=== PATIENT | male | born 1940 | race Caucasian/White ===

== ENCOUNTER 2022-08-08 22:09 | Inpatient (IN) | payer MEDICARE, BC, SELFPAY ==
[2022-08-08 22:28] VITALS: O2SAT 90
[2022-08-08 22:29] VITALS: BP 133/75; PULSE 105; RESP 32; TEMP 36.4; O2SAT 78; BMI 25.8
--- NOTE | 2022-08-08 22:49 | CRLHL7_ITS ---
For Patients: As a result of the Century Cures Act, medical imaging exams and procedure reports are released immediately into your electronic medical record. You may view this report before your referring provider. If you have questions, please contact your health care provider. INDICATION: Shortness of breath TECHNIQUE: Chest radiograph 1 view COMPARISON: 03/29/2022, 03/27/2022 FINDINGS: Mediastinum: The mediastinum is normal in appearance. The heart silhouette is normal in size and morphology. Lung: Diffuse subpleural reticular interstitial opacities are present bilaterally and likely due to pulmonary fibrosis. New confluent ground-glass opacities are noted in the right lung base. Masslike consolidation is present in the right hilar and infrahilar region. No sign of pleural effusion seen. No pneumothorax is identified. Bone and Soft tissue: Unremarkable for age. IMPRESSIONS: 1. New confluent ground-glass opacities are noted in the right lung base. This may be due to pneumonia or aspiration. 2. Masslike consolidation is present in the right hilar and infrahilar region. Assessment with chest CT is recommended. Dictated by Jam Galvez MD @ 08/08/2022 11:21:33 PM Dictated by: Jam Galvez MD @ 08/08/2022 23:21:35 (Electronically Signed)
--- NOTE | 2022-08-08 22:53 | ED_ITS ---
HPI - SOB/Dyspnea General Chief Complaint: Shortness of Breath/Dyspnea Stated Complaint: Short of breath, back pain Time Seen by Provider: 08/08/22 22:49 History of Present Illness HPI Narrative: 82-year-old man presenting to the emergency department with his son Micah with complaint of increasing shortness of breath. Actually with further questioning reveals that probably would not have come in for the dyspnea that he is experiencing was it not for the degree of back pain he is having. Has a history of chronic back pain with apparently repeat ablations last done a few weeks ago; apparently this did not work. Has much worse pain today in similar distribution as prior radiating from his back down his right buttock along the right side of his right thigh to his knee. He began feeling more short of breath around mid afternoon (it is now almost 11:00 p.m.) and this also coincided with the radicular back pain worsening as well. Has not had any fevers. There has been mild cough. His does have COPD and is maintained on 2 L of oxygen. He would figure would be about 90% typically on oxygen and off oxygen with exertion desats into the 70s son says; again this is more of a baseline. He is not having any chest pain. Is not having abdominal pain. Is not having lighthead edness. Former smoker having quit 5-7 years ago. Does not apparently get pain medication beyond [id number] medications like ibuprofen or acetaminophen for pain. I do discuss his history of hypoxia and COPD perhaps this is somewhat related to not receiving opiates. Has been doing albuterol and DuoNebs; the latter sounds to be scheduled. History also of peripheral vascular disease his son makes sure to mention Related Data Home Medications Medication Instructions Recorded Confirmed albuterol sulfate 90 mcg/actuation 1 inh inhalation Q6H PRN 05/09/22 08/09/22 breath activated powder inhaler amlodipine 2.5 mg tablet 2.5 mg PO DAILY 05/09/22 08/09/22 aspirin 81 mg tablet,delayed 81 mg PO DAILY 05/09/22 08/09/22 release cholecalciferol (vitamin D3) 25 100 mcg PO DAILY 05/09/22 08/09/22 mcg (1,000 unit) tablet cilostazol 50 mg tablet 50 mg PO BID 05/09/22 08/09/22 disulfiram 250 mg tablet 250 mg PO BID 05/09/22 05/09/22 fluticasone fur. 100 mcg-umeclid 1 inh inhalation DAILY 05/09/22 08/09/22 62.5 mcg-vilant 25 mcg inhalat.powder hydrochlorothiazide 25 mg tablet 25 mg PO DAILY 05/09/22 08/09/22 ipratropium 0.5 mg-albuterol 3 mg 1 ml inhalation Q6H PRN 05/09/22 08/09/22 (2.5 mg base)/3 mL nebulization soln magnesium oxide 400 mg (241.3 mg 400 mg PO DAILY 05/09/22 08/09/22 magnesium) tablet multivitamin 1 tab PO QAM 05/09/22 08/09/22 omega-3 fatty acids 1,250 mg 1,250 mg PO QDAY 05/09/22 08/09/22 capsule omeprazole 40 mg capsule,delayed 40 mg PO BID 05/09/22 08/09/22 release sildenafil (pulm.hypertension) 20 20 mg PO TID 05/09/22 08/09/22 mg tablet spironolactone 25 mg tablet 25 mg PO DAILY 05/09/22 08/09/22 Previous Rx's Medication Instructions Recorded lorazepam 1 mg tablet 1 mg PO TID PRN agitation #90 tabs 06/13/22 sertraline 100 mg tablet 100 mg PO QDAY Anxiety #90 tabs 07/09/22 losartan 100 mg tablet 100 mg PO DAILY #90 tabs 07/18/22 metformin 500 mg tablet 500 mg PO DAILY #30 tabs 08/08/22 Allergies Allergy/AdvReac Type Severity Reaction Status Date / Time Sulfa Antibiotics Allergy Unknown Uncoded 05/18/22 11:18 Review of Systems Status of ROS: Reports: 10 or more systems reviewed and unremarkable except as noted in History and below [facility] Medical History Anxiety History of adenomatous polyp of colon Surgical History History of decompression of both ulnar nerves History of lumbar discectomy History of phacoemulsification of cataract of both eyes with intraocular lens implantation History of thumb surgery Social History Narrative: , lives with his in [place]. is healthcare power of regulatory attorney. Code status is DNR. 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 Long-standing history of cigarette smoking. Longstanding history of alcohol abuse Retired Highest level of school completed/degree received: Bachelor's degree Smoking Status: Former smoker What tobacco products do you use: cigarettes Smoking quit date/years: <= 15 years ago Do you use any of these nicotine containing products: None Second hand tobacco smoke exposure: No How often do you have a drink containing alcohol: 2-3 times a week Alcohol type: hard liquor Alcohol type details: whiskey How many standard drinks containing alcohol do you have on a typical day: 1 or 2 How often do you have six or more drinks on one occasion: Never AUDIT-C Alcohol total score: 3 Non-prescribed substance use: denies use Caffeine: Yes service: Yes Exam Narrative: Exam Narrative: Clearly dyspneic. Quite labored and tachypneic in breathing. Speaks a few words at a time. Cranial nerves 2-12 look to be intact Head is atraumatic. Thinning of hair. Neck is supple. I do not appreciate JVD. Lungs with diminished breath sounds and diffuse mild crepitus. No wheeze or stridor. Oropharynx is dry, a little hyperemic. Upper denture plate. Cardiovascular is tachycardic. Appears to be in a regular rhythm. Abdomen is protuberant soft and nontender Lower extremities with chronic discoloration consistent with for vascular disease. Moves all extremities well. Const: Vital Signs, click to edit/add: Vital Signs - 24 hr 08/08/22 22:29 08/08/22 22:28 08/09/22 00:00 Temperature 97.6 F 97.6 F Pulse Rate [Right Pulse Oximeter] 105 H Respiratory Rate 32 H Blood Pressure [Ri ght Upper Arm] 133/75 Pulse Oximetry 78 L 90 Oxygen Delivery Me thod Room Air Oxygen Flow Rate 08/09/22 02:15 08/09/22 01:00 08/08/22 23:00 Temperature Pulse Rate [Right Pulse Oximeter] 97 90 Respiratory Rate 26 H 28 H 30 H Blood Pressure [Ri ght Upper Arm] 122/70 125/70 Pulse Oximetry 90 89 90 Oxygen Delivery Me thod Nasal Cannula Nasal Cannula Nasal Cannula Oxygen Flow Rate 3 3 4 Documenting provider has reviewed patient's vital signs: yes Course Reevaluation(s) Reevaluation #1: Placed on phototypesetting equipment monitor and oximetry. Given DuoNeb and Solu-Medrol. Reevaluation #2: On re-evaluation I am surprised to see him rather relaxed. We have managed to turn down oxygen to 0. At rest he is satting about 90. He is relatively comfortable with regard to pain. I think bringing this down must have helped underlying anxiety and respiratory distress. [place] 2 tabs was not helpful. Was finally given 4 mg of morphine this seems to have been effective. Consultations Consultation #1: I have already contacted hospitalist anticipating admission. Ultimately admitted to overnight hospitalist Vital Signs Vital signs: Initial Vital Signs Pulse Oximetry 90 08/08/22 22:28 Vital Signs Pulse Oximetry 90 08/08/22 22:28 Temperature 98.8 F 08/09/22 11:23 Pulse Rate 78 08/09/22 11:23 Respiratory Rate 22 08/09/22 11:23 Blood Pressure 113/75 08/09/22 11:23 Pulse Oximetry 91 08/09/22 11:23 Oxygen Delivery Method 08/09/22 11:23 Oxygen Flow Rate 3.5 08/09/22 11:23 MDM - SOB/Dyspnea MDM Narrative Medical decision making narrative: Presumed COPD exacerbation. However white count elevated over 16,000. Chest x-ray by my read suggests infiltrative process in the right lower lung and prominence in the right perihilar area question of mass on radiology over-read. Returned for chest CT. Given degree of pain with radiation to the right leg I did request extending imaging to the lumbar spine. This does show some degenerative changes and broad-based disc protrusions at a number of levels and central canal stenosis. I do review images. Chest CT confirms suspected pneumonia no apparent mass. Emphysematous changes. There is a pulmonary nodule which apparently has been noted prior looks to be unchanged. Initiated on Rocephin and azithromycin. Medical Records Attestation: I reviewed the patient's medical records. Lab Data Attestation: I reviewed the patient's lab results. Labs: Lab Results 08/08/22 08/08/22 08/08/22 Range/Units 22:15 22:20 22:20 WBC (4.50-11.00) K/uL RBC (4.30-5.90) m/uL Hgb (13.5-17.5) gm/dL Hct (37.0-53.0) % MCV (80-100) fL MCH (26-34) pg MCHC (32-36) gm/dL RDW Coeff of [place] (11.5-15.5) % Plt Count (140-440) K/uL Neut % (Auto) (42.0-72.0) % Lymph % (Auto) (20-44) % [place] % (Auto) (0.0-11.0) % Eos % (Auto) (0.0-7.0) % Baso % (Auto) (0.0-3.0) % Neut # (Auto) (1.7-7.0) K/uL Lymph # (Auto) (0.90-2.90) K/uL [place] # (Auto) (0.00-0.90) K/UL Eos # (Auto) (0.00-0.50) K/uL Baso # (Auto) (0.00-0.30) K/uL Abs Immat Gran (auto) (0.00-0.30) K/uL VBG pH 7.398 (7.32-7.43) VBG pCO2 47 (40-50) mmHG VBG pO2 28.3 (25-47) mmHG VBG HCO3 29 H (21-28) mmol/L Sodium (135-149) mmol/L Potassium (3.6-5.1) mmol/L Chloride (96-114) mmol/L Carbon Dioxide (20-32) mmol/L BUN (7-30) mg/dL Creatinine (0.5-1.5) mg/dL Estimated Creat Clear Estimated GFR ml/min Glucose (60-115) mg/dL Calcium (8.4-10.6) mg/dL Magnesium (1.5-2.6) mg/dL Troponin I < 0.01 L (0.01-0.04) ng/mL C-Reactive Protein (0.5-1.0) mg/dL NT-Pro-B Natriuret Pep 67 (0-450) PG/mL SARS-CoV-2 (PCR) Negative SARS-CoV-2 (Negative) Influenza Type A (PCR) Negative PCR FLU A (Negative) Influenza Type B (PCR) Negative PCR FLU B (Negative) POC Troponin I (0.01-0.04) ng/ml 08/08/22 08/08/22 08/09/22 Range/Units 22:20 22:20 01:10 WBC 16.49 H (4.50-11.00) K/uL RBC 4.69 (4.30-5.90) m/uL Hgb 13.7 (13.5-17.5) gm/dL Hct 42.1 (37.0-53.0) % MCV 90 (80-100) fL MCH 29 (26-34) pg MCHC 33 (32-36) gm/dL RDW Coeff of [place] 14.4 (11.5-15.5) % Plt Count 213 (140-440) K/uL Neut % (Auto) 93.8 H (42.0-72.0) % Lymph % (Auto) 2.1 L (20-44) % [place] % (Auto) 3.3 (0.0-11.0) % Eos % (Auto) 0.0 (0.0-7.0) % Baso % (Auto) 0.1 (0.0-3.0) % Neut # (Auto) 15.50 H (1.7-7.0) K/uL Lymph # (Auto) 0.30 L (0.90-2.90) K/uL [place] # (Auto) 0.50 (0.00-0.90) K/UL Eos # (Auto) 0.00 (0.00-0.50) K/uL Baso # (Auto) 0.00 (0.00-0.30) K/uL Abs Immat Gran (auto) 0.12 (0.00-0.30) K/uL VBG pH (7.32-7.43) VBG pCO2 (40-50) mmHG VBG pO2 (25-47) mmHG VBG HCO3 (21-28) mmol/L Sodium 137 (135-149) mmol/L Potassium 4.1 (3.6-5.1) mmol/L Chloride 101 (96-114) mmol/L Carbon Dioxide 28 (20-32) mmol/L BUN 22 (7-30) mg/dL Creatinine 1.0 (0.5-1.5) mg/dL Estimated Creat Clear 60.83 Estimated GFR 76 ml/min Glucose 151 H (60-115) mg/dL Calcium 9.5 (8.4-10.6) mg/dL Magnesium 1.7 (1.5-2.6) mg/dL Troponin I (0.01-0.04) ng/mL C-Reactive Protein < 0.5 L (0.5-1.0) mg/dL NT-Pro-B Natriuret Pep (0-450) PG/mL SARS-CoV-2 (PCR) (Negative) Influenza Type A (PCR) (Negative) Influenza Type B (PCR) (Negative) POC Troponin I 0.01 (0.01-0.04) ng/ml 08/09/22 Range/Units 01:10 WBC (4.50-11.00) K/uL RBC (4.30-5.90) m/uL Hgb (13.5-17.5) gm/dL Hct (37.0-53.0) % MCV (80-100) fL MCH (26-34) pg MCHC (32-36) gm/dL RDW Coeff of [place] (11.5-15.5) % Plt Count (140-440) K/uL Neut % (Auto) (42.0-72.0) % Lymph % (Auto) (20-44) % [place] % (Auto) (0.0-11.0) % Eos % (Auto) (0.0-7.0) % Baso % (Auto) (0.0-3.0) % Neut # (Auto) (1.7-7.0) K/uL Lymph # (Auto) (0.90-2.90) K/uL [place] # (Auto) (0.00-0.90) K/UL Eos # (Auto) (0.00-0.50) K/uL Baso # (Auto) (0.00-0.30) K/uL Abs Immat Gran (auto) (0.00-0.30) K/uL VBG pH (7.32-7.43) VBG pCO2 (40-50) mmHG VBG pO2 (25-47) mmHG VBG HCO3 (21-28) mmol/L Sodium (135-149) mmol/L Potassium (3.6-5.1) mmol/L Chloride (96-114) mmol/L Carbon Dioxide (20-32) mmol/L BUN (7-30) mg/dL Creatinine (0.5-1.5) mg/dL Estimated Creat Clear Estimated GFR ml/min Glucose (60-115) mg/dL Calcium (8.4-10.6) mg/dL Magnesium (1.5-2.6) mg/dL Troponin I 0.02 (0.01-0.04) ng/mL C-Reactive Protein (0.5-1.0) mg/dL NT-Pro-B Natriuret Pep (0-450) PG/mL SARS-CoV-2 (PCR) (Negative) Influenza Type A (PCR) (Negative) Influenza Type B (PCR) (Negative) POC Troponin I (0.01-0.04) ng/ml ECG Data Attestation: I personally reviewed and interpreted this ECG as follows: (sinus t achycardia 105) Discharge Plan Discharge Clinical Impression: Chronic radicular low back pain, Chronic obstructive pulmonary disease with acute exacerbation, Pneumonia Patient Disposition: Admitted As Inpatient Condition: Improved
[2022-08-08 23:00] VITALS: RESP 30; O2SAT 90
[2022-08-08 23:12] LABS: PCR FLU A Negative PCR FLU A (Negative); PCR FLU B Negative PCR FLU B (Negative)
[2022-08-08] MEDS: METHYLPREDNISOLONE SOD SUCC 62.5 MG/ML (125) 93.75 MG IVP (23:16)
[2022-08-08] MEDS: IPRAT-ALBUT 0.5-2.5 MG/3 ML NEB 1 NEB IH (23:16)
[2022-08-08 23:22] LABS: Basophils Percent Auto 0.1 % (0.0-3.0); HCO3 VBG 29 mmol/L (21-28); Hematocrit 42.1 % (37.0-53.0); Hemoglobin* 13.7 gm/dL (13.5-17.5); Immature Granulocytes Abs Auto 0.12 K/uL (0.00-0.30); Lymphocytes Percent Auto 2.1 % (20-44); Mean Corpuscular HGB Conc 33 gm/dL (32-36); Mean Corpuscular Hemoglobin 29 pg (26-34); Mean Corpuscular Volume 90 fL (80-100); Monocytes Percent Auto 3.3 % (0.0-11.0); Neutrophils Percent Auto 93.8 % (42.0-72.0); PCO2 VBG 47 mmHG (40-50); PO2 VBG 28.3 mmHG (25-47); Platelet Count* 213 K/uL (140-440); RDW Coefficient of Variation % 14.4 % (11.5-15.5); Red Blood Count 4.69 m/uL (4.30-5.90); White Blood Count* 16.49 K/uL (4.50-11.00); pH VBG 7.398 (7.32-7.43)
[2022-08-08 23:24] LABS: Slide Review Reflex No
[2022-08-08] MEDS: HYDROCODONE-ACETAMIN 5-325 MG 1 TAB 2 TAB PO (23:25)
[2022-08-08 23:26] LABS: Chloride* 101 mmol/L (96-114); Potassium* 4.1 mmol/L (3.6-5.1); Sodium* 137 mmol/L (135-149)
[2022-08-08 23:28] LABS: Est. Creatinine Clearance* 60.83; Estimated Glomerular Filt Rate 76 ml/min
[2022-08-08 23:29] LABS: Blood Urea Nitrogen* 22 mg/dL (7-30); Carbon Dioxide* 28 mmol/L (20-32); Glucose* 151 mg/dL (60-115)
[2022-08-08 23:30] LABS: Calcium* 9.5 mg/dL (8.4-10.6); Magnesium* 1.7 mg/dL (1.5-2.6)
[2022-08-08 23:32] LABS: SARS PCR* Negative SARS-CoV-2 (Negative)
[2022-08-08 23:32] LABS: C Reactive Protein* < 0.5 mg/dL (0.5-1.0)
[2022-08-08 23:38] LABS: NT Pro B Type NatriureticPept* 67 PG/mL (0-450)
[2022-08-08 23:42] LABS: Troponin I* < 0.01 ng/mL (0.01-0.04)
[2022-08-09] VITALS (13 sets, daily range): BP systolic 113–171; BP diastolic 51–75; PULSE 74–97; RESP 18–28; TEMP 36.3–37.1; O2SAT 89–96; BMI 24.4
--- NOTE | 2022-08-09 00:07 | CRLHL7_ITS ---
For Patients: As a result of the Century Cures Act, medical imaging exams and procedure reports are released immediately into your electronic medical record. You may view this report before your referring provider. If you have questions, please contact your health care provider. INDICATION: Chest pain TECHNIQUE: CT chest with and without i.v. contrast during the venous phase. Coronal and sagittal reformats were obtained. CONTRAST: 95 mL Isovue 370 COMPARISON: 03/24/2022 FINDINGS: Cardiovascular: The heart has an unremarkable appearance and size. The pulmonary arteries are unremarkable in appearance. No sign of aneurysm or dissection in the thoracic aorta. Moderate atherosclerotic calcifications are noted in the coronary arteries. Mediastinum: No mass or adenopathy seen. Lung: Airspace infiltrates and ground-glass opacities are present within the right middle lobe and small amount of peribronchial infiltrates present in the right upper lobe. Focal subpleural consolidation is present in the posterior right lower lobe with marginal architectural distortions. Severe centrilobular emphysema is noted bilaterally. There is an 8 mm nodule in the medial right middle lobe on image 64, series 4 that is unchanged from prior exam. Pleura and pericardium: No sign of pleural effusion seen. No significant pericardial effusion is present. Chest wall and axilla: No mass or adenopathy seen. Bone: Unremarkable for age. Upper abdomen: Unremarkable. IMPRESSIONS: 1. Airspace infiltrates and ground-glass opacities are present within the right middle lobe and small amount of peribronchial infiltrates present in the right upper lobe. Findings are likely due to pneumonia. 2. Focal subpleural consolidation is present in the posterior right lower lobe with marginal architectural distortions. The overall appearance is similar to prior exam and may be due to rounded atelectasis. 3. Moderate atherosclerotic calcifications are noted in the coronary arteries. 4. There is an 8 mm nodule in the medial right middle lobe on image 64, series 4 that is unchanged from prior exam. Continued imaging surveillance is recommended. Dictated by Jam Galvez MD @ 08/09/2022 1:03:13 AM Please note that all CT scans at this facility use dose modulation, iterative reconstruction, and/or weight-based dosing when appropriate to reduce radiation dose to as low as reasonably achievable. Dictated by: Jam Galvez MD @ 08/09/2022 01:03:24 (Electronically Signed)
--- NOTE | 2022-08-09 00:33 | CRLHL7_ITS ---
For Patients: As a result of the Century Cures Act, medical imaging exams and procedure reports are released immediately into your electronic medical record. You may view this report before your referring provider. If you have questions, please contact your health care provider. INDICATION: Low back lumbar spine pain TECHNIQUE: CT lumbar spine without i.v. contrast. Coronal and sagittal reformats were obtained. COMPARISON: None FINDINGS: Alignment: Unremarkable. Bone: No acute fractures or aggressive bone lesions are identified. Disc: Moderate degenerative disc narrowing is seen at L2-3 and L4-5. Vacuum phenomena seen at L4-5. There are broad-based disc protrusions present from L2-3 through L5-S1 with central canal stenosis noted at L3-4 and L4-5. Moderate bilateral facet osteoarthritis is present at L3-4. Severe bilateral facet osteoarthritis is present at L4-5 and L5-S1. Soft tissue: The perivertebral soft tissues and visualized retroperitoneum are unremarkable in appearance. IMPRESSION: 1. There are broad-based disc protrusions present from L2-3 through L5-S1 with central canal stenosis noted at L3-4 and L4-5. These findings can be better assessed by MRI if needed. Dictated by Jam Galvez MD @ 08/09/2022 1:05:18 AM Please note that all CT scans at this facility use dose modulation, iterative reconstruction, and/or weight-based dosing when appropriate to reduce radiation dose to as low as reasonably achievable. Dictated by: Jam Galvez MD @ 08/09/2022 01:05:24 (Electronically Signed)
[2022-08-09 01:47] LABS: Troponin I* 0.02 ng/mL (0.01-0.04)
[2022-08-09 02:20] LABS: Troponin, Point-of-Care* 0.01 ng/ml (0.01-0.04)
[2022-08-09] MEDS: MORPHINE 4 MG/ML INJ IVP (02:33)
[2022-08-09] MEDS: AZITHROMYCIN 250 MG TABLET 500 MG PO (03:50)
[2022-08-09] MEDS: cefTRIAXone 1 GM in 0.9 % SODIUM CHLORIDE Mini-bag 100 ML IVPB (03:50)
[2022-08-09] MEDS: ACETAMINOPHEN 500 MG TABLET 1000 MG PO ×3 (04:00→15:52)
[2022-08-09] MEDS: IPRAT-ALBUT 0.5-2.5 MG/3 ML NEB 1 NEB IH ×4 (04:00→21:04)
--- NOTE | 2022-08-09 04:03 | W.PM.CROSSCO ---
Assessment and Plan Assessment and plan (1) Respiratory failure: Status: Acute [facility] was contacted with request of consultation on Luis Antonio Amber Chief complaint: Shortness of breath, worsening HPI: Patient is confused and is not able to give history. History is taken from EMR and ER physician. Is an 82-year-old male with history of baseline dementia, type 2 diabetes mellitus. Is brought in by his son for increasing shortness of breath. There are no reported fevers with increasing cough and phlegm production. He also has a history of chronic lower back pain that apparently has been worsening with radiation down the right leg. The details of this pain I could not gather because patient is not able to give any history. At baseline he uses 2 L of oxygen and has pulmonary hypertension and is on medications for that. No reports of chest pain or abdominal pain. No nausea vomiting lightheadedness. He is a former smoker. Has not had any pain medications other than agii-sdh-[id number] meds. In the emergency room he was found to be hypoxic with room air. Started on oxygen support, given Solu-Medrol, albuterol and duo nebs. Chest x-ray with multifocal infiltrates. Also concern for mediastinal mass. CT chest showed rounded atelectasis, peribronchial infiltrates in the right upper and lower lobes. 8 mm nodule in the right midlung zone. CT lumbar spine showed multilevel disc protrusions with spinal canal stenosis that was unchanged from previous imaging. Home Medications: see EMR Pertinent Medical History: See EMR Pertinent Social History: See EMR Exam (performed via interactive video with assistance of bedside nurse; ): General: alert, oriented x2, cooperative, no acute distress HEENT: oral mucosa pink and moist without erythema Lungs: Wheezes in bilateral upper lung zones, coarse breath sounds most of the right lung schwarz CV: regular rate and rhythm without loud murmur rub or gallop Abd: denies tenderness and does not exhibit signs of pain with palpation done by bedside nurse Ext: no pitting edema noted Skin: no rashes, bruises or lesions. Neuro:[alert, oriented x 2. facial muscles grossly intact, moves all extremities without any significant focal deficit appreciated by nurse. Pupils round reactive to light. Labs and imaging were reviewed Assessment and Plan: Acute multifocal community-acquired pneumonia COPD exacerbation secondary to pneumonia Acute on chronic hypoxic respiratory failure secondary to above (2 L at baseline) Severe pulmonary hypertension on sildenafil COVID-negative. CT chest and chest x-ray reviewed with ER physician. Not able to review images myself. Oxygen support. As needed Xopenex, scheduled DuoNebs, budesonide, Scheduled prednisone. Omeprazole in the settings of hypoxia and prednisone use. Blood cultures and sputum cultures ordered. Continue with ceftriaxone and Zithromax. Incentive spirometry. Continue Aldactone, sildenafil Acute on chronic low back pain with lumbar radiculopathy CT lumbar spine reviewed, unchanged. Multimodal pain regimen. PT OT. Lidoderm patch. Scheduled Tylenol. As needed oxycodone. Altered mentation likely toxic metabolic encephalopathy related to multiple factors (baseline dementia, lack of sleep, use of morphine, pneumonia) Treat the cause: We will try to avoid benzodiazepines and opioids as much as possible Patient is not aggressive at this time Minimal interventions at night time Type 2 diabetes mellitus Continue to hold oral hypoglycemics. Also sliding scale Hypertension Hyperlipidemia Anxiety Continue losartan, rosuvastatin and sertraline once medications reconciled IV fluids: None Diet:Regular DVT prophylaxis: Lovenox CODE STATUS: Full code (will need to be addressed with family in the morning) Thank you for including [facility] in the patients care. This service is available for further assistance as requested by your care team by calling [phone].
[2022-08-09] MEDS: LIDOCAINE 5% PATCH 1 PATCH TRANSDERMA (04:15)
[2022-08-09] MEDS: GABAPENTIN 100 MG CAPSULE PO ×3 (08:45→20:38)
[2022-08-09] MEDS: OMEPRAZOLE 20 MG CAPSULE DR PO (08:45)
[2022-08-09] MEDS: predniSONE 20 MG TABLET 40 MG PO (08:45)
--- NOTE | 2022-08-09 10:41 | REH.PT ---
PT orders received, chart reviewed. Pt up amb ind in room without AD, AMb, Ind with transfers sit<>stand and supine<>sit. No apparent balance abnormalities. Skilled PT not indicated at this time. D/C PT.
[2022-08-09] MEDS: levoFLOXacin 500 MG TABLET PO (14:28)
--- NOTE | 2022-08-09 15:05 | P.IMHP_ITS ---
Hospitalist- H&P: HPI History of Present Illness Date Seen: 08/09/22 Chief complaint: Short of breath, back pain Narrative: Carlos Hernández is a 82 year old male admitted through the emergency department this morning with back pain and shortness of breath. Patient has known chronic back pain and known COPD which is oxygen dependent on 2 L per nasal cannula at home. Both these problems have recently gotten worse. No apparent new injury. No fever. Patient has dementia and is unable to give much history. History is obtained from the son in the emergency department and from the medical record. Patient was hospitalized here in March with COVID, pneumothorax, subcutaneous emphysema and fairly difficult time with delirium. Review of Systems Narrative: Unable to to obtain due to altered mental status [facility] Medical History (Updated 08/09/22 @ 15:17 by Noe Brasher MD) Anxiety History of adenomatous polyp of colon Surgical History History of decompression of both ulnar nerves History of lumbar discectomy History of phacoemulsification of cataract of both eyes with intraocular lens implantation History of thumb surgery Social History (Updated 08/09/22 @ 15:12 by Noe Brasher MD) Narrative: , lives with his in [place]. is healthcare power of assistant county attorney. Code status is DNR. 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 Long-standing history of cigarette smoking. Longstanding history of alcohol abuse Retired Highest level of school completed/degree received: Bachelor's degree Smoking Status: Former smoker What tobacco products do you use: cigarettes Smoking quit date/years: <= 15 years ago Do you use any of these nicotine containing products: None Second hand tobacco smoke exposure: No How often do you have a drink containing alcohol: 2-3 times a week Alcohol type: hard liquor Alcohol type details: misty How many standard drinks containing alcohol do you have on a typical day: 1 or 2 How often do you have six or more drinks on one occasion: Never AUDIT-C Alcohol total score: 3 Non-prescribed substance use: denies use Caffeine: Yes service: Yes Meds Home Medications and Allergies Home Medications Medication Instructions Recorded Confirmed Type albuterol sulfate 90 mcg/actuation 1 inh inhalation Q6H PRN 05/09/22 08/09/22 History breath activated powder inhaler amlodipine 2.5 mg tablet 2.5 mg PO DAILY 05/09/22 08/09/22 History aspirin 81 mg tablet,delayed 81 mg PO DAILY 05/09/22 08/09/22 History release cholecalciferol (vitamin D3) 25 100 mcg PO DAILY 05/09/22 08/09/22 History mcg (1,000 unit) tablet cilostazol 50 mg tablet 50 mg PO BID 05/09/22 08/09/22 History disulfiram 250 mg tablet 250 mg PO BID 05/09/22 05/09/22 History fluticasone fur. 100 mcg-umeclid 1 inh inhalation DAILY 05/09/22 08/09/22 History 62.5 mcg-vilant 25 mcg inhalat.powder hydrochlorothiazide 25 mg tablet 25 mg PO DAILY 05/09/22 08/09/22 History ipratropium 0.5 mg-albuterol 3 mg 1 ml inhalation Q6H PRN 05/09/22 08/09/22 History (2.5 mg base)/3 mL nebulization soln magnesium oxide 400 mg (241.3 mg 400 mg PO DAILY 05/09/22 08/09/22 History magnesium) tablet multivitamin 1 tab PO QAM 05/09/22 08/09/22 History omega-3 fatty acids 1,250 mg 1,250 mg PO QDAY 05/09/22 08/09/22 History capsule omeprazole 40 mg capsule,delayed 40 mg PO BID 05/09/22 08/09/22 History release sildenafil (pulm.hypertension) 20 20 mg PO TID 05/09/22 08/09/22 History mg tablet spironolactone 25 mg tablet 25 mg PO DAILY 05/09/22 08/09/22 History Allergies Allergy/AdvReac Type Severity Reaction Status Date / Time Sulfa Antibiotics Allergy Unknown Uncoded 05/18/22 11:18 Exam Narrative: Exam Narrative: He is restless and attempting to get out of his chair. He is not oriented to his circumstances, place day or date. He is unable to report any symptoms at this time. Head is without trauma. Speech is normal. No dysarthria. Oropharynx is normal. There is no facial asymmetry. Pupils are equal round reactive to light. Extraocular movements are full. Neck is supple out mass or adenopathy. Respirations with diminished breath sounds throughout all lung schwarz. Few basilar crackles more on the right than the left. Cardiovascular: S1, S2, regular rate and rhythm. Abdomen: Bowel sounds active. Abdomen is soft without tenderness or mass. Extremities with diminished pedal pulses. No significant edema. Const: Vital Signs, click to edit/add: Vital Signs - 24 hr 08/08/22 22:29 08/08/22 22:28 08/09/22 00:00 Temperature 97.6 F 97.6 F Pulse Rate Pulse Rate [Pulse Oximeter] Pulse Rate [Right Pulse Oximeter] 105 H Respiratory Rate 32 H Blood Pressure [Le ft Arm] Blood Pressure [Ri ght Arm] Blood Pressure [Ri ght Upper Arm] 133/75 Pulse Oximetry 78 L 90 Oxygen Delivery Me thod Room Air Oxygen Flow Rate 08/09/22 03:12 08/09/22 02:15 08/09/22 01:00 Temperature 98.1 F Pulse Rate Pulse Rate [Pulse Oximeter] Pulse Rate [Right Pulse Oximeter] 89 97 90 Respiratory Rate 28 H 26 H 28 H Blood Pressure [Le ft Arm] Blood Pressure [Ri ght Arm] Blood Pressure [Ri ght Upper Arm] 125/70 122/70 125/70 Pulse Oximetry 89 90 89 Oxygen Delivery Me thod Nasal Cannula Nasal Cannula Nasal Cannula Oxygen Flow Rate 3 3 3 08/08/22 23:00 08/09/22 03:30 08/09/22 03:43 Temperature 98.3 F Pulse Rate Pulse Rate [Pulse Oximeter] 85 Pulse Rate [Right Pulse Oximeter] Respiratory Rate 30 H 26 H Blood Pressure [Le ft Arm] 117/67 Blood Pressure [Ri ght Arm] Blood Pressure [Ri ght Upper Arm] Pulse Oximetry 90 92 92 Oxygen Delivery Me thod Nasal Cannula Nasal Cannula Nasal Cannula Oxygen Flow Rate 4 3 3 08/09/22 03:43 08/09/22 04:12 08/09/22 04:12 Temperature 98.3 F Pulse Rate Pulse Rate [Pulse Oximeter] 85 Pulse Rate [Right Pulse Oximeter] Respiratory Rate 26 H 26 H Blood Pressure [Le ft Arm] 117/67 Blood Pressure [Ri ght Arm] Blood Pressure [Ri ght Upper Arm] Pulse Oximetry 92 92 92 Oxygen Delivery Me thod Nasal Cannula Nasal Cannula Oxygen Flow Rate 3 3 08/09/22 08:06 08/09/22 08:02 08/09/22 08:06 Temperature 97.3 F L Pulse Rate 88 Pulse Rate [Pulse Oximeter] 90 Pulse Rate [Right Pulse Oximeter] Respiratory Rate 24 Blood Pressure [Le ft Arm] Blood Pressure [Ri ght Arm] 121/65 Blood Pressure [Ri ght Upper Arm] Pulse Oximetry 92 92 Oxygen Delivery Me thod Nasal Cannula Oxygen Flow Rate 3 08/09/22 08:06 08/09/22 11:23 Temperature 98.8 F Pulse Rate Pulse Rate [Pulse Oximeter] 78 Pulse Rate [Right Pulse Oximeter] Respiratory Rate 22 Blood Pressure [Le ft Arm] Blood Pressure [Ri ght Arm] 113/75 Blood Pressure [Ri ght Upper Arm] Pulse Oximetry 92 91 Oxygen Delivery Me thod Nasal Cannula Nasal Cannula Oxygen Flow Rate 3.5 3.5 Documenting provider has reviewed patient's vital signs: yes Hospitalist - H&P: Result Labs Labs: Short CBC 08/08/22 Range/Units 22:20 WBC 16.49 H (4.50-11.00) K/uL Hgb 13.7 (13.5-17.5) gm/dL Hct 42.1 (37.0-53.0) % Plt Count 213 (140-440) K/uL BMP 08/08/22 22:20 Sodium 137 Potassium 4.1 Chloride 101 Carbon Dioxide 28 BUN 22 Creatinine 1.0 Glucose 151 H Calcium 9.5 Cardiac Enzymes 08/08/22 08/09/22 Range/Units 22:20 01:10 Troponin I < 0.01 L 0.02 (0.01-0.04) ng/mL Assessment and Plan Assessment and plan (1) Pneumonia: Problem comment: Apparent new infiltrate overriding chronic pulmonary infiltrates on imaging. Clinically consistent with pneumonia diagnosis. Initial treatment with ceftriaxone and azithromycin but switched to Levaquin orally because patient keeps pulling IV out. Status: Acute (2) Chronic obstructive pulmonary disease with acute exacerbation: Problem comment: Chronically hypoxic with increased oxygen need. Status: Acute (3) Low back pain: Problem comment: Imaging of the back show significant lumbar disc disease and lumbar spinal stenosis. Status: Acute (4) Delirium: Problem comment: Patient needs increased supervision as his restlessness and behaviors continue to put him at risk. Status: Acute (5) Generalized anxiety disorder: Status: Acute (6) Dementia: Status: Acute (7) Coronary artery disease: Status: Acute (8) Hypertension: Status: Acute (9) Hyperlipidemia: Status: Acute (10) Gout: Status: Acute (11) Peripheral arterial disease: Status: Acute (12) Pulmonary hypertension: Status: Acute (13) Pneumothorax: Status: Acute (14) Type 2 diabetes mellitus: Status: Acute Plan Admit for treatment of pneumonia, management of hypoxia and delirium. Total time spent today is 75 minutes, 65 minutes in coordination of care, reviewing records and discussing with other providers management of delirium
[2022-08-09] MEDS: OXYCODONE 5 MG TABLET PO (16:54)
--- NOTE | 2022-08-09 18:41 | PC.NURSE ---
Patient was extremely confused and pulling on everything he comes across in his room. One-on-one nursing care instituted and moved to room closer to nursing station for easy monitoring. Patient disconnected the oxygen tubings and said he want to meet his . Requested for pain medication for back pain of 07/21. Tab Oxycodone 5mg given. Re-oriented several times due to his confused status. patient is current on 3.5L oxygen and the O2 is around 93%.V/S were WNL except Bp which recorded as 160/51.
[2022-08-09] MEDS: ENOXAPARIN 40 MG/0.4 ML INJ SUBCUT (20:38)
[2022-08-09] MEDS: BUDESONIDE 0.5 MG/2ML NEB NEB (20:38)
[2022-08-10] MEDS: ACETAMINOPHEN 500 MG TABLET 1000 MG PO ×2 (00:34→08:56)
[2022-08-10] MEDS: OLANZapine 5 MG/ML inj IM (00:34)
[2022-08-10] MEDS: OXYCODONE 5 MG TABLET PO (00:35)
[2022-08-10 03:00] VITALS: RESP 20
[2022-08-10 05:56] VITALS: PULSE 71; RESP 20; O2SAT 92
[2022-08-10] MEDS: OMEPRAZOLE 20 MG CAPSULE DR PO (06:41)
--- NOTE | 2022-08-10 06:50 | PC.NURSE ---
: Pt pleasant. Not compliant with lidocaine patch. LSCTA, dim in bases. Pt on 5L O2 via NC, maintaining sats >88%, spot checks throughout night = low 90s. At one point pt turned O2 up to 10L, I believe only for a short period of time. No insulin needed per sliding scale. ? Pt pushed code blue button in room and became restless, IM olanzapine given, pt able to rest throughout the night. ?
[2022-08-10 07:00] VITALS: PULSE 71; RESP 18
[2022-08-10 08:39] LABS: Basophils Percent Auto 0.1 % (0.0-3.0); Eosinophils Percent Auto 0.1 % (0.0-7.0); Hematocrit 38.7 % (37.0-53.0); Hemoglobin* 12.6 gm/dL (13.5-17.5); Immature Granulocytes Abs Auto 0.04 K/uL (0.00-0.30); Lymphocytes Percent Auto 6.6 % (20-44); Mean Corpuscular HGB Conc 33 gm/dL (32-36); Mean Corpuscular Hemoglobin 29 pg (26-34); Mean Corpuscular Volume 90 fL (80-100); Monocytes Percent Auto 6.4 % (0.0-11.0); Neutrophils Percent Auto 86.5 % (42.0-72.0); Platelet Count* 194 K/uL (140-440); RDW Coefficient of Variation % 14.8 % (11.5-15.5); Red Blood Count 4.32 m/uL (4.30-5.90); White Blood Count* 12.82 K/uL (4.50-11.00)
[2022-08-10 08:44] LABS: Slide Review Reflex No
[2022-08-10 08:50] VITALS: BP 144/71; PULSE 71; RESP 18; TEMP 36.9; O2SAT 90
[2022-08-10 08:53] LABS: Chloride* 101 mmol/L (96-114)
[2022-08-10 08:54] LABS: Potassium* 3.8 mmol/L (3.6-5.1); Sodium* 140 mmol/L (135-149)
[2022-08-10] MEDS: predniSONE 20 MG TABLET 40 MG PO (08:56)
[2022-08-10 08:57] LABS: Blood Urea Nitrogen* 23 mg/dL (7-30); Calcium* 9.5 mg/dL (8.4-10.6); Carbon Dioxide* 32 mmol/L (20-32); Est. Creatinine Clearance* 60.83; Estimated Glomerular Filt Rate 76 ml/min; Glucose* 162 mg/dL (60-115)
[2022-08-10] MEDS: IPRAT-ALBUT 0.5-2.5 MG/3 ML NEB 1 NEB IH (08:57)
[2022-08-10] MEDS: BUDESONIDE 0.5 MG/2ML NEB NEB (08:57)
[2022-08-10] MEDS: GABAPENTIN 100 MG CAPSULE PO ×2 (08:57→14:11)
[2022-08-10 09:37] LABS: HCO3 VBG 33 mmol/L (21-28); PCO2 VBG 58 mmHG (40-50); pH VBG 7.369 (7.32-7.43)
[2022-08-10 12:13] VITALS: BP 160/71; PULSE 74; RESP 18; O2SAT 91
--- NOTE | 2022-08-10 12:29 | P.DS_ITS ---
DS: Providers Provider Date Seen: 08/10/22 Date of admission: 08/09/22 15:50 Primary care physician: Andrew Pan MD Admitting Clinician: Mateo Norris MD Attending Physician on discharge: Mateo Norris MD Date of Discharge: 08/10/22 DS: Diagnosis Discharge Diagnosis (1) Respiratory failure: Status: Acute Problem details: Acute on chronic hypoxic respiratory failure due to combination of COPD exacerbation and pneumonia. Clinically improved during hospital stay. Today patient is ambulating without oxygen. Nurses have been unable to keep oxygen on him. He ripped reports no shortness of breath and appears only mildly dyspneic with activity (2) Pneumonia: Status: Acute Problem details: Apparent new infiltrate overriding chronic pulmonary infiltrates on imaging. Clinically consistent with pneumonia diagnosis. Initial treatment with ceftr iaxone and azithromycin but switched to Levaquin orally because patient keeps pulling IV out. Will finish out 3 more days of Levaquin at home (3) Type 2 diabetes mellitus: Status: Acute (4) Pulmonary hypertension: Status: Acute (5) Dementia: Status: Acute (6) Delirium: Status: Acute Problem details: Patient was episodically agitated and generally restless while he was awake. This improved through his hospital stay (7) Chronic obstructive pulmonary disease with acute exacerbation: Status: Acute Problem details: Chronically hypoxic with increased oxygen need. Back to baseline today (8) Low back pain: Status: Acute Problem details: Imaging of the back show significant lumbar disc disease and lumbar spinal stenosis. Patient is moving around quite comfortably today. He does not appear to be having significant pain today DS: Summary Hospital Course Hospital Course: 82-year-old male admitted to the hospital with worsening dyspnea and back pain. Time of admission evaluation showed that he had bilateral pneumonia. He is also clinically suspected to have a COPD exacerbation. He had acute on chronic hyp oxia with increased oxygen need. At home he uses 2 L per nasal cannula intermittently. Here he was needing 4 L per nasal cannula. He was treated initially with a Zithromax and ceftriaxone but because we could not keep an IV in him he was switched to Levaquin orally. His breathing got better. His oxygen need decreased. Today he is ambulating around in his room and quite restless but denies any dyspnea. He is anxious to go home. Status at Discharge Functional status at discharge: independent ambulation Overall status at discharge: patient is back to baseline Time Spent with Patient Time attestation: Total time spent providing and/or coordinating discharge services: 35 minutes Time spent: Greater than 30 minutes Exam Narrative: Exam Narrative: He is alert and appears in no distress. He is wandering around his room and into the hallway. He does not appear to have significant discomfort with moving including moving from sitting to standing. With ambulation he is refusing oxygen and reports no dyspnea. He is observed to be only mildly dyspneic with activity. Respirations with diminished breath sounds but no marked wheezing. No rales rhonchi or consolidation. Cardiovascular: S1, S2, regular rate and rhythm. Abdomen is soft without tenderness. Extremities without edema. Const: Vital Signs, click to edit/add: Vital Signs - 24 hr 08/09/22 15:00 08/09/22 15:00 08/09/22 19:00 Temperature 98.3 F 98 F Pulse Rate [Pulse Oximeter] 78 76 74 Respiratory Rate 22 22 18 Blood Pressure [Le ft Arm] Blood Pressure [Ri ght Arm] 160/51 H 171/71 H Pulse Oximetry 93 92 Oxygen Delivery Me thod Nasal Cannula Nasal Cannula Oxygen Flow Rate 3.5 5 08/09/22 22:20 08/09/22 22:20 08/10/22 03:00 Temperature 98.3 F Pulse Rate [Pulse Oximeter] 96 75 Respiratory Rate 18 18 20 Blood Pressure [Le ft Arm] Blood Pressure [Ri ght Arm] 153/72 H Pulse Oximetry 96 Oxygen Delivery Me thod Nasal Cannula Oxygen Flow Rate 5 08/10/22 05:56 08/10/22 08:50 08/10/22 07:00 Temperature 98.5 F Pulse Rate [Pulse Oximeter] 71 71 71 Respiratory Rate 20 18 18 Blood Pressure [Le ft Arm] 144/71 H Blood Pressure [Ri ght Arm] Pulse Oximetry 92 90 Oxygen Delivery Me thod Nasal Cannula Nasal Cannula Oxygen Flow Rate 5 2 08/10/22 12:13 Temperature Pulse Rate [Pulse Oximeter] 74 Respiratory Rate 18 Blood Pressure [Le ft Arm] 160/71 H Blood Pressure [Ri ght Arm] Pulse Oximetry 91 Oxygen Delivery Me thod Nasal Cannula Oxygen Flow Rate 1 Documenting provider has reviewed patient's vital signs: yes DS: Data Data Completed and Pending Labs on day of discharge: Labs from last 24 hours 08/10/22 08/10/22 08/10/22 09:35 08:04 08:04 WBC 12.82 H RBC 4.32 Hgb 12.6 L Hct 38.7 MCV 90 MCH 29 MCHC 33 RDW Coeff of [place] 14.8 Plt Count 194 Neut % (Auto) 86.5 H Lymph % (Auto) 6.6 L [place] % (Auto) 6.4 Eos % (Auto) 0.1 Baso % (Auto) 0.1 Neut # (Auto) 11.10 H Lymph # (Auto) 0.80 L [place] # (Auto) 0.80 Eos # (Auto) 0.00 Baso # (Auto) 0.00 Abs Immat Gran (auto) 0.04 VBG pH 7.369 VBG pCO2 58 H VBG pO2 VBG HCO3 33 H Sodium 140 Potassium 3.8 Chloride 101 Carbon Dioxide 32 BUN 23 Creatinine 1.0 Estimated Creat Clear 60.83 Estimated GFR 76 Glucose 162 H Calcium 9.5 Preliminary micro results at discharge 08/09/22 04:00 Blood Culture - Preliminary Blood NO GROWTH AFTER 24 HOURS 08/09/22 04:00 Blood Culture - Preliminary Blood NO GROWTH AFTER 24 HOURS Discharge Plan Discharge Disposition: Home, Self-Care Date of Admission: 08/09/22 15:50 Attending Provider on Discharge: Noe Brasher Primary Care Provider: Andrew Pan Condition: Improved Anticipated Discharge Date/Time: 08/10/22 14:30 Discharge Medications: New prednisone 20 mg Tablet 20 mg PO DAILYWM Qty: 3 0RF levofloxacin 500 mg Tablet 500 mg PO Q24H Qty: 3 0RF Continued yeliioayseb-cpqthiwdc-uxlxglmx 100-62.5-25 mcg blister with device 1 inh inhalation DAILY albuterol sulfate 90 mcg/actuation aerosol powdr breath activated 1 inh inhalation Q6H PRN cholecalciferol (vitamin D3) 25 mcg (1,000 unit) tablet 100 mcg PO DAILY sildenafil (pulm.hypertension) 20 mg tablet 20 mg PO TID magnesium oxide 400 mg (241.3 mg magnesium) tablet 400 mg PO DAILY aspirin 81 mg tablet,delayed release (DR/EC) 81 mg PO DAILY cilostazol 50 mg tablet 50 mg PO BID omega-3 fatty acids 1,250 mg capsule 1,250 mg PO QDAY multivitamin Tablet 1 tab PO QAM disulfiram 250 mg tablet 250 mg PO BID amlodipine 2.5 mg tablet 2.5 mg PO DAILY spironolactone 25 mg tablet 25 mg PO DAILY hydrochlorothiazide 25 mg tablet 25 mg PO DAILY ipratropium-albuterol 0.5 mg-3 mg(2.5 mg base)/3 mL solution for nebulization 1 ml inhalation Q6H PRN omeprazole 40 mg capsule,delayed release(DR/EC) 40 mg PO BID lorazepam 1 mg tablet 1 mg PO TID PRN (Reason: agitation) Qty: 90 0RF sertraline 100 mg tablet 100 mg PO QDAY Qty: 90 3RF losartan 100 mg tablet 100 mg PO DAILY Qty: 90 2RF metformin 500 mg tablet 500 mg PO DAILY Qty: 30 2RF Discharge Orders: Discharge Order (Routine); Ordered 08/10/22 Ordered By: Noe Brasher Patient Education: Prednisone (By mouth), Azithromycin (By mouth), COPD (Chronic Obstructive Pulmonary Disease) (DC) Activity Restrictions/Additional Instructions: continue oxygen at 2 L per nasal cannula. Follow-up with your regular doctor in 1-2 weeks Activity Level: Activity as Tolerated Discharge Diet: Regular Follow Up Appointments: Malathi Ann MD [Staff Physician] - 08/16/22 9:45 am Andrew Pan MD [Primary Care Provider] - (PCP unavailable) Forms: [employer] Info Instructions
[2022-08-10] MEDS: levoFLOXacin 500 MG TABLET PO (14:11)
--- NOTE | 2022-08-10 14:37 | PC.NURSE ---
Discharge-- Pleasant and cooperative, though forgetful as per baseline dementia pt discharged to home via wheelchair with at approximately 1400. VSS, though mildly hypertensive, and pt is afebrile. SPO2 89-90% on RA while at rest. Pt is chronically dependent on 2L per n.c. with exertion. He denied pain. LS coarse and diminished and occasional cough noted. He denied nausea and tolerated a regular diet without difficulty. BS 124 and 160 today and pt was given no additional insulin. He was up independently in room and tolerated it well. Discharge education was provided including diagnosis info, symptoms to report, medications and follow up plan. No further questions asked.
== END 2022-08-10 14:10 | disposition home or self-care (01) | DRG 190 ==
LOC: ED 22:57 → MEDSURG 08-09 02:57
PROVIDERS: Family Medicine; Admitting Provider Family Medicine; Emergency Provider Family Medicine; PCP Internal Medicine; Visit Provider Family Medicine
DX: J44.0 Chronic obstructive pulmonary disease with (acute) lower respiratory infection (principal); J18.9 Pneumonia, unspecified organism; J44.1 Chronic obstructive pulmonary disease with (acute) exacerbation; J96.21 Acute and chronic respiratory failure with hypoxia; G92.8 Other toxic encephalopathy; J93.83 Other pneumothorax; M54.50 Low back pain, unspecified; G89.29 Other chronic pain; J44.9 Chronic obstructive pulmonary disease, unspecified; Z87.891 Personal history of nicotine dependence; F03.90 Unspecified dementia, unspecified severity, without behavioral disturbance, psychotic disturbance, mood disturbance, and anxiety; E11.9 Type 2 diabetes mellitus without complications; M48.061 Spinal stenosis, lumbar region without neurogenic claudication; M51.16 Intervertebral disc disorders with radiculopathy, lumbar region; N31.9 Neuromuscular dysfunction of bladder, unspecified; I10 Essential (primary) hypertension; F41.1 Generalized anxiety disorder; I73.9 Peripheral vascular disease, unspecified; I27.20 Pulmonary hypertension, unspecified; R41.0 Disorientation, unspecified; E78.5 Hyperlipidemia, unspecified; M10.9 Gout, unspecified
CPT/HCPCS: 36415; 71045; 71260; 72131; 80048; 82803; 82947; 82962; 83735; 83880; 84484; 85025; 86140; 87040; 87070; 87631; 93005; 94640; 94761; 97165; 99284; 99285; G0378; A9270; J0696; J1650; J2270; J2930; J7512; J7626; Q9967; S0166

== ENCOUNTER 2022-09-05 09:45 | Outpatient (CLI) | payer MEDICARE, BC, SELFPAY ==
--- NOTE | 2022-09-05 10:15 | CRLHL7_ITS ---
For Patients: As a result of the Century Cures Act, medical imaging exams and procedure reports are released immediately into your electronic medical record. You may view this report before your referring provider. If you have questions, please contact your health care provider. INDICATION: Chronic low back pain. COMPARISON: 12/15/2021 and 08/09/2022. Technique Sagittal T1, T2, and STIR sequences. Axial T1 and T2 weighted sequences. FINDINGS: Stable degenerative grade 1 anterolisthesis of L4 on L5 measures approximate 5 mm. Otherwise, normal alignment. No fractures. No vertebral body loss of height. No ligamentous injury. No suspicious osseous lesions. Normal conus terminates at T12-L1. T12-L1: No spinal canal neural foraminal narrowing. L1-2: Disc degeneration. Shallow right paracentral to foraminal disc herniation measures approximately 3 mm in short axis. No narrowing of spinal canal. Mild narrowing of the right neural foramen. No narrowing of the left neural foramen. L2-3: Disc degeneration and loss disc height. Diffuse disc bulge. Left paracentral through foraminal disc herniation measures approximately 4 mm in short axis. Mild narrowing of spinal canal. Left subarticular recess narrowing with potential impingement of the traversing left L3 nerve root. Mild narrowing of the left neural foramen. No narrowing of the right neural foramen. Mild facet arthropathy. L3-4: Disc degeneration and posterior disc bulge. Mild narrowing of spinal canal. No neural foraminal narrowing. Mild facet arthropathy. L4-5: Grade 1 anterolisthesis. Disc degeneration and unroofed posterior disc bulge. Mrrt-ai-jrbkuzxu narrowing of spinal canal. Bilateral subarticular recess narrowing with potential impingement of the traversing L5 nerve roots. Oblique orientation of the bilateral foramina with moderate right and moderate severe left neural foraminal narrowing. Potential impingement of the exiting left L4 nerve root. Severe facet arthropathy. L5-S1: Disc degeneration posted disc bulge. No narrowing of spinal canal. No edmond impingement of the traversing S1 nerve roots. Moderate right and mild left neural foraminal narrowing. Mild facet arthropathy. Normal visualized SI joints. IMPRESSION: 1. Stable degenerative grade 1 anterolisthesis of L4 on L5. Otherwise normal alignment. No fractures 2. Lumbar spondylosis. 3. At L1-2, disc degeneration. Right paracentral to foraminal disc herniation. No narrowing of the spinal canal. Mild narrowing of the right neuroforamen. 4. At L2-3, a left paracentral to foraminal disc herniation. Mild narrowing of spinal canal. Potential impingement of the traversing left L3 nerve root. Mild narrowing of the left neuroforamen 5. At L4-5, disc degeneration and unroofed posterior disc bulge. Mild to moderate narrowing of spinal canal. Bilateral subarticular recess narrowing with potential impingement of the traversing L5 nerve roots. Moderate right and moderate to severe left neural foraminal narrowing. Potential impingement of the exiting left L4 nerve root 6. At L5-S1, moderate right and mild left neural foraminal narrowing. Dictated by Win Monge MD @ 09/05/2022 11:47:44 AM (Electronically Signed)
--- NOTE | 2022-09-05 11:00 | CRLHL7_ITS ---
For Patients: As a result of the Cures Act, medical imaging exams and procedure reports are released immediately into your electronic medical record. You may view this report before your referring provider. If you have questions, please contact your health care provider. INDICATION: Basilar INFILTRATES AFTER ANTIBIOTICS TECHNIQUE: Chest 2 views COMPARISON: CT chest 08/09/2022 FINDINGS: Interval resolution of right-sided infiltrates compared to the prior exam. Chronic COPD, emphysema and mild fibrotic change again noted bilaterally. Chronic density posterior right lung likely representing round atelectasis, as before. No fracture. No effusion. No pneumothorax. Mediastinum similar. IMPRESSION: Resolution of previously noted infiltrates. Dictated by Mateo Wallace MD @ 09/05/2022 11:05:20 AM (Electronically Signed)
== END 2022-09-05 09:46 | disposition home or self-care (01) ==
LOC: MRI 09:46
PROVIDERS: PCP Internal Medicine; Visit Provider Internal Medicine Pulmonary Disease
DX: M54.50 Low back pain, unspecified (principal); M51.36 Other intervertebral disc degeneration, lumbar region; M51.27 Other intervertebral disc displacement, lumbosacral region
CPT/HCPCS: 71046; 72148

== ENCOUNTER 2022-11-09 08:15 | Outpatient (RCR) | payer MEDICARE, BC, SELFPAY ==
--- NOTE | 2022-09-21 07:09 | PT.OPEX ---
PT [place] Outpatient Eval PT [facility] Outpatient Eval Start: 09/20/22 11:08 Freq: Status: Active Protocol: Document 09/20/22 11:08 ARR (Rec: 09/20/22 11:43 ARR [id number]) E-signed By Roberta Kaur DPT Physical Therapy Outpatient Evaluation Insurance Information Recert Due Date 12/19/22 Insurance Name Medicare B Medical Diagnosis M54.50 low back pain Treating Diagnosis M48.06 lumbar spinal stenosis M79.604 pain in right leg M79.605 pain in left leg Subjective Subjective Comes to PT with , Taylor. - Subjective: Has low back pain and bilateral knees as well behind the knees. Does have PAD. Back pain on/off for years but worsening over the last few years. Did have a nerve ablation that didn't help. Increases in pain: walking or standing. Can't walk very far before pain onsets, can't walk more than 5 minutes. Sits most of the time due to the PAD. Feels pain back of knees back of knees sitting or when standing . Doesn't use any device for ambulation. Has dementia and poor memory per spouse report. 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 Loss of LS lordosis Palpation: no TTP Gait: shuffling pattern, reduced foot clearance bilat, reduced heel-toe pattern RANGE OF MOTION: Lumbar ROM: -Flx: fingertips to ankles, pain posterior knees -Ext: 50% limitation pain posterior knees and low back -R Rot: 50 limited -L Rot:50 limited LE ROM (R/L): -Hip ER90: 50 bilat -Hip IR90: 10 L / 30 R -Hip flex: >120 bilat -Knee Flx: >120 bilat -Knee Ext: lacking 15-20 bilat STRENGTH: LE Strength (R/L) -Glut medius: 2+ bilat -Knee flexion and extension 4- bilat SPECIAL TESTS: LE Flexibility (R/L) -Hamstring: + bilat -Piriformis: + bilat -Prone knee bend: - bilat -Hip abd: + bilat -Noe Test:- bilat - Gastroc: +bilat Assessment Assessment/Impression Pt is a 82 y/o male who presents with complaints of low back pain with significant CT imaging for broad-based disc protrusions L2 through S1 there was central stenosis noted at L3-4 and L4-5 and 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 Signs and symptoms likely indicating / consistent with lumbar spinal stenosis with loss of AROM following capsular pattern. Pt also has loss of knee extension AROM bilat lacking 10-15* bilat which may be contributing to posterior knee pain at rest and with ambulation; however, pt does also have history of PAD. Patient also has notable objective findings including glut and core inhibition, hip flexor tightness, and loss of LS lordosis also likely contributing to the problem. Patient is a good candidate for skilled therapy to target deficits described above. Skilled PT intervention is necessary for use of therapeutic exercise manual therapy, neuromuscular re- education, gait training, and therapeutic activity. Functional impairments include difficulty with: sitting, standing, walking. See appropriate sections of PT eval for complete list of goals and POC. D/C plan and criteria is for pt to achieve the goals as listed below or until max rehab potential is met. Pt was agreeable with plan of care and goals established. Plan of Care Physical Therapy Goals STG (within 8 visits) 1) Pt will initiate HEP without increased pain/ symptoms 2) Pt will demonstrate ability to isometrically activate TA and gluts with minimal compensations in order to improve lumbopelvic stability 3) Pt will demonstrate ability to complete 6 MWT with no more than 4 seated rests for improved community mobility LTG (within 16 visits) 1) Pt will be indep with HEP for retirement management of pain/symptoms 2) Pt will report at least 50% improvement in bilateral leg pain/symptoms since start of PT for improved walking tolerance 3) Pt will demonstrate ability to maintain activation of TA and gluts with minimal compensations during dynamic lower/upper body mvmts in order to improve lumbopelvic stability 4) Pt will demonstrate ability to complete 6 MWT with no more than 2 seated rests for improved community mobility 5) Pt will report at least 50% improvement in low back pain leg pain/symptoms since start of PT for return to PLOF Treatment Plan/Direct Interventions Electrical Stimulation,Gait Training,Joint Mobilization, Manual Therapy,Neuromuscular Re-ed,Self-Care/Home Management,Therapeutic Activities,Therapeutic Exercises,Traction (Mechanical ),Ultrasound Frequency/Duration 2x/wk x 8 visits in 90 days Patient Will Be Discharged From Therapy Skills Plateau,Independent w/ HEP Evaluation Billing Untimed Code Treatment Minutes 15 Complexity Moderate Certification Information Initial Certification Date 09/20/22 Ending Certification Date 12/19/22 Provider Signature Shows Agreement With POC & Medical Necessity Physician Signature & Date Requested Please Sign/Date Here Physician Comment/Change : Physician NPI Number #
== END 2023-01-04 08:48 | disposition home or self-care (01) ==
PROVIDERS: PCP Internal Medicine; Visit Provider Family Medicine
DX: M54.50 Low back pain, unspecified (principal); Z51.89 Encounter for other specified aftercare
CPT/HCPCS: 97110; 97162

== ENCOUNTER 2022-11-14 13:58 | Outpatient (CLI) | payer MEDICARE, BC, SELFPAY ==
[2022-11-14 16:26] LABS: Chloride* 105 mmol/L (96-114); Potassium* 4.1 mmol/L (3.6-5.1); Sodium* 140 mmol/L (135-149)
[2022-11-14 16:28] LABS: Aspartate Amino Transferase* 20 U/L (12-35); Bilirubin Total* 0.7 mg/dL (0.1-1.5); Carbon Dioxide* 30 mmol/L (20-32); Estimated Glomerular Filt Rate 76 ml/min
[2022-11-14 16:29] LABS: Alanine Aminotransferase* 12 U/L (4-50); Alkaline Phosphatase* 63 U/L (40-150); Blood Urea Nitrogen* 20 mg/dL (7-30); Calcium* 9.1 mg/dL (8.4-10.6); Glucose* 107 mg/dL (60-115); Total Protein* 6.2 g/dL (6.0-8.3)
== END 2022-11-14 13:59 | disposition home or self-care (01) ==
PROVIDERS: PCP Internal Medicine; Visit Provider Internal Medicine
DX: J44.1 Chronic obstructive pulmonary disease with (acute) exacerbation (principal); I10 Essential (primary) hypertension; E78.5 Hyperlipidemia, unspecified
CPT/HCPCS: 80053

== ENCOUNTER 2022-11-27 09:53 | Outpatient (CLI) | payer MEDICARE, BC, SELFPAY | END 2022-11-27 09:54 | disposition home or self-care (01) | LOC: INJ CL 09:54 | PROVIDERS: PCP Internal Medicine; Visit Provider Family Medicine | DX: M54.16 Radiculopathy, lumbar region (principal); M51.36 Other intervertebral disc degeneration, lumbar region | CPT/HCPCS: 62323; J0702; Q9966 ==

== ENCOUNTER 2022-12-13 09:52 | Outpatient (CLI) | payer MEDICARE, BC, SELFPAY ==
--- NOTE | 2022-12-13 10:15 | CRLHL7_ITS ---
For Patients: As a result of the Century Cures Act, medical imaging exams and procedure reports are released immediately into your electronic medical record. You may view this report before your referring provider. If you have questions, please contact your health care provider. Technique: Double-contrast esophagram performed after the uneventful administration of effervescent crystals and thick barium followed by thin barium. Fluoroscopy time 1 minute 20 seconds. Indication: Abdominal pain, epigastric, bloating Comparison: None. Findings: Esophagus: Small sliding hiatal hernia is present with spontaneous reflux. No esophageal spasm or mucosal irregularity. No stricture. No achalasia. Gastroesophageal reflux: Spontaneous reflux noted. No significant delayed clearance. Impression: Small sliding hiatal hernia with spontaneous reflux. Dictated by Mateo Wallace MD @ 12/13/2022 2:30:55 PM (Electronically Signed)
== END 2022-12-13 09:53 | disposition home or self-care (01) ==
LOC: RAD 09:53
PROVIDERS: PCP Internal Medicine; Visit Provider Internal Medicine Gastroenterology
DX: R10.13 Epigastric pain (principal); K44.9 Diaphragmatic hernia without obstruction or gangrene; R14.0 Abdominal distension (gaseous)
CPT/HCPCS: 74246

== ENCOUNTER 2022-12-24 14:08 | Outpatient (CLI) | payer MEDICARE, BC, SELFPAY ==
[2022-12-24 16:30] LABS: Albumin* 3.8 g/dL (3.3-5.0)
[2022-12-24 16:31] LABS: Chloride* 103 mmol/L (96-114); Potassium* 3.6 mmol/L (3.6-5.1); Sodium* 137 mmol/L (135-149)
[2022-12-24 16:33] LABS: Bilirubin Total* 0.6 mg/dL (0.1-1.5); Estimated Glomerular Filt Rate 76 ml/min
[2022-12-24 16:34] LABS: Alanine Aminotransferase* 15 U/L (4-50); Alkaline Phosphatase* 59 U/L (40-150); Aspartate Amino Transferase* 21 U/L (12-35); Blood Urea Nitrogen* 17 mg/dL (7-30); Calcium* 8.9 mg/dL (8.4-10.6); Carbon Dioxide* 29 mmol/L (20-32); Glucose* 134 mg/dL (60-115); Total Protein* 6.1 g/dL (6.0-8.3)
[2022-12-24 17:05] LABS: TSH With Reflex to FT4* 0.024 uIU/mL (0.270-4.200)
[2022-12-24 18:49] LABS: Free T4 Free Thyroxine* 1.36 ng/dL (0.70-1.85)
== END 2022-12-24 14:09 | disposition home or self-care (01) ==
PROVIDERS: PCP Internal Medicine; Visit Provider Internal Medicine
DX: F03.90 Unspecified dementia, unspecified severity, without behavioral disturbance, psychotic disturbance, mood disturbance, and anxiety (principal); R41.3 Other amnesia; E87.6 Hypokalemia; F41.9 Anxiety disorder, unspecified; E11.9 Type 2 diabetes mellitus without complications
CPT/HCPCS: 80053; 84439; 84443; 87086

== ENCOUNTER 2023-01-29 10:14 | Outpatient (CLI) | payer MEDICARE, BC, SELFPAY ==
--- OUTSIDE RECORDS SUMMARY | 2023-01-29 10:17 | XMS_ITS | Continuity of Care Document ---
:1940 Author Organization [facility] Address [address] [place] [id number] Phone Care Team Providers Name Role Phone Shiloh Lopez Unavailable Unavailable Medications Medication Instructions Dosage Effective Dates Status Comment s (start - stop) Advair Diskus 100 - Active mcg-50 mcg/dose for Inhalation Lipitor 40 mg Tab - Active Diovan HCT 80 mg-12.5 - Active mg Tab Plavix 75 mg Tab - Active multivitamin Cap - Active Pletal 100 mg Tab - No Longer Active Procedures Procedure Date OV - Established Patient Urinalysis - Automated PSA Venipuncture Offic/outpt E&m Estab Low-mod Cystourethroscopy (separt Proc Urinalysis, Auto W/Scope Offic Cons New/estab Mod 40 Mi Urinalysis, Auto W/Scope Routine Venipuncture PSA = Prostate Spec Antig; Tot Results Test Name Date and Time Measure Units Reference Range Abnormal Flag St atus Comments Panel Description: Urinalysis Final U COLOR 10:16:25 YELLOW Straw or Yellow Fin al U CLARITY 10:16:25 CLEAR Clear Final U GLUC 10:16:25 NEGATIVE NEGATIVE Final U BILI 10:16:25 NEGATIVE NEGATIVE Final U KETONE 10:16:25 NEGATIVE NEGATIVE Final U SP GRAV 10:16:25 <=1.005 1.005-1.030 A Final U PH 10:16:25 5.5 4.5-8.5 Final U PROT 10:16:25 NEGATIVE NEGATIVE Final U UROBIL 10:16:25 0.2 0.2-1.0 Final U NITRITE 10:16:25 NEGATIVE NEGATIVE Final U BLOOD 10:16:25 TRACE NEGATIVE A Final U LEUK 10:16:25 NEGATIVE NEGATIVE Final U WBC 10:16:25 None Seen 0 - 3/hpf Final U RBC 10:16:25 None Seen 0 - 3/hpf Final U EPI 10:16:25 None Seen 0 - 3/hpf Final U BACT 10:16:25 None Seen None Seen - Rare Final U CASTS 10:16:25 None Seen None Seen Final U CRYSTALS 10:16:25 None Seen Negative Final U YEAST 10:16:25 None Seen None Seen Final Advance Directives Directive Yes / No Effective Date File Name Resuscitation Not Answered N/A N/A Life Support Not Answered N/A N/A Intubation Not Answered N/A N/A Antibiotics Not Answered N/A N/A IV Fluid Support Not Answered N/A N/A Tube Feed Not Answered N/A N/A Other Directive N/A N/A WARNING:The information contained in this section is historical and is provided for information onlyand does not constitute a legal document or any assurance that the information is still accurate. Please verify the information with the wayne of the legal document before using it for clinical purposes. Encounters Encounter Practice Location Reason(s) Diagnoses Date Provider Provide rs Description For Visit Copied on Encounter OV - [facility] No Aug- [facility] Information [address]. Pro vider: Patient PC, [address] [facility], [place], [address], [place], [address], [place], [place], [id number] [id number], [place]. [place], [place] tel:+ [place], tel:[phone] [place], [address]. [address] tel:[phone] Urological Urological No Oct-0 [facility] Information [address]. Provider : PC, [address] [facility], [address], [address], [address] [place], [address], [place] [address] [id number], [place], [place], [place] [id number], [place], tel:[phone] [place], [address]. [address] tel:+ tel:[phone] Offic/outpt Urological Urological No Dec-3 [facility] Ref[facility] Information [address] Provid er: Low-mod PC, [address] [facility], [address], [address], [address], [address], [place] [address] [id number], [place], [place], [place] [id number], [place], tel:[phone] [place], [address]. [address] tel:+ tel:[phone] Offic Cons Urological Urological No Nov-1 [facility] Referri ng New/estab Mod [facility] Information [address] Pr ovider: [address] PC, [address] [facility], [address], [address], [address], [place] [address] [id number], [place], [place], [place] [id number], [place], tel:+[phone] [place], [address]. [address] tel:+ tel:[phone] Urological Urological No Nov- [facility] Information [address]. PC, [address], [place], [place], [place], [place], [id number], [id number], [place]. tel:[phone] tel:[phone] Family History Family Member Type Diagnosis Age At Onset No Information Payers Payer name Insurance type Covered republican ID Authorization(s ) Medicare MB [id number] [facility] CI [id number] Social History Type Description Quantity Date Captured Comments Alcohol Use Details Caffeine Use Details Unknown Tobacco Use Status Smoking Status No Information Sex Male Chief Complaint And Reason For Visit No Information Reason For Referral Reason For Referral No Information Plan Of Treatment Date Type Action Status No Information History Of Present Illness Encounter Date Complaint History Of Present I llness No Information Functional Status Date Functional Assessment No Information Instructions Date Instruction Additional Informati on No Information Assessments Type Assessment Date No Information Patient Care Teams Name Effective Dates (start - stop) Status Sarah Beth marsh No Information
--- OUTSIDE RECORDS SUMMARY | 2023-01-29 10:17 | XMS_ITS | Continuity of Care Document ---
:1940 Author Organization [facility] Address [address] [place] [address] [place] [address] Phone Care Team Providers Name Role Phone Dennis Gayle MD Unavailable Unavailable Advance Directives Directive Yes / No Effective Date File Name No Information Encounters Encounter Practice Location Reason(s) Diagnoses Date Provider Provide rs Description For Visit Copied on Encounter [facility] No Jan- [place] Referring [facility]ly [facility] [address]. Provider: [place], [facility] [address] [facility] Shivam Garcia, [address] , [place], [place], [facility], [id number], [facility] [id number], [facility]. [address], [address] tel:[phone] tel:[phone] [place], [address]. tel:[phone] Family History Family Member Type Diagnosis Age At Onset No Information Payers Payer name Insurance type Covered green party ID Authorization(s ) No Information Social History Type Description Quantity Date Captured Comments Sex Male Smoking Status No Information Chief Complaint And Reason For Visit No [...] Name Effective Dates (start - stop) Status M embers No Information
== END 2023-01-29 10:15 | disposition home or self-care (01) ==
LOC: INJ CL 10:15
PROVIDERS: PCP Internal Medicine; Visit Provider Family Medicine
DX: M54.16 Radiculopathy, lumbar region (principal); M51.36 Other intervertebral disc degeneration, lumbar region
CPT/HCPCS: 62323; J0702; Q9966

== ENCOUNTER 2023-06-03 13:12 | Outpatient (CLI) | payer MEDICARE, BC, SELFPAY | END 2023-06-03 13:13 | disposition home or self-care (01) | PROVIDERS: PCP Internal Medicine; Visit Provider Internal Medicine | DX: I10 Essential (primary) hypertension (principal); R06.02 Shortness of breath; E11.9 Type 2 diabetes mellitus without complications | CPT/HCPCS: 80053 ==

== ENCOUNTER 2023-10-07 10:15 | Inpatient (IN) | payer MEDICARE, BC, SELFPAY ==
[2023-10-07] VITALS (16 sets, daily range): BP systolic 104–153; BP diastolic 62–89; PULSE 75–85; RESP 18–22; TEMP 36.9–37.2; O2SAT 78–99; BMI 25.1; BMI 25.6
--- NOTE | 2023-10-07 10:45 | ED.NURSE ---
is wanting to talk about placing the patient on hospice. started #20 jelco as a saline lock in the LAC and drawn labs.
--- NOTE | 2023-10-07 10:57 | CRLHL7_ITS ---
For Patients: As a result of the Century Cures Act, medical imaging exams and procedure reports are released immediately into your electronic medical record. You may view this report before your referring provider. If you have questions, please contact your health care provider. INDICATION: Dyspnea and cough COMPARISON: September 05, 2022 TECHNIQUE: Portable single view study FINDINGS: TUBES AND LINES: None. HEART AND MEDIASTINUM: The heart size is normal. The mediastinal contour appears normal for patient age. LUNGS AND PLEURAL SPACES: Diffuse interstitial abnormality. Some alveolar opacities noted as well. This probably represents pulmonary edema though an inflammatory process is possible.The pleural spaces are unremarkable. OSSEOUS STRUCTURES: Age-appropriate appearance. No acute focal finding. IMPRESSION: Moderate diffuse interstitial abnormality with some alveolar opacities noted. This likely represents pulmonary edema though an inflammatory process is possible. Dictated by Erick Koehler MD @ 10/07/2023 11:21:57 AM (Electronically Signed)
--- NOTE | 2023-10-07 10:59 | ED_ITS ---
HPI - General Adult General Chief complaint: Shortness of Breath/Dyspnea Stated complaint: Short of breath, cough Time Seen by Provider: 10/07/23 10:50 History of Present Illness HPI narrative: This 83-year-old male comes in with this on because of shortness of breath and productive cough. The patient has COPD and is typically on home oxygen. His son states that with exertion he can desaturate into the 70s or 80s% but he noted today while at rest that his oximetry was in the 80s% despite being on 3 L nasal cannula oxygen. The son also reports a productive cough recently. There is no report of fever. The patient has dementia and lives at home with his . Related Data Home Medications Medication Instructions Recorded Confirmed albuterol sulfate 90 mcg/actuation 1 inh inhalation Q6H PRN 05/09/22 10/07/23 breath activated powder inhaler amlodipine 2.5 mg tablet 2.5 mg PO DAILY 05/09/22 10/07/23 aspirin 81 mg tablet,delayed 81 mg PO DAILY 05/09/22 10/07/23 release hydrochlorothiazide 25 mg tablet 25 mg PO DAILY 05/09/22 10/07/23 ipratropium 0.5 mg-albuterol 3 mg 1 ml inhalation Q6H PRN 05/09/22 10/07/23 (2.5 mg base)/3 mL nebulization soln multivitamin 1 tab PO QAM 05/09/22 10/07/23 sildenafil (pulm.hypertension) 20 20 mg PO TID 05/09/22 10/07/23 mg tablet spironolactone 25 mg tablet 25 mg PO DAILY 05/09/22 10/07/23 cilostazol 50 mg tablet 100 mg PO BID 08/16/22 10/07/23 donepezil 5 mg tablet 5 mg PO QHS 02/13/23 10/07/23 Previous Rx's Medication Instructions Recorded famotidine 40 mg tablet (Pepcid) 40 mg PO QDAY GERD #90 tabs 08/16/22 metformin 500 mg tablet 500 mg PO DAILY Diabetes #90 tabs 02/14/23 azelastine 137 mcg (0.1 %) nasal 1 spray intranasal Q12H Allergic 03/11/23 spray aerosol Rhinitis #90 mL sucralfate 1 gram tablet 1 g PO BID PRN for indigestion 03/11/23 #180 tabs lorazepam 1 mg tablet 1 mg PO TID PRN agitation #90 tabs 09/06/23 sertraline 100 mg tablet 100 mg PO QDAY Anxiety #90 tabs 09/10/23 losartan 100 mg tablet 100 mg PO DAILY #90 tabs 09/24/23 Allergies Allergy/AdvReac Type Severity Reaction Status Date / Time atorvastatin Allergy Verified 10/07/23 10:26 simvastatin Allergy Verified 10/07/23 10:26 Sulfa (Sulfonamide Allergy Verified 10/07/23 10:26 Antibiotics) Review of Systems Status of ROS: Reports: unobtainable due to mental status Narrative: Patient has significant dementia so review of systems is not obtained. [facility] Medical History (Updated 10/07/23 @ 14:12 by Jay Malik MD) Peripheral vascular disease ?I73.9 - Peripheral vascular disease, unspecified (ICD-10) Mesenteric artery stenosis ?K55.1 - Chronic vascular disorders of intestine (ICD-10) Renal artery stenosis ?I70.1 - Atherosclerosis of renal artery (ICD-10) Health care directive on file ?Z78.9 - Other specified health status (ICD-10) Constipation ?K59.00 - Constipation, unspecified (ICD-10) COPD (chronic obstructive pulmonary disease) ?J44.9 - Chronic obstructive pulmonary disease, unspecified (ICD-10) Type 2 diabetes mellitus ?E11.9 - Type 2 diabetes mellitus without complications (ICD-10) Allergies ?T78.40XA - Allergy, unspecified, initial encounter (ICD-10) GERD (gastroesophageal reflux disease) ?K21.9 - Gastro-esophageal reflux disease without esophagitis (ICD-10) Chronic radicular low back pain ?M54.16 - Radiculopathy, lumbar region (ICD-10) ?G89.29 - Other chronic pain (ICD-10) Anxiety ?F41.9 - Anxiety disorder, unspecified (ICD-10) Type 2 diabetes mellitus ?E11.9 - Type 2 diabetes mellitus without complications (ICD-10) Pneumothorax ?J93.9 - Pneumothorax, unspecified (ICD-10) Peripheral arterial disease ?I73.9 - Peripheral vascular disease, unspecified (ICD-10) Hypertension ?I10 - Essential (primary) hypertension (ICD-10) Hyperlipidemia ?E78.5 - Hyperlipidemia, unspecified (ICD-10) History of adenomatous polyp of colon ?Z86.010 - Personal history of colonic polyps (ICD-10) Gout ?M10.9 - Gout, unspecified (ICD-10) Generalized anxiety disorder ?F41.1 - Generalized anxiety disorder (ICD-10) Coronary artery disease ?I25.10 - Atherosclerotic heart disease of [place] coronary artery without angina pectoris (ICD-10) Surgical History History of thumb surgery ?Z98.890 - Other specified postprocedural states (ICD-10) History of phacoemulsification of cataract of both eyes with intraocular lens implantation ?Z98.41 - Cataract extraction status, right eye (ICD-10) ?Z98.42 - Cataract extraction status, left eye (ICD-10) ?Z96.1 - Presence of intraocular lens (ICD-10) History of lumbar discectomy ?Z98.890 - Other specified postprocedural states (ICD-10) History of decompression of both ulnar nerves ?Z98.890 - Other specified postprocedural states (ICD-10) Social History Narrative: , lives with his in [place]. 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 Code status is DNR. 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 Long-standing history of cigarette smoking. Longstanding history of alcohol abuse Retired Highest level of school completed/degree received: Bachelor's degree Smoking Status: Never smoker Do you use any of these nicotine containing products: None Second hand tobacco smoke exposure: No How often do you have a drink containing alcohol: 2-3 times a week Alcohol type: hard liquor Alcohol type details: misty How many standard drinks containing alcohol do you have on a typical day: 1 or 2 How often do you have six or more drinks on one occasion: Never AUDIT-C Alcohol total score: 3 Non-prescribed substance use: denies use Caffeine: Yes Little interest or pleasure in doing things: more than half the days Feeling down, depressed, or hopeless: not at all service: Yes Exam Narrative: Exam Narrative: Constitutional: Well-developed, well-nourished, no acute distress. HEENT: Normocephalic, atraumatic. Neck: Normal range of motion. Nontender. Supple. Heart: Regular. No murmurs. Normal rate. Intact distal pulses. Lungs: Clear to auscultation. No chest discomfort. No wheezes, rhonchi, or rales. Abdomen: Normal bowel sounds. Nontender. No rebound tenderness. Genitalia: Deferred. Back: Normal range of motion. Extremities: Normal range of motion. No injury. No pedal edema. Skin: Intact. No rash. Warm. No erythema or pallor. Neurologic: No altered sensation. No weakness. Alert. Nursing notes and vitals signs are reviewed. Const: Vital Signs, click to edit/add: Vital Signs - 24 hr 10/07/23 10:21 10/07/23 10:30 10/07/23 10:42 Temperature 98.4 F Pulse Rate [Right Pulse Oximeter] 85 85 Respiratory Rate 20 18 Blood Pressure [Ri ght Upper Arm] 153/62 H 140/87 H Pulse Oximetry 78 L 90 78 L Oxygen Delivery Me thod Room Air Nasal Cannula Room Air Oxygen Flow Rate 3 3 10/07/23 10:58 10/07/23 11:00 10/07/23 11:30 Temperature Pulse Rate [Right Pulse Oximeter] 81 77 Respiratory Rate 22 20 Blood Pressure [Ri ght Upper Arm] 115/73 117/67 Pulse Oximetry 96 96 97 Oxygen Delivery Me thod Nasal Cannula Nasal Cannula Nasal Cannula Oxygen Flow Rate 3 3 3 10/07/23 12:00 10/07/23 12:30 10/07/23 13:00 Temperature Pulse Rate [Right Pulse Oximeter] 79 78 75 Respiratory Rate 20 20 20 Blood Pressure [Ri ght Upper Arm] 122/68 122/73 119/74 Pulse Oximetry 97 99 96 Oxygen Delivery Me thod Nasal Cannula Nasal Cannula Nasal Cannula Oxygen Flow Rate 3 3 3 10/07/23 13:30 Temperature Pulse Rate [Right Pulse Oximeter] 83 Respiratory Rate 18 Blood Pressure [Ri ght Upper Arm] 108/73 Pulse Oximetry 92 Oxygen Delivery Me thod Nasal Cannula Oxygen Flow Rate 3 Course Vital Signs Vital signs: Initial Vital Signs Temperature 98.4 F 10/07/23 10:21 Temperature Source Temporal Artery Scan 10/07/23 10:21 Pulse Rate 85 10/07/23 10:21 Respiratory Rate 20 10/07/23 10:21 Blood Pressure 153/62 H 10/07/23 10:21 Blood Pressure Mean 92 10/07/23 10:21 Blood Pressure Position Sitting 10/07/23 10:21 Pulse Oximetry 78 L 10/07/23 10:21 Oxygen Delivery Method Room Air 10/07/23 10:21 Vital Signs Temperature 98.4 F 10/07/23 10:21 Pulse Rate 85 10/07/23 10:21 Respiratory Rate 20 10/07/23 10:21 Blood Pressure 153/62 H 10/07/23 10:21 Pulse Oximetry 78 L 10/07/23 10:21 Oxygen Delivery Method Room Air 10/07/23 10:21 Temperature 98.4 F 10/07/23 10:21 Pulse Rate 83 10/07/23 13:30 Respiratory Rate 18 10/07/23 13:30 Blood Pressure 108/73 10/07/23 13:30 Pulse Oximetry 92 10/07/23 13:30 Oxygen Delivery Method Nasal Cannula 10/07/23 13:30 Oxygen Flow Rate 3 10/07/23 13:30 Medications Administered Medications: Discontinued Medications Generic Name Dose Route Start Last Admin Trade Name Freq PRN Reason Stop Dose Admin Lorazepam 1 mg 10/07/23 13:20 10/07/23 13:25 Lorazepam 2 Mg/Ml Inj IV 10/07/23 13:21 1 mg ONCE ONE Administration Medical Decision Making MDM Narrative Medical decision making narrative: This patient comes in with his son because of shortness of breath and a productive cough. He arrives with oximetry at 78% on room air. With nasal cannula oxygen he improves but while yet being on 5 L his oximetry is around 86%. He is not showing any signs of tachycardia or respiratory distress. He does have history of COPD. Nasal pharyngeal swab returns negative for viral infections. Chest x-ray returns with some possibility of pneumonia. His lab results are showing a normal white count. Given the patient's persistent hypoxia despite oxygen therapy he did receive treatment for pneumonia including Rocephin and azithromycin. I did speak with Dr. Brasher who agrees to his admission into the hospital. The patient's son states that he would like to have discussion with his primary physician or the hospitalist about moving into hospice care. Lab Data Labs: Lab Results 10/07/23 10/07/23 Range/Units 10:35 11:25 WBC 7.58 (4.50-11.00) K/uL RBC 5.54 (4.30-5.90) m/uL Hgb 12.0 L (13.5-17.5) gm/dL Hct 40.2 (37.0-53.0) % MCV 73 L (80-100) fL MCH 22 L (26-34) pg MCHC 30 L (32-36) gm/dL RDW Coeff of [place] 18.7 H (11.5-15.5) % Plt Count 307 (140-440) K/uL Neut % (Auto) 80.0 H (42.0-72.0) % Lymph % (Auto) 10.3 L (20-44) % [place] % (Auto) 8.4 (0.0-11.0) % Eos % (Auto) 0.8 (0.0-7.0) % Baso % (Auto) 0.1 (0.0-3.0) % Neut # (Auto) 6.10 (1.7-7.0) K/uL Lymph # (Auto) 0.80 L (0.90-2.90) K/uL [place] # (Auto) 0.60 (0.00-0.90) K/UL Eos # (Auto) 0.06 (0.00-0.50) K/uL Baso # (Auto) 0.01 (0.00-0.30) K/uL Abs Immat Gran (auto) 0.03 (0.00-0.30) K/uL Imm/Tot Granulo (auto) 0.4 % Sodium 138 (135-149) mmol/L Potassium 3.6 (3.6-5.1) mmol/L Chloride 98 (96-114) mmol/L Carbon Dioxide 29 (20-32) mmol/L Anion Gap 11 (7-15) mEq/L BUN 13 (7-30) mg/dL Creatinine 1.1 (0.5-1.5) mg/dL Estimated Creat Clear 49.24 Estimated GFR 67 ml/min Glucose 148 H (60-115) mg/dL Lactate 1.7 (0.5-1.9) mmol/L Calcium 9.3 (8.4-10.6) mg/dL Troponin I 0.03 (0.01-0.04) ng/mL SARS-CoV-2 (PCR) Negative SARS-CoV-2 (Negative) Influenza Type A (PCR) Negative PCR FLU A (Negative) Influenza Type B (PCR) Negative PCR FLU B (Negative) RSV (PCR) Negative PCR RSV (Negative) ECG Data Attestation: I personally reviewed and interpreted this ECG as follows: Interpretation: Normal sinus rhythm. Rate is 76 beats per minute. There are no ST or T-wave abnormalities. Discharge Plan Discharge Clinical Impression: Dementia, Memory impairment, Pneumonia Patient Disposition: Admitted As Inpatient Condition: Unchanged Prescriptions: No Action albuterol sulfate 90 mcg/actuation aerosol powdr breath activated 1 inh inhalation Q6H PRN sildenafil (pulm.hypertension) 20 mg tablet 20 mg PO TID aspirin 81 mg tablet,delayed release (DR/EC) 81 mg PO DAILY multivitamin Tablet 1 tab PO QAM amlodipine 2.5 mg tablet 2.5 mg PO DAILY spironolactone 25 mg tablet 25 mg PO DAILY hydrochlorothiazide 25 mg tablet 25 mg PO DAILY ipratropium-albuterol 0.5 mg-3 mg(2.5 mg base)/3 mL solution for nebulization 1 ml inhalation Q6H PRN cilostazol 50 mg tablet 100 mg PO BID famotidine [Pepcid] 40 mg tablet 40 mg PO QDAY Qty: 90 3RF donepezil 5 mg tablet 5 mg PO QHS metformin 500 mg tablet 500 mg PO DAILY Qty: 90 3RF sucralfate 1 gram tablet 1 g PO BID PRN (Reason: for indigestion) Qty: 180 2RF azelastine 137 mcg (0.1 %) aerosol,spray 1 spray intranasal Q12H Qty: 90 1RF lorazepam 1 mg tablet 1 mg PO TID PRN (Reason: agitation) Qty: 90 0RF sertraline 100 mg tablet 100 mg PO QDAY Qty: 90 3RF losartan 100 mg tablet 100 mg PO DAILY Qty: 90 0RF Follow Up/Referrals: Andrew Pan MD [Primary Care Provider] -
--- OUTSIDE RECORDS SUMMARY | 2023-10-07 11:03 | XMS_ITS | Continuity of Care Document ---
Author Name Unknown Organization [facility] Address [address] [place] [id number] Phone Care Team Providers Care Basketballs And Footballs Reverser Name Role Phone Pilo Minnie BARNARDeen Unavailable Unavail able Medications Medication Instructions Dosage Effective Dates (start - stop) Status Comments Advair Diskus 100 mcg-50 mcg/dose for Inhalation - Active Lipitor 40 mg Tab - Active Diovan HCT 80 mg-12.5 mg Tab - Active Plavix 75 mg Tab - Active multivitamin Cap - Active Pletal 100 mg Tab 7 - No Longer Active Procedures Procedure Date OV - Established Patient Urinalysis - Automated PSA Venipuncture Offic/outpt E&m Estab Low-mod 7 Cystourethroscopy (separt Proc 07 Urinalysis, Auto W/Scope Offic Cons New/estab Mod 40 Mi 07 Urinalysis, Auto W/Scope Routine Venipuncture PSA = Prostate Spec Antig; Tot 07 Results Test Name Date and Time Measure Units Reference Range Abnormal Flag Status Comments Panel Description: Urinalysis Final U COLOR 8 10:16:25 YELLOW Straw or Yellow Final U CLARITY Oct-13-200 8 10:16:25 CLEAR Clear Final U GLUC Oct-13-200 8 10:16:25 NEGATIVE NEGATIVE Final U BILI Oct-13-200 8 10:16:25 NEGATIVE NEGATIVE Final U KETONE Oct-13-200 8 10:16:25 NEGATIVE NEGATIVE Final U SP GRAV Oct-13-200 8 10:16:25 <=1.005 1.005-1.030 A Final U PH Oct-13-200 8 10:16:25 5.5 4.5-8.5 Final U PROT Oct-13-200 8 10:16:25 NEGATIVE NEGATIVE Final U UROBIL Oct-13-200 8 10:16:25 0.2 0.2-1.0 Final U NITRITE Oct-13-200 8 10:16:25 NEGATIVE NEGATIVE Final U BLOOD Oct-13-200 8 10:16:25 TRACE NEGATIVE A Final U LEUK Oct-13-200 8 10:16:25 NEGATIVE NEGATIVE Final U WBC Oct-13-200 8 10:16:25 None Seen 0 - 3/hpf Final U RBC Oct-13-200 8 10:16:25 None Seen 0 - 3/hpf Final U EPI Oct-13-200 8 10:16:25 None Seen 0 - 3/hpf Final U BACT Oct-13-200 8 10:16:25 None Seen None Seen - Rare Final U CASTS Oct-13-200 8 10:16:25 None Seen None Seen Final U CRYSTALS Oct-13-200 8 10:16:25 None Seen Negative Final U YEAST Oct-13-200 8 10:16:25 None Seen None Seen Final Advance [...] is historical and is provided for information only and does not constitute a legal document or any assurance that the information is still accurate. Please verify the information with the wayne of the legal document before using it for clinical purposes. Encounters Encounter Description Practice Location Reason(s) For Visit Diagnoses Date Provider Providers Copied on Encounter OV - Established Patient [facility], [address], [id number], [place] tel:[phone] [facility] No Information 3200 [address] Pilo [place]. [address] [place] [address], [id number], [place]. tel:[phone] Referring Provider: [address], [place], [address]. tel:[phone] [facility] , [address] [place] [address], [id number], [place] tel:[phone] [facility] [place] No Information 6200 8 Taiwo Ghasoub. [address] [place] [address], [id number], [place]. tel:[phone] Referring Provider: Zuly [address], [place], [address]. tel:[phone] Offic/outpt E&m Estab Low-mod [facility] , [address] [place] [address], [id number], [place] tel:[phone] [facility] No Information 7 Taiwo Ghasoub. [address] [place] [address], [id number], [place]. tel:[phone] Referring Provider: Zuly [address], [place], [address]. tel:[phone] Offic Cons New/estab Mod 40 Id [facility] , [address] [place] [address], [id number], [place] tel:[phone] [facility] No Information 7 Taiwo Ghasoub. [address] [place] [address], [id number], [place]. tel:[phone] Referring Provider: Zuly [address], [place], [address]. tel:[phone] [facility], [address] [place] [address], [id number], [place] tel:[phone] [facility] No Information 7 Carlos Galindo. [address] [place] [address], [id number], . tel:[phone] Family History Family Member Type Diagnosis Age At Onset No Information Payers Payer name Insurance type Covered democrat ID Authorelizabeth samayoa(s) Medicare MB [id number] Social History Type Description Quantity Date Captured Comments Alcohol Use Details Caffeine Use Details Unknown Tobacco Use Status Smoking Status No Information Sex Male Chief Complaint And Reason For Visit No Information Reason For Referral Reason For Referral No Information History Of Present Illness Encounter Date Complaint History Of Prese nt Illness No Information Functional Status Date Functional Assessmen t No Information Instructions Date Instruction Additional Infor mation No Information Assessments Type Assessment Date No Information Patient Care Teams Name Effective Dates (start - stop) Status Members No Information
--- OUTSIDE RECORDS SUMMARY | 2023-10-07 11:03 | XMS_ITS | Continuity of Care Document ---
Author Name Unknown Organization [facility] Address [address] [facility] [facility] [address] [place] [address] Phone Care Team Providers Care Vamp Wetter Name Role Phone Dennis Gayle MD Unavailable Unavailabl e Advance Directives Directive Yes / No Effective Date File Name No Information Encounters Encounter Description Practice Location Reason(s) For Visit Diagnoses Date Provider Providers Copied on Encounter [facility], [address] [place], [place], [id number], [place] tel:[phone] [facility] Hid 03/09/21 No Information Mar-2 2-200 5 Irwin Collins. [address] [facility] [place], [id number], [place]. tel:[phone] Referring Provider: Douglas Gonzalez[address] [facility] [address], [place], [address]. tel:[phone] Family History Family Member Type Diagnosis Age At Onset No Information Payers Payer name Insurance type Covered green party ID Authoriza tion(s) No Information Social History Type Description Quantity [...]
[2023-10-07 11:06] LABS: Lactate* 1.7 mmol/L (0.5-1.9)
[2023-10-07 11:20] LABS: Basophils Absolute Auto 0.01 K/uL (0.00-0.30); Basophils Percent Auto 0.1 % (0.0-3.0); Eosinophils Absolute Auto 0.06 K/uL (0.00-0.50); Eosinophils Percent Auto 0.8 % (0.0-7.0); Hematocrit 40.2 % (37.0-53.0); Immature Granulocytes Abs Auto 0.03 K/uL (0.00-0.30); Immature Granulocytes Pct Auto 0.4 %; Lymphocytes Percent Auto 10.3 % (20-44); Mean Corpuscular HGB Conc 30 gm/dL (32-36); Mean Corpuscular Hemoglobin 22 pg (26-34); Mean Corpuscular Volume 73 fL (80-100); Monocytes Percent Auto 8.4 % (0.0-11.0); Platelet Count* 307 K/uL (140-440); RDW Coefficient of Variation % 18.7 % (11.5-15.5); Red Blood Count 5.54 m/uL (4.30-5.90); White Blood Count* 7.58 K/uL (4.50-11.00)
[2023-10-07 11:21] LABS: Slide Review Reflex No
[2023-10-07 11:24] LABS: Chloride* 98 mmol/L (96-114); Potassium* 3.6 mmol/L (3.6-5.1); Sodium* 138 mmol/L (135-149)
[2023-10-07 11:27] LABS: Anion Gap 11 mEq/L (7-15); Blood Urea Nitrogen* 13 mg/dL (7-30); Carbon Dioxide* 29 mmol/L (20-32); Creatinine* 1.1 mg/dL (0.5-1.5); Est. Creatinine Clearance* 49.24; Estimated Glomerular Filt Rate 67 ml/min
[2023-10-07 11:28] LABS: Calcium* 9.3 mg/dL (8.4-10.6); Glucose* 148 mg/dL (60-115)
[2023-10-07 11:40] LABS: Troponin I* 0.03 ng/mL (0.01-0.04)
[2023-10-07 12:17] LABS: PCR FLU A Negative PCR FLU A (Negative); PCR FLU B Negative PCR FLU B (Negative); PCR RSV Negative PCR RSV (Negative)
[2023-10-07 12:29] LABS: SARS PCR* Negative SARS-CoV-2 (Negative)
[2023-10-07] MEDS: LORazepam 2 MG/ML inj 1 MG IV (13:25)
--- NOTE | 2023-10-07 13:31 | ED.NURSE ---
patient is getting aggitated and wants to go home. needs to have the O2 on all the time but forgets to place back on. pulse ox reads 78%on room air.
--- NOTE | 2023-10-07 13:50 | ED.NURSE ---
patient is eager to leave removed the gown, O2 off, and getting dressed in own clothes. gently reminded the patient to change back into gown and place the O2 on. Dr. Malik in talking with patient and son.
--- NOTE | 2023-10-07 14:06 | ED.NURSE ---
patient is up moving around removes the O2 tubing and changed out of gown redressed in own clothes. Dr. Malik is in talking with son and patient of plan.
[2023-10-07] MEDS: cefTRIAXone 1 GM in 0.9 % SODIUM CHLORIDE Mini-bag 100 ML IVPB (14:16)
[2023-10-07 14:42] LABS: D Dimer Quantitative* 3.86 ug/ml (0.00-0.50)
[2023-10-07] MEDS: AZITHROMYCIN 100 MG/ML inj 500 MG IVPB (14:42)
--- NOTE | 2023-10-07 16:10 | CRLHL7_ITS ---
For Patients: As a result of the Century Cures Act, medical imaging exams and procedure reports are released immediately into your electronic medical record. You may view this report before your referring provider. If you have questions, please contact your health care provider. INDICATION: Hypoxia TECHNIQUE: CT chest with i.v. contrast using pulmonary angiographic technique. Coronal and sagittal reformats were obtained. CONTRAST: 95 mL Isovue 370 COMPARISON: 08/09/2022 FINDINGS: Cardiovascular: The pulmonary arteries are unremarkable in enhancement with no evidence of acute pulmonary embolism. The heart has an unremarkable appearance and size. No sign of aneurysm in the thoracic aorta. Severe atherosclerotic calcifications are noted in the coronary arteries. Mediastinum: No mass or adenopathy seen. Lung: Interlobular septal thickening is noted bilaterally with centrilobular emphysema. Findings are likely due to mild interstitial fibrosis. Parenchymal consolidation is seen in the posterior right lower lobe with peripheral architecture distortion, unchanged from prior exam. This may be due to round atelectasis. Pleura and pericardium: No sign of pleural effusion seen. No significant pericardial effusion is present. Chest wall and axilla: No mass or adenopathy seen. Bone: Unremarkable for age. Upper abdomen: Unremarkable. IMPRESSIONS: 1. No CT evidence of acute pulmonary emboli seen. 2. Severe atherosclerotic calcifications are noted in the coronary arteries. Dictated by Jam Galvez MD @ 10/07/2023 6:24:50 PM Please note that all CT scans at this facility use dose modulation, iterative reconstruction, and/or weight-based dosing when appropriate to reduce radiation dose to as low as reasonably achievable. Dictated by: Jam Galvez MD @ 10/07/2023 18:24:53 (Electronically Signed)
--- NOTE | 2023-10-07 16:21 | PM.IMHP1 ---
Hospitalist- H&P: HPI History of Present Illness Time Seen by Provider: 15:00 Date Seen: 10/07/23 Chief complaint: Short of breath, cough Narrative: Carlos Clark is a 83 year old male with O2 dependent COPD and advanced dementia who came in through the ER for cough and hypoxia. He lives with his , and his son, Rusty, has been staying with them temporarily because Alonzo's dementia has been getting worse. He sundowns and has recently started urinating in the kitchen. He is having difficulty swallowing. He is chronically on 3LPM continuous oxygen for COPD and possibly pulmonary fibrosis, according to the son. In the last few days, Alonzo has been coughing and his oxygen saturations are getting lower. At home today he was satting in the mid 80s at rest on 3LPM [place] Oxygen. Alonzo says he is fine and keeps asking what we are talking about. He has no idea why he is here. Rusty says that Alonzo's , Taylor, and Rusty have been wondering about getting Alonzo into hospice. It is getting more difficult to care for him. He is resisting bathing. Goals of care discussion with son indicate that he and his mom would like jose david to be treated in the hospital with IV antibiotics for pneumonia and speech therapy consult for possible aspiration. Review of Systems Status of ROS: Reports: unobtainable due to medical condition (advanced dementia) [facility] Medical History (Updated 10/07/23 @ 17:15 by Imani Liang MD) Infection due to severe acute respiratory syndrome coronavirus 2 (SARS-CoV-2) (~06/07/22) ?U07.1 - COVID-19 (ICD-10) Pulmonary hypertension ?I27.20 - Pulmonary hypertension, unspecified (ICD-10) Dementia ?F03.90 - Unspecified dementia without behavioral disturbance (ICD-10) Peripheral vascular disease ?I73.9 - Peripheral vascular disease, unspecified (ICD-10) Mesenteric artery stenosis ?K55.1 - Chronic vascular disorders of intestine (ICD-10) Renal artery stenosis ?I70.1 - Atherosclerosis of renal artery (ICD-10) Health care directive on file ?Z78.9 - Other specified health status (ICD-10) Constipation ?K59.00 - Constipation, unspecified (ICD-10) COPD (chronic obstructive pulmonary disease) ?J44.9 - Chronic obstructive pulmonary disease, unspecified (ICD-10) Type 2 diabetes mellitus ?E11.9 - Type 2 diabetes mellitus without complications (ICD-10) Allergies ?T78.40XA - Allergy, unspecified, initial encounter (ICD-10) GERD (gastroesophageal reflux disease) ?K21.9 - Gastro-esophageal reflux disease without esophagitis (ICD-10) Chronic radicular low back pain ?M54.16 - Radiculopathy, lumbar region (ICD-10) ?G89.29 - Other chronic pain (ICD-10) Anxiety ?F41.9 - Anxiety disorder, unspecified (ICD-10) Type 2 diabetes mellitus ?E11.9 - Type 2 diabetes mellitus without complications (ICD-10) Pneumothorax ?J93.9 - Pneumothorax, unspecified (ICD-10) Peripheral arterial disease ?I73.9 - Peripheral vascular disease, unspecified (ICD-10) Hypertension ?I10 - Essential (primary) hypertension (ICD-10) Hyperlipidemia ?E78.5 - Hyperlipidemia, unspecified (ICD-10) History of adenomatous polyp of colon ?Z86.010 - Personal history of colonic polyps (ICD-10) Gout ?M10.9 - Gout, unspecified (ICD-10) Generalized anxiety disorder ?F41.1 - Generalized anxiety disorder (ICD-10) Coronary artery disease ?I25.10 - Atherosclerotic heart disease of [place] coronary artery without angina pectoris (ICD-10) Surgical History History of thumb surgery ?Z98.890 - Other specified postprocedural states (ICD-10) History of phacoemulsification of cataract of both eyes with intraocular lens implantation ?Z98.41 - Cataract extraction status, right eye (ICD-10) ?Z98.42 - Cataract extraction status, left eye (ICD-10) ?Z96.1 - Presence of intraocular lens (ICD-10) History of lumbar discectomy ?Z98.890 - Other specified postprocedural states (ICD-10) History of decompression of both ulnar nerves ?Z98.890 - Other specified postprocedural states (ICD-10) Social History (Updated 10/07/23 @ 16:47 by Imani Liang MD) Narrative: , lives with his in [place]. 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 Son, Rusty, living with them temporarily due to patient's worsening dementia. Code status is DNR. 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 Quit smoking 2009. Long-standing history of cigarette smoking. Longstanding history of alcohol abuse. Son reports that patient drinks one alcoholic drink per day and will go over to the neighbors house to ask them to get him alcohol. What is your current living situation?: I presently have a place to live Problems where you live: unable to answer Problems where you live details: needs family In the past 12 months, utilities in danger of being shut off: unable to answer In past 12 months, lack of transportation kept you from medical appts, meetings, work, or getting things needed for daily living: unable to answer In the past 12 mos, have been you worried that your food would run out before you had money to buy more?: unable to answer In the past 12 mos, the food you bought just didn't last and you didn't have money to buy more?: unable to answer Highest level of school completed/degree received: Bachelor's degree Smoking Status: Never smoker Do you use any of these nicotine containing products: None Second hand tobacco smoke exposure: No How often do you have a drink containing alcohol: 2-3 times a week Alcohol type: hard liquor Alcohol type details: misty How many standard drinks containing alcohol do you have on a typical day: 1 or 2 How often do you have six or more drinks on one occasion: Never AUDIT-C Alcohol total score: 3 Non-prescribed substance use: denies use Caffeine: Yes How often does anyone, including family, friends and others, physically hurt you: unable to answer How often does anyone, including family, friends and others, insult or talk down to you: unable to answer How often does anyone, including family, friends and others, threaten you with harm: unable to answer How often does anyone, including family, friends and others, scream or curse at you: unable to answer Little interest or pleasure in doing things: more than half the days Feeling down, depressed, or hopeless: not at all service: Yes Meds Home Medications and Allergies Home Medications Medication Instructions Recorded Confirmed Type albuterol sulfate 90 mcg/actuation 1 inh inhalation Q6H PRN 05/09/22 10/07/23 History breath activated powder inhaler amlodipine 2.5 mg tablet 2.5 mg PO DAILY 05/09/22 10/07/23 History aspirin 81 mg tablet,delayed 81 mg PO HS 05/09/22 10/07/23 History release hydrochlorothiazide 25 mg tablet 25 mg PO DAILY 05/09/22 10/07/23 History ipratropium 0.5 mg-albuterol 3 mg 1 ml inhalation Q6H PRN 05/09/22 10/07/23 History (2.5 mg base)/3 mL nebulization soln multivitamin 1 tab PO DAILY 05/09/22 10/07/23 History sildenafil (pulm.hypertension) 20 20 mg PO TID 05/09/22 10/07/23 History mg tablet spironolactone 25 mg tablet 25 mg PO DAILY 05/09/22 10/07/23 History cilostazol 100 mg tablet 100 mg PO BID 10/07/23 10/07/23 History donepezil 10 mg tablet 10 mg PO HS 10/07/23 10/07/23 History famotidine 40 mg tablet (Pepcid) 40 mg PO BID GERD 10/07/23 10/07/23 History fluticasone fur. 100 mcg-umeclid 1 inh inhalation DAILY 10/07/23 10/07/23 History 62.5 mcg-vilant 25 mcg inhalat.powder (Trelegy Ellipta) rosuvastatin 20 mg tablet 20 mg PO HS 10/07/23 10/07/23 History sertraline 100 mg tablet 100 mg PO DAILY Anxiety 10/07/23 10/07/23 History Allergies Allergy/AdvReac Type Severity Reaction Status Date / Time atorvastatin Allergy Verified 10/07/23 10:26 simvastatin Allergy Verified 10/07/23 10:26 Sulfa (Sulfonamide Allergy Verified 10/07/23 10:26 Antibiotics) Exam Narrative: Exam Narrative: General: No acute distress. Awake, alert, oriented to self. HEENT: Normocephalic atraumatic, pupils equally round and reactive to light and accommodation. Oropharynx clear. Mucous membranes are moist. No cervical lymphadenopathy, thyromegaly or carotid bruits. No JVD. Cardiovascular: Regular rate and rhythm. No murmurs, gallops, or rubs. Chest: No increased work of breathing. Clear to auscultation bilaterally. No crackles or wheezes. Abdomen: Bowel sounds present. Soft, nondistended, nontender. No hepatosplenomegaly or masses. Extremities: Trace pretibial edema, no cyanosis or clubbing. Skin: No jaundice, no pallor, no rashes. Const: Vital Signs, click to edit/add: Vital Signs - 24 hr 10/07/23 10:21 10/07/23 10:30 10/07/23 10:42 Temperature 98.4 F Pulse Rate [Right Pulse Oximeter] 85 85 Respiratory Rate 20 18 Blood Pressure [Ri ght Arm] Blood Pressure [Ri ght Upper Arm] 153/62 H 140/87 H Pulse Oximetry 78 L 90 78 L Oxygen Delivery Me thod Room Air Nasal Cannula Room Air Oxygen Flow Rate 3 3 10/07/23 10:58 10/07/23 11:00 10/07/23 11:30 Temperature Pulse Rate [Right Pulse Oximeter] 81 77 Respiratory Rate 22 20 Blood Pressure [Ri ght Arm] Blood Pressure [Ri ght Upper Arm] 115/73 117/67 Pulse Oximetry 96 96 97 Oxygen Delivery Me thod Nasal Cannula Nasal Cannula Nasal Cannula Oxygen Flow Rate 3 3 3 10/07/23 12:00 10/07/23 12:30 10/07/23 13:00 Temperature Pulse Rate [Right Pulse Oximeter] 79 78 75 Respiratory Rate 20 20 20 Blood Pressure [Ri ght Arm] Blood Pressure [Ri ght Upper Arm] 122/68 122/73 119/74 Pulse Oximetry 97 99 96 Oxygen Delivery Me thod Nasal Cannula Nasal Cannula Nasal Cannula Oxygen Flow Rate 3 3 3 10/07/23 13:30 10/07/23 15:46 10/07/23 15:55 Temperature 98.9 F Pulse Rate [Right Pulse Oximeter] 83 Respiratory Rate 18 18 18 Blood Pressure [Ri ght Arm] 144/89 H Blood Pressure [Ri ght Upper Arm] 108/73 Pulse Oximetry 92 94 94 Oxygen Delivery Me thod Nasal Cannula Nasal Cannula Nasal Cannula Oxygen Flow Rate 3 3 3 Hospitalist - H&P: Result Labs Labs: Short CBC 10/07/23 Range/Units 10:35 WBC 7.58 (4.50-11.00) K/uL Hgb 12.0 L (13.5-17.5) gm/dL Hct 40.2 (37.0-53.0) % Plt Count 307 (140-440) K/uL BMP 10/07/23 10:35 Sodium 138 Potassium 3.6 Chloride 98 Carbon Dioxide 29 BUN 13 Creatinine 1.1 Glucose 148 H Calcium 9.3 Cardiac Enzymes 10/07/23 Range/Units 10:35 Troponin I 0.03 (0.01-0.04) ng/mL 10/07/2023 EKG: Sinus rhythm with sinus arrhythmia, 76 beats per minute, prolonged QT, QTCB 465 milliseconds. Ordering Physician: Jay Malik M.D. Date of Service: 10/07/23 Procedure(s): XR chest 1V portable Accession Number(s): [id number] cc: Jay Malik M.D.; Andrew Pan M.D.~ For Patients: As a result of the Cures Act, medical imaging exams and procedure reports are released immediately into your electronic medical record. You may view this report before your referring provider. If you have questions, please contact your health care provider. INDICATION: Dyspnea and cough COMPARISON: September 05, 2022 TECHNIQUE: Portable single view study FINDINGS: TUBES AND LINES: None. HEART AND MEDIASTINUM: The heart size is normal. The mediastinal contour appears normal for patient age. LUNGS AND PLEURAL SPACES: Diffuse interstitial abnormality. Some alveolar opacities noted as well. This probably represents pulmonary edema though an inflammatory process is possible.The pleural spaces are unremarkable. OSSEOUS STRUCTURES: Age-appropriate appearance. No acute focal finding. IMPRESSION: Moderate diffuse interstitial abnormality with some alveolar opacities noted. This likely represents pulmonary edema though an inflammatory process is possible. Dictated by Erick Koehler MD @ 10/07/2023 11:21:57 AM (Electronically Signed) Assessment and Plan Assessment and plan (1) Acute on chronic respiratory failure with hypoxemia: Problem comment: - Unclear if patient has pneumonia vs. PE vs. aspiration pneumonitis. Multiple chronic pulmonary diseases. CXR equivocal. WBC wnl, afeb. +productive cough and hypoxia. Ddimer is elevated. Trop wnl. Check CT for PE. Continue antibiotics started in ER. Admit for this and oxygen supplementation above what his baseline needs are. Status: Acute (2) Pneumonia: Problem comment: - Possible aspiration - patient's son describes patient having difficulty swallowing - Treat with ceftriaxone and azithromycin. If not improving, consider expanding coverage to Unasyn. - Obtain speech consult for swallow evaluation Status: Acute (3) COPD (chronic obstructive pulmonary disease): Problem comment: Does not appear to currently in exacerbation Status: Chronic (4) Pulmonary hypertension: Problem comment: Continue sildenifil Status: Chronic (5) Dementia: Problem comment: Advanced. Sundowns at home. Monitor for delirium. Reorient frequently. Status: Chronic (6) Type 2 diabetes mellitus: Problem comment: Continue metformin, start ISS ACHS Status: Chronic (7) Hyperlipidemia: Problem comment: continue rosuvastatin Status: Chronic (8) Hypertension: Problem comment: Continue home antihypertensives. Status: Chronic Plan Will also start CIWA protocol since patient drinks unknown amounts of alcohol. VTE prophylaxis: Low-dose nightly enoxaparin. Avoid SCDs and Ankush's due to dementia.
--- NOTE | 2023-10-07 17:25 | RESP.RT ---
Pt. seen. On chronic oxygen at 3L at home. BBS clear. Have pt cough on demand, he is able to do this. Strong dry SHUTTLE SPOTTER cough. SPO2 reading 94% on spot check. Continue with usual COPD medications
[2023-10-07 17:54] LABS: HCO3 VBG 30 mmol/L (21-28); PCO2 VBG 54 mmHG (40-50); PO2 VBG 24.9 mmHG (25-47); pH VBG 7.355 (7.32-7.43)
[2023-10-07] MEDS: THIAMINE 100 MG TABLET PO (18:10)
--- NOTE | 2023-10-07 18:32 | PC.NURSE ---
admission, he is very confused and needs a sitter. he wants to leave and go home. he does not understand that he is in the hospital and is staying over night. baseline dementia Pt is chronically dependent on 3L per n.c.. He denied pain. LS coarse and diminished and occasional cough noted. He denied nausea and tolerated a regular diet without difficulty. BS 91 today and pt was given no insulin. He is up with SBA. in room and tolerated it well. alarms are on IV antibiotics given with no problems
[2023-10-07] MEDS: ENOXAPARIN 40 MG/0.4 ML INJ SUBCUT (20:21)
[2023-10-07] MEDS: FAMOTIDINE 20 MG TABLET 40 MG PO (20:22)
[2023-10-07] MEDS: ASPIRIN 81 MG TABLET EC PO (20:22)
[2023-10-07] MEDS: ROSUVASTATIN CALCIUM 10 MG TABLET 20 MG PO (20:22)
[2023-10-07] MEDS: SILDENAFIL CITRATE 20 MG TABLET PO (20:24)
[2023-10-07] MEDS: SODIUM CHLORIDE 0.9 % (FLUSH) 10 ML SYRINGE 5 ML IVF (20:25)
[2023-10-07] MEDS: INSULIN ASPART 100 UNIT/ML SUBCUT (20:29)
[2023-10-08 00:30] VITALS: BP 149/80; PULSE 86; RESP 18; TEMP 37.1; O2SAT 93
--- NOTE | 2023-10-08 05:28 | PC.NURSE ---
Pt alert and oriented to self only. Pt reported stomach ache, managed with binu rolly, crackers, and warm blanket. Pt denies, chest pain, SOB, and N/V. Pt continues to be a 1:1. Pt woke up several times during night, attempting to get out of bed, asking where am I, what is going on here, and when are we gonna let him go home. Pt can mostly be redirected and reoriented. Pt fixated on calling his around 2229, attempts were made to redirect due to time of night but pt was adamant. Pt called around 2244. After pt called his , he appeared more relaxed and was willing to try to sleep. Pt is up A1 with walker and gait belt to bathroom.
[2023-10-08 06:32] LABS: HCO3 VBG 30 mmol/L (21-28); PCO2 VBG 47 mmHG (40-50); PO2 VBG 47.9 mmHG (25-47); pH VBG 7.414 (7.32-7.43)
[2023-10-08] MEDS: ACETAMINOPHEN 325 MG TABLET 650 MG PO (06:41)
[2023-10-08 06:43] LABS: Basophils Absolute Auto 0.01 K/uL (0.00-0.30); Basophils Percent Auto 0.1 % (0.0-3.0); Eosinophils Absolute Auto 0.08 K/uL (0.00-0.50); Hematocrit 36.1 % (37.0-53.0); Hemoglobin* 10.8 gm/dL (13.5-17.5); Immature Granulocytes Abs Auto 0.03 K/uL (0.00-0.30); Immature Granulocytes Pct Auto 0.4 %; Mean Corpuscular HGB Conc 30 gm/dL (32-36); Mean Corpuscular Hemoglobin 22 pg (26-34); Mean Corpuscular Volume 72 fL (80-100); Monocytes Percent Auto 11.3 % (0.0-11.0); Neutrophils Percent Auto 78.2 % (42.0-72.0); Platelet Count* 275 K/uL (140-440); RDW Coefficient of Variation % 18.2 % (11.5-15.5); White Blood Count* 7.67 K/uL (4.50-11.00)
[2023-10-08 06:47] LABS: Slide Review Reflex No
[2023-10-08 06:58] LABS: Chloride* 101 mmol/L (96-114); Potassium* 3.9 mmol/L (3.6-5.1); Sodium* 136 mmol/L (135-149)
[2023-10-08 07:00] LABS: Est. Creatinine Clearance* 54.17; Estimated Glomerular Filt Rate 76 ml/min
[2023-10-08 07:01] LABS: Anion Gap 6 mEq/L (7-15); Blood Urea Nitrogen* 13 mg/dL (7-30); Calcium* 8.4 mg/dL (8.4-10.6); Carbon Dioxide* 29 mmol/L (20-32); Glucose* 122 mg/dL (60-115)
[2023-10-08 07:15] VITALS: BP 155/93; PULSE 83; RESP 18; RESP 20; TEMP 37.2; O2SAT 94
[2023-10-08] MEDS: CALCIUM CARBONATE 500 MG CHEW PO (08:18)
[2023-10-08] MEDS: AZITHROMYCIN 250 MG TABLET PO (08:55)
[2023-10-08] MEDS: METFORMIN 500 MG TABLET PO (08:55)
[2023-10-08] MEDS: SPIRONOLACTONE 25 MG TABLET PO (08:55)
[2023-10-08] MEDS: AMLODIPINE 5 MG TABLET 2.5 MG PO (08:55)
[2023-10-08] MEDS: SERTRALINE 100 MG TABLET PO (08:55)
[2023-10-08] MEDS: MULTIVITAMIN/MINERALS 1 TABLET 1 TAB PO (08:55)
[2023-10-08] MEDS: FOLIC ACID 1 MG TABLET PO (08:55)
[2023-10-08] MEDS: FAMOTIDINE 20 MG TABLET 40 MG PO (08:55)
[2023-10-08] MEDS: LOSARTAN POTASSIUM 50 MG TABLET 100 MG PO (08:55)
[2023-10-08] MEDS: hydroCHLOROthiazide 25 MG TABLET PO (08:56)
[2023-10-08] MEDS: SILDENAFIL CITRATE 20 MG TABLET PO (08:58)
[2023-10-08] MEDS: Fluticasone-Umeclidin-Vilanter [Trelegy Ellipta] 100-62.5-25 mcg IH (08:59)
--- NOTE | 2023-10-08 09:08 | REH.OT ---
Per nursing, patient at baseline for PT/OT. Due to significant dementia, patient needs cueing for all ADLs, 24 hour supervision and mobility without an AD. He will discharge home with spouse today.
--- NOTE | 2023-10-08 10:23 | PM.DS1 ---
DS: Providers Provider Date Seen: 10/08/23 Date of admission: 10/07/23 16:00 Primary care physician: Andrew Pan MD Admitting Clinician: Noe Brasher MD Consults: 10/07/23 16:00 Consult to Respiratory Therapy [CONS] Routine Comment: Reason(s) for RT Consult:: Consult 10/07/23 16:05 Consult to Human Resources Analyst [CONS] Routine Comment: Reason for Consult:: Discharge Planning Needs Consult to Speech Therapy [CONS] Routine Comment: Reason(s) for Speech Consult:: Swallowing Difficulty Attending Physician on discharge: [facility]CO Zambrano[facility]N [facility] Date of Discharge: 10/08/23 DS: Diagnosis Discharge Diagnosis (1) Acute on chronic respiratory failure with hypoxemia: Status: Acute Problem details: -CTA chest negative for PE, showing interlobular septal thickening bilaterally with centrilobular emphysema 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 Round atelectasis. No consolidations/infiltrates noted. No leukocytosis, afebrile. Back to base line on morning of discharge, saturating >90% on usual 3L. Query aspiration pneumonitis. Recommend outpatient follow up with Speech Therapy for swallow evaluation. No further antibiotics on discharge. Recommend mucinex, continued home inhalers, supplemental oxygen. -close follow up with PCP for ongoing management chronic pulmonary disease (2) COPD (chronic obstructive pulmonary disease): Status: Chronic Problem details: -History of, chronically oxygen dependent. No evidence of exacerbation. Continue usual inhalers, supplemental oxygen. (3) Pulmonary hypertension: Status: Chronic Problem details: -Continue sildenifil (4) Dementia: Status: Chronic Problem details: -Advanced. Cared for by family in own home. (5) Type 2 diabetes mellitus: Status: Chronic Problem details: -Continue metformin, blood glucose acceptable (6) Hyperlipidemia: Status: Chronic Problem details: -continue rosuvastatin (7) Hypertension: Status: Chronic Problem details: -Continue home antihypertensives DS: Summary Hospital Course Hospital Course: [age] year old male past medical history significant for hypertension, hyperlipidemia, COPD, oxygen dependent, dementia, PVD, diabetes mellitus type 2, GERD, anxiety was admitted to the medical floor for further management acute on chronic hypoxia in setting of chronic pulmonary disease. Course of care and details as noted above. Remainder of chronic medical comorbidities were monitored and managed with home medications. Status at Discharge Functional status at discharge: independent ambulation Overall status at discharge: patient is back to baseline Time Spent with Patient Time attestation: Total time spent providing and/or coordinating discharge services: Time spent: Greater than 30 minutes Exam Narrative: Exam Narrative: PHYSICAL EXAM General: Pleasant, conversant, NAD HEENT: Normocephalic, atraumatic, sclera white, EOMI, oral mucosa moist Cardiovascular: RRR, S1S2. No pitting edema Pulmonary: Moving air bilaterally without rhonchi, rales, no expiratory wheezes. No dyspnea on 3 L per NC Neurological: Alert, answering questions appropriately, cranial nerves intact, no focal findings Extremities: No gross joint deformity or swelling. AROMI. Neurovascularly intact Skin: Warm, dry. Const: Vital Signs, click to edit/add: Vital Signs - 24 hr 10/07/23 10:30 10/07/23 10:42 10/07/23 10:58 Temperature Pulse Rate [Pulse Oximeter] Pulse Rate [Right Pulse Oximeter] 85 Respiratory Rate 18 Blood Pressure [Ri ght Arm] Blood Pressure [Ri ght Upper Arm] 140/87 H Pulse Oximetry 90 78 L 96 Oxygen Delivery Me thod Nasal Cannula Room Air Nasal Cannula Oxygen Flow Rate 3 3 3 10/07/23 11:00 10/07/23 11:30 10/07/23 12:00 Temperature Pulse Rate [Pulse Oximeter] Pulse Rate [Right Pulse Oximeter] 81 77 79 Respiratory Rate 22 20 20 Blood Pressure [Ri ght Arm] Blood Pressure [Ri ght Upper Arm] 115/73 117/67 122/68 Pulse Oximetry 96 97 97 Oxygen Delivery Me thod Nasal Cannula Nasal Cannula Nasal Cannula Oxygen Flow Rate 3 3 3 10/07/23 12:30 10/07/23 13:00 10/07/23 13:30 Temperature Pulse Rate [Pulse Oximeter] Pulse Rate [Right Pulse Oximeter] 78 75 83 Respiratory Rate 20 20 18 Blood Pressure [Ri ght Arm] Blood Pressure [Ri ght Upper Arm] 122/73 119/74 108/73 Pulse Oximetry 99 96 92 Oxygen Delivery Me thod Nasal Cannula Nasal Cannula Nasal Cannula Oxygen Flow Rate 3 3 3 10/07/23 15:46 10/07/23 15:55 10/07/23 17:13 Temperature 98.9 F 98.9 F Pulse Rate [Pulse Oximeter] Pulse Rate [Right Pulse Oximeter] Respiratory Rate 18 18 18 Blood Pressure [Ri ght Arm] 144/89 H 144/89 H Blood Pressure [Ri ght Upper Arm] Pulse Oximetry 94 94 94 Oxygen Delivery Me thod Nasal Cannula Nasal Cannula Nasal Cannula Oxygen Flow Rate 3 3 3 10/07/23 20:00 10/07/23 20:00 10/07/23 21:55 Temperature 98.8 F 98.8 F Pulse Rate [Pulse Oximeter] Pulse Rate [Right Pulse Oximeter] Respiratory Rate 18 18 18 Blood Pressure [Ri ght Arm] 135/72 135/72 Blood Pressure [Ri ght Upper Arm] Pulse Oximetry 92 92 Oxygen Delivery Me thod Nasal Cannula Nasal Cannula Oxygen Flow Rate 3 3 10/07/23 21:55 10/07/23 21:55 10/07/23 22:30 Temperature 98.4 F 98.4 F Pulse Rate [Pulse Oximeter] 76 76 Pulse Rate [Right Pulse Oximeter] Respiratory Rate 18 18 18 Blood Pressure [Ri ght Arm] 104/62 104/62 Blood Pressure [Ri ght Upper Arm] Pulse Oximetry 92 91 91 Oxygen Delivery Me thod Nasal Cannula Nasal Cannula Nasal Cannula Oxygen Flow Rate 3 3 3 10/08/23 00:30 10/08/23 07:15 10/08/23 07:15 Temperature 98.8 F 98.9 F Pulse Rate [Pulse Oximeter] 86 83 Pulse Rate [Right Pulse Oximeter] Respiratory Rate 18 18 20 Blood Pressure [Ri ght Arm] 149/80 H 155/93 H Blood Pressure [Ri ght Upper Arm] Pulse Oximetry 93 94 94 Oxygen Delivery Me thod Nasal Cannula Nasal Cannula Nasal Cannula Oxygen Flow Rate 3 3 3 10/08/23 07:15 Temperature Pulse Rate [Pulse Oximeter] 83 Pulse Rate [Right Pulse Oximeter] Respiratory Rate 20 Blood Pressure [Ri ght Arm] Blood Pressure [Ri ght Upper Arm] Pulse Oximetry Oxygen Delivery Me thod Oxygen Flow Rate DS: Data Data Completed and Pending Completed studies during hospitalization: Procedures Introduction of Other Gas into Respiratory Tract, Via Natural or Artificial Opening (08/09/22) Labs on day of discharge: Labs from last 24 hours 10/08/23 10/07/23 10/07/23 05:50 17:35 14:01 WBC 7.67 RBC 5.00 Hgb 10.8 L Hct 36.1 L MCV 72 L MCH 22 L MCHC 30 L RDW Coeff of [place] 18.2 H Plt Count 275 Neut % (Auto) 78.2 H Lymph % (Auto) 9.0 L [place] % (Auto) 11.3 H Eos % (Auto) 1.0 Baso % (Auto) 0.1 Neut # (Auto) 6.00 Lymph # (Auto) 0.70 L [place] # (Auto) 0.90 Eos # (Auto) 0.08 Baso # (Auto) 0.01 Abs Immat Gran (auto) 0.03 Imm/Tot Granulo (auto) 0.4 D-Dimer Quant (PE/DVT) VBG pH 7.414 7.355 VBG pCO2 47 54 H VBG pO2 47.9 H 24.9 L VBG HCO3 30 H 30 H Sodium 136 Potassium 3.9 Chloride 101 Carbon Dioxide 29 Anion Gap 6 L BUN 13 Creatinine 1.0 Estimated Creat Clear 54.17 Estimated GFR 76 Glucose 122 H Lactate Calcium 8.4 Troponin I SARS-CoV-2 (PCR) Influenza Type A (PCR) Influenza Type B (PCR) RSV (PCR) Lab Acknowledgement Test Added 10/07/23 10/07/23 11:25 10:35 WBC 7.58 RBC 5.54 Hgb 12.0 L Hct 40.2 MCV 73 L MCH 22 L MCHC 30 L RDW Coeff of [place] 18.7 H Plt Count 307 Neut % (Auto) 80.0 H Lymph % (Auto) 10.3 L [place] % (Auto) 8.4 Eos % (Auto) 0.8 Baso % (Auto) 0.1 Neut # (Auto) 6.10 Lymph # (Auto) 0.80 L [place] # (Auto) 0.60 Eos # (Auto) 0.06 Baso # (Auto) 0.01 Abs Immat Gran (auto) 0.03 Imm/Tot Granulo (auto) 0.4 D-Dimer Quant (PE/DVT) 3.86 H VBG pH VBG pCO2 VBG pO2 VBG HCO3 Sodium 138 Potassium 3.6 Chloride 98 Carbon Dioxide 29 Anion Gap 11 BUN 13 Creatinine 1.1 Estimated Creat Clear 49.24 Estimated GFR 67 Glucose 148 H Lactate 1.7 Calcium 9.3 Troponin I 0.03 SARS-CoV-2 (PCR) Negative SARS-CoV-2 Influenza Type A (PCR) Negative PCR FLU A Influenza Type B (PCR) Negative PCR FLU B RSV (PCR) Negative PCR RSV Lab Acknowledgement Imaging CT scan - chest: Attestation: I have reviewed the pertinent imaging results. Radiologist's impression: Cardiovascular: The pulmonary arteries are unremarkable in enhancement with no evidence of acute pulmonary embolism. The heart has an unremarkable appearance and size. No sign of aneurysm in the thoracic aorta. Severe atherosclerotic calcifications are noted in the coronary arteries. Mediastinum: No mass or adenopathy seen. Lung: Interlobular septal thickening is noted bilaterally with centrilobular emphysema. Findings are likely due to mild interstitial fibrosis. Parenchymal consolidation is seen in the posterior right lower lobe with peripheral architecture distortion, unchanged from prior exam. This may be due to round atelectasis. Pleura and pericardium: No sign of pleural effusion seen. No significant pericardial effusion is present. Chest wall and axilla: No mass or adenopathy seen. Bone: Unremarkable for age. Upper abdomen: Unremarkable. IMPRESSIONS: 1. No CT evidence of acute pulmonary emboli seen. 2. Severe atherosclerotic calcifications are noted in the coronary arteries. Chest x-ray: Attestation: I have reviewed the pertinent imaging results. Radiologist's impression: FINDINGS: TUBES AND LINES: None. HEART AND MEDIASTINUM: The heart size is normal. The mediastinal contour appears normal for patient age. LUNGS AND PLEURAL SPACES: Diffuse interstitial abnormality. Some alveolar opacities noted as well. This probably represents pulmonary edema though an inflammatory process is possible.The pleural spaces are unremarkable. OSSEOUS STRUCTURES: Age-appropriate appearance. No acute focal finding. IMPRESSION: Moderate diffuse interstitial abnormality with some alveolar opacities noted. This likely represents pulmonary edema though an inflammatory process is possible. Discharge Plan Discharge Disposition: Home, Self-Care Date of Admission: 10/07/23 16:00 Attending Provider on Discharge: Roslyn Baca Primary Care Provider: Andrew Pan Condition: Unchanged Anticipated Discharge Date/Time: 10/08/23 10:15 Discharge Medications: Continued albuterol sulfate 90 mcg/actuation aerosol powdr breath activated 1 inh inhalation Q6H PRN sildenafil (pulm.hypertension) 20 mg tablet 20 mg PO TID aspirin 81 mg tablet,delayed release (DR/EC) 81 mg PO HS multivitamin Tablet 1 tab PO DAILY amlodipine 2.5 mg tablet 2.5 mg PO DAILY spironolactone 25 mg tablet 25 mg PO DAILY hydrochlorothiazide 25 mg tablet 25 mg PO DAILY ipratropium-albuterol 0.5 mg-3 mg(2.5 mg base)/3 mL solution for nebulization 1 ml inhalation Q6H PRN cilostazol 100 mg tablet 100 mg PO BID donepezil 10 mg tablet 10 mg PO HS rosuvastatin 20 mg tablet 20 mg PO HS Trelegy Ellipta 100-62.5-25 mcg blister with device 1 inh inhalation DAILY famotidine [Pepcid] 40 mg tablet 40 mg PO BID sertraline 100 mg tablet 100 mg PO DAILY metformin 500 mg tablet 500 mg PO DAILY Qty: 90 3RF lorazepam 1 mg tablet 1 mg PO TID PRN (Reason: agitation) Qty: 90 0RF losartan 100 mg tablet 100 mg PO DAILY Qty: 90 0RF Discharge Orders: Discharge Order (Routine); Ordered 10/08/23 Ordered By: Roslyn Baca Patient Education: COPD (Chronic Obstructive Pulmonary Disease) (GEN), Chronic Lung Disease and Infection Prevention (GEN) Additional Instructions: You have had a brief episode of hypoxia. It may be that you aspirated and then cleared this. It is recommended you follow up outpaitent with Speech Therapy for a swallow evaluation. Close follow up with your PCP is recommended for your chronic lung disease. Activity Level: Activity as Tolerated Discharge Diet: Diabetic Follow Up Appointments: Andrew Pan MD [Primary Care Provider] - 10/14/23 10:15 am ([facility] for post hospital follow up, chronic lung disease, hypoxia. Recommended Speech Evaluation for aspiration risk, declined in hospital, consider outpatient.) Forms: [employer] Info Instructions
--- NOTE | 2023-10-08 11:20 | PC.NURSE ---
discharge. pt has been pleasant. Pt alert and oriented to self, and home phone. Pt reported stomach ache, tums given with relief. Pt denies, chest pain,he takes o2 off and get SOB with o2 off. . Pt continues to be a 1:1. Pt redirected and reoriented. he is eating, drinking and voiding. Pt is up A1 with walker and o2 and gait belt to bathroom. went over discharge packet with pt, and son. sl was d/c intact. pt left with home o2 and and son. all paperwork and belongings sent with . meds returned. he got a w/c ride to car.
--- NOTE | 2023-10-08 14:08 | PC.SOCIAL ---
Discharge planning: Met with pt. and son in room. is main caregiver, but son is staying with them until April to assist. is interested in hiring rn home health care. Answered 's questions regarding this and provided her with written information regarding agencies that serve this area. Also provided her with the contact information for the [facility] and home delivered meals. states she is able to meet pt's needs at home currently but was willing to accept information on memory care assisted living facilities in case this level of care is needed in the future. Family is aware of how to reach psychotherapist social worker if additional resoruces are needed.
== END 2023-10-08 11:20 | disposition home or self-care (01) | DRG 189 ==
LOC: ED 14:12 → MEDSURG 14:51
PROVIDERS: Admitting Provider Family Medicine; Emergency Provider Emergency Medicine Emergency Medical Services; PCP Internal Medicine; Visit Provider Family Medicine
DX: J96.21 Acute and chronic respiratory failure with hypoxia (principal); J44.9 Chronic obstructive pulmonary disease, unspecified; F03.90 Unspecified dementia, unspecified severity, without behavioral disturbance, psychotic disturbance, mood disturbance, and anxiety; Z79.84 Long term (current) use of oral hypoglycemic drugs; R13.10 Dysphagia, unspecified; J43.2 Centrilobular emphysema; J84.10 Pulmonary fibrosis, unspecified; I27.20 Pulmonary hypertension, unspecified; I10 Essential (primary) hypertension; Z99.81 Dependence on supplemental oxygen; K21.9 Gastro-esophageal reflux disease without esophagitis; E11.51 Type 2 diabetes mellitus with diabetic peripheral angiopathy without gangrene; F41.1 Generalized anxiety disorder; I25.10 Atherosclerotic heart disease of native coronary artery without angina pectoris; F10.10 Alcohol abuse, uncomplicated; E78.5 Hyperlipidemia, unspecified; Z87.891 Personal history of nicotine dependence
CPT/HCPCS: 36415; 71045; 71275; 80048; 82803; 82962; 83605; 84484; 85025; 85379; 87040; 87631; 93005; 99284; 99285; A9153; A9270; J0456; J0696; J1650; J2060; Q9967

== ENCOUNTER 2023-10-23 12:31 | Outpatient (RCR) | payer MEDICARE, BC, SELFPAY ==
--- NOTE | 2023-10-23 13:33 | SLP.EVAL ---
Nicola Pan Please review, sign and return. Thank you Nadiya Borges, METALLURGICAL TESTER METALLURGICAL TESTER Odilia Hartley Start: 10/23/23 13:15 Freq: Status: Active Protocol: Document 10/23/23 13:15 [facility] (Rec: 10/23/23 13:32 [facility] [id number]) E-signed By Nadiya Borges, DANE, METALLURGICAL TESTER METALLURGICAL TESTER System Review History & Reason For Referral Type of Speech Evaluation Dysphagia Evaluation Rehabilitation Order Evaluation Date of Order 10/14/23 Reason for Referral dysphagia Medical Diagnosis Dysphagia Treatment Diagnosis dysphagia Vision Information Vision Status Patient is wearing glasses Patient Orientation Orientation & Mental Status Patient has dementia and is not a good historian. His provides most of the information. METALLURGICAL TESTER Initial Assessment/POC Subjective Information Subjective/Pain Comment Patient independently ambulated to the therapy room. He is wearing oxygen. His is with him. Caregiver's Name Taylor - Assessment & Impression Assessment/Impression Patient is an 83 year old male referred for a swallow evaluation to assess whether he is aspirating. He was just recently in the hospital ( through 10-08) but this therapist was not able to see him before he was discharged. His states that he has difficulty (coughing) when he takes his pills. He has quite a few especially in the morning and she has started to give them to him in smaller quantities instead of all at once. Other than that she does not notice him coughing when he eats and drinks. He has a history of reflux and takes medication for this. She is not sure if he coughs at night in bed as they sleep in separate rooms. ORAL MOTOR FUNCTION AND DENTITION Patient able to adequately move tongue and lips. He wears full upper and lower dentures which seem a little loose. His reports that she gives him softer foods because of the dentures. THIN LIQUID Over the evaluation period, patient drank 3 cups of thin liquid (water), was able to initiate a swallow immediately and exhibited no signs of aspiration. PUREE Patient took a teaspoon of puree and swallowed without signs of aspiration. CRACKER Patient ate 1/2 of a sherry cracker without difficulty or signs of aspiration and then followed with a couple sips of water without difficulty or signs of aspiration. IMPRESSIONS AND RECOMMENDATIONS Patient did not exhibit signs of aspiration during this evaluation. He drank 3 cups of water without coughing. He did not exhibit signs of aspiration with food either. Recommended that he take his pills in pudding or applesauce (as few at a time as possible ), swallow the pills then follow with liquid. Continue with the softer foods. It is also possible that he could at times aspirate on reflux. At this time it does not seem necessary to complete a modified barium swallow study since there are no overt signs of aspiration with eating and drinking. Patient's reports that they have a follow-up appointment in November with physician. Therapist Signature & License # I Certify That Therapy Services Provided Therapist Signature & License Number Nadiya Borges [facility])-METALLURGICAL TESTER, # [id number] Physician Signature Signature of Physician Indicates Medically Needed Services Physician Signature & Date Required Please Sign/Date Here Speech/Language Pathology Billing Units Billing Units Eval Swallow Function 1
== END 2023-12-20 23:59 | disposition home or self-care (01) ==
PROVIDERS: PCP Internal Medicine; Visit Provider Internal Medicine
DX: R13.10 Dysphagia, unspecified (principal); Z51.89 Encounter for other specified aftercare
CPT/HCPCS: 92610

== ENCOUNTER 2023-11-02 19:38 | Emergency (ER) | payer MEDICARE, BC, SELFPAY ==
[2023-11-02 19:43] VITALS: BP 136/69; PULSE 98; RESP 18; TEMP 36.5; O2SAT 82
--- NOTE | 2023-11-02 21:54 | ED.UPPEXIN ---
HPI - Extremity Injury (Upper) General Time Seen by Provider: 21:54 Date Seen: 11/02/23 Chief Complaint: Extremity Pain/Injury, Upper Stated Complaint: Fall; hurt left arm Time Seen by Provider: 11/02/23 21:54 Source: patient, family and RN notes reviewed Mode of arrival: ambulatory Limitations: no limitations History of Present Illness HPI narrative: This 83-year-old male is brought in by his son for concern of left forearm injury. They were worried he has hematoma on 1 part of his arm and then a skin tear on the lower portion of that arm. He resides with his , she is his primary cement based materials pump tender but the son is bring him in. There is unwitnessed fall. His son notes that he has been complaining of shortness of breath, does have severe COPD and takes off his oxygen frequently. His son states that is what he does at home. His oxygen is off when I come in, is standing in the room, still able to converse with me. He does not want his oxygen on. Nursing staff noted that after walking in he was 77% and then 82% with sitting. Son also brings up that he complains of sharp pain frequently. Son feels it is mostly his upper abdomen, patient is pointing to his left chest wall. He does have documentation of pulmonary hypertension, mesenteric artery stenosis and renal artery stenosis in his chart. His son notes he has stomach issues, he states that this complaint has been more chronic, it is not just something recently that he has been complaining of. He also brings up that his dementia seems to be worse, he is only on 10 mg of his medicine for dementia, believes that it can go higher. I have advised him that he is going to need to talk to the primary provider about this, this is out of the realm or focus of treatment in the ED. we have discussed what he would like worked up. He would like to consider chest x-ray, having blood work done. We discussed doing an EKG and troponin. The son would like this. I reviewed with the son that this patient very likely is not a good surgical candidate or anesthesia candidate for much based on body briefly no of him. He does understand but would like to proceed. Recommended x-ray of the left arm (elbow) as well. As I was walking out of the room, patient's coat was on the counter and a bottle of whiskey was out of the pocket, he walked over to put this back in the pocket. Patient's son commented that that was his dad's whiskey. This fall was earlier in the day, unwitnessed. Patient cannot give me any details. Related Data Home Medications Medication Instructions Recorded Confirmed albuterol sulfate 90 mcg/actuation 1 inh inhalation Q6H PRN 05/09/22 10/14/23 breath activated powder inhaler amlodipine 2.5 mg tablet 2.5 mg PO DAILY 05/09/22 10/14/23 aspirin 81 mg tablet,delayed 81 mg PO HS 05/09/22 10/14/23 release hydrochlorothiazide 25 mg tablet 25 mg PO DAILY 05/09/22 10/14/23 ipratropium 0.5 mg-albuterol 3 mg 1 ml inhalation Q6H PRN 05/09/22 10/14/23 (2.5 mg base)/3 mL nebulization soln multivitamin 1 tab PO DAILY 05/09/22 10/14/23 sildenafil (pulm.hypertension) 20 20 mg PO TID 05/09/22 10/14/23 mg tablet spironolactone 25 mg tablet 25 mg PO DAILY 05/09/22 10/14/23 cilostazol 100 mg tablet 100 mg PO BID 10/07/23 10/14/23 donepezil 10 mg tablet 10 mg PO HS 10/07/23 10/14/23 famotidine 40 mg tablet (Pepcid) 40 mg PO BID GERD 10/07/23 10/14/23 fluticasone fur. 100 mcg-umeclid 1 inh inhalation DAILY 10/07/23 10/14/23 62.5 mcg-vilant 25 mcg inhalat.powder (Trelegy Ellipta) rosuvastatin 20 mg tablet 20 mg PO HS 10/07/23 10/14/23 sertraline 100 mg tablet 100 mg PO DAILY Anxiety 10/07/23 10/14/23 Previous Rx's Medication Instructions Recorded metformin 500 mg tablet 500 mg PO DAILY Diabetes #90 tabs 02/14/23 losartan 100 mg tablet 100 mg PO DAILY #90 tabs 09/24/23 lorazepam 1 mg tablet 1 mg PO TID PRN agitation #90 tabs 10/09/23 azithromycin 250 mg tablet 250 mg PO QDAY COPD 10 days #30 10/14/23 tabs Allergies Allergy/AdvReac Type Severity Reaction Status Date / Time atorvastatin Allergy Verified 10/14/23 10:16 simvastatin Allergy Verified 10/14/23 10:16 Sulfa (Sulfonamide Allergy Verified 10/14/23 10:16 Antibiotics) Review of Systems Status of ROS: Reports: unobtainable due to mental status (Patient has dementia, is probably under the affects of alcohol as well) PFSH [facility] Medical History Pneumonia ?J18.9 - Pneumonia, unspecified organism (ICD-10) Memory impairment ?R41.3 - Other amnesia (ICD-10) Dysphagia ?R13.10 - Dysphagia, unspecified (ICD-10) Infection due to severe acute respiratory syndrome coronavirus 2 (SARS-CoV-2) (~06/07/22) ?U07.1 - COVID-19 (ICD-10) Pulmonary hypertension ?I27.20 - Pulmonary hypertension, unspecified (ICD-10) Dementia ?F03.90 - Unspecified dementia without behavioral disturbance (ICD-10) Peripheral vascular disease ?I73.9 - Peripheral vascular disease, unspecified (ICD-10) Mesenteric artery stenosis ?K55.1 - Chronic vascular disorders of intestine (ICD-10) Renal artery stenosis ?I70.1 - Atherosclerosis of renal artery (ICD-10) Health care directive on file ?Z78.9 - Other specified health status (ICD-10) Constipation ?K59.00 - Constipation, unspecified (ICD-10) COPD (chronic obstructive pulmonary disease) ?J44.9 - Chronic obstructive pulmonary disease, unspecified (ICD-10) Type 2 diabetes mellitus ?E11.9 - Type 2 diabetes mellitus without complications (ICD-10) Allergies ?T78.40XA - Allergy, unspecified, initial encounter (ICD-10) GERD (gastroesophageal reflux disease) ?K21.9 - Gastro-esophageal reflux disease without esophagitis (ICD-10) Chronic radicular low back pain ?M54.16 - Radiculopathy, lumbar region (ICD-10) ?G89.29 - Other chronic pain (ICD-10) Anxiety ?F41.9 - Anxiety disorder, unspecified (ICD-10) Type 2 diabetes mellitus ?E11.9 - Type 2 diabetes mellitus without complications (ICD-10) Pneumothorax ?J93.9 - Pneumothorax, unspecified (ICD-10) Peripheral arterial disease ?I73.9 - Peripheral vascular disease, unspecified (ICD-10) Hypertension ?I10 - Essential (primary) hypertension (ICD-10) Hyperlipidemia ?E78.5 - Hyperlipidemia, unspecified (ICD-10) History of adenomatous polyp of colon ?Z86.010 - Personal history of colonic polyps (ICD-10) Gout ?M10.9 - Gout, unspecified (ICD-10) Generalized anxiety disorder ?F41.1 - Generalized anxiety disorder (ICD-10) Coronary artery disease ?I25.10 - Atherosclerotic heart disease of [place] coronary artery without angina pectoris (ICD-10) Surgical History History of thumb surgery ?Z98.890 - Other specified postprocedural states (ICD-10) History of phacoemulsification of cataract of both eyes with intraocular lens implantation ?Z98.41 - Cataract extraction status, right eye (ICD-10) ?Z98.42 - Cataract extraction status, left eye (ICD-10) ?Z96.1 - Presence of intraocular lens (ICD-10) History of lumbar discectomy ?Z98.890 - Other specified postprocedural states (ICD-10) History of decompression of both ulnar nerves ?Z98.890 - Other specified postprocedural states (ICD-10) Social History Narrative: , lives with his in [place]. 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 Son, Rusty, living with them temporarily due to patient's worsening dementia. Code status is DNR. Retired [employer]. Quit smoking 2009. Long-standing history of cigarette smoking. Longstanding history of alcohol abuse. Son reports that patient drinks one alcoholic drink per day and will go over to the neighbors house to ask them to get him alcohol. What is your current living situation?: I presently have a place to live Problems where you live: unable to answer Problems where you live details: needs family In the past 12 months, utilities in danger of being shut off: unable to answer In past 12 months, lack of transportation kept you from medical appts, meetings, work, or getting things needed for daily living: unable to answer In the past 12 mos, have been you worried that your food would run out before you had money to buy more?: unable to answer In the past 12 mos, the food you bought just didn't last and you didn't have money to buy more?: unable to answer Highest level of school completed/degree received: Bachelor's degree Smoking Status: Never smoker Do you use any of these nicotine containing products: None Second hand tobacco smoke exposure: No How often do you have a drink containing alcohol: 2-3 times a week Alcohol type: hard liquor Alcohol type details: whiskey How many standard drinks containing alcohol do you have on a typical day: 1 or 2 How often do you have six or more drinks on one occasion: Never AUDIT-C Alcohol total score: 3 Non-prescribed substance use: denies use Caffeine: Yes How often does anyone, including family, friends and others, physically hurt you: unable to answer How often does anyone, including family, friends and others, insult or talk down to you: unable to answer How often does anyone, including family, friends and others, threaten you with harm: unable to answer How often does anyone, including family, friends and others, scream or curse at you: unable to answer Little interest or pleasure in doing things: more than half the days Feeling down, depressed, or hopeless: not at all service: Yes Exam Const: Vital Signs, click to edit/add: Vital Signs - 24 hr 11/02/23 19:43 11/02/23 23:05 11/02/23 23:27 Temperature 97.7 F Pulse Rate [Left P ulse Oximeter] 98 89 Respiratory Rate 18 Blood Pressure [Ri ght Upper Arm] 136/69 172/99 H Pulse Oximetry 82 L 89 Oxygen Delivery Me thod Nasal Cannula Nasal Cannula Nasal Cannula Oxygen Flow Rate 3 3 Patient is standing in the room, is alert and interactive. He has obvious bruising over the lateral distal elbow, central portion is a little more raised in consistent with a hematoma. Just below the olecranon on the back of the elbow, there is a small skin tear, very superficial, not actively bleeding, small amount of bruising around this. Reviewed with son that this is just going to be topical cares and bandages. There is nothing to repair here. Pupils equal round reactive, school sclera clear, conjugate gaze. Face atraumatic, scalp atraumatic. No midline tenderness over his neck, neck is supple, no palpable masses. Lungs with distant breath sounds but no wheezing or crackles noted, good air entry, no tachypnea, no accessory muscle use. CV with distant heart sounds, no murmur, normal S1-S2, no S3-S4. Abdomen is soft but he is standing up, does not complain of any pain when I palpate. He is ambulatory in the room. He does show full range of motion of his elbow with flexion extension, supination pronation on the left. Distal neurovascular is intact. Documenting provider has reviewed patient's vital signs: yes Course Course ED Course: Will do x-ray of his elbow to ensure no fracture. This is likely just going to be conservative management for hematoma and skin tear. As far as the other symptoms, will do complement of labs, will get a chest x-ray an EKG. He does have significant COPD. He is obviously drinking. Once I have further lab data back, will likely talk to the son about goals of care in somebody that is not cooperating with even oxygen use and possibly drinking. It is not safe for him to be using alcohol. Will guide therapy accordingly. Reevaluation(s) Time of Reevaluation #1: 00:04 Reevaluation #1: Reviewed that workup is benign as far as x-rays. Labs look stable. His son brought up that he complains of his head burning all the time, patient pulled off his cap and had me feel is forehead. The son states he does that all the time in his forehead never feels abnormal. I see no skin changes, he is not sweating, has normal feeling skin, not hot. Son wants know if this could be dementia. His difficult to say. At this point, I think that they are stable to go home with further outpatient follow-up with their primary Dr. Pan. Of note, patient is up standing in the room without oxygen, looks alert, interactive, no apparent distress, speaking in complete sentences. Nursing staff has his wound bandage, light wrap over the hematoma. Vital Signs Vital signs: Initial Vital Signs Temperature 97.7 F 11/02/23 19:43 Temperature Source Temporal Artery Scan 11/02/23 19:43 Pulse Rate 98 11/02/23 19:43 Pulse Rhythm Regular 11/02/23 19:43 Respiratory Rate 18 11/02/23 19:43 Blood Pressure 136/69 11/02/23 19:43 Blood Pressure Mean 91 11/02/23 19:43 Blood Pressure Position Sitting 11/02/23 19:43 Pulse Oximetry 82 L 11/02/23 19:43 Oxygen Delivery Method Nasal Cannula 11/02/23 19:43 Oxygen Flow Rate 3 11/02/23 19:43 Vital Signs Temperature 97.7 F 11/02/23 19:43 Pulse Rate 98 11/02/23 19:43 Respiratory Rate 18 11/02/23 19:43 Blood Pressure 136/69 11/02/23 19:43 Pulse Oximetry 82 L 11/02/23 19:43 Oxygen Delivery Method Nasal Cannula 11/02/23 19:43 Oxygen Flow Rate 3 11/02/23 19:43 Temperature 97.7 F 11/02/23 19:43 Pulse Rate 89 11/02/23 23:05 Respiratory Rate 18 11/02/23 19:43 Blood Pressure 172/99 H 11/02/23 23:05 Pulse Oximetry 89 11/02/23 23:05 Oxygen Delivery Method Nasal Cannula 11/02/23 23:27 Oxygen Flow Rate 3 11/02/23 23:27 MDM - Extremity Injury (Upper) Lab Data Attestation: I reviewed the patient's lab results. Labs: Lab Results 11/02/23 Range/Units 22:30 WBC 10.28 (4.50-11.00) K/uL RBC 5.83 (4.30-5.90) m/uL Hgb 12.2 L (13.5-17.5) gm/dL Hct 40.4 (37.0-53.0) % MCV 69 L (80-100) fL MCH 21 L (26-34) pg MCHC 30 L (32-36) gm/dL RDW Coeff of [place] 18.8 H (11.5-15.5) % Plt Count 231 (140-440) K/uL Neut % (Auto) 78.5 H (42.0-72.0) % Lymph % (Auto) 10.9 L (20-44) % Delta % (Auto) 9.1 (0.0-11.0) % Eos % (Auto) 1.1 (0.0-7.0) % Baso % (Auto) 0.2 (0.0-3.0) % Neut # (Auto) 8.10 H (1.7-7.0) K/uL Lymph # (Auto) 1.10 (0.90-2.90) K/uL Delta # (Auto) 0.90 (0.00-0.90) K/UL Eos # (Auto) 0.11 (0.00-0.50) K/uL Baso # (Auto) 0.02 (0.00-0.30) K/uL Abs Immat Gran (auto) 0.02 (0.00-0.30) K/uL Imm/Tot Granulo (auto) 0.2 % VBG pH 7.422 (7.32-7.43) VBG pCO2 46 (40-50) mmHG VBG pO2 23.2 L (25-47) mmHG VBG HCO3 30 H (21-28) mmol/L Sodium 135 (135-149) mmol/L Potassium 3.4 L (3.6-5.1) mmol/L Chloride 97 (96-114) mmol/L Carbon Dioxide 28 (20-32) mmol/L Anion Gap 10 (7-15) mEq/L BUN 19 (7-30) mg/dL Creatinine 0.9 (0.5-1.5) mg/dL Estimated GFR 86 ml/min Glucose 109 (60-115) mg/dL Lactate 1.0 (0.5-1.9) mmol/L Calcium 9.4 (8.4-10.6) mg/dL Total Bilirubin 0.5 (0.1-1.5) mg/dL AST 34 (12-35) U/L ALT 25 (4-50) U/L Alkaline Phosphatase 73 (40-150) U/L Troponin I 0.04 (0.01-0.04) ng/mL C-Reactive Protein 0.7 (0.5-1.0) mg/dL NT-Pro-B Natriuret Pep 852 pg/mL Total Protein 7.3 (6.0-8.3) g/dL Albumin 4.4 (3.3-5.0) g/dL Lipase 189 (23-300) U/L Procalcitonin 0.06 (<0.50) ng/mL Ethyl Alcohol < 0.01 L (0.01-0.03) % Lab Acknowledgement Test Added Imaging Data XR left elbow: Attestation: I have reviewed the pertinent imaging results. My impression: I see no evidence fracture my preliminary review. Radiologist's impression: Patient: [facility] Facility:?[facility] Patient ID:?[id number] Site Patient ID:?[id number]. Site :?[id number] Study:?XRay Extremity Left ELBOW-11/02/2023 10:26:54 PM Ordering Physician:?Leonardo Diallo Final Report: Indication: Fall. Technique: Three views left elbow. Comparison: None. Findings/Impression: No acute displaced fracture or malalignment. No soft tissue swelling. Elbow joint arthrosis and chondrocalcinosis. Bony mineralization is age appropriate. Dictated by Maeto Brothers MD @ 11/02/2023 11:54:40 PM (Electronic Signature) Chest x-ray: Attestation: I have reviewed the pertinent imaging results. Radiologist's impression: Patient: [facility] Facility:?[facility] Patient ID:?[id number] Site Patient ID:?[id number] Site :?[id number] Study:?XRay Chest 2 VIEW-11/02/2023 10:27:38 PM Ordering Physician:?Leonardo Diallo Final Report: INDICATION: Fall. TECHNIQUE: Chest 2 views. COMPARISON: September 2023. FINDINGS: Lungs: Normal lung volume. No consolidation. Similar bilateral interstitial linear reticular airspace opacities likely interstitial fibrotic change. Multiple calcified granulomas. Pleura: No pleural effusion or pneumothorax. Heart and Mediastinum: Normal heart size. Atherosclerotic aorta. Bones: No discrete acute displaced osseous process. IMPRESSION: No consolidation. No discrete acute displaced osseous process. Dictated by Mateo Brothers MD @ 11/02/2023 11:59:14 PM (Electronic Signature) ECG Data Attestation: I personally reviewed and interpreted this ECG as follows: (Normal sinus rhythm with sinus arrhythmia, 91 beats per minute. No definitive ischemic change. QT corrected 450 milliseconds.) ECG interpretation date: 11/02/23 ECG interpretation time: 23:57 Prior ECG tracings: available for review (Compared to EKG from September of this year. No significant change.) Discharge Plan Discharge Clinical Impression: COPD (chronic obstructive pulmonary disease), Skin tear, Dementia Hematoma of arm Qualifiers: Encounter type: initial encounter Laterality: left Qualified Code(s): S40.022A - Contusion of left upper arm, initial encounter Patient Disposition: Home w/ Parent or Adult Condition: Stable Instructions: Contusion in Adults (ED), Skin Tear (ED) Additional Instructions: Recommend clinic follow-up with your primary care physician within the next 1-2 weeks. He can recheck the hematoma as well as the skin tear. In the meantime, do recommend light compression over the hematoma, can use light Arslan wrap. Use bandages and bacitracin to the skin tear until healed, may need to change the bandages once to twice a day. Do not recommend alcohol use. Can talk to her primary care provider about the concerns dementia and chronic complaints of pain in the chest and abdomen. Do recommend wearing your oxygen all the time as well. Activity Level: Activity as Tolerated Prescriptions: No Action azithromycin 250 mg tablet 250 mg PO QDAY 10 Days Qty: 30 3RF albuterol sulfate 90 mcg/actuation aerosol powdr breath activated 1 inh inhalation Q6H PRN sildenafil (pulm.hypertension) 20 mg tablet 20 mg PO TID aspirin 81 mg tablet,delayed release (DR/EC) 81 mg PO HS multivitamin Tablet 1 tab PO DAILY amlodipine 2.5 mg tablet 2.5 mg PO DAILY spironolactone 25 mg tablet 25 mg PO DAILY hydrochlorothiazide 25 mg tablet 25 mg PO DAILY ipratropium-albuterol 0.5 mg-3 mg(2.5 mg base)/3 mL solution for nebulization 1 ml inhalation Q6H PRN cilostazol 100 mg tablet 100 mg PO BID donepezil 10 mg tablet 10 mg PO HS rosuvastatin 20 mg tablet 20 mg PO HS Trelegy Ellipta 100-62.5-25 mcg blister with device 1 inh inhalation DAILY famotidine [Pepcid] 40 mg tablet 40 mg PO BID sertraline 100 mg tablet 100 mg PO DAILY metformin 500 mg tablet 500 mg PO DAILY Qty: 90 3RF losartan 100 mg tablet 100 mg PO DAILY Qty: 90 0RF lorazepam 1 mg tablet 1 mg PO TID PRN (Reason: agitation) Qty: 90 0RF Follow Up/Referrals: Andrew Pan MD [Primary Care Provider] - Stand Alone Forms: [employer] Info Instructions
--- NOTE | 2023-11-02 22:00 | CRLHL7_ITS ---
For Patients: As a result of the Cures Act, medical imaging exams and procedure reports are released immediately into your electronic medical record. You may view this report before your referring provider. If you have questions, please contact your health care provider. INDICATION: Fall. TECHNIQUE: Chest 2 views. COMPARISON: September 2023. FINDINGS: Lungs: Normal lung volume. No consolidation. Similar bilateral interstitial linear reticular airspace opacities likely interstitial fibrotic change. Multiple calcified granulomas. Pleura: No pleural effusion or pneumothorax. Heart and Mediastinum: Normal heart size. Atherosclerotic aorta. Bones: No discrete acute displaced osseous process. IMPRESSION: No consolidation. No discrete acute displaced osseous process. Dictated by Mateo Brothers MD @ 11/02/2023 11:59:14 PM (Electronically Signed)
--- NOTE | 2023-11-02 22:00 | CRLHL7_ITS ---
For Patients: As a result of the Cures Act, medical imaging exams and procedure reports are released immediately into your electronic medical record. You may view this report before your referring provider. If you have questions, please contact your health care provider. Indication: Fall. Technique: Three views left elbow. Comparison: None. Findings/Impression: No acute displaced fracture or malalignment. No soft tissue swelling. Elbow joint arthrosis and chondrocalcinosis. Bony mineralization is age appropriate. Dictated by Mateo Brothers MD @ 11/02/2023 11:54:40 PM (Electronically Signed)
--- NOTE | 2023-11-02 22:05 | PC.NURSE ---
noted a bottle of whiskey in pt room. Security asked family member to take it to car.
--- NOTE | 2023-11-02 22:14 | PC.NURSE ---
To radiology vias w/c.
[2023-11-02 22:34] LABS: HCO3 VBG 30 mmol/L (21-28); PCO2 VBG 46 mmHG (40-50); PO2 VBG 23.2 mmHG (25-47); pH VBG 7.422 (7.32-7.43)
[2023-11-02 22:35] LABS: Eosinophils Percent Auto 1.1 % (0.0-7.0); Hematocrit 40.4 % (37.0-53.0); Hemoglobin* 12.2 gm/dL (13.5-17.5); Lymphocytes Percent Auto 10.9 % (20-44); Mean Corpuscular HGB Conc 30 gm/dL (32-36); Mean Corpuscular Hemoglobin 21 pg (26-34); Mean Corpuscular Volume 69 fL (80-100); Monocytes Percent Auto 9.1 % (0.0-11.0); Neutrophils Percent Auto 78.5 % (42.0-72.0); Platelet Count* 231 K/uL (140-440); RDW Coefficient of Variation % 18.8 % (11.5-15.5); Red Blood Count 5.83 m/uL (4.30-5.90); White Blood Count* 10.28 K/uL (4.50-11.00)
[2023-11-02 22:36] LABS: Basophils Absolute Auto 0.02 K/uL (0.00-0.30); Basophils Percent Auto 0.2 % (0.0-3.0); Eosinophils Absolute Auto 0.11 K/uL (0.00-0.50); Immature Granulocytes Abs Auto 0.02 K/uL (0.00-0.30); Immature Granulocytes Pct Auto 0.2 %
[2023-11-02 22:46] LABS: Slide Review Reflex No
--- OUTSIDE RECORDS SUMMARY | 2023-11-02 22:48 | XMS_ITS | Continuity of Care Document ---
Author Name Unknown Organization [facility] Address [address] [address] [place] [address] Phone Care Team Providers Care Phototypesetting Equipment Monitor Name Role Phone Madonna Garcia CRNA Unavailabl e Allergies, Adverse Reactions, Alerts Substance Reaction Status Criticality Sulfa (Sulfonamide Antibiotics) Rash Active No Information Medications Medication Instructions Dosage Effective Dates (start - stop) Status Comments amlodipine 2.5 mg tablet take 1 tablet by oral route every day 2.5 MG - Active sertraline 100 mg tablet take 1 tablet by oral route every day 100 MG - Active Proair Digihaler 90 mcg/actuation aerosol powder breath act, sensor inhale 2 puff by inhalation route every 4 - 6 hours as needed 180 MCG - Active spironolactone 25 mg tablet take 1 Tablet by oral route every day 25 MG - Active metformin 500 mg tablet take 1 Tablet by oral route 2 times every day 500 MG - Active rosuvastatin 20 mg tablet take 1 tablet by oral route every day 30 minutes before meals 20 MG - Active Trelegy Ellipta 100 mcg-62.5 mcg-25 mcg powder for inhalation inhale 1 puff by inhalation route every day at the same time each day 1.00 puff - Active losartan 100 mg-hydrochlorothiazi de 25 mg tablet take 1 tablet by oral route every day 1.00 tablet Nov-19-2018 - Active Symbicort 80 mcg-4.5 mcg/actuation HFA aerosol inhaler inhale 2 puff by inhalation route 2 times every day in the morning and evening 2 puff - Active rosuvastatin 20 mg tablet take 1 tablet by oral route every day 30 minutes before meals 20 MG - No Longer Active amlodipine 5 mg tablet take 1 tablet by ORAL route every day 5 MG - No Longer Active doxycycline hyclate 100 mg tablet take 1 tablet by oral route 2 times every day 100 MG - No Longer Active sertraline 50 mg tablet take 1 tablet by oral route every day 50 MG - No Longer Active Procedures Procedure Date Colonoscopy Flex; W/remov Les- Colonoscopy Flex; W/bx 1/mx Level Iv-surg Path Gross/micro Colonoscopy Flex; W/remov Les- 19 Colonoscopy Flex; W/bx 1/mx Level Iv-surg Path Gross/micro Adenoma(s), Other Neoplasm Detected Duri ng Screen Colonoscopy Flex; W/remov Les- 18 Colonoscopy W/Submucosal Injection Level Iv-surg Path Gross/micro 18 Colonoscopy Flex; W/remov Les- 17 Level Iv-surg Path Gross/micro 17 Colonoscopy W/Submucosal Injection Colonoscopy Flex; W/remov Les- 16 Advance Directives Directive Yes / No Effective Date File Name No Information Encounters Encounter Description Practice Location Reason(s) For Visit Diagnoses Date Provider Providers Copied on Encounter [facility] [address]RE [address] [address], [place], [id number], [place] tel:[phone] Valeriy [facility] No Information 1 Radha Peacock. [address] [facility], [place], [id number] , [place]. tel:[phone] Referring Provider: Kriss Cochran MD, [address] [facility] [address], [place], [address] . tel:[phone] [facility], [address] [address], [place], [id number], [place] tel:[phone] [facility] Colorectal polypsDiverticulo sis of colon without diverticulitisInt ernal and external hemorrhoids without complicationPerso nal history of colonic polypsEncounter for screening for malignant neoplasm of colonBenign neoplasm of transverse colonBenign neoplasm of descending colonEncounter for screening for malignant neoplasm of colonBenign neoplasm of descending colonBenign neoplasm of transverse colonPersonal history of colonic polyps Dimas Monterroso. [address] [facility], [facility] [address], [facility] [place], [id number] , [place]. tel: [phone] Win Vo MD. tel:[phone] erring Provider: Referral Self, USE FOR SELF REFERRALS. [facility], [address] [address], [place], [id number], [place] tel:[phone] [facility] No Information 1 Brando Sands. [address] [facility], [facility] [address], [facility] [place], [id number] , [place]. tel: [phone] [facility], [address] [address], [place], [id number], [place] tel:[phone] [facility] Colorectal polypsDiverticulo sis of colon without diverticulitisHem orrhoids, internalPersonal history of colonic polypsBenign neoplasm of sigmoid colonBenign neoplasm of transverse colonBenign neoplasm of cecumBenign neoplasm of cecumBenign neoplasm of transverse colonBenign neoplasm of sigmoid colon 9 Dimas Monterroso. [address] [facility], [facility] [address], [facility] [place], [id number] , [place]. tel: [phone] Win Vo MD. tel:[phone] erring Provider: Referral Self, USE FOR SELF REFERRALS. [facility], [address] [address], [place], [id number], [place] tel:[phone] [facility] Colorectal polypsDiverticulo sis of colon without diverticulitisHem orrhoids, internalPersonal history of colonic polypsEncounter for screening for malignant neoplasm of colonBenign neoplasm of sigmoid colonBenign neoplasm of transverse colonEncounter for screening for malignant neoplasm of colonBenign neoplasm of transverse colonBenign neoplasm of sigmoid colonPersonal history of colonic polyps 8 Dimas Monterroso. [address] [facility], [address], [facility] [place] [place] [id number] , [place]. tel:[phone] Win Vo MD. [phone] erring Provider: Referral Self, USE FOR SELF REFERRALS. [facility], [address] [address], [place], [id number], [place] tel:[phone] [facility] Polyp of colon, unspecified part of colon, unspecified typeDiverticulosi s of colon without diverticulitisInt ernal hemorrhoidsPerson al history of colonic polypsBenign neoplasm of transverse colonOther hemorrhoidsDvrtcl os of lg int w/o perforation or abscess w/o bleeding 7 Brice Goodman. [address] [facility], [facility] [address], [place], [id number] , [place]. tel:[phone] Referring Provider: Referral Self, USE FOR SELF REFERRALS. [facility] Digestive [facility] HOWARD, [address] [address], [place], [id number], [place] tel:[phone] [facility] No Information 6 Brice Goodman. [address] [facility], [address], [facility] [place], [id number] , [place]. tel:[phone] Referring Provider: Win Lopez, [address] [facility] [address] Internal Medicine, [place], [address]. tel:[phone] Family History Family Member Type Diagnosis Age At Onset Sister Problem (finding) Alive and well Sister Problem (finding) Colon polyps Sister Problem (finding) celiac disease Father Problem (finding) Mother Problem (finding) Immunizations Vaccine Date Status Comments SARS-COV-2 (COVID-19) vaccin e, mRNA, spike protein, LNP, preservative free, 30 mcg/0.3mL dose administered Note: [facility] bi-direct ional interface ; Source: Other Registry SARS-COV-2 (COVID-19) vaccin e, mRNA, spike protein, LNP, preservative free, 30 mcg/0.3mL dose administered Note: [facility] bi-direct ional interface ; Source: Other Registry influenza, seasonal vaccine, quadrivalent, adjuvanted, .5mL dose, preservative free administered Note: [facility] bi-di rectional interface ; Source: Other Registry zoster vaccine recombinant administered N ote: [facility] bi-directional interface ; Source: Other Registry tetanus toxoid, reduced diphtheria toxoid, and acellular pertussis vaccine, adsorbed administered Note: [facility] b i-directional interface ; Source: Other Registry Afluria Qd administered Note: [facility] bi-directional interface ; Source: Other Registry influenza, high dose seasona l, preservative-free administered Note: [facility] bi-direct ional interface ; Source: Other Registry varicella virus vaccine administered Note : [facility] bi-directional interface ; Source: Other Registry varicella virus vaccine administered Note : [facility] bi-directional interface ; Source: Other Registry influenza, high dose seasona l, preservative-free administered Note: [facility] bi-direct ional interface ; Source: Other Registry influenza, high dose seasona l, preservative-free administered Note: [facility] bi-direct ional interface ; Source: Other Registry Prevnar 13 administered Note: [facility] bi-d irectional interface ; Source: Other Registry influenza, high dose seasona l, preservative-free administered Note: [facility] bi-direct ional interface ; Source: Other Registry influenza, high dose seasona l, preservative-free administered Note: [facility] bi-direct ional interface ; Source: Other Registry influenza, high dose seasona l, preservative-free administered Note: [facility] bi-direct ional interface ; Source: Other Registry Pneumovax 23 administered Note: [facility] bi-d irectional interface ; Source: Other Registry tetanus and diphtheria toxoi ds, adsorbed, preservative free, for adult use (5 Lf of tetanus toxoid and 2 Lf of diphtheria toxoid) administered Note: [facility] bi-direct ional interface ; Source: Other Registry Influenza, seasonal, injecta ble, preservative free administered Note: [facility] bi-direct ional interface ; Source: Other Registry Influenza, seasonal, injectable administe red Note: [facility] bi- directional interface ; Source: Other Registry Payers Payer name Insurance type Covered democrat ID Authoriza tion(s) Blue Cross [employer] Blue BL [id number] Social History Type Description Quantity Date Captured Comments Sex Male Smoking Status No Information Chief Complaint And Reason For Visit No Information Reason For Referral Reason For Referral No Information Plan Of Treatment Date Type Action Status Referral Ordered: Colonoscopy Appointment date/timeframe: 03/29/2019 ordered History Of Present Illness Encounter Date Complaint History Of Prese nt Illness No Information Functional Status Date Functional Assessmen t No Information Instructions Date Instruction Additional Infor matraul Diverticulosis/Diverticulitis Re lated to Diverticulosis of colon without diverticulitis Colon Polyps Related to Diver ticulosis of colon without diverticulitis Hemorrhoids Related to Diver ticulosis of colon without diverticulitis Colon Cancer Prevention Related to Diverticulosis of colon without diverticulitis High Fiber Diet Related to Diver ticulosis of colon without diverticulitis Diverticulosis/Diverticulitis Re lated to Colorectal polyps Colon Polyps Related to Color ectal polyps Hemorrhoids Related to Color ectal polyps Colon Cancer Prevention Related to Colorectal polyps High Fiber Diet Related to Color ectal polyps NSAIDS List Related to Color ectal polyps Colon Polyps Related to Polyp of colon, unspecified part of colon, unspecified type Colon Polyps Related to Polyp of colon, unspecified part of colon, unspecified type Hemorrhoids Related to Polyp of colon, unspecified part of colon, unspecified type Assessments Type Assessment Date No Information Patient Care Teams Name Effective Dates (start - stop) Status Members No Information
--- OUTSIDE RECORDS SUMMARY | 2023-11-02 22:49 | XMS_ITS | Continuity of Care Document ---
Author Name Unknown Organization [facility] Address [address] [place] [address] Phone Care Team Providers Care Livestock Breeder Name Role Phone Pilo Minnie BARNARDeen Unavailable [...] Established Patient [facility], [address], [id number], [place] tel:[phone] [facility] [place] No Information 3200 8 Pilo Matamoros. [address] [place] [address], [id number], [place]. tel:[phone] Referring Provider: Z[address], [place], [address]. tel:[phone] [facility] , [address] [place] [address], [id number], [place] tel:[phone] [facility] [place] No Information 6200 8 Taiwo Ghasoub. [address] [place] [address], [id number], [place]. tel:[phone] Referring Provider: Z[address], [place], [address]. tel:[phone] Offic/outpt E&m Estab Low-mod [facility] , [address] [place] [address], [id number], [place] tel:[phone] [facility] [place] No Information 7 Taiwo Ghasoub. [address] [place] [address], [id number], [place]. tel:[phone] Referring Provider: Zuly [address], [place], [address]. tel:[phone] Offic Cons New/estab Mod 40 Nc [facility] , [address] [place] [address], [id number], [place] tel:[phone] [facility] [place] No Information 7 Taiwo Ghasoub. [address] [place] [address], [id number], [place]. tel:[phone] Referring Provider: Z[address], [place], [address]. tel:[phone] [facility], [address] [place] [address], [id number], [place] tel:[phone] [facility] [place] No Information 7 Carlos Galindo. [address] [place] [address], [id number], . tel:[phone] Family History Family Member Type Diagnosis Age At Onset No Information Payers Payer name Insurance type Covered alliance party ID Authorelizabeth samayoa(s) [place] [id number] Social History Type Description Quantity Date Captured [...]
--- OUTSIDE RECORDS SUMMARY | 2023-11-02 22:49 | XMS_ITS | Continuity of Care Document ---
Author Name Unknown Organization [facility] Address [address] [place] [address] Phone Care Team Providers Care Wafer Fabrication Technician Name Role Phone Charly Moreira MD Unavailable Unavailable Medications Medication Instructions Dosage Effective Dates (start - stop) Status Comments Diovan HCT 80 mg-12.5 mg Tab 1 tablet/capsule by mouth twice a day - Active Lipitor 80 mg Tab 1 tablet by mouth daily - Active Plavix 75 mg Tab 1 tablet by mouth daily - Active Pletal 100 mg Tab 1 tablet/capsule by mouth twice a day - Active multivitamin Tab 1 tablet by mouth daily - Active aspirin 81 mg Chewable Tab 1 tablet by mouth daily - Active Procedures Procedure Date Vas-NIVS With Exercise Office Visit Level 3 TOBACCO USE, SMOKING, ASSESS Current Tobacco Smoker IO-Echo 2D Interp IO-Echo Doppler Interp IO-Echo Color Doppler Interp Ergonovine Provocation Test Office/outpatient visit, est, exp prob A Vas-NIVS With Exercise Office/outpatient visit, est, exp prob M Office/outpatient visit, est, exp prob F eb Vas-NIVS With Exercise Office/outpatient visit, est, exp prob N Office/outpatient visit, est, exp prob A Vas-NIVS With Exercise Stent Placement, Non Coronary 1st Vessel Stent, Non Coronary X-ray, S&I 05 PC Selective LE Cath Art 3rd Order Stent Placement, Non Coronary 1st Vessel Stent, Non Coronary X-ray, S&I 05 PC Selective LE Cath Art 2nd Order PC X-ray, Abdominal Aorta, W/Serialog, S &I PC X-ray, Angio, Extremity, Bilat, S&I J EM-Out Pt Hosp Visit 2 EM-Office Consultation Level 5 05 Advance Directives Directive Yes / No Effective Date File Name No Information Encounters Encounter Description Practice Location Reason(s) For Visit Diagnoses Date Provider Providers Copied on Encounter [facility], [address], [place], [address], [place] tel:[phone] [facility] No Information 9 Dipperenita Parks. [facility], [address], [place], [address], [place]. tel:[phone] [facility], [address] [facility] [address], [place], [address], [place] tel:[phone] DX [facility] No Information 9 Lucia Hoang. [facility] , [address], [place], [place], [id number], [place]. tel:[phone] Referring Provider: Norma Lopez, [facility] [address], [place], [address]. tel:[phone] [facility], [address], [place], [address], [place] tel:[phone] [facility] Atherosclero sis, ntv artry, extrem w/claudDisor janneth, tobacco useHyperlipi demia NEC/NOSHyper tension, benign essential 9 Gerhard Green. [facility] , [address], [place], [place], [id number], [place]. tel:[phone] Referring Provider: Norma Lopez, [facility] [address], [place], [address]. tel:[phone] [facility], [address], [place], [address], [place] tel:[phone] [facility] No Information 0200 7 Mallory Tamez. [facility], [address], [place], [address], [place]. tel:[phone] Referring Provider: Tom Bello, [address], [place], [address]. tel:[phone] [facility], [address], [place], [address], [place] tel:[phone] DX [facility] No Information 7 Lucia Hoang. [facility] , [address], [place], [id number], [place]. tel:[phone] Referring Provider: Charly Lopez, [facility] [address], [place], [address]. tel:[phone] [facility], [address], [place], [address], [place] tel:[phone] [facility] Atherosclero sis, ntv artry, extrem w/dinora 7 Lillie Parks. [facility], [address], [place], [address], [place]. tel:[phone] Referring Provider: Charly Lopez, [facility] [address], [place], [address]. tel:[phone] [facility], [address], [place], [address], [place] tel:[phone] DX [place] [facility] No Information 4-200 6 Dippel Charly. [facility], [address], [place], [address], [place]. tel:[phone] Referring Provider: Charly Lopez, [facility] [address], [place], [address]. tel:[phone] [facility], [address] [facility] [address], [place], [address], [place] tel:[phone] [facility] No Information 0 3-200 6 Dippel Charly. [facility], [address], [place], [address], [place]. tel:[phone] Referring Provider: Charly Lopez, [facility] [address], [place], [address]. tel:[phone] [facility], [address] [facility] [address] [address], [place], [address], [place] tel:[phone] [facility] No Information 8-200 6 Dippel Charly. [facility], [address], [place], [address], [place]. tel:[phone] Referring Provider: Charly Lopez, [facility] [address], [place], [address]. tel:[phone] [facility], [address], [place], [address], [place] tel:[phone] DX [facility] C[facility] No Information 4200 5 Pierce Matamoros. [facility], [address], [place], [id number], [place]. tel:[phone] Referring Provider: Charly Lopez, [facility] [address], [place], [address]. tel:[phone] [facility], [address], [place], [address], [place] tel:[phone] [facility] No Information 7200 5 Dippel Charly. [facility], [address], [place], [address], [place]. tel:[phone] Referring Provider: Charly Lopez, [facility] [address], [place], [address]. tel:[phone] Office/outpat ient visit, est, exp prob [facility], [address], [place], [address], [place] tel:[phone] [facility] No Information 8200 5 Dippel Charly. [facility], [address], [place], [address], [place]. tel:[phone] Referring Provider: Charly Lopez, [facility] [address], [place], [address]. tel:[phone] [facility], [address], [place], [address], [place] tel:[phone] DX [facility] No Information 6200 5 Dippel Charly. [facility], [address], [place], [address], [place]. tel:[phone] Referring Provider: Charly Lopez, [facility] [address], [place], [address]. tel:[phone] [facility], [address], [place], [address], [place] tel:[phone] [facility] No Information 0-200 5 Dippel Charly. [facility], [address], [place], [address], [place]. tel:[phone] Referring Provider: Charly Lopez, [facility] [address], [place], [address]. tel:[phone] [facility], [address] [facility] [address], [place], [address], [place] tel:[phone] [facility] CVM No Information 7-200 5 Dippel Charly. [facility], [address], [place], [address], [place]. tel:[phone] Referring Provider: Charly Lopez, [facility] [address], [place], [address]. tel:[phone] EM-Out Pt Hosp Visit 2 [facility], [address] [facility], [place], [address], [place] tel:[phone] [facility] C[facility] No Information 4-200 5 Pam Mcintosh. [facility], [address], [place], [place], [id number], [place]. tel:[phone] Referring Provider: Arnaldo Orozco MD P, [facility] [address], [place], [address]. tel:[phone] EM-Office Consultation Level 5 [facility], [address] [facility] [address], [place], [address], [place] tel:[phone] [facility] No Information May-1 8-200 5 Dippel Charly. [facility], [address], [place], [address], [place]. tel:[phone] Referring Provider: PAOLA [facility] [address], [place], [address]. tel:[phone] Family History Family Member Type Diagnosis Age At Onset Mother Problem (finding) Mother Problem (finding) [place] (Cause Of ) Payers Payer name Insurance type Covered libertarian ID Authoriza tion(s) Medicare [place] [id number] [place] [id number] Social History Type Description Quantity Date Captured [...]
--- OUTSIDE RECORDS SUMMARY | 2023-11-02 22:49 | XMS_ITS | Continuity of Care Document ---
Author Name Unknown Organization [facility] Address [address] [place] [address] Phone Care Team Providers Care Inspector Exhaust Emissions Name Role Phone Dennis Gayle MD Unavailable Unavailabl e Advance Directives Directive Yes / No Effective Date File Name No Information Encounters Encounter Description Practice Location Reason(s) For Visit Diagnoses Date Provider Providers Copied on Encounter [facility], [address], [place], [place], [id number], [place] tel:[phone] [facility] Hid 03/09/21 No Information Mar-2 2-200 [address] [facility] [place] [place], [id number], [place]. tel:[phone] Referring Provider: Douglas Gonzalez[address], [place], [address]. tel:[phone] Family History Family Member Type Diagnosis Age At Onset No Information Payers Payer name Insurance type Covered constitution party ID Authoriza tion(s) No Information Social [...]
[2023-11-02 23:05] VITALS: BP 172/99; PULSE 89; O2SAT 89
[2023-11-02 23:19] LABS: Albumin* 4.4 g/dL (3.3-5.0); Chloride* 97 mmol/L (96-114); Sodium* 135 mmol/L (135-149)
[2023-11-02 23:20] LABS: Potassium* 3.4 mmol/L (3.6-5.1)
[2023-11-02 23:22] LABS: Alkaline Phosphatase* 73 U/L (40-150); Anion Gap 10 mEq/L (7-15); Aspartate Amino Transferase* 34 U/L (12-35); Bilirubin Total* 0.5 mg/dL (0.1-1.5); Blood Urea Nitrogen* 19 mg/dL (7-30); Carbon Dioxide* 28 mmol/L (20-32); Creatinine* 0.9 mg/dL (0.5-1.5); Estimated Glomerular Filt Rate 86 ml/min; Lipase* 189 U/L (23-300); Total Protein* 7.3 g/dL (6.0-8.3)
[2023-11-02 23:23] LABS: Alanine Aminotransferase* 25 U/L (4-50); Calcium* 9.4 mg/dL (8.4-10.6); Glucose* 109 mg/dL (60-115)
[2023-11-02 23:25] LABS: C Reactive Protein* 0.7 mg/dL (0.5-1.0)
[2023-11-02 23:27] LABS: Ethanol* < 0.01 % (0.01-0.03)
[2023-11-02 23:34] LABS: Troponin I* 0.04 ng/mL (0.01-0.04)
[2023-11-02 23:36] LABS: NT Pro B Type NatriureticPept* 852 pg/mL
[2023-11-02 23:38] LABS: Procalcitonin* 0.06 ng/mL (<0.50)
== END 2023-11-03 00:13 | disposition home or self-care (01) ==
PROVIDERS: Emergency Provider Family Medicine; PCP Internal Medicine
DX: S40.022A Contusion of left upper arm, initial encounter (principal); J44.9 Chronic obstructive pulmonary disease, unspecified; F03.90 Unspecified dementia, unspecified severity, without behavioral disturbance, psychotic disturbance, mood disturbance, and anxiety
CPT/HCPCS: 36415; 71046; 73080; 80053; 82077; 82803; 83605; 83690; 83880; 84145; 84484; 85025; 86140; 99284; 99285

== ENCOUNTER 2023-12-18 15:40 | Outpatient (CLI) | payer MEDICARE, OTHER, BC, SELFPAY | END 2023-12-18 15:41 | disposition home or self-care (01) | LOC: AMB 12-20 17:10 | PROVIDERS: PCP Internal Medicine; Visit Provider Family Medicine | DX: R41.82 Altered mental status, unspecified (principal) | CPT/HCPCS: A0425; A0427 ==

== ENCOUNTER 2023-12-18 16:19 | Observation (INO) | payer MEDICARE, BC, SELFPAY ==
[2023-12-18 16:40] VITALS: BP 136/89; PULSE 88; RESP 16; TEMP 36.6; O2SAT 90; BMI 23.7
--- NOTE | 2023-12-18 17:08 | ED.NURSE ---
Patient hospice company is [employer]. Nurse is Luna.
--- NOTE | 2023-12-18 17:08 | ED.NURSE ---
Economic Analyst spoke with hospice nurse Luna. 12/17: Patient fell at home at approximately 0500. Family was unable to get the patient off of the floor and let the patient sleep on the floor giving him a pillow and blanket. patient slept on the floor x4 hours per hospice. Hospice came fore their regular visit when family explained what had happened. Luna provided extensive education at this time. The family did not notify hospice or EMS of the fall at the time of the fall for lift assist. When hospice asked why family did not give them any explanation. Hospice wrote down a schedule for medications and insructed family that he would need 24 hour awake care at this time. 12/18: Hospice made another visit and found the patient to be agitated and air hungry. Patient was 82% on 3L during her visit. Hospice increased morphine from 5mg to 10mg. Increased Ativan to 2mg. Increased Haldol to 2mg. Hospice feels the patient is no longer safe. Hospice is working on care home placement at this time but stated they would need 24-48 hours to find placement.
--- NOTE | 2023-12-18 17:33 | ED.GENADULT ---
HPI - General Adult General Date Seen: 12/18/23 Chief complaint: Anxiety Stated complaint: Ill, inderminent pain, confusion Time Seen by Provider: 12/18/23 16:27 History of Present Illness HPI narrative: History limited by patient drowsiness and dementia. He is not able to provide any information. History is obtained in part from paramedics, in part from his hospice nurse, Luna, and in part from his . 83-year-old gentleman with a history of dementia, COPD, as well as other medical conditions. He is currently on hospice for his progressing dementia. He has been showing recent signs of deterioration with his dementia. He has really stopped eating and drinking lately and in particular has not had nothing to eat or drink for the past 3 days or so. He is becoming increasingly agitated. He had a mechanical trip and fall at home yesterday morning. He apparently fell and could not get up. Family did know what to do to help him. He so he was on the floor for about 4 hours until his hospice nurse arrived and they helped him off the floor. Hospice nurses discontinued all of his previous medications. He is currently just on morphine 5 mg, Ativan 2 mg, and Haldol as needed for agitation or air hunger. Those medications have been insufficient to help him rest the past couple of days. His says that he was up and pacing almost all of last night. This afternoon and they administered at a higher dose of morphine-10 mg, along with 2 mg of Ativan and his Haldol. With this he is now somnolent. Based on how he is doing at home, 's inability to care for him and help him up, as well as his expected trajectory to sometime in the next few days, he was brought here to the ER. says she just can not cope with him dying at home. She also says that she can not deal with his agitation. It is keeping her up all night and she is exhausted. The goal for sending him to the ER was so that he could have a safe place to stay for tonight. His hospice team has already started the process for getting him placed into a longterm facility. They anticipate that there will be a bed at the [facility] is within about 24 hours or so. He would need hospitalization for comfort care. Management of agitation. For the hospice nurse, Luna, and his both confirmed that they do not want any testing, x-rays, scans, labs. No IV or IV fluids. No feeding tube. Oral meds for comfort as needed. Oxygen if he wants to keep it on but okay for him to remove the oxygen if he is agitated, even if hypoxic. His goal is purely comfort care. Related Data Home Medications Medication Instructions Recorded Confirmed albuterol sulfate 90 mcg/actuation 1 inh inhalation Q6H PRN 05/09/22 11/12/23 breath activated powder inhaler amlodipine 2.5 mg tablet 2.5 mg PO DAILY 05/09/22 11/12/23 aspirin 81 mg tablet,delayed 81 mg PO HS 05/09/22 11/12/23 release hydrochlorothiazide 25 mg tablet 25 mg PO DAILY 05/09/22 11/12/23 ipratropium 0.5 mg-albuterol 3 mg 1 ml inhalation Q6H PRN 05/09/22 11/12/23 (2.5 mg base)/3 mL nebulization soln multivitamin 1 tab PO DAILY 05/09/22 11/12/23 sildenafil (pulm.hypertension) 20 20 mg PO TID 05/09/22 11/12/23 mg tablet spironolactone 25 mg tablet 25 mg PO DAILY 05/09/22 11/12/23 cilostazol 100 mg tablet 100 mg PO BID 10/07/23 11/12/23 famotidine 40 mg tablet (Pepcid) 40 mg PO BID GERD 10/07/23 11/12/23 fluticasone fur. 100 mcg-umeclid 1 inh inhalation DAILY 10/07/23 11/12/23 62.5 mcg-vilant 25 mcg inhalat.powder (Trelegy Ellipta) rosuvastatin 20 mg tablet 20 mg PO HS 10/07/23 11/12/23 sertraline 100 mg tablet 100 mg PO DAILY Anxiety 10/07/23 11/12/23 Previous Rx's Medication Instructions Recorded metformin 500 mg tablet 500 mg PO DAILY Diabetes #90 tabs 02/14/23 losartan 100 mg tablet 100 mg PO DAILY #90 tabs 09/24/23 azithromycin 250 mg tablet 250 mg PO QDAY COPD 10 days #30 10/14/23 tabs donepezil 23 mg tablet 23 mg PO QHS #90 tabs 11/12/23 lorazepam 1 mg tablet 1 mg PO TID PRN agitation #90 tabs 11/14/23 Allergies Allergy/AdvReac Type Severity Reaction Status Date / Time atorvastatin Allergy Verified 11/12/23 12:56 simvastatin Allergy Verified 11/12/23 12:56 Sulfa (Sulfonamide Allergy Verified 11/12/23 12:56 Antibiotics) [facility] Medical History Pneumonia ?J18.9 - Pneumonia, unspecified organism (ICD-10) Memory impairment ?R41.3 - Other amnesia (ICD-10) Dysphagia ?R13.10 - Dysphagia, unspecified (ICD-10) Infection due to severe acute respiratory syndrome coronavirus 2 (SARS-CoV-2) (~06/07/22) ?U07.1 - COVID-19 (ICD-10) Pulmonary hypertension ?I27.20 - Pulmonary hypertension, unspecified (ICD-10) Dementia ?F03.90 - Unspecified dementia without behavioral disturbance (ICD-10) Peripheral vascular disease ?I73.9 - Peripheral vascular disease, unspecified (ICD-10) Mesenteric artery stenosis ?K55.1 - Chronic vascular disorders of intestine (ICD-10) Renal artery stenosis ?I70.1 - Atherosclerosis of renal artery (ICD-10) Health care directive on file ?Z78.9 - Other specified health status (ICD-10) Constipation ?K59.00 - Constipation, unspecified (ICD-10) COPD (chronic obstructive pulmonary disease) ?J44.9 - Chronic obstructive pulmonary disease, unspecified (ICD-10) Type 2 diabetes mellitus ?E11.9 - Type 2 diabetes mellitus without complications (ICD-10) Allergies ?T78.40XA - Allergy, unspecified, initial encounter (ICD-10) GERD (gastroesophageal reflux disease) ?K21.9 - Gastro-esophageal reflux disease without esophagitis (ICD-10) Chronic radicular low back pain ?M54.16 - Radiculopathy, lumbar region (ICD-10) ?G89.29 - Other chronic pain (ICD-10) Anxiety ?F41.9 - Anxiety disorder, unspecified (ICD-10) Type 2 diabetes mellitus ?E11.9 - Type 2 diabetes mellitus without complications (ICD-10) Pneumothorax ?J93.9 - Pneumothorax, unspecified (ICD-10) Peripheral arterial disease ?I73.9 - Peripheral vascular disease, unspecified (ICD-10) Hypertension ?I10 - Essential (primary) hypertension (ICD-10) Hyperlipidemia ?E78.5 - Hyperlipidemia, unspecified (ICD-10) History of adenomatous polyp of colon ?Z86.010 - Personal history of colonic polyps (ICD-10) Gout ?M10.9 - Gout, unspecified (ICD-10) Generalized anxiety disorder ?F41.1 - Generalized anxiety disorder (ICD-10) Coronary artery disease ?I25.10 - Atherosclerotic heart disease of habematolel coronary artery without angina pectoris (ICD-10) Surgical History History of thumb surgery ?Z98.890 - Other specified postprocedural states (ICD-10) History of phacoemulsification of cataract of both eyes with intraocular lens implantation ?Z98.41 - Cataract extraction status, right eye (ICD-10) ?Z98.42 - Cataract extraction status, left eye (ICD-10) ?Z96.1 - Presence of intraocular lens (ICD-10) History of lumbar discectomy ?Z98.890 - Other specified postprocedural states (ICD-10) History of decompression of both ulnar nerves ?Z98.890 - Other specified postprocedural states (ICD-10) Social History Narrative: , lives with his in [place]. 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 Son, Rusty, living with them temporarily due to patient's worsening dementia. Code status is DNR. Retired [employer]. Quit smoking 2009. Long-standing history of cigarette smoking. Longstanding history of alcohol abuse. Son reports that patient drinks one alcoholic drink per day and will go over to the neighbors house to ask them to get him alcohol. What is your current living situation?: I presently have a place to live Problems where you live: unable to answer Problems where you live details: needs family In the past 12 months, utilities in danger of being shut off: unable to answer In past 12 months, lack of transportation kept you from medical appts, meetings, work, or getting things needed for daily living: unable to answer In the past 12 mos, have been you worried that your food would run out before you had money to buy more?: unable to answer In the past 12 mos, the food you bought just didn't last and you didn't have money to buy more?: unable to answer Highest level of school completed/degree received: Bachelor's degree Smoking Status: Never smoker Do you use any of these nicotine containing products: None Second hand tobacco smoke exposure: No How often do you have a drink containing alcohol: 2-3 times a week Alcohol type: hard liquor Alcohol type details: whiskey How many standard drinks containing alcohol do you have on a typical day: 1 or 2 How often do you have six or more drinks on one occasion: Never AUDIT-C Alcohol total score: 3 Non-prescribed substance use: denies use Caffeine: Yes How often does anyone, including family, friends and others, physically hurt you: unable to answer How often does anyone, including family, friends and others, insult or talk down to you: unable to answer How often does anyone, including family, friends and others, threaten you with harm: unable to answer How often does anyone, including family, friends and others, scream or curse at you: unable to answer Little interest or pleasure in doing things: more than half the days Feeling down, depressed, or hopeless: not at all service: Yes Exam Narrative: Exam Narrative: Constitutional: Appears elderly and somewhat frail. He is drowsy. GCS of initially 14 but then does become 15 after we roll him. He is a bit confused. HENT: Head: Atraumatic. No depressed skull fracture, Raccoon Eyes, Alfonso's sign, or hemotympanum. Face normal. Nose: Nose normal. Mouth/Throat: Oral mucosa is clear and moist. no trismus. Pharynx normal. Tonsils symmetric. No tonsillar enlargement, erythema, or exudate. Eyes: Conjunctivae normal. EOM normal. Pupils are equal and pinpoint bilaterally. They are so small that they really are not reactive to light. We suspect due to opiates. No scleral icterus. Neck: Normal range of motion. Neck supple. No tracheal deviation present. No apparent tenderness but is drowsy. Cardiovascular: Normal rate, regular rhythm. No gallop. No friction rub. No murmur heard. Symmetric radial artery pulses Pulmonary/Chest: Effort normal. No stridor. No respiratory distress. No wheezes. No rales. No rhonchi . No tenderness. Oxygen 91% on 2 L. Abdominal: Soft. Bowel sounds normal. No distension. No mass. No tenderness. No rebound. No guarding. Musculoskeletal: Rolled for back exam. There are superficial abrasions/skin tears on the right posterior ribcage just medial to the scapula. No bleeding. No signs of infection. Is also superficial abrasion/bruise cassandra on the left lower ribs. No midline tenderness or step-off of the T or L-spine. RUE: Normal range of motion. No tenderness. No deformity LUE: Normal range of motion. No tenderness. No deformity RLE: Normal range of motion. No edema. No tenderness. No deformity LLE: Normal range of motion. No edema. No tenderness. No deformity Neurological: Initially drowsy. Arouses when we roll him for back exam. After that he keeps his eyes open for a few minutes before falling back asleep. He is demented and not able really to be conversant. Normal strength. CN II-VII intact. No sensory deficit. GCS eye subscore is 4. GCS verbal subscore is 5. GCS motor subscore is 6. Normal coordination Skin: Skin is warm and dry. No rash noted. No pallor. Normal capillary refill. Psychiatric limited by drowsiness Const: Vital Signs, click to edit/add: Vital Signs - 24 hr 12/18/23 16:40 Temperature 98 F Pulse Rate [Pulse Oximeter] 88 Respiratory Rate 16 Blood Pressure [Ri ght Upper Arm] 136/89 Pulse Oximetry 90 Oxygen Delivery Me thod Nasal Cannula Oxygen Flow Rate 3 Course Vital Signs Vital signs: Initial Vital Signs Temperature 98 F 12/18/23 16:40 Temperature Source Temporal Artery Scan 12/18/23 16:40 Pulse Rate 88 12/18/23 16:40 Pulse Rhythm Regular 12/18/23 16:40 Respiratory Rate 16 12/18/23 16:40 Blood Pressure 136/89 12/18/23 16:40 Blood Pressure Mean 104 12/18/23 16:40 Blood Pressure Position Supine 12/18/23 16:40 Pulse Oximetry 90 12/18/23 16:40 Oxygen Delivery Method Nasal Cannula 12/18/23 16:40 Oxygen Flow Rate 3 12/18/23 16:40 Vital Signs Temperature 98 F 12/18/23 16:40 Pulse Rate 88 12/18/23 16:40 Respiratory Rate 16 12/18/23 16:40 Blood Pressure 136/89 12/18/23 16:40 Pulse Oximetry 90 12/18/23 16:40 Oxygen Delivery Method Nasal Cannula 12/18/23 16:40 Oxygen Flow Rate 3 12/18/23 16:40 Temperature 98 F 12/18/23 16:40 Pulse Rate 88 12/18/23 16:40 Respiratory Rate 16 12/18/23 16:40 Blood Pressure 136/89 12/18/23 16:40 Pulse Oximetry 90 12/18/23 16:40 Oxygen Delivery Method Nasal Cannula 12/18/23 16:40 Oxygen Flow Rate 3 12/18/23 16:40 Medical Decision Making MDM Narrative Medical decision making narrative: 83-year-old gentleman with a history of severe dementia, on hospice. He has had recent deterioration in his overall level of function. He stopped eating and drinking for the past 2 or 3 days and has had increasing restlessness and agitation at home for the past 2 or 3 days. He is not aggressive or violent. is not able to care for him in the home anymore and does not want him to in the home. Hospice has started the process to get him placed into a longterm facility but that is not available today (possibly placement will be available at the [facility] 24 hours from now). Due to his uncontrolled agitation restlessness at home, his hospice nurse sent him here to the hospital by EMS. The goal for him being brought to the hospitalist symptom early so that we can be here in a safe environment until half-way this arranged or until he dies. His hospice nurse and his both confirmed that they do not want any testing, IV, or any other intervention other than oral meds for agitation and comfort as needed. Oral food and water, if he will take it. New they do not even want us to force him to wear oxygen. If he can keep it on for comfort that is fine, if he takes it off, and desaturates as a result, he that is also okay. His goal is purely comfort care. Hospice nurse and both mom over the phone confirm his goals of care. His hospice nurse will fax his POLST form shortly. Discussed with our hospitalist, Dr. Brasher, who will accept. Discharge Plan Discharge Clinical Impression: Dementia, Need for comfort care, Agitation Patient Disposition: Admitted As Observation
--- OUTSIDE RECORDS SUMMARY | 2023-12-18 18:26 | XMS_ITS ---
Author Name Unknown Organization [facility] Address [address] [place] [address] Care Team Providers Care Oxyhydrogen Welder Name Role Phone Unavailable Unavailable Unavailable Surgery Details Not on file Complications Check Surgery Details section. Procedure Estimated Blood Loss Check Surgery Details section. Procedure Findings Check Surgery Details section. Procedure Specimens Taken Check Surgery Details section.
--- OUTSIDE RECORDS SUMMARY | 2023-12-18 18:26 | XMS_ITS | Clinical Summary ---
Author Name Unknown Organization [facility] Address [address] [place] [address] Care Team Providers Care Nurseryman Assistant Name Role Phone Unavailable Primary Care Provider Unavailabl e Source Comments Patient records contain information from all sites at [facility]. For routine questions regarding patient records, call [phone] during business hours, M-F 8:00 AM - 5:00 PM Central Time. Record requests for emergency care only can be directed to [phone] at any time.[facility] Allergies Active Allergy Reactions Criticality Noted Date Comments Atorvastatin Myalgia 02/26/2017 Simvastatin Myalgia 06/23/2018 Sulfa (Sulfonamide Antibiotics) Other (see comments) 01/28/2020 Medications Medication Sig Dispensed Refills Start Date End Date Status aspirin 81 mg capsule Take 1 tablet by mouth daily. 0 Active diphenhydrAMINE-everardo taminophen (TYLENOL PM) 25-500 mg per tablet Take 1 tablet by mouth at bedtime as needed for sleep. 0 Active albuterol (ProAir HFA) 90 mcg/actuation inhaler Inhale 1 puff every 4 (four) hours as needed for wheezing or shortness of breath. 0 03/17/2013 Active amLODIPine (NORVASC) 2.5 mg tablet Take 2.5 mg by mouth daily. 0 Active cilostazoL (PLETAL) 100 mg tablet Take 100 mg by mouth 2 (two) times a day. 0 Active donepeziL (ARICEPT) 10 mg tablet Take 5 mg by mouth at bedtime. 0 Active famotidine (PEPCID) 40 mg tablet Take 40 mg by mouth daily. 0 04/23/2023 Active hydroCHLOROthiazide (HYDRODIURIL) 25 mg tablet Take 25 mg by mouth daily. 0 Active LORazepam (ATIVAN) 1 mg tablet Take 1 mg by mouth 3 (three) times a day as needed. 0 04/02/2023 Active losartan (COZAAR) 100 mg tablet Take 100 mg by mouth daily. 0 03/23/2023 Active metFORMIN (GLUCOPHAGE) 500 mg tablet Take 500 mg by mouth daily with breakfast. 0 Active sertraline (ZOLOFT) 100 mg tablet Take 100 mg by mouth daily. for anxiety 0 05/13/2023 Active sildenafil (REVATIO) 20 mg tablet Take 20 mg by mouth 3 (three) times a day. 0 08/10/2022 Active spironolactone (ALDACTONE) 25 mg tablet Take 25 mg by mouth daily. 0 05/30/2023 Active azelastine (ASTELIN) 137 mcg/spray (0.1 %) nasal spray Administer 1 spray into each nostril 2 (two) times a day. Use in each nostril as directed 0 Active ipratropium-albuter oL (DUONEB) 0.5-2.5 mg/3 mL nebulizer solution Inhale 3 mL by nebulization 4 (four) times a day. 0 Active multivitamin capsule Take 1 capsule by mouth daily. 0 Active Active Problems Problem Noted Date Diagnosed Date Amnesia 07/22/2023 Atherosclerotic Heart Diseas e Of [place] Coronary Artery Without Angina Pectoris 07/22/2023 Dementia 07/22/2023 Diabetes Mellitus Type 2 07/22/2023 Gastroesophageal Reflux Disease NOS 07/22/2023 Atherosclerosis Renal Artery 07/22/2023 Peripheral Arterial Disease 07/22/2023 Chronic Respiratory Failure With Hypoxia 023 Hyperlipidemia 07/22/2023 Smoking Tobacco Use Personal History 07/22/2023 Overweight Body Mass Index 25-29.9 Adult 023 Hypertension Pulmonary 07/13/2021 Overview: Added automatically from request for surgery [id number] Anxiety 11/03/2015 Chronic Obstructive Pulmonary Disease Without Ex acerbation 06/14/2009 Resolved Problems Problem Noted Date Diagnosed Date Resolved Date Respiratory Failure 07/22/2023 07/22/20 23 Family History Medical History Relation Name Comments Coronary artery disease Father Gage Clark Diabetes Father Gage Clark Diabetes Mother Minnie Clark Hypertension Mother Minnie Clark Kidney disease Mother Minnie Clark Obesity Mother Minniebenita Clark Stroke Mother Minnie Clark Colon cancer Paternal Grandfather Saul Clark Other cancer Sister Bess Henderson Abdominal can cer Relation Name Status Comments Father Gage Clark Mother Minnie Clark Paternal Grandfather Saul Clark Sister Bess Henderson Social History Tobacco Use Types Packs/Day Years Used Date Smoking Tobacco: Former Cigarettes 1 52 0 11/11/1958 - 11/11/2010 Smokeless Tobacco: Never Alcohol Use Standard Drinks/Week Comments Yes 1 (1 standard drink = 0.6 oz pur e alcohol) Humiliation, Afraid, Rape, and Kick questionnair e Answer Date Recorded Within the last year, have y ou been afraid of your partner or ex-partner? No 06/04/2023 Within the last year, have y ou been humiliated or emotionally abused in other ways by your partner or ex-partner? No Within the last year, have y ou been kicked, hit, slapped, or otherwise physically hurt by your partner or ex-partner? No 06/04/2023 Within the last year, have y ou been raped or forced to have any kind of sexual activity by your partner or ex-partner? No 06/04/2023 Overall Financial Resource Strain (CARDIA) Answe r Date Recorded How hard is it for you to pa y for the very basics like food, housing, medical care, and heating? Not hard at all 06/04/2023 Exercise Vital Sign Answer Date Recorde d On average, how many days pe r week do you engage in moderate to strenuous exercise (like a brisk walk)? 0 days 06/04/2023 On average, how many minutes do you engage in exercise at this level? 0 min 06/04/2023 Hunger Vital Sign Answer Date Recorded Within the past 12 months, y ou worried that your food would run out before you got the money to buy more. Never true 06/04/20 23 Within the past 12 months, t he food you bought just didn't last and you didn't have money to get more. Never true 06/04/2023 PRAPARE - Transportation Answer Date Re corded In the past 12 months, has l ack of transportation kept you from medical appointments or from getting medications? No 05/12 In the past 12 months, has l ack of transportation kept you from meetings, work, or from getting things needed for daily living? No 06/04/2023 Nutrition Answer Date Recorded Nutrition: EVOO Fat Source Unknown 06/04 On average, how many serving s of fruits and vegetables do you eat per day (serving size is equal to 1 cup or approximately the size of a tennis ball)? 3-5 06/04/2023 Dental Answer Date Recorded Dental: Regular Dentist No 06/04/20 Employment Answer Date Recorded Employment status Retired 06/04/2023 Housing Stability Answer Date Recorded What is your living situation today? I have a [facility] place to live 06/04/2023 Sex and Gender Information Value Date Recorded Sex Assigned at Male 06/04/2023 6:03 PM CDT Gender Identity Male 06/04/2023 6:03 PM CDT Sexual Orientation Straight 06/04/2023 6: 03 PM CDT Last Filed Vital Signs Vital Sign Reading Time Taken Comments Blood Pressure 125/57 07/23/2023 2:00 PM CDT Pulse 83 07/23/2023 2:00 PM CDT Temperature 36.7 ??C (98.1 ??F) 07/23/2023 2:00 PM CD T Respiratory Rate 16 07/23/2023 2:00 PM CDT Oxygen Saturation 91% 07/23/2023 2:00 PM CDT Inhaled Oxygen Concentration - - Weight 74.7 kg (164 lb 10.9 oz) 07/22/2023 9:57 AM CDT Height 169.7 cm (5' 6.81) 06/06/2023 1 2:48 PM CDT Body Mass Index 25.94 06/06/2023 12:48 PM CDT Plan of Treatment Health Maintenance Due Date Last Done Comments Diabetic Office Visit with F oot Exam 1942 Dilated Eye Exam 1942 Hemoglobin A1C 1942 Urine Albumin 1942 Zoster Vaccines (2 of 2) 05/05/2020 03/10/2020 Fall Risk Screen (Annual) 11/11/2023 Office Visit for Blood Press ure Check / Re-check 06/12/2024 06/12/2023 Creatinine Level (Kidney Fun ction Test) 07/19/2024 07/19/2023, 06/06/2023, 03/24/2022, Additional history exists Potassium Level 07/19/2024 07/19/2023, 03/11, 01/29/2022, Additional history exists Sodium Level 07/19/2024 07/19/2023, 03/11, 01/29/2022, Additional history exists DTaP,Tdap,and Td Vaccines (2 - Td or Tdap) 01/27/2030 01/28/2020, 08/24/2010 Pneumococcal vaccine (65+ years) Completed 09/22/20 15, 08/24/2010 Influenza Vaccine Completed 08/23/2023, , 08/16/2021, Additional history exists COVID-19 Vaccine Completed 09/04/2023, 04/2023, 08/28/2022, Additional history exists Advance Directives For more information, please contact: [phone] Documents on File Type Date Recorded Patient Broodmare Foreman Expl anation Advance Directives 07/23/2023 11:53 AM Radha Clark HCPOA/ADVOCATE/AGENT/R EPRESENTATIVE/SURROGAT E Latest Code Status on File Code Status Date Activated Date Inactivated Comments Full Code 07/22/2023 4:48 PM 07/23/2023 6:16 PM Question Answer Comments Full Code: Discussed Healthcare Agents on File Name Relationship Healthcare Agent Relationship Communication Radha Clark Spouse Health Care Agent Denny Clark Son First Alternate Health Care Agent Olivier Amber Child First Alternate Health Care Agent
--- OUTSIDE RECORDS SUMMARY | 2023-12-18 18:26 | XMS_ITS | Referral Summary ---
Author Name Unknown Organization [facility] Address [address] [place] [address] Care Team Providers Care Dish Technician Name Role Phone Unavailable Primary Care Provider Unavailabl e Source Comments Patient records contain information from all sites at [facility]. For routine questions regarding patient records, call [phone] during business hours, M-F 8:00 AM - 5:00 PM Central Time. 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 I have a [facility] place to live 06/04/2023 Sex and [...] 06/06/2023 12:48 PM CDT Plan of Treatment Not on file Advance Directives For more information, please contact: [phone] Documents on File Type Date Recorded Patient Shotblaster Expl anation Advance Directives 07/23/2023 11:53 AM Radha Clakr HCPOA/ADVOCATE/AGENT/R EPRESENTATIVE/SURROGAT E Latest Code Status on File Code Status Date Activated Date Inactivated Comments Full Code 07/22/2023 4:48 PM 07/23/2023 6:16 PM Question Answer Comments Full Code: Discussed Healthcare Agents on File Name Relationship Healthcare Agent Relationship Communication Radha Clark Spouse Health Care Agent Denny Clark Son First Alternate Health Care Agent Olivier Clark Child First Alternate Health Care Agent
--- OUTSIDE RECORDS SUMMARY | 2023-12-18 18:27 | XMS_ITS | Encounter Summary ---
Author Name Unknown Organization [facility] Address [address] [place] [id number] Care Team Providers Care Intelligence Director Name Role Phone Unavailable Primary Care Provider Unavailabl e Reason for Visit * Outpatient (Routine) - Closed Specialty Diagnoses / Procedures Referred By Sumit t Referred To Contact Radiology Diagnoses Peripheral Arterial Disease (HCC) Gordon Hinojosa M.D. [address] [place] [address] [facility] Referral ID Status Reason Start Date Expiration Date Visits Re quested Visits Authorized [id number] Closed 06/06/2023 06/05/2024 1 1 Encounter Details Date Type Department Care Team (Latest Contact Info) Description 06/12/2023 10:15 AM CDT Comprehensive Visit Division of Vascular and Endovascular Surgery in [place], [place] [address] [place] [phone] Lexa Myles M.D. [address] [place] [phone] Atherosclerosis Arteriosclerosis O[place] Lower Extremity With Claudication (HCC) (Primary Dx); Peripheral Arterial Disease (HCC) Social History Tobacco Use Types Packs/Day Years Used Date Smoking Tobacco: Former Cigarettes 0 52 0 11/11/1958 - 11/11/2010 Smokeless Tobacco: [...] your living situation today? I have a [facility] place to live 06/04/2023 Sex and Gender Information Value Date Recorded Sex Assigned at Male 06/04/2023 6:03 PM CDT Gender Identity Male 06/04/2023 6:03 PM CDT Sexual Orientation Straight 06/04/2023 6: 03 PM CDT documented as of this encounter Last Filed Vital Signs Vital Sign Reading Time Taken Comments Blood Pressure 123/66 06/12/2023 9:54 AM CDT Pulse 88 06/12/2023 9:54 AM CDT Temperature - - Respiratory Rate - - Oxygen Saturation - - Inhaled Oxygen Concentration - - Weight 74.7 kg (164 lb 10.9 oz) 06/12/2023 9:52 AM CDT Height - - Body Mass Index 25.94 06/06/2023 12:48 PM CDT documented in this encounter Consult Notes * Lexa Myles M.D. - 06/12/2023 10:15 AM CDT Images from the original note were not included. SUBJECTIVE CHIEF COMPLAINT / REASON FOR VISIT Carlos Clark is a 83 y.o. male presenting in referral from Gordon Hinojosa M.D. for consultation in the evaluation of short distance bilateral lower extremity claudication. HISTORY OF PRESENT ILLNESS Very nice gentleman accompanied by his son, who helped provide significant historical information. Patient has underlying memory issues. He smoked for many years, but quit a number of years ago. He does suffer from COPD, and requires oxygen. He has known bilateral SFA and popliteal artery occluded stents. In August of 2021, he underwent attempted revascularization at an outside facility without success. He had a CTA with runoff performed June 06, 2023. I reviewed those images with the patient and his son. On top of the severe fem-pop disease bilaterally, his right common femoral artery is nearly occluded with a heavily calcified coral reef plaque. Noninvasive arterial studies were performed with exercise. He developed bilateral lower extremity claudication symptoms at 19 yd. In speaking to him, no rest pain, wounds, or ulcers. He develops the calf discomfort bilaterally at less than 1 [address], which resolves with rest. He is also limited due to shortness of breath. At least 60 minutes spent in reviewing the chart, history, imaging, medical decision-making, and direct [id number] counseling and education. REVIEW OF SYSTEMS REVIEW OF SYSTEMS OBJECTIVE PHYSICAL EXAM Physical Exam Nonpalpable distal pulses bilaterally. By Doppler, the left DP is barely audible monophasic and thePT is reduced biphasic. On the right, I could not get a definite dorsalis pedis pulse. The PT is monophasic. ASSESSMENT / PLAN #1 Atherosclerosis of the lower extremities with claudication. I would be willing to attempt revascularization on the right side, with use of a shockwave lithotripsy balloon across the coral reef plaque in the right common femoral artery, and attempted recanalization of the occluded right SFA stents. I would start with the right leg, since I am pretty sure I can improve the common femoral artery which may yield some definite improvement on its own, even if I could not get through the occluded stents. Patient and son will review with his and consider observation versus attempted intervention. documented in this encounter Plan of Treatment Not on file documented as of this encounter Visit Diagnoses Diagnosis Atherosclerosis Arteriosclerosis Obl[place] Lower Extremity With Claudication (HCC)- Primary Peripheral Arterial Disease (HCC) documented in this encounter
--- OUTSIDE RECORDS SUMMARY | 2023-12-18 18:27 | XMS_ITS | Encounter Summary ---
Author Name Unknown Organization [facility] Address [address] [place] [address] Care Team Providers Care Architectural Representative Name Role Phone Unavailable Primary Care Provider Unavailabl e Reason for Visit * Outpatient (Routine) - Closed Specialty Diagnoses / Procedures Referred By Contac t Referred To Contact Diagnoses Unspecified Atherosclerosis Of [place] Arteries Of Extremities Bilateral Legs (HCC) Procedures Lower Extremity Arterial (KULWINDER) - Exercise (Claudication) Lower Extremity Arterial (KULWINDER) - Standard Protocol John Fabian M.D., Ph.D. [address] [place] [phone] [facility] Referral ID Status Reason Start Date Expiration Date Visits Re quested Visits Authorized [id number] Closed 05/09/2023 05/08/2024 1 1 Encounter Details Date Type Department Care Team (Latest Contact Info) Description 06/06/2023 10:37 AM CDT - 06/06/2023 2:57 PM CDT Hospital Encounter Department of Vascular Medicine in [place], [place] [address] [place] [phone] John Fabian M.D., Ph.D. [address] [place] [phone] Unspecified Atherosclerosis Of [place] Arteries Of Extremities Bilateral Legs (HCC) Discharge Disposition: Home or Self Care Social History Tobacco Use Types Packs/Day Years [...] your living situation today? I have a [facility] place to live 06/04/2023 Sex and Gender Information Value Date Recorded Sex Assigned at Male 06/04/2023 6:03 PM CDT Gender Identity Male 06/04/2023 6:03 PM CDT Sexual Orientation Straight 06/04/2023 6: 03 PM CDT documented as of this encounter Medications at Time of Discharge Medication Sig Dispensed Refills Start Date End Date albuterol (ProAir HFA) 90 mcg/actuation inhaler Inhale 1 puff every 4 (four) hours as needed for wheezing or shortness of breath. 0 03/17/2013 amLODIPine (NORVASC) 2.5 mg tablet Take 2.5 mg by mouth daily. 0 aspirin 81 mg capsule Take 1 tablet by mouth daily. 0 azelastine (ASTELIN) 137 mcg/spray (0.1 %) nasal spray Administer 1 spray into each nostril 2 (two) times a day. Use in each nostril as directed 0 cilostazoL (PLETAL) 100 mg tablet Take 100 mg by mouth 2 (two) times a day. 0 diphenhydrAMINE-acetam inophen (TYLENOL PM) 25-500 mg per tablet Take 1 tablet by mouth at bedtime as needed for sleep. 0 donepeziL (ARICEPT) 10 mg tablet Take 5 mg by mouth at bedtime. 0 famotidine (PEPCID) 40 mg tablet Take 40 mg by mouth daily. 0 04/23/2023 hydroCHLOROthiazide (HYDRODIURIL) 25 mg tablet Take 25 mg by mouth daily. 0 ipratropium-albuteroL (DUONEB) 0.5-2.5 mg/3 mL nebulizer solution Inhale 3 mL by nebulization 4 (four) times a day. 0 LORazepam (ATIVAN) 1 mg tablet Take 1 mg by mouth 3 (three) times a day as needed. 0 04/02/2023 losartan (COZAAR) 100 mg tablet Take 100 mg by mouth daily. 0 03/23/2023 metFORMIN (GLUCOPHAGE) 500 mg tablet Take 500 mg by mouth daily with breakfast. 0 multivitamin capsule Take 1 capsule by mouth daily. 0 sertraline (ZOLOFT) 100 mg tablet Take 100 mg by mouth daily. for anxiety 0 05/13/2023 sildenafil (REVATIO) 20 mg tablet Take 20 mg by mouth 3 (three) times a day. 0 08/10/2022 spironolactone (ALDACTONE) 25 mg tablet Take 25 mg by mouth daily. 0 05/30/2023 sertraline (ZOLOFT) 50 mg tablet Take 100 mg by mouth daily. 0 06/22/2016 07/23/2023 documented as of this encounter Plan of Treatment Not on file documented as of this encounter Procedures Procedure Name Priority Date/Time Associated Diagnosis Comments LOWER EXTREMITY ARTERIAL (KULWINDER) - EXERCISE (CLAUDICATION) Routine 06/06/2023 11:45 AM CDT Unspecified Atherosclerosis Of [place] Arteries Of Extremities Bilateral Legs (HCC) documented in this encounter Results * Lower Extremity Arterial (KULWINDER) - Exercise (Claudication) (06/06/2023 11:45 AM CDT) Anatomical Region Laterality Modality Other 06/06/2023 10:4 5 AM CDT Narrative 06/06/2023 10:45 AM CDT Right: Doppler Waveforms: ? Abnormal signals starting at or above the common femoral level. ?? Resting Index: ? KULWINDER (PT)- ??0.53 ?KULWINDER (DP)- ??0.54 ?TBI- ??0.35 ?Toe pallor resolved 4'00 post exercise. ? Doppler signal ??was absent post-exercise. ?? Left: Doppler Waveforms: ? Abnormal signals starting at or above the superficial femoral level. ?? Resting Index: ? KULWINDER (PT)- ??0.73 ?KULWINDER (DP)- ??0.69 ?TBI- ??0.52 ?? Post-exercise KULWINDER: ? 0.31 ??Post-Exercise CF Doppler: ? Normal. ?? General: Patient exercised at reduced speed of 1.0 mph (10% grade) for 2'11 (60 yards). ?? Standard protocol: ??2.0 mph (10% grade) for 5 minutes (283 yards). ??Onset of symptoms at 0'43 (17 yards). ??Exercise terminated due to lower extremity and respiratory symptoms. ?? Conclusions: Right- moderate multilevel occlusive disease located at and distal to the iliac artery. Left-moderate tibial occlusive disease. EKG- negative for cardiac ischemia with exercise No prior study for comparison. Procedure Note Edouard Garcia M.D. - 06/06/2023 Right: Doppler Waveforms: Abnormal signals starting at or above thecommon femoral level. Resting Index: KULWINDER (PT)- 0.53 KULWINDER (DP)-0.54 TBI- 0.35 Toe pallor resolved 4'00 post exercise.Doppler signal was absent post-exercise. Left: Doppler Waveforms: Abnormal signals starting at or above thesuperficial femoral level. Resting Index: KULWINDER (PT)- 0.73 KULWINDER(DP)- 0.69 TBI- 0.52 Post-exercise KULWINDER: 0.31 Post-ExerciseCF Doppler: Normal. General: Patient exercised at reduced speed of 1.0 mph (10% grade) for2'11 (60 yards). Standard protocol: 2.0 mph (10% grade) for 5 minutes(283 yards). Onset of symptoms at 0'43 (17 yards). Exercise terminateddue to lower extremity and respiratory symptoms. Conclusions: Right- moderate multilevel occlusive disease located at anddistal to the iliac artery. Left-moderate tibial occlusive disease. EKG-negative for cardiac ischemia with exercise No prior study forcomparison. John Fabian M.D., Ph.D. CV VAS CULAR PROCEDURES documented in this encounter Visit Diagnoses Diagnosis Unspecified Atherosclerosis Of [place] Arteries Of Extremities Bilateral Legs (HCC) documented in this encounter
--- OUTSIDE RECORDS SUMMARY | 2023-12-18 18:27 | XMS_ITS | Clinical Summary ---
Author Name Unknown Organization [facility] Address [address] [place] [id number] Care Team Providers Care Controlled Area Checker Name Role Phone Andrew Pan MD Primary Care Provider Americo Shepherd MD Unavailable Americo Shepherd MD Unavailable Allergies Active Allergy Reactions Criticality Noted Date Comments Atorvastatin Muscle Pain (Myalgia) 02/26/2017 Simvastatin Muscle Pain (Myalgia) 06/23/2018 Sulfa Antibiotics 01/28/2020 Medications Medication Sig Dispensed Refills Start Date End Date Status ASPIRIN 81 MG OR TABSIndications:Other and unspecified hyperlipidemia 0 Active MULTI VITAMIN MENS OR 1 tab daily 0 Ac tive albuterol (PROAIR HFA) 108 (90 BASE) MCG/ACT inhalerIndications:Co ugh Inhale 1-2 puffs into the lungs every 4 hours as needed for shortness of breath / dyspnea. 2 Inhaler 11 03/17/2013 Active sertraline (ZOLOFT) 50 MG tabletIndications:Anx iety Take 1 tablet (50 mg) by mouth daily Take with food. 90 tablet 3 06/22/2016 Active metFORMIN (GLUCOPHAGE) 500 MG tablet Take 500 mg by mouth daily (with breakfast) 0 01/16/2021 Active TRELEGY ELLIPTA 100-62.5-25 MCG/INH oral inhaler daily 0 03/09/2021 Active naproxen sodium (ANAPROX) 220 MG tablet Take 220 mg by mouth 2 times daily as needed 0 Active diphenhydrAMINE-aceta minophen (TYLENOL PM) 25-500 MG tablet Take 1 tablet by mouth nightly as needed for sleep 0 Active omeprazole (PRILOSEC) [address] capsule Take 1 capsule (20 mg) by mouth 2 times daily 0 10/30/2021 Active donepezil (ARICEPT) 10 MG tablet Take 10 mg by mouth At Bedtime 0 Active rosuvastatin (CRESTOR) 20 MG tabletIndications:Cla udication in peripheral vascular disease (H24) Take 1 tablet (20 mg) by mouth daily 90 tablet 3 07/25/2023 Active hydrochlorothiazide (HYDRODIURIL) 25 MG tabletIndications:Ulices ign essential hypertension Take 1 tablet (25 mg) by mouth daily 90 tablet 3 07/25/2023 Active spironolactone (ALDACTONE) 25 MG tabletIndications:Ulices ign essential hypertension Take 1 tablet (25 mg) by mouth daily 90 tablet 3 07/25/2023 Active sildenafil (REVATIO) 20 MG tablet Take 1 tablet (20 mg) by mouth 3 times daily 270 tablet 3 07/25/2023 Active amLODIPine (NORVASC) 2.5 MG tabletIndications:Pul monary hypertension (H) Take 1 tablet (2.5 mg) by mouth daily 90 tablet 1 08/06/2023 Active cilostazol (PLETAL) 100 MG tabletIndications:Cla udication in peripheral vascular disease (H24) Take 1 tablet (100 mg) by mouth 2 times daily 180 tablet 3 10/23/2023 Active Active Problems Problem Noted Date Diagnosed Date Claudication in peripheral vascular disease (H24 ) 08/11/2021 Pulmonary hypertension 07/13/2021 Overview: Added automatically from request for surgery [id number] Abnormal findings on diagnos tic imaging of other specified body structures 07/07/2021 Overview: Added automatically from request for surgery [id number] Atherosclerosis of [place] ar teries of extremity with intermittent claudication (H24) 07/10/2019 Anxiety 11/03/2015 Displacement of lumbar inter vertebral disc without myelopathy 08/14/2012 Advanced directives, counseling/discussion 03/13 Overview: Pt already has a HCD and will bring in a copy. Lung nodule 01/04/2012 Overview: (Problem list name updated by automated process. Provider to review and confirm.) Blood in urine 08/28/2010 COPD (chronic obstructive pulmonary disease) 02/2009 Peripheral arterial disease (H24) Overview: 07/20-KULWINDER-no hemodynamically significant stenosis, 07/20-LE USN-patent stents of bilateral SFA, stenosis present of bilateral SFA, 07/20-Aorta duplex USN-diffuse plaque in abd aorta and iliac system Coronary artery disease invo lving [place] coronary artery of [place] heart without angina pectoris Resolved Problems Problem Noted Date Diagnosed Date Resolved Date Hypoxemia 02/28/2021 09/07/2021 Sleep related hypoventilatio n in conditions classified elsewhere 02/28/2021 09/07/2021 SOB (shortness of breath) 05/30/2019 Peripheral vascular disease (H24) 05/01/2016 09/07/2021 Low back pain 11/01/2011 11/21/2011 Overview: Diagnosis updated by automated process. Provider to review and confirm. Hyperlipidemia LDL goal <100 10/04/2010 09/07/2021 Lumbago 09/26/2010 11/15/2010 Smoker 01/19/2010 06/08/2014 Essential hypertension with goal blood pressure less than 140/90 09/07/2021 Overview: Problem list name updated by automated process. Provider to review Encounters Date Type Department Care Team Description 10/23/[address] [place] [phone] Americo Shepherd MD Refill Request (cilostazol) from Last 3 Months Immunizations Name Administration Dates Next Due COVID-19 MONOVALENT 12+ (Pfizer) 01/01/2021,11/13 Influenza (High Dose) 3 valent vaccine 5,08/26/2012,09/08/2011 Influenza (IIV3) PF 08/11/2014,08/08/2010,2008 Pneumo Conj 13-V (2010&after) 09/22/2015 Pneumococcal 23 valent 08/24/2010 TD,PF 7+ (Tenivac) 08/24/2010 Family History Medical History Relation Comments Heart Disease Father age 84 Heart Disease Mother age 58 Hypertension Mother Relation Status Comments Father age 84 [place] Mother age 54 [place] Social History Tobacco Use Types Packs/Day Years Used Date Smoking Tobacco: Former Cigarettes 1 40 Smokeless Tobacco: Never Tobacco Cessation:Counseling Given: Yes Comments:quit 07/12/12 Alcohol Use Standard Drinks/Week Comments Not Currently 0 (1 standard drink = 0.6 oz pur e alcohol) PHQ-2 Answer Date Recorded PHQ-2 Score 0 03/28/2023 Adolescent Education Answer Date Record ed Getting School Help Needed Not on file 08/06 Sex and Gender Information Value Date Recorded Sex Assigned at Not on file Gender Identity Not on file Sexual Orientation Not on file Last Filed Vital Signs Vital Sign Reading Time Taken Comments Blood Pressure 104/52 07/25/2023 11:18 AM CDT Pulse 82 07/25/2023 11:18 AM CDT Temperature 35.7 ??C (96.2 ??F) 08/11/2021 7:58 AM CD T Respiratory Rate 14 08/11/2021 3:30 PM CDT Oxygen Saturation 84% 07/25/2023 11:18 AM CDT Inhaled Oxygen Concentration - - Weight 75.4 kg (166 lb 4.8 oz) 07/25/2023 11:18 AM CDT Height 170.2 cm (5' 7) 07/25/2023 11:18 AM CDT Body Mass Index 26.05 07/25/2023 11:18 AM CDT Plan of Treatment Health Maintenance Due Date Last Done Comments ANNUAL REVIEW OF HM ORDERS [address] COPD ACTION PLAN [address] CT COLONOGRAPHY 1942 FIT 1942 FLEX SIG 1942 sDNA (Cologuard) 1942 RSV VACCINE ( & 60+) (1 - 1-dose 60+ series) 2002 ADVANCE CARE PLANNING 03/13/2017 03/13/2012 FALL RISK ASSESSMENT 05/01/2017 05/01/2016, 08/18/2015, 09/03/2014, Additional history exists MEDICARE ANNUAL WELLNESS VISIT 05/01/2017 05/01/2016, 03/17/2013, 03/13/2012 ZOSTER IMMUNIZATION (2 of 2) 05/05/2020 03/10/2020 COVID-19 Vaccine ( season) 2023 04/16/2023, 08/28/2022, 06/14/2022, Additional history exists INFLUENZA VACCINE (#1) 2023 , 08/16/2021, 08/16/2021, Additional history exists PHQ-2 (once per calendar year) 2023 03/28/2023, 06/22/2016, 05/01/2016, Additional history exists COLONOSCOPY 06/28/2026 06/28/2021, 02/2019, 09/29/2018, Additional history exists COLORECTAL CANCER SCREENING 06/28/2026 LIPID 07/03/2026 07/03/2021, 07/12, 09/08/2018, Additional history exists DTAP/TDAP/TD IMMUNIZATION (2 - Td or Tdap) 01/27/2030 01/28/2020, 08/24/2010, 08/24/2010 Pneumococcal Vaccine: 65+ Years Completed 09/22/2015, 08/24/2010 LUNG CANCER SCREENING Discontinued 08/02/2021 , 09/11/2019, 05/29/2019, Additional history exists SPIROMETRY Completed 05/01/2022, 03/11, 03/17/2019, Additional history exists HPV IMMUNIZATION Aged Out No longer e ligible based on patient's age to complete this topic IPV IMMUNIZATION Aged Out No longer e ligible based on patient's age to complete this topic MENINGITIS IMMUNIZATION Aged Out No l onger eligible based on patient's age to complete this topic RSV MONOCLONAL ANTIBODY Aged Out No l onger eligible based on patient's age to complete this topic Advance Directives For more information, please contact: [phone] Latest Code Status on File Code Status Date Activated Date Inactivated Comments Full Code 05/30/2019 1:44 AM 06/01/2019 8:28 PM Question Answer Comments Code status determined by: Discussion wi th patient/legal decision maker Code Status History Code Status Date Activated Date Inactivated Comments Full Code 08/15/2012 10:51 AM 08/16/2012 2:13 PM Care Teams Controlled Area Checker Relationship Specialty Start Date End Date Andrew Pan MD [facility] [address] [place] [address] PCP - General Emergency Medicine 05/29/19 Americo Shepherd MD [address] [place] [address] [id number] Cardiovascular Disease 07/13/21 Americo Shepherd MD [address] [place] [address] [phone] Assigned Heart and Vascular Provider 09/07/23
--- OUTSIDE RECORDS SUMMARY | 2023-12-18 18:27 | XMS_ITS | Encounter Summary ---
Author Name Unknown Organization [facility] Address [address] [place] [address] Care Team Providers Care Keyboarding Teacher Name Role Phone Unavailable Primary Care Provider Unavailabl e Encounter Details Date Type Department Care Team (Late st Contact Info) Description 07/24/2023 Abstract [place], [place] [address] [place] [address] Provider, Historical Social History Tobacco Use Types Packs/Day Years [...] money to buy more. Never true 06/04/20 Within the past 12 months, t he [...] your living situation today? I have a [facility] place to live 06/04/2023 Sex and Gender Information Value Date Recorded Sex Assigned at Male 06/04/2023 6:03 PM CDT Gender Identity Male 06/04/2023 6:03 PM CDT Sexual Orientation Straight 06/04/2023 6: 03 PM CDT documented as of this encounter Plan of Treatment Not on file documented as of this encounter Visit Diagnoses Not on filedocumented in this encounter
--- OUTSIDE RECORDS SUMMARY | 2023-12-18 18:27 | XMS_ITS | Encounter Summary ---
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 [address] [place] [phone] [facility] Referral ID Status Reason Start Date Expiration Date Visits Re quested Visits Authorized [id number] Closed 05/09/2023 05/08/2024 1 1 Encounter Details Date Type Department Care Team (Latest Contact Info) Description 06/06/2023 2:58 PM CDT - 06/06/2023 11:59 PM CDT Hospital Encounter Department of Radiology, [facility], in [place], [place] [address] [place] [address] John Fabian M.D., Ph.D. 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 Severe stenosis right common femoral artery. 2. Right popliteal artery stent is occluded. 3. ??Posterior tibial peroneal arteries have continuous flow to the foot, but have calcified plaque causing probable moderate stenosis proximally. LEFT LE. ??Stent in the distal superficial femoral artery/proximal popliteal artery is occluded. 2. ??Mid popliteal artery reconstitutes via collaterals. 3. ??Two-vessel tibial runoff via the posterior tibial and peroneal arteries. OTHER: Bilateral severe renal artery stenosis. Narrative 06/06/2023 5:10 PM CDT EXAM: ??CT ABD PELVIS ANGIO AND LOWER EXT RUNOFF BILAT WITH IV CONTRAST Including 3D image post-processing. COMPARISON: ??None FINDINGS: ABDOMINAL AORTA: Normal caliber abdominal aorta. There is dense, circumferential, calcified atherosclerotic plaque, predominantly in the infrarenal abdominal aorta. No dissections. MESENTERIC ARTERY: Celiac artery and superior mesenteric artery have calcified atherosclerotic plaque at the origins causing mild stenosis. Probable severe stenosis at the origin of the inferior mesenteric artery (series 10, image 71). RENAL ARTERIES: Single right renal artery. Single left renal artery. Severe stenosis proximal right renal artery. Severe stenosis proximal left renal artery. ILIAC ARTERIES: Right: Diffuse atherosclerotic plaque causes mild stenosis left common and external iliac arteries. Severe stenosis proximal left internal iliac artery. Left: Dense, calcified plaque causes mild stenosis left common and external iliac arteries. Occluded left internal iliac artery. RIGHT LEG - ARTERIAL: Severe stenosis right common femoral artery. Severe stenosis at the origin the right deep femoral artery. Diffuse, mild stenosis in the right superficial femoral artery. Stent in the right popliteal artery is occluded. Distal popliteal artery reconstitutes via collaterals. ??Posterior tibial peroneal arteries have continuous flow to the foot, but have calcified since causing probable moderate stenosis. Right anterior tibial artery is occluded proximally. LEFT LEG - ARTERIAL: Left common femoral artery mild stenosis. Left deep femoral artery is widely patent. Mid left superficial femoral artery occludes. Stent in the distal superficial femoral artery/proximal popliteal artery is occluded. Mid popliteal artery reconstitutes via collaterals just proximal to the knee joint. Two-vessel tibial runoff via the posterior tibial peroneal arteries. ADDITIONAL FINDINGS: Postoperative changes cholecystectomy. No suspicious liver lesions. Thickening of both adrenal glands. Kidneys are unremarkable. Spleen, pancreas are unremarkable. Sigmoid diverticulosis without evidence of diverticulitis. Bowel is unremarkable. Limited images of lung bases show emphysematous changes and round atelectasis in the right lower lobe. Procedure Note Sanchez Mijares M.D. - 06/06/2023 EXAM: CT ABD PELVIS ANGIO AND LOWER EXT RUNOFF BILAT WITH IV CONTRAST Including 3D image post-processing. COMPARISON: None FINDINGS: ABDOMINAL AORTA: Normal caliber abdominal aorta. There is dense, circumferential, calcifiedatherosclerotic plaque, predominantly in the infrarenal abdominal aorta. No dissections. MESENTERIC ARTERY: Celiac artery and superior mesenteric artery have calcifiedatherosclerotic plaque at the origins causing mild stenosis. Probable severe stenosis at the origin of theinferior mesenteric artery (series 10, image 71). RENAL ARTERIES: Single right renal artery. Single left renal artery. Severe stenosisproximal right renal artery. Severe stenosis proximal left renal artery. ILIAC ARTERIES: Right: Diffuse atherosclerotic plaque causes mild stenosis left common andexternal iliac arteries. Severe stenosis proximal left internal iliac artery. Left: Dense, calcified plaque causes mild stenosis left common andexternal iliac arteries. Occluded left internal iliac artery. RIGHT LEG - ARTERIAL: Severe stenosis right common femoral artery. Severe stenosis at the originthe right deep femoral artery. Diffuse, mild stenosis in the right superficial femoral artery.Stent in the right popliteal artery is occluded. Distal popliteal artery reconstitutes via collaterals.Posterior tibial peroneal arteries have continuous flow to the foot, but have calcifiedsince causing probable moderate stenosis. Right anterior tibial artery is occluded proximally. LEFT LEG - ARTERIAL: Left common femoral artery mild stenosis. Left deep femoral artery iswidely patent. Mid left superficial femoral artery occludes. Stent in the distal superficialfemoral artery/proximal popliteal artery is occluded. Mid popliteal artery reconstitutes viacollaterals just proximal to the knee joint. Two-vessel tibial runoff via the posterior tibial peronealarteries. ADDITIONAL FINDINGS: Postoperative changes cholecystectomy. No suspicious liver lesions.Thickening of both adrenal glands. Kidneys are unremarkable. Spleen, pancreas are unremarkable.Sigmoid diverticulosis without evidence of diverticulitis. Bowel is unremarkable. Limited images of lungbases show emphysematous changes and round atelectasis in the right lower lobe. IMPRESSION: RIGHT LE. Severe stenosis right common femoral artery. 2. Right popliteal artery stent is occluded. 3. Posterior tibial peroneal arteries have continuous flow to the foot,but have calcified plaque causing probable moderate stenosis proximally. LEFT LE. Stent in the distal superficial femoral artery/proximal poplitealartery is occluded. 2. Mid popliteal artery reconstitutes via collaterals. 3. Two-vessel tibial runoff via the posterior tibial and peronealarteries. OTHER: Bilateral severe renal artery stenosis. John Fabian M.D., Ph.D. 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) documented in this encounter Administered Medications Inactive Administered Medications - up to 3 most recent administrations Medication Order MAR Action Action Date Dose Rate Site iohexoL 350 mg iodine/mL solution 1-200 mL (OMNIPAQUE) 1-200 mL, intravenous, Once in imaging, contrast, Starting on Nati 06/06/23 at 1539, For 1 dose, Imaging Protocol Orders, Dose per Radiant Medication Guidelines Given 06/06/2023 3:39 PM CDT 145 mL sodium chloride (PF) 0.9 % injection 1-100 mL 1-100 mL, intravenous, Once, On [facility] 06/06/23 at 1600, For 1 dose, Imaging Protocol Orders Given 06/06/2023 3:39 PM CDT 30 mL documented in this encounter
--- OUTSIDE RECORDS SUMMARY | 2023-12-18 18:27 | XMS_ITS | Encounter Summary ---
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 [address] [place] [address] [facility] Referral ID Status Reason Start Date Expiration Date Visits Re quested Visits Authorized [id number] Closed 05/09/2023 05/08/2024 1 1 Encounter Details Date Type Department Care Team (Late st Contact Info) Description 05/09/2023 Orders Only Department of Vascular Medicine in [place], [place] [address] [place] [phone] John Fabian M.D., Ph.D. 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) (Primary Dx) Social History Tobacco Use Types Packs/Day Years Used Date Smoking Tobacco: Never Assessed Nutrition Answer Date Recorded Nutrition: EVOO Fat Source Unknown 01/16 Nutrition: Servings of Fruits/Vegetables per Day Not on file 01/16/2021 Dental Answer Date Recorded Dental: Regular Dentist Unknown 01/19/20 21 Sex and Gender Information Value Date Recorded Sex Assigned at Male 06/04/2023 6:03 PM CDT Gender Identity Male 06/04/2023 6:03 PM CDT Sexual Orientation Straight 06/04/2023 6: 03 PM CDT documented as of this encounter Plan of Treatment Not on file documented as of this encounter Results * CT Abd Pelvis [...] John Fabian M.D., Ph.D. IMG CT PROCEDURES * Creatinine with Estimated GFR (06/06/2023 9:48 AM CDT) Creatinine 1.16 0.74 - 1.35 mg/dL 06/06/2023 10:43 AM CDT DTL Estimated GFR (eGFR) 63 >=60 mL/min/BSA 06/06/2023 10:43 AM CDT DTL Comment: Estimated GFR calculated using the 2020 CKD_EPI creatinine equation. Blood (Blood, Venous) 06/06/2023 9:48 AM CDT 06/06/2023 10:25 AM CDT John Fabian M.D., Ph.D. 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
--- OUTSIDE RECORDS SUMMARY | 2023-12-18 18:27 | XMS_ITS | Encounter Summary ---
Author Name Unknown Organization [facility] Address [address] [place] [id number] Care Team Providers Care Tucking Machine Operator Name Role Phone Unavailable Primary Care Provider Unavailabl e Reason for Referral * Outpatient (Routine) - Closed Specialty Diagnoses / Procedures Referred By Contac t Referred To Contact Vascular Medicine Diagnoses Peripheral Arterial Disease (HCC) Gordon Hinojosa M.D. [address] [place] [address] [facility] Referral ID Status Reason Start Date Expiration Date Visits Re quested Visits Authorized [id number] Closed 06/06/2023 06/05/2026 1 1 * Outpatient (Routine) - Closed Specialty Diagnoses / Procedures Referred By Sumit t Referred To Contact Radiology Diagnoses Peripheral Arterial Disease (HCC) Gordon Hinojosa M.D. [address] [place] [address] [facility] Referral ID Status Reason Start Date Expiration Date Visits Re quested Visits Authorized [id number] Closed 06/06/2023 06/05/2024 1 1 Reason for Visit * Appointment Request (Routine) - Closed Specialty Diagnoses / Procedures Referred By Sumit mendoza Referred To Contact Vascular Medicine Diagnoses Peripheral Vascular Disease (HCC) Kaushik Diamond M.D. [address] [place] [address] Referral ID Status Reason Start Date Expiration Date Visits Re quested Visits Authorized [id number] Closed 03/29/2023 03/28/2024 1 1 Encounter Details Date Type Department Care Team (Latest Contact Info) Description 06/06/2023 1:00 PM CDT Comprehensive Visit Department of Vascular Medicine in [place], [place] [address] [place] [phone] Gordon Hinojosa M.D. [address] [place] [phone] Peripheral Arterial Disease (HCC) (Primary Dx); Diabetes Mellitus Type 2 (HCC); Hypertension Essential Primary; Hyperlipidemia; Smoking Tobacco Use Personal History Social History Tobacco Use Types Packs/Day Years Used Date Smoking Tobacco: Former Cigarettes 0 52 0 11/11/1958 - 11/11/2010 Smokeless Tobacco: Never Tobacco Cessation:Counseling Given: Not Answered Alcohol Use Standard Drinks/Week Comments Yes 1 [...] your living situation today? I have a [facility] place to live 06/04/2023 Sex and Gender Information Value Date Recorded Sex Assigned at Male 06/04/2023 6:03 PM CDT Gender Identity Male 06/04/2023 6:03 PM CDT Sexual Orientation Straight 06/04/2023 6: 03 PM CDT documented as of this encounter Last Filed Vital Signs Vital Sign Reading Time Taken Comments Blood Pressure 144/72 06/06/2023 1:24 PM CDT Pulse 76 06/06/2023 1:24 PM CDT Temperature - - Respiratory Rate - - Oxygen Saturation - - Inhaled Oxygen Concentration - - Weight 73.8 kg (162 lb 11.2 oz) 023 12:48 PM CDT Height 169.7 cm (5' 6.81) 06/06/2023 1 2:48 PM CDT Body Mass Index 25.63 06/06/2023 12:48 PM CDT documented in this encounter Consult Notes * Gordon Hinojosa M.D. - 06/06/2023 1:00 PM CDT REFERRAL SOURCE Kaushik Diamond M.D. [address] [place] [address] SUBJECTIVE CHIEF COMPLAINT / REASON FOR VISIT HISTORY OF PRESENT ILLNESS Mr. Clark is a 83 y.o. male that I am seeing today for an opinion and recommendations on peripheralarterial disease. The patient has been referred by Kaushik Diamond M.D. is and is accompanied today by a son. 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 has memory issues with his son reporting a mild dementia, and much of the history came from the patient's son who accompanied him here today. His son tells me that the patient has had peripheral artery disease for over 10 years now and that about 12 years ago he underwent a bilateral femoral artery percutaneous angioplasty with stenting. Unfortunately his stents have subsequently occluded. There was apparently a failed attempt at a percutaneous angioplasty procedure in about 2019, but the son is not sure of the exact date. Of note is that the patient has oxygen-dependent COPD and gets short of breath easily. He had nasalcannula oxygen with him today at 3 liters/minute which he put on towards the end of his visit. He does wear it overnight when sleeping. The patient has reportedly been told by a local Vascular Surgeon that he was too high of a risk fora femoral to [id number] popliteal bypass graft. He is now here for a second opinion but does not have a prescheduled appointment with one of our Vascular Surgeons. He does have a CTA of the aortawith runoffs but that is scheduled for later this afternoon. Past Medical History: His past medical history includes oxygen-dependent COPD as noted above, hypertension, type 2 diabetes, hyperlipidemia but he is not on medication at this point, mild dementia onmedication, anxiety, and gastroesophageal reflux disease. Social History: He smoked starting at the age of 19 and quit when he was in his 60s. His son believes that his father smoked for a little less than 50 years. The patient tells me that he does not drink very much alcohol. Family History: Mother age 60 from a heart attack, father age 80 from a heart attack, brother in his 70s, another brother in his 70s, sister in her 60s from cancer, and a sister in her 70s. To the patient's knowledge, these family members do not have a history of peripheral artery disease. The following portions of the patient's history were reviewed and updated as appropriate: allergies, current medications, family history, medical history, social history, surgical history, psychiatric history, substance abuse history, problem list, labs, diagnostics tests. I reviewed the pertinent clinical notes in the electronic health record. REVIEW OF SYSTEMS A complete review of systems was performed with pertinent information listed in the HPI, all othersnegative. OBJECTIVE VITALS BP 144/72 (BP Location: Right arm, Patient Position: Sitting) Pulse 76 Ht 169.7 cm Wt 73.8 kg BMI 25.63 kg/m?? PHYSICAL EXAMINATION Body mass index is 25.63 kg/m??. Physical Exam Neurological: Awake, alert, and appropriately conversant. Psychiatry: In no distress and he did not appear to be depressed. Vessels: Radial pulses were 4+ bilaterally, ulnars 3+ bilaterally, brachials 2+ on the right and 4+on the left, carotids 3+ bilaterally, femorals 0 on the right with a bruit and 4+ on the left with a bruit, popliteals 0 bilaterally, dorsalis pedis 0 bilaterally, and posterior tibials 0 bilaterally. Eyes: The pupils were equal, round, and reactive to light and accommodation. Extraocular movements were intact. Optic discs were not visualized. ENT: Tympanic membranes were obscured bilaterally. Oropharynx was poorly visualized. Respiratory: Lungs were clear to auscultation. Cardiovascular: Cardiac exam revealed a regular rate with a normal S1 and S2. Abdomen: Active bowel sounds. No bruits. : Not examined. Musculoskeletal: No spinous process tenderness on back examination. He did not have limb atrophy. He did not have a dependent rubor in either foot. There were no areas of lower extremity ulceration or cellulitis. DIAGNOSTIC REVIEW All relevant labs and diagnostic studies below were reviewed. Earlier today his creatinine was 1.16 milligrams/deciliter. ABIs with exercise from earlier today showed moderate multilevel occlusive disease in the right leglocated at and distal to the iliac artery with moderate left leg tibial occlusive disease. The ECG was negative for cardiac ischemia with exercise. The patient exercised at a reduced speed of 1 mile/hour on a 10 percent grade for 2 minutes and 11 seconds and went 60 yards. The exercise was terminated due to lower extremity and respiratory symptoms. ASSESSMENT / PLAN ASSESSMENT #1 Peripheral Arterial Disease (HCC) has peripheral arterial disease with short distance claudication, but I would also note his oxygen dependent COPD which I suspect is also going to severely limit his exercise tolerance and ability to walk a distance. Given his clinically severe COPD, I would agree that he would be a high Vascular Surgical risk. However, he would be a candidate for possible percutaneous interventions if clinically appropriate, and with the understanding that his walking is still going to be most likely limited by his COPD. He has a CTA of the aorta with runoffs scheduled for later today. I will refer him to see one of our Interventional Radiologists. He does have risk factors for atherosclerosis and arterial stenosis, and they would be his diabetes, hypertension, hyperlipidemia, and prior tobacco usage. Ideally, he should be on lipid-lowering therapy such as with a statin drug and I will defer that to his primary care provider. A target total cholesterol for him would be well under 200 milligrams/deciliter with a target LDL cholesterol of under 100 milligrams/deciliter. #2 Diabetes Mellitus Type 2 (HCC) The discussion is as above. #3 Hypertension Essential Primary The discussion is as above. #4 Hyperlipidemia The discussion is as above. #5 Smoking Tobacco Use Personal History The discussion is as above. PLAN 1. His CTA of the aorta with runoffs is pending for later today. 2. Interventional Radiology consultation. 3. I will see him in return after the above. 4. Recommendations are as above. Total time spent reviewing records, reviewing imaging, reviewing laboratories, telephone calls, ordering tests, and with patient: 60 minutes. Time spent in counseling and coordination of care: 45 minutes. Gordon Hinojosa M.D. documented in this encounter Plan of Treatment Scheduled Referrals Name Type Priority Associated Diagnoses Order Schedule Interventional Radiology - Vascular consult (clinic) Outpatient Referral Routine Peripheral Arterial Disease (HCC) Expected: 06/06/2023 (Approximate), Expires: 09/06/2024 Vascular Medicine office visit (clinic) General Outpatient Referral Routine Peripheral Arterial Disease (HCC) Expected: 06/06/2023 (Approximate), Expires: 09/06/2024 documented as of this encounter Visit Diagnoses Diagnosis Peripheral Arterial Disease (HCC)- Primary Diabetes Mellitus Type 2 (HCC) Hypertension Essential Primary Hyperlipidemia Smoking Tobacco Use Personal History documented in this encounter
--- OUTSIDE RECORDS SUMMARY | 2023-12-18 18:27 | XMS_ITS | Encounter Summary ---
Author Name Unknown Organization [facility] Address [address] [place] [address] Care Team Providers Care Computer Repair Engineer Name Role Phone Unavailable Primary Care Provider Unavailabl e Reason for Visit * Outpatient (Routine) - Closed Specialty Diagnoses / Procedures Referred By Sumit mendoza Referred To Contact Vascular Medicine Diagnoses Peripheral Arterial Disease (HCC) Gordon Hinojosa M.D. [address] [place] [phone] [facility] Referral ID Status Reason Start Date Expiration Date Visits Re quested Visits Authorized [id number] Closed 06/06/2023 06/05/2026 1 1 Encounter Details Date Type Department Care Team (Late st Contact Info) Description 06/14/2023 4:15 PM CDT Telemedicine Department of Vascular Medicine in [place], [place] [address] [place] [phone] Gordon Hinojosa M.D. [address] [place] [phone] Peripheral Arterial Disease (HCC) (Primary Dx); Stenosis Renal Artery (HCC) Social History Tobacco Use Types Packs/Day [...] your living situation today? I have a [facility] place to live 06/04/2023 Sex and Gender Information Value Date Recorded Sex Assigned at Male 06/04/2023 6:03 PM CDT Gender Identity Male 06/04/2023 6:03 PM CDT Sexual Orientation Straight 06/04/2023 6: 03 PM CDT documented as of this encounter Consult Notes * Gordon Hinojosa M.D. - 06/14/2023 4:15 PM CDT Consult conducted via real-time video technology [facility]. This Video Visit was performed during the COVID-19 emergency, when many states had issued [id number] orders. Patient has authorized this video visit. REFERRAL SOURCE Gordon Hinojosa M.D. [address] [place] [address] SUBJECTIVE CHIEF COMPLAINT / REASON FOR VISIT Mr. Clark is a 83 y.o. male that I am contacting today for review of his CTA study and visit with Interventional Radiology.. HISTORY OF PRESENT ILLNESS I contacted today for a video follow-up visit at his request. His participated. Of note is that the patient does have a mild dementia. met with Dr. Myles in Interventional Radiology and a percutaneous intervention is now planned for July 30 to try to improve his leg circulation. is going to proceed with that. As a separate issue we talked about the bilateral severe renal artery stenosis on his CTA study. His renal function appears to be preserved and I am not seeing mention made of renal atrophy on the CTA study. He does have hypertension on treatment and apparently that is also well controlled given his age. We discussed a visit with the Hypertension Clinic to see if there is any indication to intervene on the severe renal artery stenosis, although I have explained that as a general rule, no interventions are usually undertaken provided that renal function remains stable, blood pressure remains under control with medication, and there is no evidence of renal atrophy. After discussion, he has decided that he really does not want to see the Hypertension Clinic at this point. Given that, I have recommended that he be followed by his primary care provider. He can share my note with his primary care provider. A yearly renal artery ultrasound exam which will also image the kidneys to look for the onset of renal atrophy is recommended, along with monitoring of his creatinine and blood pressurecontrol. The following portions of the patient's history were reviewed and updated as appropriate: allergies, current medications, family history, medical history, social history, surgical history, problem list, labs, diagnostics tests. I reviewed the pertinent clinical notes in the electronic health record. REVIEW OF SYSTEMS 14 systems reviewed. Pertinent positives and pertinent negatives are documented in the history of present illness. OBJECTIVE PHYSICAL EXAMINATION A physical examination was not done. DIAGNOSTIC REVIEW All labs and diagnostic studies were reviewed. On June 06 his creatinine was 1.16 milligrams/deciliter. On June 06 a CTA of the aorta with runoffs showed a probable severe stenosis at the origin of theinferior mesenteric artery. There was a single right and single left renal artery with severe stenoses in both arteries proximally. The kidneys were noted to be unremarkable. In the right leg there was severe stenosis in the right common femoral artery with a right popliteal artery stent that was occluded. The posterior tibial and peroneal arteries had continuous flow to the right foot but did have calcified plaque causing probable moderate stenosis proximally. In the left leg there was an occluded stent in the distal superficial femoral artery/proximal popliteal artery with the mid popliteal artery reconstituted via collaterals. There was two vessel left foot runoff via the posterior tibial and peroneal arteries. ASSESSMENT / PLAN #1 Peripheral Arterial Disease (HCC) is a candidate for a percutaneous intervention on his peripheral arterial disease and the plan is as noted above. #2 Stenosis Renal Artery (HCC) He has severe bilateral renal artery stenoses and the plan is as noted above. Recommendations: 1. The plan is as noted above. Spent ten minutes (gathering information, reviewing records, and discussing results with patient orpatient's family member on the phone). Spent 12 minutes in video visit. Total time spent: 22 minutes. Gordon Hinojosa M.D. documented in this encounter Plan of Treatment Not on file documented as of this encounter Visit Diagnoses Diagnosis Peripheral Arterial Disease (HCC)- Primary Stenosis Renal Artery (HCC) documented in this encounter
--- OUTSIDE RECORDS SUMMARY | 2023-12-18 18:27 | XMS_ITS | Encounter Summary ---
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 [address] [place] [phone] Anesthesia Record Procedure Summary Procedure Name Responsible Anesthesiologist Anesthesia Start Time Anesthesia Stop Time IR PELVIC ANGIOGRAM Bridgette Main APRN, CRN A, D.N.P. 07/22/23 1109 07/22/23 1309 Events Date Time Event Comment 07/22/2023 1109 An Start Machine/Equipme nt Checked Infection Precautions Followed Procedure/Site Verified NPO Status Verified Supine Standard ASA Monitors Applied 1116 Turnover to Proceduralist 1132 Anesthesia Time Out 1132 Proc Start 1209 Anes CS Handoff I, Bridgette Main, [employer], STERILE TECH, attest that I have reconciled the controlled substances and that I have reviewed all the significant information with the next anesthesia provider assuming care of this patient. 1253 Proc Fin 1253 Turnover to ANE Staff 1301 an stop data 1309 An End I completed my handoff to the receiving staff during which we 1. Identified the patient 2. Identified the responsible provider 3. Reviewed the pertinent medical history 4. Discussed the surgical course 5. Reviewed intra-op anesthesia management and issues during anesthesia 6. Set expectations for post-procedure period 7. Allowed opportunity for questions and acknowledgement of understanding. Meds Name Total ketamine 10 mg/mL injection 20 mg lidocaine 2% (mg) injection 60 mg ondansetron PF 4 mg/2 mL injection 4 mg propofol 10 mg/mL injection 20 mg propofol 10 mg/mL infusion 686.49 mg ePHEDrine PF 5 mg/mL injection 30 mg heparin 1,000 units/mL injection 6,000 U nits phenylephrine 100 mcg/mL injection 500 m cg Lactated Ringers Free Drip 700 mL * Agents No agents on file. * Blood No blood administrations on file. Lines, Drains, and Airways Type Details Placement Removal Peripheral IV Placement Date: 07/22/23; Placement Time: 1000; Catheter Size: 20 G; Orientation: Anterior, Left, Lower; Location: Arm; Site Prep: Chlorhexidine (Preferred); Technique: Anatomical landmarks; Removal Date: 07/22/23; Removal Time: 1900 07/22/23 1000 by Sharyn Lucas 07/22/23 1900 by Mayra Barros, R.N. Percutaneous Access Site 07/22/23; 1138; Temporary (non-tunneled, non-implanted); Arterial; Yes; Yes; Yes; Yes; Alcohol, Chlorhexidine (Preferred); Yes; Cap, Gloves, Gown, Large drape, Mask (Clinician), Mask (All others in room); N/A; VIR-[place]; Left Femoral; 4 Fr.; Ultrasound; 07/22/23; 1241 07/22/23 1138 by Lindsey Solis, R.N. 07/22/23 1241 by Judah Mckinney, R.T.(R) documented in this encounter Social History Tobacco Use Types Packs/Day Years [...] your living situation today? I have a [facility] place to live 06/04/2023 Sex and Gender Information Value Date Recorded Sex Assigned at Male 06/04/2023 6:03 PM CDT Gender Identity Male 06/04/2023 6:03 PM CDT Sexual Orientation Straight 06/04/2023 6: 03 PM CDT documented as of this encounter OR Notes * Anesthesia Postprocedure Evaluation - Bridgette Main APRN, CRNA, D.N.P. 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 Responsible Provider: Bridgette Main APRN, CRNA Anesthesia Type: MAC ASA Status: 3 Anesthesia Type: MAC Last vitals Vitals Value Taken Time BP Temp Pulse Resp SpO2 Please reference Vitals flowsheet for most recent vital signs. Anesthesia Post Evaluation Patient Disposition: dismissal Cardiovascular status: hemodynamics (HR & BP) acceptable Respiratory status: patent airway with spontaneous effort Temperature: normothermic Oxygen requirements: room air Level of consciousness: awake Pain score: pain adequately controlled and/or at baseline Post Op nausea/vomiting: none Hydration status: euvolemic * Anesthesia Preprocedure Evaluation - Tasha Avitia M.D. - 07/22/2023 9:19 AM CDT Preprocedure Anesthesia & H&P Assessment Procedure Summary Date/Time: 07/22/23 1030 Scheduled providers: Lexa Myles M.D. 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 Present illness and pre-op diagnosis were confirmed. The planned surgery / procedure was verified with the patient / legal guardian. 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 (+) Hypertension Pulmonary (HCC) RESP (+) Chronic Obstructive Pulmonary Disease Exacerbation (HCC) (+) Hypertension Pulmonary (HCC) (+) Respiratory Failure (HCC) GI (+) Gastroesophageal Reflux Disease NOS Endocrine/Metabolic (+) Diabetes Mellitus Type 2 (HCC) Psychiatric (+) Anxiety (+) Dementia (HCC) Other (+) Amnesia OBJECTIVE PHYSICAL EXAMINATION Airway (HEENT) Mallampati: III TM Distance: >3 FB Neck ROM: Full Mouth Opening: >3 cm Cardiovascular Functional Capacity: <4 METS Pulmonary 2 L NC Pulmonary Assessment: Non labored General / Constitutional General State of Health:: calm Neurological Neurologic Assessment: alert Dental Upper and lower dentures ASSESSMENT / PLAN ANESTHESIA PLAN ASA: 3 Anesthesia Plan: MAC Patient seen and allergies reviewed, anesthesia plan and risks discussed directly with patient /legal guardian or through an seismic interpreter. Risks/Benefits/Alternatives of Blood transfusion discussed with patient / legal guardian, includingan opportunity to ask questions and/or decline some or all transfusion therapies. The patient / legal guardian consented to the use of all blood products, as deemed medically necessary Approval to Proceed: approved for anesthesia Accompanied by son, denies problems with anesthesia in the past. 2-3 L of O2 via nasal canula at baseline, states that he can walk about 1-2 blocks at this time. Discussed advanced directive and DNR/DNI status, okay with temporarily rescinding these orders for procedure. documented in this encounter Plan of Treatment Not on file documented as of this encounter Visit Diagnoses Not on filedocumented in this encounter Administered Medications Inactive Administered Medications - up to 3 most recent administrations Medication Order MAR Action Action Date Dose Rate Site ePHEDrine (PF) injection intravenous, As needed, Starting on Sat07/22/23 at 1130, Anesthesia Intra-op Given 07/22/2023 12:40 PM CDT 5 mg Given 07/22/2023 12:10 PM CDT 5 mg Given 07/22/2023 11:51 AM CDT 5 mg heparin (porcine) 1,000 unit/mL injection intravenous, As needed, Starting on Sat07/22/23 at 1155, Anesthesia Intra-op Given 07/22/2023 12:16 PM CDT 1,000 Units Given 07/22/2023 11:55 AM CDT 5,000 Units ketamine injection (KETALAR) intravenous, As needed, Starting on Sat07/22/23 at 1117, Anesthesia Intra-op Given 07/22/2023 11:59 AM CDT 10 mg Given 07/22/2023 11:17 AM CDT 10 mg Lactated Ringer's intravenous, Continuous Infusion: Per Instructions PRN, Starting on Sat07/22/23 at 1109, Anesthesia Intra-op New Bag 07/22/2023 12:44 PM CDT New Bag 07/22/2023 11:09 AM CDT lidocaine (PF) (cardiac) injection intravenous, As needed, Starting on Sat07/22/23 at 1115, Anesthesia Intra-op Given 07/22/2023 11:15 AM CDT 60 mg ondansetron (PF) injection (ZOFRAN) intravenous, As needed, Starting on Sat07/22/23 at 1243, Anesthesia Intra-op Given 07/22/2023 12:43 PM CDT 4 mg phenylephrine injection intravenous, As needed, Starting on Sat07/22/23 at 1216, Anesthesia Intra-op Given 07/22/2023 12:52 PM CDT 200 mc g Given 07/22/2023 12:40 PM CDT 100 mcg Given 07/22/2023 12:28 PM CDT 100 mcg propofol 10 mg/mL infusion (DIPRIVAN) intravenous, Continuous Infusion: Per Instructions PRN, Starting on Sat07/22/23 at 1115, Anesthesia Intra-op Rate/Dose Change 07/22/2023 12:43 PM CDT 75 mcg/kg/min 33.615 mL/hr Rate/Dose Change 07/22/2023 12:12 PM CDT 115 mcg/kg/min 51 .543 mL/hr Rate/Dose Change 07/22/2023 11:58 AM CDT 100 mcg/kg/min 44 .82 mL/hr propofoL injection (DIPRIVAN) intravenous, As needed, Starting on Sat07/22/23 at 1115, Anesthesia Intra-op Given 07/22/2023 11:15 AM CDT 20 mg documented in this encounter
--- OUTSIDE RECORDS SUMMARY | 2023-12-18 18:27 | XMS_ITS | Encounter Summary ---
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 [address] [place] [phone] Surinder Cabral M.B., B.Gilberto., B.A.O. 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 I have a [facility] place to live 06/04/2023 Sex and [...] 10.9 oz) 07/22/2023 9:57 AM CDT Height - - Body Mass Index 25.94 06/06/2023 12:48 PM CDT documented in this encounter Discharge Summaries * Surinder Cabral M.B., B.Ch., B.A.O. - 07/23/2023 12:17 PM CDT DISCHARGE SUMMARY Discharge Provider: Surinder Cabral M.B., BDavid., B.A.O. No primary care provider on file. Discharge Provider Team: [facility] Internal Medicine ([facility]) [facility] Medicine 11 ([facility]) Primary Care Provider Phone Number: None Primary Care Provider Fax Number: None Other Providers: Vascular procedural team Admission Date: 07/22/2023 Discharge Date: 07/23/2023 PRINCIPAL DIAGNOSIS Peripheral Arterial Disease (HCC) SECONDARY DIAGNOSES Principal Problem: Peripheral Arterial Disease (HCC) Active Problems: Chronic Respiratory Failure With Hypoxia (HCC) Chronic Obstructive Pulmonary Disease Without Exacerbation (HCC) Diabetes Mellitus Type 2 (HCC) Gastroesophageal Reflux Disease NOS Hypertension Pulmonary (HCC) Atherosclerosis Renal Artery (HCC) Hyperlipidemia Smoking Tobacco Use Personal History Overweight Body Mass Index 25-29.9 Adult Resolved Problems: Respiratory Failure (HCC) DISCHARGE DISPOSITION Home or Self Care [1] ACTIVE ISSUES REQUIRING FOLLOW UP Follow-up with primary care provider Follow up with vascular team If any worsening swelling in the left groin, please seek immediate medical attention. OUTPATIENT FOLLOW UP For appointment details refer to your Patient Appointment Guide. TEST RESULTS PENDING AT DISCHARGE Pending Labs None DETAILS OF HOSPITAL STAY REASON FOR ADMISSION Peripheral Arterial Disease (HCC) HOSPITAL COURSE Carlos Clark is a 83 y.o. 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 Patient did have a small delayed left groin hematoma, for which manual compression was required in that postoperative area. Patient was started on a baby aspirin, and was admitted to Medicine 11 team for observation overnight,to monitor the left groin site. Vascular interventional team followed the patient and recommended aleft groin ultrasound to evaluate for pseudoaneurysm, For which the results were reassuring, and did not reveal any signs of aneurysms. Patient is to be discharged and followed up with PCP and vascular team. MEDICATIONS CHANGED DURING THIS HOSPITAL STAY Medications stopped: None Medications changed: None Medications added: None CONSULTS ORDERED DURING THIS ADMISSION None CONDITION AT DISCHARGE Stable I saw and evaluated Mr. Carlos Clark today and provided counseling [id number] at bedside. I personally spent a total 35 minutes in counseling and discussion with the patient and in coordination of care as described above to facilitate the hospital discharge. Discharge instructions were providedto the patient and caregiver(s). documented in this encounter Discharge Instructions * Discharge Instructions* Talha Mobley M - 07/23/2023 7:25 AM CDT You were discharged from the [facility] Medicine 11 ([facility]) Service. Please identify this service name if you call with questions after hospitalization. If you have any questions or problems related to your chemoembolization procedure or vascular intervention, call the Vascular Interventional Radiology department at [phone] during work hours Saturday through Saturday. During evenings or on the weekend, please call the hospital jumpbasting machine operator at [phone] and ask for the on-call Vascular Interventional anesthesia resident on pager [phone]. Please refer to the brochure given to you by the interventional service as well. Please contact the team if you should develop worsening pain, fevers or chills. Care Following Your Catheter Procedure When you have a catheter procedure, the catheter may be placed in different veins or arteries, including: * Internal jugular vein (in the neck) * Radial or brachial artery (in the arm) * Femoral artery or vein (in the groin area) This information is meant to help you recover after your catheter procedure. Depending where the catheter is placed, your activity restrictions may differ. Care for all sites (internal jugular vein or radial or femoral arteries) After being sedated, it is common to have lapses of memory, slowed reaction time and impaired judgment. For these reasons, for 24 hours after being sedated: * Do not drive or operate motorized vehicles or equipment. * If you go home after your procedure, have someone come with you to your appointment and drive [employer]. * Have a responsible adult stay with you. * Rest. * Do not return to work. * Do not take responsibility for small children or anyone who depends on your care. * Do not use exercise equipment, take part in rough play or in sports. * Do not drink alcoholic beverages. * Do not make important decisions or sign legal documents. Call your physician if you have any of the following symptoms: * Bleeding or swelling at the puncture site. * New or increasing swelling. * Pain or discomfort at the puncture site that is not helped by taking acetaminophen (Tylenol). * Signs of infection (redness, drainage, fever) at the puncture site. * Change in color, temperature or sensation in the arm or leg of the puncture site. * Unusual feelings of weakness or faintness. Bathing You may shower the morning after your procedure. You may take off the bandage 48 hours after the procedure. For seven days after your procedure, do not soakin a tub. Keep the site clean and dry. Do not use creams or powders on the puncture site. Discomfort Normally, the site of the puncture is slightly tender and swollen. There may be a small area of discoloration or a small knot in the area of the puncture. Tenderness at the puncture site may continue for one to two days. You may take a non-aspirin pain reliever containing acetaminophen such as Tylenol in the recommended dose as needed for discomfort. Medications Take all your previously prescribed medications, including aspirin, as you normally do unless your physician tells you otherwise. Metformin (if you take) and contrast dye If you received contrast material with iodine during your catheter procedure and take metformin, ask your health care provider when you can restart your metformin, usually 48 hours (2 days) after theprocedure. Contrast dye may increase the risk of serious side effects if you take metformin (for example, Glucophage, Glumetza, Fortamet) or metformin-combination products (for example, Glucovance, Metaglip). Care for femoral (groin area) sites If you have active bleeding or swelling of the puncture site: * Call 911 or your designated emergency number. * Lie down and apply firm pressure with 2 or 3 fingers over the puncture site until help arrives. * Do not drive yourself to the hospital. If you leave the hospital the same day as your procedure, stay within 30 miles of the hospital for one night. Someone should stay with you for the first 24 hours after your procedure. Activity Up to seven days after your procedure, avoid strenuous activities and do not take part in sports. Do not: * Lift or move objects that weigh more than 10 pounds. * Do strenuous exercise (biking, weight lifting, aerobics, golfing). * Strain. * Climb stairs. * Take part in sexual activity. * Discharge Instr - Activity* Dinah Camacho APRN, C.N.P., D.N.P. - 07/22/2023 1:23 PM CDT Care Following Your Catheter Procedure: If you leave the hospital the same day as your procedure, stay within 30 minutes of the hospital for one night. Someone should stay with you for the first 24 hours after your procedure. The information is meant to help you recover after your catheter procedure. After being sedated, itis common to have lapses of memory, slowed reaction time and impaired judgment. Arrange for someoneto accompany you to and from your appointment and drive you home. For the rest of the day after being sedated: - Rest - Do not drive or operate motorized vehicles or equipment - Do not take on responsibility for children or anyone who depends on your care - Do not use exercise equipment or take part in rough play or sports - Do not drink alcoholic beverages Call your physician if you have any of the following symptoms: - Pain or discomfort at the puncture site that is not helped by taking acetaminophen (Tylenol) - Signs of infection (redness, drainage, fever) at the puncture site. - Change in color, temperature or sensation in the arm or leg of the puncture site - Unusual feelings of weakness or faintness Bathing: You may shower the morning after your procedure. At that time, you may take off the bandage. For three days after your procedure, do not soak in a tub. Keep the site clean and dry. Do not use creams or powders on the puncture site. Discomfort: Normally, the site of the puncture is slightly tender and swollen. There may be a small area of discoloration or a small knot in the area of the puncture. Tenderness at the puncture site may continuefor one to two days. You may use non-aspirin pain reliever containing acetaminophen such as Tylenolin the recommended dose as needed for discomfort. Medications: Take all your previously prescribed medications, including aspirin, as you normally do unless your physician tells you otherwise. Metformin and contrast dye: If you received contrast material with iodine during your catheter procedure and take metformin, ask you healthcare provider when you can restart your metformin, usually 28 hours (2 days ) after yourprocedure. Contrast dye may increase the risk of serious side effects if you take metformin (for example, Glucophage, Glumetza, Fortamet) or metformin-combination products (for example, Glucovance, Metaglip). Care for femoral (groin area) sites: If you have active bleeding or new swelling of the puncture site: - Call 911 or your designated emergency number - Lie down - Apply firm pressure with 2-3 fingers just above (not on top of ) the puncture site until help arrives - Do not drive yourself to the hospital Activity: Up to three days after your procedure, avoid strenuous activities and do not take part in sports. Do not: - Lift or move objects that weigh more than 10 pounds - Do strenuous exercise (biking, weight lifting, aerobics, golfing) - Strain - Climb stairs - Take part in sexual activity If you have questions, call the [facility] Emergency Department at [phone]. Give thestaff the above information. * Attachments The following attachments cannot be sent through Care Everywhere. * Care Following Coronary Angiogram/Angioplasty/Stent Placement ??? Femoral (Leg) (Pakistani) documented in this encounter Medications at Time of Discharge [...] mouth 2 (two) times a day. 0 diphenhydrAMINE-acetami nophen (TYLENOL PM) 25-500 mg per tablet Take [...] 25 mg by mouth daily. 0 05/30/2023 documented as of this encounter Progress Notes * Martha Ma APRN, C.N.P., D.N.P. - 07/23/2023 8:27 AM CDT VASCULAR & INTERVENTIONAL RADIOLOGY PROGRESS NOTE SUBJECTIVE Mr. Carlos Clark is a 83 y.o. 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 Myles. Patient isevaluated this morning with nursing at bedside. He denies pain other than chronic back pain. No tenderness or pain at groin arteriotomy site. No additional bleeding from left groin site. He has been ambulating without difficulties. No nausea, he is tolerating regular diet. No acute events overnight. I have reviewed the current medication list. OBJECTIVE VITAL SIGNS Temperature: [36 ??C-36.8 ??C] 36.5 ??C Heart Rate: [73-85] 78 Resp Rate: [10-24] 16 Blood Pressure: (117-163)/(63-95) 143/77 SpO2: [68 %-100 %] 91 % Flow Rate (L/min): [1 L/min-3 L/min] 2 L/min Pulse Rate: [61-103] 76 Intake/Output Last 24 Hours: Intake/Output Summary (Last 24 hours) at 07/23/2023 0831 Last data filed at 07/23/2023 0600 Gross per 24 hour Intake 1042.65 ml Output 1905 ml Net -862.35 ml PHYSICAL EXAM Vitals reviewed. Constitutional General: He is not in acute distress. Abdominal Comments: Left groin site covered with dressing and this is clean dry and intact. Area hematoma marked and this is now soft but bruise. No tenderness, firmness, or bleeding to palpation Neurological Mental Status: He is alert. DIAGNOSTICS Images: Reviewed. Labs: Reviewed. Recent Results (from the past 24 hour(s)) Glucose, POCT Collection Time: 07/22/23 9:58 AM Result Value Glucose, POCT, B 111 Site Capillary ACT (Activated Clotting Time), POCT Collection Time: 07/22/23 12:11 PM Result Value Activated Clotting Time, POCT 225 (H) Glucose, POCT Collection Time: 07/22/23 3:24 PM Result Value Glucose, POCT, B 132 Site Capillary Glucose, POCT Collection Time: 07/22/23 5:16 PM Result Value Glucose, POCT, B 146 (H) Last Intake 3-4 hours Glucose, POCT Collection Time: 07/22/23 8:57 PM Result Value Glucose, POCT, B 95 Site Capillary Glucose, POCT Collection Time: 07/23/23 7:26 AM Result Value Glucose, POCT, B 109 Site Capillary ASSESSMENT / PLAN #1 Chronic Obstructive Pulmonary Disease Without Exacerbation (HCC) #2 Diabetes Mellitus Type 2 (HCC) #3 Gastroesophageal Reflux Disease NOS #4 Hypertension Pulmonary (HCC) #5 Atherosclerosis Renal Artery (HCC) #6 Peripheral Arterial Disease (HCC) #7 Chronic Respiratory Failure With Hypoxia (HCC) #8 Hyperlipidemia #9 Smoking Tobacco Use Personal History #10 Overweight Body Mass Index 25-29.9 Adult 83 y.o. 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 Myles. Patient is evaluated in the hospital this morning with nursing at bedside. He denies pain other than chronic back pain. Left groin arteriotomy site is now soft with bruising but no signs of bleeding or hematoma. PLAN -discharge to home with appears appropriate today. -continue routine monitoring of left groin site. Care instructions can be found in AVS. Patient wasinstructed to keep this dressing in place until tomorrow morning then may remove and keep open to air -continue aspirin 81 mg daily -no additional follow-up recommended with [facility] at this time Please page the [facility] Inpatient Consult Service at [phone] Saturday through Saturday 7AM-5PM or on-callresident at [phone] after 5PM and weekends for questions or concerns. Electronically signed by: Martha Ma APRN, C.N.PJaney, D.N.P. 07/23/23 8:27 AM CDT ADDENDUM US obtained of left groin to evaluate for pseudoaneurysm and this was negative. Appropriate to discharge from VIR perspective. Cares coordinated with medicine team and Dr. Myles. Electronically signed by: Martha Ma APRN, C.N.PJaney, D.N.P. 07/23/23 3:32 PM CDT * Dinah Camacho APRN, C.N.P., D.N.P. - 07/22/2023 1:18 PM CDT VASCULAR INTERVENTIONAL RADIOLOGY POST-PROCEDURE RECOVERY NOTE PROCEDURE PERFORMED AND DESCRIPTION IR Pelvic angiogram and right femoral popliteal artery SERVICE ELECTRICIAN HISTORY OF PRESENT ILLNESS Mr. Clark is a 83 y.o. male with history of bilateral SFA and popliteal artery occluded stents. Revascularization on the right side was recommended and he presented today for the procedure. Please see previous notes for further details regarding his history. He does have multiple medical comorbidities. CURRENT MEDICATIONS No current facility-administered medications on file prior to encounter. Current Outpatient Medications on File Prior to Encounter Medication Sig Dispense Refill albuterol (ProAir HFA) 90 mcg/actuation inhaler Inhale 1 puff every 4 (four) hours as needed for wheezing or shortness of breath. amLODIPine (NORVASC) 2.5 mg tablet Take 2.5 mg by mouth daily. aspirin 81 mg capsule Take 1 tablet by mouth daily. cilostazoL (PLETAL) 100 mg tablet Take 100 mg by mouth 2 (two) times a day. diphenhydrAMINE-acetaminophen (TYLENOL PM) 25-500 mg per tablet Take 1 tablet by mouth at bedtime as needed for sleep. donepeziL (ARICEPT) 10 mg tablet Take 5 mg by mouth at bedtime. famotidine (PEPCID) 40 mg tablet Take 40 mg by mouth daily. hydroCHLOROthiazide (HYDRODIURIL) 25 mg tablet Take 25 mg by mouth daily. ipratropium-albuteroL (DUONEB) 0.5-2.5 mg/3 mL nebulizer solution Inhale 3 mL by nebulization 4 (four) times a day. LORazepam (ATIVAN) 1 mg tablet Take 1 mg by mouth 3 (three) times a day as needed. losartan (COZAAR) 100 mg tablet Take 100 mg by mouth daily. metFORMIN (GLUCOPHAGE) 500 mg tablet Take 500 mg by mouth daily with breakfast. multivitamin capsule Take 1 capsule by mouth daily. sertraline (ZOLOFT) 100 mg tablet Take 100 mg by mouth daily. for anxiety sertraline (ZOLOFT) 50 mg tablet Take 100 mg by mouth daily. sildenafil (REVATIO) 20 mg tablet Take 20 mg by mouth 3 (three) times a day. spironolactone (ALDACTONE) 25 mg tablet Take 25 mg by mouth daily. azelastine (ASTELIN) 137 mcg/spray (0.1 %) nasal spray Administer 1 spray into each nostril 2 (two)times a day. Use in each nostril as directed VITAL SIGNS Vitals: 07/22/23 1315 BP: 144/63 Pulse: 75 Resp: 19 Temp: 36 ??C SpO2: 97% ALLERGIES Allergies Allergen Reactions Atorvastatin Myalgia Simvastatin Myalgia Sulfa (Sulfonamide Antibiotics) Other (see comments) PHYSICAL EXAMINATION General: Alert 83-year-old gentleman in no apparent distress Groin: Left groin site with no sign of active bleeding or hematoma. Dressing clean, dry, intact. Lower extremities: Faint bilateral DP and PT pulses palpated. DP and PT pulses also heard on Doppler. ASSESSMENT/RECOVERY DISPOSITION #1 Status post pelvic angiogram and right femoral popliteal artery SERVICE ELECTRICIAN Procedure went well with no immediate complications. Access was obtained via left femoral artery. Patient is seen in the recovery room. Appears hemodynamically stable. In recovery, he did have a fullbladder and bladder was drained for greater than 700 cc with straight catheterization. He did develop a small hematoma at left access site and pressure was held and dressing was changed. Hematoma didresolve. This should continue to be monitored with plan for admission overnight. Fluids were also started with LR at 100 cc/hr postprocedure. PLAN -Bedrest for 4 hours. Up time 1700. -Routine monitoring of puncture site for signs of bleeding or hematoma, care instructions can be found in AVS -Pain control -LR at 100 cc/hour until appropriate to stop with p.o. intake -Continue baby aspirin -Plan for admission overnight with medicine 11 service. Ok to Dc in the morning if doing well and no concerns/meeting discharge criteria per Med 11 team. Please page VIR NPPA at [phone] M-F 7AM-5PM or on-call resident at [phone] after 5PM and weekends. documented in this encounter H&P Notes * Surinder Cabral M.B., B.Ch., B.A.O. - 07/22/2023 4:02 PM CDT T Medicine 11 ([facility]) Admission Note SUBJECTIVE CHIEF COMPLAINT Leg pain HISTORY OF PRESENT ILLNESS Mr. Carlos Clark is a 83 y.o. male who presented on 07/22 for a elective vascular surgery procedure (right lower extremity angiography with shockwave lithotripsy angioplasty balloon and drug-eluting balloon) and was subsequently admitted for observation because of a left groin hematoma. Patient had been following with vascular Medicine team, specifically Dr. Gordon Hinojosa, as an outpatient in light of lower extremity claudication. Patient had significant short distance claudication, and vascular was considering surgery, however this was complicated by the fact that patient was a high surgical risk, specifically in light of the oxygen dependent COPD, so minimally invasive procedure was c ompleted instead. Patient tolerated the procedure well, and following the procedure there was that left groin hematoma, which manual compression was applied to. Vascular decided to admit patient, andadvised continuation of a baby aspirin. Patient remains on 2 L of supplemental oxygen in light of his chronic hypoxic respiratory failure from his COPD. He reports a longstanding history of lower back pain, which is intermittent, and is mechanical in nature. Twelve point review of systems was completed and was otherwise negative, except as stated above. Active Home Medications Medication Sig Taking albuterol (ProAir HFA) 90 mcg/actuation inhaler Inhale 1 puff every 4 (four) hours as needed for wheezing or shortness of breath. Yes amLODIPine (NORVASC) 2.5 mg tablet Take 2.5 mg by mouth daily. Yes aspirin 81 mg capsule Take 1 tablet by mouth daily. Yes cilostazoL (PLETAL) 100 mg tablet Take 100 mg by mouth 2 (two) times a day. Yes diphenhydrAMINE-acetaminophen (TYLENOL PM) 25-500 mg per tablet Take 1 tablet by mouth at bedtime as needed for sleep. Yes donepeziL (ARICEPT) 10 mg tablet Take 5 mg by mouth at bedtime. Yes famotidine (PEPCID) 40 mg tablet Take 40 mg by mouth daily. Yes hydroCHLOROthiazide (HYDRODIURIL) 25 mg tablet Take 25 mg by mouth daily. Yes ipratropium-albuteroL (DUONEB) 0.5-2.5 mg/3 mL nebulizer solution Inhale 3 mL by nebulization 4 (four) times a day. Yes LORazepam (ATIVAN) 1 mg tablet Take 1 mg by mouth 3 (three) times a day as needed. Yes losartan (COZAAR) 100 mg tablet Take 100 mg by mouth daily. Yes metFORMIN (GLUCOPHAGE) 500 mg tablet Take 500 mg by mouth daily with breakfast. Yes multivitamin capsule Take 1 capsule by mouth daily. Yes sertraline (ZOLOFT) 100 mg tablet Take 100 mg by mouth daily. for anxiety Yes sertraline (ZOLOFT) 50 mg tablet Take 100 mg by mouth daily. Yes sildenafil (REVATIO) 20 mg tablet Take 20 mg by mouth 3 (three) times a day. Yes spironolactone (ALDACTONE) 25 mg tablet Take 25 mg by mouth daily. Yes azelastine (ASTELIN) 137 mcg/spray (0.1 %) nasal spray Administer 1 spray into each nostril 2 (two)times a day. Use in each nostril as directed OBJECTIVE VITAL SIGNS Temperature: [36 ??C-36.8 ??C] 36.7 ??C Heart Rate: [73-85] 78 Resp Rate: [10-24] 24 Blood Pressure: (120-163)/(63-95) 127/76 SpO2: [86 %-100 %] 94 % Flow Rate (L/min): [1 L/min-2 L/min] 2 L/min Weight: [74.7 kg] 74.7 kg Pulse Rate: [66-86] 78 PHYSICAL EXAM VITALS: Reviewed. WEIGHT/BMI: Reviewed. GENERAL: No acute distress. On supplemental oxygen at rest. PSYCHIATRY: Alert and oriented. Normal mood and affect. HEENT: Normocephalic, atraumatic; External ears are normal. MMM. NECK: Supple CARDIOVASCULAR: Regular rate and rhythm, no mumors, rubs, or gallops. LUNGS: Symmetrical chest wall expansion, clear to auscultation bilaterally with no added sounds ABDOMINAL: Soft, nontender, nondistended. SKIN: Warm and well perfused. MUSCULOSKELETAL: Left groin hematoma. EXTREMITIES: No clubbing or cyanosis. NEUROLOGICAL: Normal muscle strength and tone. No focal deficits noted. 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 He does have risk factors for atherosclerosis and arterial stenosis, and they would be his diabetes, hypertension, hyperlipidemia, and prior tobacco usage. Patient was admitted principally because of left groin hematoma, which the vascular team desired to be monitored. - Continue aspirin therapy - Ordering analgesic regimen (Tylenol and Oxycodone and Dilaudid) - Monitor left groin hematoma (postprocedure site assessment) - Vascular interventional team following # History of lower back pain Patient reports a longstanding history of intermittent lower back pain. Patient reports that after this procedure today that he has felt like it was ???tweaked?? , which he reports can occasionally happen with positional changes. Patient is currently required to be supine per his post-op instructions. - Analgesics ordered - Continue to monitor # Chronic Respiratory Failure With Hypoxia (HCC) # Chronic Obstructive Pulmonary Disease Without Exacerbation (HCC) # Diabetes Mellitus Type 2 (HCC) # Gastroesophageal Reflux Disease NOS # Hypertension Pulmonary (HCC) # Atherosclerosis Renal Artery (HCC) # Hyperlipidemia # Smoking Tobacco Use Personal History # Dementia # Pulmonary HTN # Overweight Body Mass Index 25-29.9 Adult Continue 2 L supplemental oxygen for chronic hypoxic respiratory failure Continue DuoNebs 4 times daily Continue amlodipine 2.5 mg daily Continue donepezil 10 mg daily Continue Pepcid 40 mg daily Continue hydrochlorothiazide 25 mg daily Continue sildenafil 20 mg three times daily Continue lorazepam 1 mg 3 times a day as needed Continue losartan 100 mg daily Continue sertraline 100 mg daily Low-dose sliding scale ordered with hypoglycemia protocol, and POC glucose checks Diet: Adult Diet Regular Tubes/lines: 1 PIV VTE prophylaxis: Mechanical, no heparin because of hematoma Code status: Full code Disposition: Home I personally spent a total of 75 minutes providing and coordinating care today. documented in this encounter Procedure Notes * Lexa Myles M.D. - 07/22/2023 2:47 PM CDT PATIENT DISPOSITION Admit. POST-PROCEDURE DIAGNOSIS Severe atherosclerosis of the right lower extremity. PROCEDURE PERFORMED AND DESCRIPTION Known long segment occlusion of right SFA stents. 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 From a left common femoral access, right lower extremity angiography. Use of a shockwave lithotripsy angioplasty balloon, then a drug-eluting balloon across the severely diseased right common femoral artery with a significant improvement. No attempt at traversing the long segment SFA occluded stents. StarClose left common femoral artery. Small delayed left groin hematoma, so manual compression held in postop area. No changes in medication. We will just continue a baby aspirin. Given significant comorbidities, will admit for observation overnight. Will monitor left groin site. PROCEDURE DETAILS See Radiology Report SPECIMENS REMOVED None FINDINGS As above. See final report. PRIMARY PROCEDURALIST [employer] ASSISTANTS None COMPLICATIONS Small left groin hematoma. DRAINS None. IMPLANTS Reference implant document. ANESTHESIA MAC. FLUIDS 6000 units intravenous heparin. ESTIMATED BLOOD LOSS 25 mL CURRENT MEDICATIONS No Medication Changes FOLLOW-UP LETTER None. MAY RETURN TO WORK Not applicable PATIENT INSTRUCTIONS For your next scheduled appointment documented in this encounter Nursing Notes * Cookie Cloud R.N. - 07/23/2023 3:58 PM CDT Shift Goals: Clinical Goals for the Shift: safety/adequate rest Identify possible barriers to meeting goals/advancing plan of care: disease process End of Shift Summary: AVS presented to patient and his son at the bedside and all questions answered. VSS and no PIV to remove. Patient left unit with belongings via wheelchair transport at 1600. Problem: SAFETY ADULT - RISK FOR FALL AND OR FALL INJURY Goal: Patient remains free from fall/fall injury Outcome: Adequate for Discharge Problem: KNOWLEDGE DEFICIT Goal: Patient/family/caregiver demonstrates understanding of disease process, treatment plan, medications, and discharge instructions Outcome: Adequate for Discharge Problem: SKIN/TISSUE INTEGRITY Goal: Skin/Tissue integrity maintained or improved Outcome: Adequate for Discharge documented in this encounter Miscellaneous Notes * Hospital Course - Surinder Cabral M.B., B.Ch., B.A.O. - 07/22/2023 3:15 PM CDT Carlos Clark is a 83 y.o. 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 Patient did have a small delayed left groin hematoma, for which manual compression was required in that postoperative area. Patient was started on a baby aspirin, and was admitted to Medicine 11 team for observation overnight,to monitor the left groin site. Vascular interventional team followed the patient and recommended aleft groin ultrasound to evaluate for pseudoaneurysm, For which the results were reassuring, and did not reveal any signs of aneurysms. Patient is to be discharged and followed up with PCP and vascular team. documented in this encounter Plan of Treatment Not on file documented as of this encounter Procedures Procedure Name Priority Date/Time Associated Diagnosis Comments GLUCOSE POCT, B Routine 07/23/2023 11:51 AM CDT US LOWER EXTREMITY PSEUDOANEURYSM LEFT RAD - Routine (most inpatients and all outpatients) 07/23/2023 11:47 AM CDT GLUCOSE POCT, B Routine 07/23/2023 7:26 AM CDT GLUCOSE POCT, B Routine 07/22/2023 8:57 PM CDT GLUCOSE POCT, B Routine 07/22/2023 5:16 PM CDT ADULT OXYGEN THERAPY Routine 07/22/2023 4:48 PM CDT ADULT OXYGEN THERAPY Routine 07/22/2023 4:48 PM CDT GLUCOSE POCT, B Routine 07/22/2023 3:24 PM CDT REMOTE OXIMETRY MONITORING CONT. Routine 07/22/2023 3:12 PM CDT REMOTE OXIMETRY MONITORING CONT. Routine 07/22/2023 3:12 PM CDT REMOTE OXIMETRY MONITORING CONT. 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) ACT, POCT, B Routine 07/22/2023 12:11 PM CDT GLUCOSE POCT, B Routine 07/22/2023 9:58 AM CDT documented in this encounter Results * Glucose, POCT (07/23/2023 11:51 AM CDT) Glucose, POCT, B 120 70 - 140 mg/dL 07/23/2023 11:53 AM CDT PCLX Site Capillary 07/23/2023 11:53 AM CDT PCLX Blood 07/23/2023 11:5 1 AM CDT 07/23/2023 11:53 AM CDT Unknown Provider LAB POCT ORDERABLES- MANUAL Performing Organization Address City/State/[facility] Co de Phone Number POC [facility] [address] [facility] [address] [place] [address] * US Lower Extremity Pseudoaneurysm Left (07/23/2023 11:47 AM CDT) Anatomical Region Laterality Modality Vascular, Lower Extremity, U ltrasound FLA LOS, Ultrasound ARZ LOS, Ultrasound RST LOS Ultrasound 07/23/2023 11:4 8 AM CDT Impressions 07/23/2023 11:53 AM CDT 1. No pseudoaneurysm. Narrative 07/23/2023 11:53 AM CDT EXAM: US LOWER EXTREMITY PSEUDOANEURYSM LEFT HISTORY: 83-year-old male status post pelvic angiogram. Left common femoral artery with post procedure hematoma COMPARISON: None. FINDINGS: Color Doppler and spectral analysis utilized to evaluate for pseudoaneurysm. The left common femoral, profunda femoral and superficial femoral arteries and veins are patent. No pseudoaneurysm or arterial venous fistula. No loculated fluid collection within the subcutaneous tissues of the groin. Procedure Note Thuy Levi M.D. - 07/23/2023 EXAM: US LOWER EXTREMITY PSEUDOANEURYSM LEFT HISTORY: 83-year-old male status post pelvic angiogram. Left commonfemoral artery with post procedure hematoma COMPARISON: None. FINDINGS: Color Doppler and spectral analysis utilized to evaluate forpseudoaneurysm. The left common femoral, profunda femoral and superficial femoral arteries andveins are patent. No pseudoaneurysm or arterial venous fistula. No loculated fluid collectionwithin the subcutaneous tissues of the groin. IMPRESSION: 1. No pseudoaneurysm. Martha Ma APRN, C.N.P., D.N.PJaney IM G US PROCEDURES * Glucose, POCT (07/23/2023 7:26 AM CDT) Glucose, POCT, B 109 70 - 140 mg/dL 07/23/2023 7:28 AM CDT PCLX Site Capillary 07/23/2023 7:28 AM CDT PCLX Blood 07/23/2023 7:26 AM CDT 07/23/2023 7:28 AM CDT Unknown Provider LAB POCT ORDERABLES- MANUAL [facility] [address] [place] [address], [facility] POC [address] [place] [address] * Glucose, POCT (07/22/2023 8:57 PM CDT) Glucose, POCT, B 95 70 - 140 mg/dL 07/22/2023 9:01 PM CDT PCLX Site Capillary 07/22/2023 9:01 PM CDT PCLX Blood 07/22/2023 8:57 PM CDT 07/22/2023 9:01 PM CDT Unknown Provider LAB POCT ORDERABLES- MANUAL [facility] [address] [place] [address], [facility] [address] [place] [address] * (ABNORMAL) Glucose, POCT (07/22/2023 5:16 PM CDT) Glucose, POCT, B 146(H) 70 - 140 mg/dL 07/22/2023 5:24 PM CDT PCLX Last Intake 3-4 hours 07/22/2023 5:24 PM CDT PCLX Blood 07/22/2023 5:16 PM CDT 07/22/2023 5:25 PM CDT Unknown Provider LAB POCT ORDERABLES- MANUAL [facility] [address] [place] [address], [facility] [address] [place] [address] * Glucose, POCT (07/22/2023 3:24 PM CDT) Glucose, POCT, B 132 70 - 140 mg/dL 07/22/2023 3:27 PM CDT PCLX Site Capillary 07/22/2023 3:27 PM CDT PCLX Blood 07/22/2023 3:24 PM CDT 07/22/2023 3:28 PM CDT Unknown Provider LAB POCT ORDERABLES- MANUAL [facility] [address] [place] [address], [facility] [address] [place] [address] * IR Femoral Popliteal Artery SERVICE ELECTRICIAN Right (07/22/2023 12:48 PM CDT) Anatomical Region Laterality Modality Lower Extremity, Vascular In terventional RST LOS, Vascular Interventional ARZ LOS, Vascular Interventional FLA LOS Right X-Ray Angiography 07/22/2023 3:10 PM CDT Impressions 07/22/2023 3:19 PM CDT 1. Use of a shockwave lithotripsy angioplasty balloon, then a drug-eluting balloon across the nearly occluded right common femoral artery, with a good angiographic result. 2. Pre-existing right SFA and popliteal artery stents are noted to be occluded. This is known, and there was a failed attempt at revascularization elsewhere. No attempt today, hoping that the common femoral artery intervention will improve his symptoms enough. 3. Occlusion of the right anterior tibial artery and dorsalis pedis artery. NR Narrative 07/22/2023 3:19 PM CDT EXAM: IR PELVIC ANGIOGRAM, IR FEMORAL POPLITEAL ARTERY SERVICE ELECTRICIAN RIGHT CLINICAL HISTORY: Disabling right lower extremity claudication. History of right SFA stenting elsewhere, with failed revision elsewhere when the stents occluded. Severely diseased right common femoral artery due to near occlusion with coral reef plaque. TECHNIQUE: Left inguinal region was prepped and draped sterilely. Direct ultrasound guidance used to access left common femoral artery and to document patency. A permanent image was stored. A 7 Bangl[place] Anjum 2 vascular sheath was advanced up and over the aortic bifurcation. Due to the dense calcifications, I could only get it as far as the right distal common iliac artery. Diagnostic selective right lower extremity angiography was performed. As seen on his CT, the right common femoral artery is nearly occluded with large coral reef plaques. A plaque causes a high-grade stenosis of the right profunda femoris origin. The right SFA and popliteal artery stents are completely occluded. There is reconstitution of the P2 segment of the popliteal artery via collaterals. The anterior tibial artery and dorsalis pedis artery are occluded. The peroneal and posterior tibial artery are patent, as is the plantar arch. He was bolused with intravenous heparin. The right common femoral artery near occlusion was traversed and an embolic protection basket positioned within the SFA below the lesion. Standard 5 mm angioplasty was performed across right common femoral artery, followed by 7mm Shockwave lithotripsy angioplasty, and finally a 7 mm [place] drug-eluting balloon. A repeat angiogram of the right common femoral artery showed a significant angiographic improvement. The angiogram was carried to the foot where there was somewhat brisker flow and no evidence of an embolic event. All devices removed and hemostasis obtained with a Star close device. PREPROCEDURE: Patient seen and evaluated. Allergies, pertinent medications, and history reviewed. Discussed risks, benefits, alternatives for procedure, and obtained informed consent. Patient understands information and questions answered. Immediately prior to starting the procedure, in the presence of the assisting personnel, procedural pause was conducted to verify correct patient identity and verification of procedure to be performed, and as applicable, correct side and site, correct patient position, availability of implants, special equipment, or special requirements, and all image and specimen identification data. The roles and responsibilities of care team members, residents, and fellows were discussed. Procedure Note Lexa Myles M.D. - 07/22/2023 EXAM: IR PELVIC ANGIOGRAM, IR FEMORAL POPLITEAL ARTERY SERVICE ELECTRICIAN RIGHT CLINICAL HISTORY: Disabling right lower extremity claudication. 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 TECHNIQUE: Left inguinal region was prepped and draped sterilely. Directultrasound guidance used to access left common femoral artery and to document patency. A permanentimage was stored. A 7 [place] Anjum 2 vascular sheath was advanced up and over the aortic bifurcation.Due to the dense calcifications, I could only get it as far as the right distal commoniliac artery. Diagnostic selective right lower extremity angiography was performed. As seen on hisCT, the right common femoral artery is nearly occluded with large coral reef plaques. A plaquecauses a high-grade stenosis of the right profunda femoris origin. The right SFA and poplitealartery stents are completely occluded. There is reconstitution of the P2 segment of thepopliteal artery via collaterals. The anterior tibial artery and dorsalis pedis artery areoccluded. The peroneal and posterior tibial artery are patent, as is the plantar arch. He was bolusedwith intravenous heparin. The right common femoral artery near occlusion was traversed and anembolic protection basket positioned within the SFA below the lesion. Standard 5 mm angioplasty wasperformed across right common femoral artery, followed by 7mm Shockwave lithotripsy angioplasty,and finally a 7 mm [place] drug-eluting balloon. A repeat angiogram of the right common femoralartery showed a significant angiographic improvement. The angiogram was carried to the foot wherethere was somewhat brisker flow and no evidence of an embolic event. All devices removed andhemostasis obtained with a Star close device. PREPROCEDURE: Patient seen and evaluated. Allergies, pertinentmedications, and history reviewed. Discussed risks, benefits, alternatives for procedure, and obtainedinformed consent. Patient understands information and questions answered. Immediately prior tostarting the procedure, in the presence of the assisting personnel, procedural pause was conducted toverify correct patient identity and verification of procedure to be performed, and as applicable,correct side and site, correct patient position, availability of implants, special equipment, orspecial requirements, and all image and specimen identification data. The roles and responsibilitiesof care team members, residents, and fellows were discussed. IMPRESSION: 1. Use of a shockwave lithotripsy angioplasty balloon, then a drug- elutingballoon across the nearly occluded right common femoral artery, with a good angiographic result. 2. Pre-existing right SFA and popliteal artery stents are noted to beoccluded. This is known, and there was a failed attempt at revascularization elsewhere. No attempttoday, hoping that the common femoral artery intervention will improve his symptoms enough. 3. Occlusion of the right anterior tibial artery and dorsalis pedisartery. NR Lexa AGOSTO IR PROCEDURE S * IR Pelvic Angiogram (07/22/2023 12:48 PM CDT) Anatomical Region Laterality Modality Pelvis, Vascular Interventio nal RST LOS, Vascular Interventional ARZ LOS, Vascular Interventional FLA LOS N/A X-Ray Angiography 07/22/2023 3:10 PM CDT Impressions 07/22/2023 3:19 PM CDT 1. Use of a shockwave lithotripsy angioplasty balloon, then a drug-eluting balloon across the nearly occluded right common femoral artery, with a good angiographic result. 2. Pre-existing right SFA and popliteal artery stents are noted to be occluded. This is known, and there was a failed attempt at revascularization elsewhere. No attempt today, hoping that the common femoral artery intervention will improve his symptoms enough. 3. Occlusion of the right anterior tibial artery and dorsalis pedis artery. NR Narrative 07/22/2023 3:19 PM CDT EXAM: IR PELVIC ANGIOGRAM, IR FEMORAL POPLITEAL ARTERY SERVICE ELECTRICIAN RIGHT CLINICAL HISTORY: Disabling right lower extremity claudication. History of right SFA stenting elsewhere, with failed revision elsewhere when the stents occluded. Severely diseased right common femoral artery due to near occlusion with coral reef plaque. TECHNIQUE: Left inguinal region was prepped and draped sterilely. Direct ultrasound guidance used to access left common femoral artery and to document patency. A permanent image was stored. A 7 Bangl[place]hi Anjum 2 vascular sheath was advanced up and over the aortic bifurcation. Due to the dense calcifications, I could only get it as far as the right distal common iliac artery. Diagnostic selective right lower extremity angiography was performed. As seen on his CT, the right common femoral artery is nearly occluded with large coral reef plaques. A plaque causes a high-grade stenosis of the right profunda femoris origin. The right SFA and popliteal artery stents are completely occluded. There is reconstitution of the P2 segment of the popliteal artery via collaterals. The anterior tibial artery and dorsalis pedis artery are occluded. The peroneal and posterior tibial artery are patent, as is the plantar arch. He was bolused with intravenous heparin. The right common femoral artery near occlusion was traversed and an embolic protection basket positioned within the SFA below the lesion. Standard 5 mm angioplasty was performed across right common femoral artery, followed by 7mm Shockwave lithotripsy angioplasty, and finally a 7 mm [place] drug-eluting balloon. A repeat angiogram of the right common femoral artery showed a significant angiographic improvement. The angiogram was carried to the foot where there was somewhat brisker flow and no evidence of an embolic event. All devices removed and hemostasis obtained with a Star close device. PREPROCEDURE: Patient seen and evaluated. Allergies, pertinent medications, and history reviewed. Discussed risks, benefits, alternatives for procedure, and obtained informed consent. Patient understands information and questions answered. Immediately prior to starting the procedure, in the presence of the assisting personnel, procedural pause was conducted to verify correct patient identity and verification of procedure to be performed, and as applicable, correct side and site, correct patient position, availability of implants, special equipment, or special requirements, and all image and specimen identification data. The roles and responsibilities of care team members, residents, and fellows were discussed. Procedure Note Lexa Myles M.D. - 07/22/2023 EXAM: IR PELVIC ANGIOGRAM, IR FEMORAL POPLITEAL ARTERY SERVICE ELECTRICIAN RIGHT CLINICAL HISTORY: Disabling right lower extremity claudication. 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 TECHNIQUE: Left inguinal region was prepped and draped sterilely. Directultrasound guidance used to access left common femoral artery and to document patency. A permanentimage was stored. A 7 Bangl[place] Anjum 2 vascular sheath was advanced up and over the aortic bifurcation.Due to the dense calcifications, I could only get it as far as the right distal commoniliac artery. Diagnostic selective right lower extremity angiography was performed. As seen on hisCT, the right common femoral artery is nearly occluded with large coral reef plaques. A plaquecauses a high-grade stenosis of the right profunda femoris origin. The right SFA and poplitealartery stents are completely occluded. There is reconstitution of the P2 segment of thepopliteal artery via collaterals. The anterior tibial artery and dorsalis pedis artery areoccluded. The peroneal and posterior tibial artery are patent, as is the plantar arch. He was bolusedwith intravenous heparin. The right common femoral artery near occlusion was traversed and anembolic protection basket positioned within the SFA below the lesion. Standard 5 mm angioplasty wasperformed across right common femoral artery, followed by 7mm Shockwave lithotripsy angioplasty,and finally a 7 mm [place] drug-eluting balloon. A repeat angiogram of the right common femoralartery showed a significant angiographic improvement. The angiogram was carried to the foot wherethere was somewhat brisker flow and no evidence of an embolic event. All devices removed andhemostasis obtained with a Star close device. PREPROCEDURE: Patient seen and evaluated. Allergies, pertinentmedications, and history reviewed. Discussed risks, benefits, alternatives for procedure, and obtainedinformed consent. Patient understands information and questions answered. Immediately prior tostarting the procedure, in the presence of the assisting personnel, procedural pause was conducted toverify correct patient identity and verification of procedure to be performed, and as applicable,correct side and site, correct patient position, availability of implants, special equipment, orspecial requirements, and all image and specimen identification data. The roles and responsibilitiesof care team members, residents, and fellows were discussed. IMPRESSION: 1. Use of a shockwave lithotripsy angioplasty balloon, then a drug- elutingballoon across the nearly occluded right common femoral artery, with a good angiographic result. 2. Pre-existing right SFA and popliteal artery stents are noted to beoccluded. This is known, and there was a failed attempt at revascularization elsewhere. No attempttoday, hoping that the common femoral artery intervention will improve his symptoms enough. 3. Occlusion of the right anterior tibial artery and dorsalis pedisartery. NR Lexa Myles M.D. IMG IR PROCEDURE S * (ABNORMAL) ACT (Activated Clotting Time), POCT (07/22/2023 12:11 PM CDT) Activated Clotting Time, POCT 225(H) 84 - 139 sec 07/22/2023 1:08 PM CDT PCSM Blood 07/22/2023 12:1 1 PM CDT 07/22/2023 1:09 PM CDT Unknown Provider LAB POCT ORDERABLES - DEVICE Performing Organization Address [facility] Co de Phone Number POC [facility] [address] [place] [address], [place] PCSM [facility] POC [address] [place] [phone] * Glucose, POCT (07/22/2023 9:58 AM CDT) Glucose, POCT, B 111 70 - 140 mg/dL 07/22/2023 10:29 AM CDT PCLX Site Capillary 07/22/2023 10:29 AM CDT PCLX Blood 07/22/2023 9:58 AM CDT 07/22/2023 10:29 AM CDT Unknown Provider LAB POCT ORDERABLES- MANUAL Performing Organization Address City/[facility]/ZIP Co de Phone Number POC [facility] [address] [place] [address], [place] PCLX [facility] POC [address] [place] [address] documented in this encounter Visit Diagnoses Diagnosis Peripheral Arterial Disease (HCC)- Primary Atherosclerosis 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) Chronic Obstructive Pulmonary Disease Without Exacerbation (HCC) Diabetes Mellitus Type 2 (HCC) Gastroesophageal Reflux Disease NOS Hypertension Pulmonary (HCC) Atherosclerosis Renal Artery (HCC) Respiratory Failure (HCC) Chronic Respiratory Failure With Hypoxia (HCC) Hyperlipidemia Smoking Tobacco Use Personal History Overweight Body Mass Index 25-29.9 Adult documented in this encounter Administered Medications Inactive Administered Medications - up to 3 most recent administrations Medication Order MAR Action Action Date Dose Rate Site acetaminophen tablet 650 mg (TYLENOL) 650 mg, oral, Every 4 hours PRN, mild pain or score 1-3 of 10, Starting on Sat07/22/23 at 1648 Given 07/23/2023 9:04 AM CDT 650 mg amLODIPine tablet 2.5 mg (NORVASC) 2.5 mg, oral, Daily, First dose on Sat07/23/23 at 0900 Given 07/23/2023 9:02 AM CDT 2.5 mg aspirin chewable tablet 81 mg 81 mg, oral, Daily, First dose on Sat07/23/23 at 0900 Given 07/23/2023 9:02 AM CDT 81 mg dextrose 40 % gel 15 g (GLUTOSE) 15 g, oral, As needed, low blood sugar, For glucose 51-70 mg/dL, Starting on Sat07/22/23 at 1649, If patient is conscious and able to swallow safely and has a fuctioning gastrointestinal tract or on Acarbose (Precose??) or Miglitol (Glyset??). May use tablets or gel. dextrose 50 % injection 12.5 g 12.5 g, intravenous, As needed, low blood sugar, For glucose 51-70 mg/dL, Starting on Sat07/22/23 at 1649, If the patient has intravenous access available, is not able to take oral feeding safely, does not have a functioning gastrointestinal tract or feeding tube, or is NPO, administer D50W intravenously. dextrose 50 % injection 25 g 25 g, intravenous, As needed, low blood sugar, For glucose less than 50 mg/dL, Starting on Sat07/22/23 at 1649, If intravenous access is available, administer D50W intravenously donepeziL tablet 10 mg (ARICEPT) 10 mg, oral, Daily at bedtime, First dose (after last modification) on Sat07/22/23 at 2100 Given 07/22/2023 8:04 PM CDT 10 mg famotidine tablet 40 mg (PEPCID) 40 mg, oral, Daily, First dose on Sat07/23/23 at 0900, Drug Monitoring Program: Pharmacist to adjust medication dosing based on indication and drug clearance factors. Given 07/23/2023 9:01 AM CDT 40 mg glucagon injection 1 mg (GlucaGen) 1 mg, subcutaneous, Once as needed, low blood sugar, For glucose 51-70 mg/dL, Starting on Sat07/22/23 at 1649, For 1 dose, If patient is not able to take oral feeding safely, does not have a functioning gastrointestinal tract or feeding tube, or is NPO. Following treatment with Glucagon, a source of glucose should be started to maintain blood glucose level (e.g., patient should eat oral carbohydrates if allowed or perscriber should be contacted to consider starting fluids containing dextrose) Glucagon may only be given once per hypoglycemia episode. glucagon injection 1 mg (GlucaGen) 1 mg, subcutaneous, Once as needed, low blood sugar, For glucose less than 50 mg/dL, Starting on Sat07/22/23 at 1649, For 1 dose, If intravenous access not available and patient is not able to take oral feeding safely, does not have a functioning gastrointestinal tract or feeding tube. glucose chewable tablet 16 g 16 g, oral, As needed, low blood sugar, For glucose 51-70 mg/dL, Starting on Sat07/22/23 at 1649, If patient is conscious and able to swallow safely and has a functioning gastrointestinal tract or on Acarbose (Precose??) or Miglitol (Glyset??). Administer 4 tablets to total 16 grams. May use tablets or gel. hydroCHLOROthiazide tablet 25 mg (HYDRODIURIL) 25 mg, oral, Daily, First dose on Sat07/23/23 at 0900 Given 07/23/2023 9:02 AM CDT 25 mg insulin aspart U-100 injection 0-7 Units (NovoLOG FlexPen) 0-7 Units, subcutaneous, 3 times daily, First dose on Sat07/23/23 at 0800, Insulin Scale: Mild Correction Scale, 180 - 219: 2 units, 220 - 259: 3 units, 260 - 299: 4 units, 300 - 339: 5 units, 340 - 379: 6 units, 380 - 399: 7 units, Greater than 399: Call service writing Insulin orders iodixanoL 320 mg iodine/mL injection (VISIPAQUE) As needed, Starting on Sat07/22/23 at 1246, Intra-Op Given 07/22/2023 12:46 PM CDT 65 mL ipratropium-albuteroL 0.5-2.5 mg/3 mL nebulizer solution 3 mL (DUONEB) 3 mL, nebulization, 4 times daily (RT), First dose on Sat07/22/23 at 1900 Given 07/23/2023 2:19 PM CDT 3 mL Given 07/23/2023 12:17 PM CDT 3 mL Given 07/23/2023 9:02 AM CDT 3 mL Lactated Ringer's 100 mL/hr, intravenous, Continuous, Starting on Sat07/22/23 at 1600, For 15 hours Continued from OR 07/22/2023 4:12 PM CDT 100 mL/hr 100 mL/hr lidocaine-sodium bicarbonate (buffered) 0.9%-8.4% injection infiltration, As needed, Starting on Sat07/22/23 at 1247, Intra-Op Given 07/22/2023 12:47 PM CDT 7 mL LORazepam tablet 1 mg (ATIVAN) 1 mg, oral, 3 times daily PRN, anxiety, Starting on Sat07/22/23 at 1648 Given 07/22/2023 10:30 PM CDT 1 mg Given 07/22/2023 6:26 PM CDT 1 mg LORazepam tablet 1 mg (ATIVAN) 1 mg, oral, Once, On Sat07/23/23 at 0130, For 1 dose Given 07/23/2023 1:22 AM CDT 1 mg losartan tablet 100 mg (COZAAR) 100 mg, oral, Daily, First dose on Sat07/23/23 at 0900 Given 07/23/2023 9:02 AM CDT 100 mg melatonin tablet 3 mg 3 mg, oral, Daily at bedtime, First dose on Sat07/23/23 at 0145 Given 07/23/2023 1:30 AM CDT 3 mg sertraline tablet 100 mg (ZOLOFT) 100 mg, oral, Daily, First dose on Sat07/23/23 at 0900 Given 07/23/2023 9:01 AM CDT 100 mg sildenafil tablet 20 mg (REVATIO) 20 mg, oral, 3 times daily, First dose on Sat07/22/23 at 2100 Given 07/23/2023 2:19 PM CDT 20 mg Given 07/23/2023 9:02 AM CDT 20 mg Given 07/22/2023 8:04 PM CDT 20 mg documented in this encounter Active and Recently Administered Medications Times are shown in CDT. Scheduled Medication Order 07/21/2023 07/22/2023 07/23/2023 amLODIPine tablet 2.5 mg (NORVASC) 2.5 mg, oral, Daily, First dose on Sat07/23/23 at 0900 09 (Given - Provid er: Cookie Cloud R.N.) aspirin chewable tablet 81 mg 81 mg, oral, Daily, First dose on Sat07/23/23 at 0900 09 (Given - Provid er: Cookie Cloud R.N.) donepeziL tablet 10 mg (ARICEPT) 10 mg, oral, Daily at bedtime, First dose (after last modification) on Sat07/22/23 at 2100 2003 (Given - Provider: Mayra Barros RLisette) famotidine tablet 40 mg (PEPCID) 40 mg, oral, Daily, First dose on Sat07/23/23 at 0900, Drug Monitoring Program: Pharmacist to adjust medication dosing based on indication and drug clearance factors. 900 (Given - Provid er: Cookie Cloud R.N.) hydroCHLOROthiazide tablet 25 mg (HYDRODIURIL) 25 mg, oral, Daily, First dose on Sat07/23/23 at 0900 09 (Given - Provid er: Cookie Cloud R.N.) insulin aspart U-100 injection 0-7 Units (NovoLOG FlexPen) 0-7 Units, subcutaneous, 3 times daily, First dose on Sat07/23/23 at 0800, Insulin Scale: Mild Correction Scale, 180 - 219: 2 units, 220 - 259: 3 units, 260 - 299: 4 units, 300 - 339: 5 units, 340 - 379: 6 units, 380 - 399: 7 units, Greater than 399: Call service writing Insulin orders 0750 (Not Given - Provider: Cookie Cloud R.N. - Reason: Order parameters not met - Comment: bs [phone] (Not Given - Provider: Cookie Cloud R.N. - Reason: Order parameters not met - Comment: bs 120) ipratropium-albuteroL 0.5-2.5 mg/3 mL nebulizer solution 3 mL (DUONEB) 3 mL, nebulization, 4 times daily (RT), First dose on Sat07/22/23 at 1900 2003 (Given - Provider: Mayra Barros R.N.) 0902 (Given - Provider: Cookie Cloud R.N.)1217 (Given - Provider: Cookie Cloud R.N.)1419 (Given - Provider: Cookie Cloud R.N.) LORazepam tablet 1 mg (ATIVAN) (COMPLETED) 1 mg, oral, Once, On Sat07/23/23 at 0130, For 1 dose 0122 (Given - Provid er: Nhi Littlejohn R.N.) losartan tablet 100 mg (COZAAR) 100 mg, oral, Daily, First dose on Sat07/23/23 at 0900 0902 (Given - Provid er: Cookie Cloud R.N.) melatonin tablet 3 mg 3 mg, oral, Daily at bedtime, First dose on Sat07/23/23 at 0145 0130 (Given - Provid er: Nhi Littlejohn R.N.) sertraline tablet 100 mg (ZOLOFT) 100 mg, oral, Daily, First dose on Sat07/23/23 at 0900 0901 (Given - Provid er: Cookie Cloud R.N.) sildenafil tablet 20 mg (REVATIO) 20 mg, oral, 3 times daily, First dose on Sat07/22/23 at 2100 2003 (Given - Provider: Mayra Barros R.N.) 0902 (Given - Provider: Cookie Cloud R.N.)1419 (Given - Provider: Cookie Cloud R.N.) spironolactone tablet 25 mg (ALDACTONE) 25 mg, oral, Daily, First dose on Sat07/23/23 at 0900, On hold since Sat07/22/2023 at 1649 until manually unheld 164 (Held by provider - Provider: Ana M Ansari, B.Ch., B.A.O. - Reason: Other - Comment: Hold) 0900 (Dose Auto Held - Provider: Ana M Ansari, B.Ch., B.A.O.)1811 (Unheld by provider - Provider: Discharge Provider, Automatic) Continuous Medication Order 07/21/2023 07/22/2023 07/23/2023 Lactated Ringer's (CANCELED) 100 mL/hr, intravenous, Continuous, Starting on Sat07/22/23 at 1600, For 15 hours 1612 (Continued from OR - Provider: Mayra Barros RJaneyNJaney) 0200 (Stopped - Provider: Nhi Littlejohn R.N.) PRN Medication Order 07/21/2023 07/22/2023 07/23/2023 acetaminophen tablet 650 mg (TYLENOL) 650 mg, oral, Every 4 hours PRN, mild pain or score 1-3 of 10, Starting on Sat07/22/23 at 1648 0904 (Given - Provider: Cookie Cloud R.N.) albuterol nebulizer solution 2.5 mg 2.5 mg, nebulization, Every 4 hours PRN, wheezing, shortness of breath, Starting on Sat07/22/23 at 1648, Albuterol nebs were interchanged for albuterol/levalbuterol MDI (same frequency) bisacodyL suppository 10 mg (DULCOLAX) 10 mg, rectal, Daily PRN, constipation, Starting on Sat07/22/23 at 1648, Ordered sequence of administration: polyethylene glycol, then bisacodyl until BM achieved. dextrose 40 % gel 15 g (GLUTOSE) 15 g, oral, As needed, low blood sugar, For glucose 51-70 mg/dL, Starting on Sat07/22/23 at 1649, If patient is conscious and able to swallow safely and has a fuctioning gastrointestinal tract or on Acarbose (Precose??) or Miglitol (Glyset??). May use tablets or gel. dextrose 50 % injection 12.5 g 12.5 g, intravenous, As needed, low blood sugar, For glucose 51-70 mg/dL, Starting on Sat07/22/23 at 1649, If the patient has intravenous access available, is not able to take oral feeding safely, does not have a functioning gastrointestinal tract or feeding tube, or is NPO, administer D50W intravenously. dextrose 50 % injection 25 g 25 g, intravenous, As needed, low blood sugar, For glucose less than 50 mg/dL, Starting on Sat07/22/23 at 1649, If intravenous access is available, administer D50W intravenously glucagon injection 1 mg (GlucaGen) 1 mg, subcutaneous, Once as needed, low blood sugar, For glucose 51-70 mg/dL, Starting on Sat07/22/23 at 1649, For 1 dose, If patient is not able to take oral feeding safely, does not have a functioning gastrointestinal tract or feeding tube, or is NPO. Following treatment with Glucagon, a source of glucose should be started to maintain blood glucose level (e.g., patient should eat oral carbohydrates if allowed or perscriber should be contacted to consider starting fluids containing dextrose) Glucagon may only be given once per hypoglycemia episode. glucagon injection 1 mg (GlucaGen) 1 mg, subcutaneous, Once as needed, low blood sugar, For glucose less than 50 mg/dL, Starting on Sat07/22/23 at 1649, For 1 dose, If intravenous access not available and patient is not able to take oral feeding safely, does not have a functioning gastrointestinal tract or feeding tube. glucose chewable tablet 16 g 16 g, oral, As needed, low blood sugar, For glucose 51-70 mg/dL, Starting on Sat07/22/23 at 1649, If patient is conscious and able to swallow safely and has a functioning gastrointestinal tract or on Acarbose (Precose??) or Miglitol (Glyset??). Administer 4 tablets to total 16 grams. May use tablets or gel. HYDROmorphone (PF) injection 0.2 mg (DILAUDID) 0.2 mg, intravenous, Every 3 hours PRN, severe pain or score 7-10 of 10, Starting on Sat07/22/23 at 1648 iodixanoL 320 mg iodine/mL injection (VISIPAQUE) (COMPLETED) As needed, Starting on Sat07/22/23 at 1246, Intra-Op 1246 (Given - Provider: Lexa Myles M.D.) lidocaine-sodium bicarbonate (buffered) 0.9%-8.4% injection (COMPLETED) infiltration, As needed, Starting on Sat07/22/23 at 1247, Intra-Op 1247 (Given - Provider: Lexa Myles M.D.) LORazepam tablet 1 mg (ATIVAN) 1 mg, oral, 3 times daily PRN, anxiety, Starting on Sat07/22/23 at 1648 1826 (Given - Provider: Mayra Barros RLisette)2230 (Given - Provider: Mayra Barros R.N.) 0125 (Canceled Entry - Provider: Nhi Littlejohn R.N.) oxyCODONE IR tablet 5 mg (ROXICODONE) 5 mg, oral, Every 4 hours PRN, moderate pain or score 4-6 of 10, Starting on Sat07/22/23 at 1648 polyethylene glycol powder packet 17 g (MIRALAX) 17 g, oral, Daily PRN, constipation, Starting on Sat07/22/23 at 1648, Ordered sequence of administration: polyethylene glycol, then bisacodyl until BM achieved. Avoid mixing with starch-based thickened liquids. documented in this encounter
--- OUTSIDE RECORDS SUMMARY | 2023-12-18 18:27 | XMS_ITS | Encounter Summary ---
Author Name Unknown Organization [facility] Address [address] [place] [address] Care Team Providers Care Sheet Rock Installation Helper Name Role Phone Unavailable Primary Care Provider Unavailabl e Encounter Details Date Type Department Care Team (Latest Contact Info) Description 06/06/2023 9:36 AM CDT - 06/06/2023 10:36 AM CDT Hospital Encounter Department of Laboratory Medicine and Pathology, [facility], in [place], [place] [address] [place] [address] John Fabian M.D., Ph.D. [address] [place] [phone] Unspecified Atherosclerosis Of [place] Arteries Of Extremities Bilateral Legs (HCC) Discharge [...] your living situation today? [facility] 06/04/2023 Sex and Gender [...] wheezing or shortness of breath. 0 03/17/2013 famotidine (PEPCID) 40 mg tablet Take 40 mg by mouth daily. 0 04/23/2023 LORazepam (ATIVAN) 1 mg tablet Take 1 mg by mouth 3 (three) times a day as needed. 0 04/02/2023 losartan (COZAAR) 100 mg tablet Take 100 mg by mouth daily. 0 03/23/2023 sertraline (ZOLOFT) 100 mg tablet Take 100 [...] Procedure Name Priority Date/Time Associated Diagnosis Comments CREATININE WITH EGFR, S/P Routine 06/06/2023 9:48 AM CDT Unspecified Atherosclerosis Of [place] Arteries Of Extremities Bilateral Legs (HCC) documented in this encounter Results * Creatinine with Estimated GFR (06/06/2023 9:48 AM CDT) Creatinine 1.16 0.74 - 1.35 mg/dL 06/06/2023 10:43 AM CDT DTL Estimated GFR (eGFR) 63 >=60 mL/min/BSA 06/06/2023 10:43 AM CDT DTL Comment: Estimated GFR calculated using the 2020 CKD_EPI creatinine equation. Blood (Blood, Venous) 06/06/2023 9:48 AM CDT 06/06/2023 10:25 AM CDT John Fabian M.D., Ph.D. LAB BL OOD ADD-ON [facility] [address] [place] [address], [facility] [address] [place] [address] documented in this encounter Visit Diagnoses Diagnosis Unspecified Atherosclerosis Of [place] Arteries Of Extremities Bilateral Legs (HCC) documented in this encounter
--- OUTSIDE RECORDS SUMMARY | 2023-12-18 18:27 | XMS_ITS | Encounter Summary ---
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 [address] [place] [address] [facility] Referral ID Status Reason Start Date Expiration Date Visits Re quested Visits Authorized [id number] Closed 06/13/2023 06/12/2024 1 1 Reason for Visit * Reason Onset Date Comments Appt Request 06/12/2023 Proceed with pro cedure Encounter Details Date Type Department Care Team (Latest Contact Info) Description 06/12/2023 Clinical Communication Department of Vascular Medicine in [place], [place] [address] [place] [address] Lexa Myles M.D. [address] [place] [address] Appt Request (Proceed with procedure) Social History Tobacco Use Types Packs/Day Years [...] your living situation today? I have a [facility] place to live 06/04/2023 Sex and Gender Information Value Date Recorded Sex Assigned at Male 06/04/2023 6:03 PM CDT Gender Identity Male 06/04/2023 6:03 PM CDT Sexual Orientation Straight 06/04/2023 6: 03 PM CDT documented as of this encounter Miscellaneous Notes * Telephone Encounter - Leticia Johnson R.N. - 06/13/2023 8:21 AM CDT I contacted Mr. Clark and talked with his Taylor concerning scheduling him for a pelvic and rightlower extremity angiogram plus/minus ENVIRONMENTAL COORDINATOR stenting and lithotripsy. He is scheduled at [facility] on July 22. He will report to the [facility] at 9:00 a.m.. He will need to remain n.p.o. after midnight, the night before the procedure. Hemay have clear liquids from midnight until an hour before he arrives. He will take his prescribed morning mediations, before reporting for the procedure. He will follow the diabetic medication instructions using the patient portal. He is not on anticoagulation medication. He will need a motor coach bus driver withhim the day of the procedure due to sedation being given. He has a possibility of being admitted post procedure for 23 hour observation. Yesterday he was provided with a patient education booklet on treating peripheral arterial disease. His appeared ready to learn. She has no apparent learning barriers. All questions answered. They use the [facility] patient portal. She has my contact information. documented in this encounter Plan of Treatment Not on file documented as of this encounter Results * IR Femoral Popliteal Artery ENVIRONMENTAL COORDINATOR Right (07/22/2023 12:48 PM CDT) Anatomical Region [...] IR PELVIC ANGIOGRAM, IR FEMORAL POPLITEAL ARTERY ENVIRONMENTAL COORDINATOR RIGHT CLINICAL HISTORY: Disabling right lower extremity [...] A permanent image was stored. A 7 Cuban Anjum 2 vascular sheath was advanced up [...] lithotripsy angioplasty, and finally a 7 mm Collyer drug-eluting balloon. A repeat angiogram of the [...] IR PELVIC ANGIOGRAM, IR FEMORAL POPLITEAL ARTERY ENVIRONMENTAL COORDINATOR RIGHT CLINICAL HISTORY: Disabling right lower extremity claudication. 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 TECHNIQUE: Left inguinal region was prepped and draped sterilely. Directultrasound guidance used to access left common femoral artery and to document patency. A permanentimage was stored. A 7 Cuban Anjum 2 vascular sheath was advanced up [...] Shockwave lithotripsy angioplasty,and finally a 7 mm Collyer drug-eluting balloon. A repeat angiogram of the [...] IR PELVIC ANGIOGRAM, IR FEMORAL POPLITEAL ARTERY ENVIRONMENTAL COORDINATOR RIGHT CLINICAL HISTORY: Disabling right lower extremity [...] A permanent image was stored. A 7 Cuban Anjum 2 vascular sheath was advanced up [...] lithotripsy angioplasty, and finally a 7 mm Collyer drug-eluting balloon. A repeat angiogram of the [...] IR PELVIC ANGIOGRAM, IR FEMORAL POPLITEAL ARTERY ENVIRONMENTAL COORDINATOR RIGHT CLINICAL HISTORY: Disabling right lower extremity claudication. 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 TECHNIQUE: Left inguinal region was prepped and draped sterilely. Directultrasound guidance used to access left common femoral artery and to document patency. A permanentimage was stored. A 7 Cuban Anjum 2 vascular sheath was advanced up [...] Shockwave lithotripsy angioplasty,and finally a 7 mm Collyer drug-eluting balloon. A repeat angiogram of the [...] pedisartery. 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
--- OUTSIDE RECORDS SUMMARY | 2023-12-18 18:28 | XMS_ITS | Encounter Summary ---
Author Name Unknown Organization [facility] Address [address] [place] [address] Care Team Providers Care Mucker Operator Name Role Phone Andrew Pan MD Primary Care Provider Gary Rodriguez MD Unavailable [phone] Kaushik Diamond MD Unavailable [phone] Reason for Referral * CV Testing (Routine) - Closed Specialty Diagnoses / Procedures Referred By Sumit mendoza Referred To Contact Cardiology Diagnoses Chronic obstructive pulmonary disease, unspecified COPD type (H) Pulmonary hypertension (H) Procedures Echocardiogram Complete ZZHC TTE W/DOPPLER, COMPLETE [facility] ECHO COMPLETE W DOPPLER W CONTRAST [facility] ECHO COMPLETE W DOPPLER W/O CONTRAST [facility] IV PUSH SINGLE, INITIAL SUBSTANCE ZZHC US GUIDE FOR PERICARDIOCENTESIS ZZHC ECHO MYOCARD BX ZZC INJECTION, PERFLUTREN LIPID MICROSPHERES, PER ML ZZHC STATISTIC IV PUSH SINGLE INITIAL SUBSTANCE WV ECHO MYOCARD BX WV INJECTION, PERFLUTREN LIPID MICROSPHERES, PER ML WV TTE W/DOPPLER, COMPLETE WV IV PUSH SINGLE, INITIAL SUBSTANCE WV TTE W/DOPPLER, COMPLETE WV TTE W/DOPPLER, COMPLETE HC US GUIDE FOR PERICARDIOCENTESIS HC ECHO MYOCARD BX HC IV PUSH SINGLE, INITIAL SUBSTANCE HC STATISTIC IV PUSH SINGLE INITIAL SUBSTANCE HC ECHO COMPLETE W DOPPLER W CONTRAST HC ECHO COMPLETE W DOPPLER W/O CONTRAST Gary Rodriguez MD [address] [place] [address] Rh Cv Cardiac Svc Rscc [address] [facility] [address] [place] [address] Referral ID Status Reason Start Date Expiration Date Visits Re quested Visits Authorized [id number] Closed 08/01/2022 08/01/2023 1 1 Reason for Visit * CV Testing (Routine) - Closed Specialty Diagnoses / Procedures Referred By Contac t Referred To Contact Cardiology Diagnoses Chronic obstructive pulmonary disease, unspecified COPD type (H) Pulmonary hypertension (H) Procedures Echocardiogram Complete ZZHC TTE W/DOPPLER, COMPLETE [facility]HC ECHO COMPLETE W DOPPLER W CONTRAST [facility] ECHO COMPLETE W DOPPLER W/O CONTRAST [facility] IV PUSH SINGLE, INITIAL SUBSTANCE ZZHC US GUIDE FOR PERICARDIOCENTESIS ZZHC ECHO MYOCARD BX ZZC INJECTION, PERFLUTREN LIPID MICROSPHERES, PER ML ZZHC STATISTIC IV PUSH SINGLE INITIAL SUBSTANCE WV ECHO MYOCARD BX WV INJECTION, PERFLUTREN LIPID MICROSPHERES, PER ML WV TTE W/DOPPLER, COMPLETE WV IV PUSH SINGLE, INITIAL SUBSTANCE WV TTE W/DOPPLER, COMPLETE WV TTE W/DOPPLER, COMPLETE HC US GUIDE FOR PERICARDIOCENTESIS HC ECHO MYOCARD BX HC IV PUSH SINGLE, INITIAL SUBSTANCE HC STATISTIC IV PUSH SINGLE INITIAL SUBSTANCE HC ECHO COMPLETE W DOPPLER W CONTRAST HC ECHO COMPLETE W DOPPLER W/O CONTRAST Gary Rodriguez MD [address] [place] [address] 301[address] [place] [id number] [facility] [address] [place] [address] Referral ID Status Reason Start Date Expiration Date Visits Re quested Visits Authorized [id number] Closed 08/01/2022 08/01/2023 1 1 Encounter Details Date Type Department Care Team (Latest Contact Info) Description 07/19/2023 12:19 PM CDT - 07/19/2023 11:59 PM CDT Hospital Encounter [facility] [address] [place] [address] [address] [place] [phone] Gary Rodriguez MD [address] [place] [address] [id number] Chronic obstructive pulmonary disease, unspecified COPD type (H); Pulmonary hypertension (H) Discharge Disposition: Home or Self Care Social History Tobacco Use Types Packs/Day Years Used Date Smoking Tobacco: Former Cigarettes 1 40 Smokeless Tobacco: Never Comments:quit 07/12/12 Alcohol Use Standard Drinks/Week Comments Not Currently 0 (1 standard drink = 0.6 oz pur e alcohol) PHQ-2 Answer Date Recorded PHQ-2 Score 0 03/28/2023 Sex and Gender Information Value Date Recorded Sex Assigned at Not on file Gender Identity Not on file Sexual Orientation Not on file COVID-19 Exposure Response Date Recorded In the last 10 days, have yo u been in contact with someone who was confirmed or suspected to have Coronavirus/COVID-19? No / Unsure 07/19/2023 1:19 PM CDT documented as of this encounter Medications at Time of Discharge Medication Sig Dispensed Refills Start Date End Date albuterol (PROAIR HFA) 108 (90 BASE) MCG/ACT inhalerIndications:Cough Inhale 1-2 puffs into the lungs every 4 hours as needed for shortness of breath / dyspnea. 2 Inhaler 11 03/17/2013 ASPIRIN 81 MG OR TABSIndications:Other and unspecified hyperlipidemia 0 diphenhydrAMINE-acetamin ophen (TYLENOL PM) 25-500 MG tablet Take 1 tablet by mouth nightly as needed for sleep 0 donepezil (ARICEPT) 10 MG tablet Take 10 mg by mouth At Bedtime 0 MULTI VITAMIN MENS OR 1 tab daily 0 sertraline (ZOLOFT) 50 MG tabletIndications:Anxiet y Take 1 tablet (50 mg) by mouth daily Take with food. 90 tablet 3 06/22/2016 TRELEGY ELLIPTA 100-62.5-25 MCG/INH oral inhaler daily 0 03/09/2021 metFORMIN (GLUCOPHAGE) 500 MG tablet Take 500 mg by mouth daily (with breakfast) 0 01/16/2021 naproxen sodium (ANAPROX) 220 MG tablet Take 220 mg by mouth 2 times daily as needed 0 omeprazole (PRILOSEC) [address] capsule Take 1 capsule (20 mg) by mouth 2 times daily 0 10/30/2021 amLODIPine (NORVASC) 2.5 MG tabletIndications:Pulmon mandie hypertension (H) Take 1 tablet (2.5 mg) by mouth daily 90 tablet 1 02/11/2023 08/06/2023 cilostazol (PLETAL) 100 MG tabletIndications:Claudi cation in peripheral vascular disease (H24) Take 1 tablet (100 mg) by mouth 2 times daily 180 tablet 3 08/07/2022 07/25/2023 hydrochlorothiazide (HYDRODIURIL) 25 MG tabletIndications:Benign essential hypertension Take 1 tablet (25 mg) by mouth daily 90 tablet 0 01/21/2023 07/25/2023 rosuvastatin (CRESTOR) 20 MG tabletIndications:Claudi cation in peripheral vascular disease (H24) Take 1 tablet (20 mg) by mouth daily 90 tablet 0 04/22/2023 07/25/2023 sildenafil (REVATIO) 20 MG tabletIndications:Pulmon mandie hypertension (H) Take 1 tablet (20 mg) by mouth 3 times daily 270 tablet 3 08/10/2022 07/25/2023 spironolactone (ALDACTONE) 25 MG tabletIndications:Benign essential hypertension Take 1 tablet (25 mg) by mouth daily 90 tablet 0 05/30/2023 07/25/2023 documented as of this encounter Plan of Treatment Not on file documented as of this encounter Procedures Procedure Name Priority Date/Time Associated Diagnosis Comments ECHO COMPLETE Routine 07/19/2023 12:47 PM CDT Chronic obstructive pulmonary disease, unspecified COPD type (H) Pulmonary hypertension (H) documented in this encounter Results * ECHO COMPLETE (07/19/2023 12:47 PM CDT) LVEF 55-60% CARDIOLOGY RESULTS Anatomical Region Laterality Modality Echocardiography 07/19/2023 12:2 4 PM CDT Narrative 07/19/2023 1:02 PM CDT [id number]^JENNIFER^MOTHILAL^HANSEL [facility] Echocardiography Laboratory [address] [place] [address] Name: SHERRIE CLARK : 1940 Study Date: 07/19/2023 12:24 PM Age: 83 yrs Gender: Male Patient Location: [facility] Reason For Study: Chronic obstructive pulmonary disease, unspecified COPD type (H) Ordering Physician: GARY RODRIGUEZ Referring Physician: GARY RODRIGUEZ Performed By: Li Silverio BSA: 1.9 m2 Height: 70 in Weight: 170 lb BP: 126/74 mmHg Procedure Complete Echo Adult. Interpretation Summary Left ventricular systolic function is normal. The visual ejection fraction is 55-60%. Grade I or early diastolic dysfunction. No regional wall motion abnormalities noted. The right ventricular systolic pressure is approximated at 80mmHg plus the right atrial pressure. Right ventricular systolic pressure is elevated, consistent with severe pulmonary hypertension. The study was technically adequate. Compared to the prior study dated 01/30, there have been no changes. Left Ventricle The left ventricle is normal in size. There is normal left ventricular wall thickness. Left ventricular systolic function is normal. The visual ejection fraction is 55-60%. Grade I or early diastolic dysfunction. No regional wall motion abnormalities noted. Flattened septum consistent with right ventricular volume overload. Right Ventricle The right ventricle is mildly dilated. The right ventricular systolic function is mildly reduced. Atria Normal left atrial size. The right atrium is mildly dilated. Mitral Valve The mitral valve leaflets are mildly thickened. The mitral valve chordae are thickened and/or calcified. There is trace mitral regurgitation. Tricuspid Valve There is mild (1+) tricuspid regurgitation. Right ventricular systolic pressure is elevated, consistent with severe pulmonary hypertension. The right ventricular systolic pressure is approximated at 80mmHg plus the right atrial pressure. Aortic Valve There is mild trileaflet aortic sclerosis. No aortic stenosis is present. Vessels The aortic root is normal size. Pericardium There is no pericardial effusion. Rhythm Sinus rhythm was noted. MMode/2D Measurements & Calculations IVSd: 0.76 cm LVIDd: 4.7 cm LVIDs: 3.0 cm LVPWd: 0.67 cm FS: 35.9 % LV mass(C)d: 105.7 grams LV mass(C)dI: 54.2 grams/m2 Ao root diam: 3.3 cm asc Aorta Diam: 3.5 cm LVOT diam: 2.5 cm LVOT area: 4.8 cm2 Ao root diam Index (cm/m2): 1.7 asc Aorta Diam Index (cm/m2): 1.8 RWT: 0.28 TAPSE: 2.5 cm Doppler Measurements & Calculations MV E max william: 66.2 cm/sec MV A max william: 89.3 cm/sec MV E/A: 0.74 MV dec slope: 289.1 cm/sec2 MV dec time: 0.23 sec PA acc time: 0.06 sec TR max william: 447.6 cm/sec TR max P.1 mmHg E/E' av.1 Lateral E/e': 11.2 Medial E/e': 15.1 Report approved by: Pedro Li 07/19/2023 01:02 PM Procedure Note Cory Mora MD - 07/19/2023 [id number]^JENNIFER^GARY^HANSEL [facility] Echocardiography Laboratory [address] [place] [address] Name: SHERRIE CLARK : 1940 Study Date: 07/19/2023 12:24 PM Age: 83 yrs Gender: Male Patient Location: [facility] Reason For Study: Chronic obstructive pulmonary disease, unspecified COPDtype (H) Ordering Physician: GARY RODRIGUEZ Referring Physician: GARY RODRIGUEZ Performed By: Li Silverio BSA: 1.9 m2 Height: 70 in Weight: 170 lb BP: 126/74 mmHg Procedure Complete Echo Adult. Interpretation Summary Left ventricular systolic function is normal. The visual ejection fraction is 55-60%. Grade I or early diastolic dysfunction. No regional wall motion abnormalities noted. The right ventricular systolic pressure is approximated at 80mmHg plusthe right atrial pressure. Right ventricular systolic pressure is elevated, consistent with severe pulmonary hypertension. The study was technically adequate. Compared to the prior study date, there have been no changes. Left Ventricle The left ventricle is normal in size. There is normal left ventricularwall thickness. Left ventricular systolic function is normal. The visualejection fraction is 55-60%. Grade I or early diastolic dysfunction. No regionalwall motion abnormalities noted. Flattened septum consistent with rightventricular volume overload. Right Ventricle The right ventricle is mildly dilated. The right ventricular systolicfunction is mildly reduced. Atria Normal left atrial size. The right atrium is mildly dilated. Mitral Valve The mitral valve leaflets are mildly thickened. The mitral valve chordaeare thickened and/or calcified. There is trace mitral regurgitation. Tricuspid Valve There is mild (1+) tricuspid regurgitation. Right ventricular systolic pressure is elevated, consistent with severe pulmonary hypertension. Theright ventricular systolic pressure is approximated at 80mmHg plus the rightatrial pressure. Aortic Valve There is mild trileaflet aortic sclerosis. No aortic stenosis ispresent. Vessels The aortic root is normal size. Pericardium There is no pericardial effusion. Rhythm Sinus rhythm was noted. MMode/2D Measurements & Calculations IVSd: 0.76 cm LVIDd: 4.7 cm LVIDs: 3.0 cm LVPWd: 0.67 cm FS: 35.9 % LV mass(C)d: 105.7 grams LV mass(C)dI: 54.2 grams/m2 Ao root diam: 3.3 cm asc Aorta Diam: 3.5 cm LVOT diam: 2.5 cm LVOT area: 4.8 cm2 Ao root diam Index (cm/m2): 1.7 asc Aorta Diam Index (cm/m2): 1.8 RWT: 0.28 TAPSE: 2.5 cm Doppler Measurements & Calculations MV E max william: 66.2 cm/sec MV A max william: 89.3 cm/sec MV E/A: 0.74 MV dec slope: 289.1 cm/sec2 MV dec time: 0.23 sec PA acc time: 0.06 sec TR max william: 447.6 cm/sec TR max P.1 mmHg E/E' av.1 Lateral E/e': 11.2 Medial E/e': 15.1 Report approved by: Pedro Li 07/19/2023 01:02 PM Gary Rodriguez MD CV ECHO ORDERABLE S documented in this encounter Visit Diagnoses Diagnosis Chronic obstructive pulmonary disease, unspecified COPD type (H) Pulmonary hypertension (H) Other chronic pulmonary heart diseases documented in this encounter Care Teams Mucker Operator Relationship Specialty Start Date End Date Andrew Pan MD [facility] [address] [place] [address] PCP - General Emergency Medicine 05/29/19 Gary Rodriguez MD [address] [place], [place] [address] Cardiovascular Disease 07/13/21 Kaushik Diamond MD [address] [facility] [address] [place], [place] [id number] Assigned Heart and Vascular Provider 03/30/23 07/26/23 documented as of this encounter
--- OUTSIDE RECORDS SUMMARY | 2023-12-18 18:28 | XMS_ITS | Encounter Summary ---
Author Name Unknown Organization [facility] Address [address] [place] [address] Care Team Providers Care Cash Applications Analyst Name Role Phone Andrew Pan MD Primary Care Provider Americo Shepherd MD Unavailable Kaushik Diamond MD Unavailable Kaushik Diamond MD Unavailable Americo Shepherd MD Unavailable Americo Shephedr MD Unavailable Reason for Visit * Reason Onset Date Comments Refill Request 05/26/2023 spironolactone ( ALDACTONE) 25 MG tablet Encounter Details Date Type Department Care Team (Late st Contact Info) Description 05/26/[address] [facility] Heart [facility] [address] [place] [address] [address] [place] [address] Barbara Khan PA [facility] [address] [place] [address] Refill Request (spironolactone (ALDACTONE) 25 MG tablet ) Social History Tobacco Use Types Packs/Day Years [...] suspected to have Coronavirus/COVID-19? No / Unsure 07/25/2023 11:05 AM CDT documented as of this encounter Miscellaneous Notes * Telephone Encounter - Shiloh Van RN - 05/30/2023 12:09 PM CDT REFILL REQUEST * Telephone Encounter - Katey Arnett LPN - 05/28/2023 9:58 AM CDT Images from the original note were not included. documented in this encounter Plan of Treatment Not on file documented as of this encounter Visit Diagnoses Diagnosis Benign essential hypertension Essential hypertension, benign documented in this encounter Care Teams Cash Applications Analyst Relationship Specialty Start Date End Date Andrew Pan MD [facility] [address] [place] [address] PCP - General Emergency Medicine 05/29/19 Americo Shepherd MD [address] [place] [address] Cardiovascular Disease 07/13/21 Kaushik Diamond MD [address] [facility] [address] [place], [place] [id number] Assigned Heart and Vascular Provider 08/10/23 09/06/23 Kaushik Diamond MD [address] [facility] [address] [place], [place] [address] Assigned Heart and Vascular Provider 03/30/23 07/26/23 Americo Shepherd MD [address] [place] [address] [id number] Assigned Heart and Vascular Provider 07/27/23 08/09/23 Americo Shepherd MD [address] [place] [address] [id number] Assigned Heart and Vascular Provider 09/07/23 documented as of this encounter
--- OUTSIDE RECORDS SUMMARY | 2023-12-18 18:28 | XMS_ITS | Encounter Summary ---
Author Name Unknown Organization [facility] Address [address] [place] [address] Care Team Providers Care Die Try Out Worker Stamping Name Role Phone Andrew Pan MD Primary Care Provider Americo Shepherd MD Unavailable [phone] Kaushik Diamond MD Unavailable [phone] Reason for Visit * Reason Comments Pt. Information/instruction Encounter Details Date Type Department Care Team (Latest Contact Info) Description 07/25/2023 Care Coordination [facility] [address] [place] [phone] Katie Cee RN Pt. Information/instruct ion Social History Tobacco Use Types Packs/Day Years [...] AM CDT documented as of this encounter Progress Notes * Katie Cee RN - 07/25/2023 12:51 PM CDT Pulmonary Hypertension Clinic Nurse Note Provider: Dr Porsche Shepherd Visit Date: 06 24 2023 Location: [facility] present: Review of After Visit Summary (AVS) / Instructions from provider: . The AVS and instructions from the provider were reviewed in detail with the patient following theiroffice visit with Dr Shepherd. Procedures and/or Testing: Patient given instruction including discussion of rationale for future labs and when to expect results. Medication Change: No medication changes. Refill sent to [facility] for sildenafil at patient and provider request. Return appointment: Patient was given instructions on when and how to schedule their next office visit with the clinic-6 months with Barbara Bassett PA-C with labs/CMP and CBC. Patient demonstrated understanding of this information and agreed to call with further questions or concerns. Roberta Wilson RN RN Junior Database Administrator [facility] documented in this encounter Plan of Treatment Not on file documented as of this encounter Visit Diagnoses Not on filedocumented in this encounter Care Teams Die Try Out Worker Stamping Relationship Specialty Start Date End Date Andrew Pan MD [facility] [address] [place] [address] PCP - General Emergency Medicine 05/29/19 Americo Shepherd MD [address] [place], [place] [phone] Cardiovascular Disease 07/13/21 Kaushik Diamond MD [address] [facility] [address] [place], [place] [address] Assigned Heart and Vascular Provider 03/30/23 07/26/23 documented as of this encounter
--- OUTSIDE RECORDS SUMMARY | 2023-12-18 18:28 | XMS_ITS | Encounter Summary ---
Author Name Unknown Organization [facility] Address [address] [place] [address] Care Team Providers Care Environmental Health And Safety Manager Name Role Phone Andrew Pan MD Primary Care Provider Americo Shepherd MD Unavailable [phone] Americo Shepherd MD Unavailable Reason for Visit * Reason Onset Date Comments Refill Request 10/23/2023 cilostazol Encounter Details Date Type Department Care Team (Late st Contact Info) Description 10/23/2023 Refill [facility] Heart [facility] [id number] [place] [address] [address] [place] [address] Americo Shepherd MD [address] [place] [address] [phone] Refill Request (cilostazol) Social History Tobacco Use Types Packs/Day Years [...] on file Sexual Orientation Not on file documented as of this encounter Miscellaneous Notes * Telephone Encounter - Yasmani Thomas RN - 10/23/2023 1:54 PM FLYING INSTRUCTOR [facility] Cardiology Refill Guideline reviewed. Medication meets criteria for refill. NG INSTRUCTOR documented in this encounter Plan of Treatment Not on file documented as of this encounter Visit Diagnoses Diagnosis Claudication in peripheral vascular disease (H24) Peripheral vascular disease, unspecified documented in this encounter Care Teams Environmental Health And Safety Manager Relationship Specialty Start Date End Date Andrew Pan MD [facility] [address] [place] [address] PCP - General Emergency Medicine 05/29/19 Americo Shepherd MD [address] [place] [address] [phone] Cardiovascular Disease 07/13/21 Americo Shepherd MD [address] [place] [address] [phone] Assigned Heart and Vascular Provider 09/07/23 documented as of this encounter
--- OUTSIDE RECORDS SUMMARY | 2023-12-18 18:28 | XMS_ITS | Encounter Summary ---
Author Name Unknown Organization [facility] Address [address] [place] [address] Care Team Providers Care Parimutuel Ticket Cashier Name Role Phone Andrew Pan MD Primary Care Provider Americo Shepherd MD Unavailable [phone] Americo Shepehrd MD Unavailable Reason for Visit * Reason Onset Date Comments Refill Request 08/06/2023 amlodipine Encounter Details Date Type Department Care Team (Late st Contact Info) Description 08/06/2023 Refill [facility] Heart [address] [place] [address] Americo Shepherd MD [address] [place] [address] [phone] Refill Request (amlodipine) Social History Tobacco Use Types Packs/Day Years [...] encounter Miscellaneous Notes * Telephone Encounter - Elba Lindsey, RN - 08/06/2023 11:05 AM CDT [facility] Refill Guideline reviewed. Medication meets criteria for refill. documented in this encounter Plan of Treatment Not on file documented as of this encounter Visit Diagnoses Diagnosis Pulmonary hypertension (H) Other chronic pulmonary heart diseases documented in this encounter Care Teams Parimutuel Ticket Cashier Relationship Specialty Start Date End Date Andrew Pan MD [address] [address] PCP - General Emergency Medicine 05/29/19 Americo Shepherd MD [address] [place] [address] [phone] Cardiovascular Disease 07/13/21 Americo Shepherd MD [address] [place] [address] [phone] Assigned Heart and Vascular Provider 07/27/23 08/09/23 documented as of this encounter
--- OUTSIDE RECORDS SUMMARY | 2023-12-18 18:28 | XMS_ITS | Encounter Summary ---
Author Name Unknown Organization [place] Address [address] [place] [address] Care Team Providers Care Counseling Psychologist Name Role Phone Andrew Pan MD Primary Care Provider Americo Shepherd MD Unavailable [phone] Kaushik Diamond MD Unavailable [phone] Encounter Details Date Type Department Care Team (Late st Contact Info) Description 07/19/2023 1:30 PM CDT [address] [address] Chronic obstructive pulmonary disease, unspecified COPD type (H); Pulmonary hypertension (H); Shortness of breath Social History Tobacco Use Types Packs/Day Years [...] Procedure Name Priority Date/Time Associated Diagnosis Comments N TERMINAL PRO BNP OUTPATIENT Routine 07/19/2023 1:21 PM CDT Shortness of breath Chronic obstructive pulmonary disease, unspecified COPD type (H) Pulmonary hypertension (H) BASIC METABOLIC PANEL Routine 07/19/2023 1:21 PM CDT Chronic obstructive pulmonary disease, unspecified COPD type (H) Pulmonary hypertension (H) documented in this encounter Results * N terminal pro BNP outpatient (07/19/2023 1:21 PM CDT) N Terminal Pro BNP Outpatient 393 0 - 1,800 pg/mL 07/19/2023 2:19 PM CDT [facility] Comment: Reference range shown and results flagged as abnormal are for the outpatient, non acute settings. Establishing a baseline value for each individual patient is useful for follow-up. Suggested inpatient cut points for confirming diagnosis of CHF in an acute setting are: >450 pg/mL (age 18 to less than 50) >900 pg/mL (age 50 to less than 75) >1800 pg/mL (75 yrs and older) An inpatient or emergency department NT-proPBNP <300 pg/mL effectively rules out acute CHF, with 99% negative predictive value. Blood STRUCTURE OF RIGHT UPPER LIMB / Unknown Venipuncture / Unknown 07/19/2023 1:21 PM CDT 07/19/2023 1:30 PM CDT Arnoldilal Kari Shepherd MD LAB - BLOOD ORDER [facility] Acute [facility] Lab [address] Lab (1st floor, no room number) [place] [address], [facility] [phone] * (ABNORMAL) Basic metabolic panel (07/19/2023 1:21 PM CDT) Sodium 140 136 - 145 mmol/L 07/19/2023 2:12 PM CDT LABORATORY Potassium 4.5 3.4 - 5.3 mmol/L 07/19/2023 2:12 PM CDT [facility] Chloride 103 98 - 107 mmol/L 07/19/2023 2:12 PM CDT [facility] Carbon Dioxide (CO2) 28 22 - 29 mmol/L 07/19/2023 2:12 PM CDT [facility] Anion Gap 9 7 - 15 mmol/L 07/19/2023 2:12 PM CDT [facility] Urea Nitrogen 9.9 8.0 - 23.0 mg/dL 07/19/2023 2:12 PM CDT [facility] Creatinine 1.07 0.67 - 1.17 mg/dL 07/19/2023 2:12 PM CDT [facility] Calcium 9.7 8.8 - 10.2 mg/dL 07/19/2023 2:12 PM CDT [facility] Glucose 129(H) 70 - 99 mg/dL 07/19/2023 2:12 PM CDT [facility] GFR Estimate 70 >60 mL/min/1.7 3m2 07/19/2023 2:12 PM CDT [facility] Blood STRUCTURE OF RIGHT UPPER LIMB / Unknown Venipuncture / Unknown 07/19/2023 1:21 PM CDT 07/19/2023 1:30 PM CDT Americo Shepherd MD LAB - BLOOD ORDER [facility] Acute [facility] Lab [address] Lab (1st floor, no room number) [place] [address], [facility] [phone] documented in this encounter Visit Diagnoses Diagnosis Chronic obstructive pulmonary disease, unspecified COPD type (H) Pulmonary hypertension (H) Other chronic pulmonary heart diseases Shortness of breath Shortness of breath documented in this encounter Care Teams Counseling Psychologist Relationship Specialty Start Date End Date Andrew Pan MD [facility] [address] [place] [address] PCP - General Emergency Medicine 05/29/19 Americo Shepherd MD [address] [place] [address] Cardiovascular Disease 07/13/21 Kaushik Diamond MD [address] [place] [id number] Assigned Heart and Vascular Provider 03/30/23 07/26/23 documented as of this encounter
--- OUTSIDE RECORDS SUMMARY | 2023-12-18 18:28 | XMS_ITS | Encounter Summary ---
Author Name Unknown Organization [facility] Address [address] [place] [address]. [place] [address] Care Team Providers Care Lead Burner Name Role Phone Andrew Pan MD Primary Care Provider Barbara Khan Unavailable Americo Shepherd MD Unavailable [phone] Encounter Details Date Type Department Care Team (Latest Contact Info) Description 03/28/2023 Travel Social History Tobacco Use Types Packs/Day Years [...] suspected to have Coronavirus/COVID-19? No / Unsure 03/28/2023 2:59 PM CDT documented as of this encounter Plan of Treatment Not on file documented as of this encounter Visit Diagnoses Not on filedocumented in this encounter Care Teams Lead Burner Relationship Specialty Start Date End Date Andrew Pan MD [facility] [address] [place] [address] PCP - General Emergency Medicine 05/29/19 Barbara Khan PA [facility] [address] [place], [place] [address] Assigned Heart and Vascular Provider 10/01/21 03/29/23 Americo Shepherd MD [address] [place] [address] [phone] Cardiovascular Disease 07/13/21 documented as of this encounter
--- OUTSIDE RECORDS SUMMARY | 2023-12-18 18:28 | XMS_ITS | Encounter Summary ---
Author Name Unknown Organization [place] Address [address] [place] [address]. [place] [address] Care Team Providers Care Functional Director Name Role Phone Andrew Pan MD Primary Care Provider Americo Shepherd MD Unavailable [phone] Kaushik Diamond MD Unavailable [phone] Encounter Details Date Type Department Care Team (Latest Contact Info) Description 07/25/2023 Travel Social History Tobacco Use Types Packs/Day [...] AM CDT documented as of this encounter Plan of Treatment Not on file documented as of this encounter Visit Diagnoses Not on filedocumented in this encounter Care Teams Functional Director Relationship Specialty Start Date End Date Andrew Pan MD [facility] [address] [place] [address] PCP - General Emergency Medicine 05/29/19 Americo Shepherd MD [address] [place], [place] [address] Cardiovascular Disease 07/13/21 Kaushik Diamond MD [address] [facility] [address] [place] [address] Assigned Heart and Vascular Provider 03/30/23 07/26/23 documented as of this encounter
--- OUTSIDE RECORDS SUMMARY | 2023-12-18 18:28 | XMS_ITS | Encounter Summary ---
Author Name Unknown Organization [place] Address [address] [place] [address]. [place] [address] Care Team Providers Care Sub Plant Manager Name Role Phone Andrew Pan MD Primary Care Provider Barbara Khan Unavailable Americo Shepherd MD Unavailable [phone] Encounter Details Date Type Department Care Team (Late st Contact Info) Description 03/28/2023 3:45 PM CDT Office Visit [facility] Heart [facility] [address] [place] [address] [address] [place] [address] Kaushik Diamond MD [address] [facility] [address] [place], [place] [address] Claudication in peripheral vascular disease (H) (Primary Dx) Social History Tobacco Use Types [...] Sign Reading Time Taken Comments Blood Pressure 132/58 03/28/2023 3:45 PM CDT Pulse 86 03/28/2023 3:45 PM CDT Temperature - - Respiratory Rate - - Oxygen Saturation 92% 03/28/2023 3:45 PM CDT Inhaled Oxygen Concentration - - Weight 73 kg (161 lb) 03/28/2023 3:45 PM CDT Height - - Body Mass Index 24.48 07/30/2022 1:34 PM CDT documented in this encounter Progress Notes * Kaushik Diamond MD - 03/28/2023 3:45 PM CDT Cardiology Progress Note Assessment and Plan: 1. 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 Has been evaluated by vascular surgery that thought below the knee femoral- popliteal bypass was too high risk but patient's symptoms have escalated. ?? I have asked him to get second opinion at [facility] for surgical revascularization options 30 minutes was spent with the patient, precharting and reviewing tests as well as post visit charting and coordination of care all done today.. This note was transcribed using electronic voice recognition software and there may be typographical errors present. Interval History: The patient is a very pleasant 82 year old whom I have seen for severe peripheral arterial disease and pulmonary hypertension from COPD. He had previous bilateral SFA stents that had occluded. His claudication has progressed despite attempts at walking programs. He now cannot ambulate without being stopped by claudication and it is severely affecting his quality of life. He was evaluated by vascular surgery that thoughts bilateral femoral-popliteal bypass was too high risk at that time but his symptoms have escalated. Review of Systems: Review of Systems: Skin: not assessed Eyes: Positive for glasses ENT: Negative Respiratory: Positive for shortness of breath Cardiovascular: Negative Gastroenterology: Genitourinary: Negative Musculoskeletal: Negative Neurologic: Negative Psychiatric: Positive for anxiety Heme/Lymph/Imm: Positive for allergies Endocrine: Positive for diabetes Physical Exam: Vitals: BP 132/58 (BP Location: Right arm, Patient Position: Sitting, Cuff Size: Adult Large) Pulse 86 Wt 73 kg (161 lb) SpO2 92% BMI 24.48 kg/m?? Constitutional: cooperative, alert and oriented, well developed, well nourished, in no acute distress Skin: warm and dry to the touch, no apparent skin lesions or masses noted Head: normocephalic, no masses or lesions Eyes: pupils equal and round;conjunctivae and lids unremarkable;sclera white;no xanthalasma Chest: prolonged expiration no rales or wheezing Cardiac: regular rhythm;normal S1 and S2 frequent premature beats grade 1;RUSB Neurological: no gross motor deficits;affect appropriate Medications: Current Outpatient Medications Medication Sig Dispense Refill ??? albuterol (PROAIR HFA) 108 (90 BASE) MCG/ACT inhaler Inhale 1-2 puffs into the lungs every 4 hours as needed for shortness of breath / dyspnea. 2 Inhaler 11 ??? amLODIPine (NORVASC) 2.5 MG tablet Take 1 tablet (2.5 mg) by mouth daily 90 tablet 1 ??? ASPIRIN 81 MG OR TABS ??? cilostazol (PLETAL) 100 MG tablet Take 1 tablet (100 mg) by mouth 2 times daily 180 tablet 3 ??? diphenhydrAMINE-acetaminophen (TYLENOL PM) 25-500 MG tablet Take 1 tablet by mouth nightly as needed for sleep ??? donepezil (ARICEPT) 10 MG tablet Take 10 mg by mouth At Bedtime ??? hydrochlorothiazide (HYDRODIURIL) 25 MG tablet Take 1 tablet (25 mg) by mouth daily 90 tablet 0 ??? metFORMIN (GLUCOPHAGE) 500 MG tablet Take 500 mg by mouth daily (with breakfast) ??? MULTI VITAMIN MENS OR 1 tab daily ??? naproxen sodium (ANAPROX) 220 MG tablet Take 220 mg by mouth 2 times daily as needed ??? rosuvastatin (CRESTOR) 20 MG tablet Take 1 tablet (20 mg) by mouth daily 90 tablet 0 ??? sertraline (ZOLOFT) 50 MG tablet Take 1 tablet (50 mg) by mouth daily Take with food. 90 tablet3 ??? sildenafil (REVATIO) 20 MG tablet Take 1 tablet (20 mg) by mouth 3 times daily 270 tablet 3 ??? spironolactone (ALDACTONE) 25 MG tablet Take 1 tablet (25 mg) by mouth daily 90 tablet 0 ??? KASEYLEGY ELLIPTA 100-62.5-25 MCG/INH oral inhaler daily ??? omeprazole (PRILOSEC) [address] capsule Take 1 capsule (20 mg) by mouth 2 times daily Data: All laboratory data reviewed No results found for this or any previous visit (from the past 24 hour(s)). All laboratory data reviewed Lab Results Component Value Date CHOL 132 07/03/2021 CHOL 136 07/24/2019 Lab Results Component Value Date HDL 70 07/03/2021 HDL 79 07/24/2019 Lab Results Component Value Date LDL 52 07/03/2021 LDL 46 07/24/2019 Lab Results Component Value Date TRIG 52 07/03/2021 TRIG 55 07/24/2019 Lab Results Component Value Date CHOLHDLRATIO 2.8 03/31/2015 TSH Date Value Ref Range Status 07/03/2021 0.05 (L) 0.40 - 4.00 mU/L Final 05/01/2016 0.10 (L) 0.40 - 4.00 mU/L Final Last Basic Metabolic Panel: Lab Results Component Value Date NA 138 03/24/2022 NA 139 07/24/2019 Lab Results Component Value Date POTASSIUM 3.6 03/24/2022 POTASSIUM 4.2 07/24/2019 Lab Results Component Value Date CHLORIDE 104 03/24/2022 CHLORIDE 104 07/24/2019 Lab Results Component Value Date MOHIT 8.8 03/24/2022 MOHIT 9.4 07/24/2019 Lab Results Component Value Date CO2 31 03/24/2022 CO2 32 07/24/2019 Lab Results Component Value Date BUN 18 03/24/2022 BUN 15 07/24/2019 Lab Results Component Value Date CR 0.84 03/24/2022 CR 1.10 07/24/2019 Lab Results Component Value Date GLC 108 03/24/2022 GLC 129 07/24/2019 Lab Results Component Value Date WBC 8.0 01/29/2022 WBC 9.4 05/30/2019 Lab Results Component Value Date RBC 4.73 01/29/2022 RBC 5.11 05/30/2019 Lab Results Component Value Date HGB 14.3 01/29/2022 HGB 16.2 05/30/2019 Lab Results Component Value Date HCT 44.9 01/29/2022 HCT 48.9 05/30/2019 Lab Results Component Value Date MCV 95 01/29/2022 MCV 96 05/30/2019 Lab Results Component Value Date MCH 30.2 01/29/2022 MCH 31.7 05/30/2019 Lab Results Component Value Date MCHC 31.8 01/29/2022 MCHC 33.1 05/30/2019 Lab Results Component Value Date RDW 14.5 01/29/2022 RDW 13.3 05/30/2019 Lab Results Component Value Date PLT 225 01/29/2022 PLT 172 06/01/2019 documented in this encounter Plan of Treatment Not on file documented as of this encounter Visit Diagnoses Diagnosis Claudication in peripheral vascular disease (H24)- Primary Peripheral vascular disease, unspecified documented in this encounter Care Teams Sub Plant Manager Relationship Specialty Start Date End Date Andrew Pan MD [facility] [address] [place] [address] PCP - General Emergency Medicine 05/29/19 Barbara Khan PA [facility] [address] [place], [place] [id number] Assigned Heart and Vascular Provider 10/01/21 03/29/23 Americo Shepherd MD [address] [place] [address] [phone] Cardiovascular Disease 07/13/21 documented as of this encounter
--- OUTSIDE RECORDS SUMMARY | 2023-12-18 18:28 | XMS_ITS | Encounter Summary ---
Author Name Unknown Organization [place] Address [address] [place] [address]. [place] [address] Care Team Providers Care School Bus Dispatcher Name Role Phone Andrew Pan MD Primary Care Provider Americo Shepherd MD Unavailable [phone] Kuashik Diamond MD Unavailable [phone] Encounter Details Date Type Department Care Team (Latest Contact Info) Description 07/19/2023 Travel Social History Tobacco Use Types Packs/Day [...] on filedocumented in this encounter Care Teams School Bus Dispatcher Relationship Specialty Start Date End Date Andrew Pan MD [facility] [address] [place] [address] PCP - General Emergency Medicine 05/29/19 Americo Shepherd MD [address] [place], [place] [address] Cardiovascular Disease 07/13/21 Kaushik Diamond MD [address] [facility] [address] [place] [address] Assigned Heart and Vascular Provider 03/30/23 07/26/23 documented as of this encounter
--- OUTSIDE RECORDS SUMMARY | 2023-12-18 18:28 | XMS_ITS | Encounter Summary ---
Author Name Unknown Organization [place] Address [address] [place] [address] Care Team Providers Care Service Provider Name Role Phone Andrew Pan MD Primary Care Provider Americo Shepherd MD Unavailable [phone] Kaushik Diamond MD Unavailable [phone] Americo Shepherd MD Unavailable Americo Shepherd MD Unavailable Reason for Visit * Reason Onset Date Comments Refill Request 08/06/2023 amLODIPine (NORV ASC) 2.5 MG tablet Encounter Details Date Type Department Care Team (Late st Contact Info) Description 08/06/2023 Refill [facility] Heart [address] [place] [address] Americo Shepherd MD [address] [place] [address] Refill Request (amLODIPine (NORVASC) 2.5 MG tablet) Social History Tobacco Use Types Packs/Day Years [...] encounter Miscellaneous Notes * Telephone Encounter - Kalie Duffy LPN - 08/06/2023 10:58 AM CDT Images from the original note were not included. documented in this encounter Plan of Treatment Not on file documented as of this encounter Visit Diagnoses Diagnosis Pulmonary hypertension (H) Other chronic pulmonary heart diseases documented in this encounter Care Teams Service Provider Relationship Specialty Start Date End Date Andrew Pan MD [facility] [address] [place] [address] PCP - General Emergency Medicine 05/29/19 Americo Shepherd MD [address] [place] [id number] Cardiovascular Disease 07/13/21 Kaushik Diamond MD [address] [facility] [address] [place], [place] [address] Assigned Heart and Vascular Provider 08/10/23 09/06/23 Americo Shepherd MD [address] [place] [address] Assigned Heart and Vascular Provider 07/27/23 08/09/23 Americo Shepherd MD [address] [place] [address] Assigned Heart and Vascular Provider 09/07/23 documented as of this encounter
--- OUTSIDE RECORDS SUMMARY | 2023-12-18 18:28 | XMS_ITS | Referral Summary ---
Author Name Unknown Organization [place] Address [address] [place] [address] Care Team Providers Care Reservations Manager Name Role Phone Andrew Pan MD Primary Care Provider Americo Shepherd MD Unavailable [phone] Americo Shepherd MD Unavailable [phone] Encounters Date Type Department Care Team Description 10/23/2023 Refill [facility] [address] [place] [address] Americo Shepherd MD Refill Request (cilostazol) from Last 3 Months Allergies Active Allergy Reactions Criticality Noted Date [...] Overview: Added automatically from request for surgery [id number] Abnormal findings on diagnos tic imaging of other specified body structures 07/07/2021 Overview: Added automatically from request for surgery [id number] 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 Provider to review Immunizations Name Administration Dates Next Due COVID-19 MONOVALENT 12+ (Pfizer) 01/01/2021,11/13 Influenza (High Dose) 3 valent vaccine 5,08/26/2012,09/08/2011 Influenza (IIV3) PF 08/11/2014,08/08/2010,2008 Pneumo Conj 13-V (2010&after) 09/22/2015 Pneumococcal 23 valent 08/24/2010 TD,PF 7+ (Tenivac) 08/24/2010 Social History Tobacco Use Types Packs/Day Years [...] 07/25/2023 11:18 AM CDT Plan of Treatment Not on file Advance Directives For more information, please contact: [phone] Latest Code Status on File Code Status Date Activated Date Inactivated Comments Full Code 05/30/2019 1:44 AM 06/01/2019 8:28 PM Question Answer Comments Code status determined by: Discussion wi th patient/legal decision maker Code Status History Code Status Date Activated Date Inactivated Comments Full Code 08/15/2012 10:51 AM 08/16/2012 2:13 PM Care Teams Reservations Manager Relationship Specialty Start Date End Date Andrew Pan MD [facility] [address] [place] [address] PCP - General Emergency Medicine 05/29/19 Americo Shepherd MD [address] [place] [address] [id number] Cardiovascular Disease 07/13/21 Americo Shepherd MD [address] [place] [address] Assigned Heart and Vascular Provider 09/07/23
--- OUTSIDE RECORDS SUMMARY | 2023-12-18 18:28 | XMS_ITS | Encounter Summary ---
Author Name Unknown Organization [place] Address [address] [place] [address]. [place] [address] Care Team Providers Care Manager Testing Name Role Phone Andrew Pan MD Primary Care Provider Barbara Khan Unavailable Americo Shepherd MD Unavailable Encounter Details Date Type Department Care Team (Late st Contact Info) Description 03/29/2023 Documentation Only [facility] [place] [address] [facility] [address] [place] [address] Kaushik Diamond MD [address] [facility] [address] [place] [address] Social History Tobacco Use Types Packs/Day Years [...] PM CDT documented as of this encounter Progress Notes * Dee Lee RN - 03/29/2023 9:45 AM CDT Images from the original note were not included. Staff message received: Kaushik Diamond MD [facility] Heart Team 4 [facility], can you help me with a referral to vascular surgery at [facility]? ??I would like patient seen for second opinion on occluded bilateral superficial femoral arteries with quality of life limiting claudication. ??Thank you! [place] referral made. Spoke with HIM and they will push over images to [place]. documented in this encounter Plan of Treatment Not on file documented as of this encounter Visit Diagnoses Not on filedocumented in this encounter Care Teams Manager Testing Relationship Specialty Start Date End Date Andrew Pan MD [facility] [address] [place] [address] PCP - General Emergency Medicine 05/29/19 Barbara Khan PA [facility] [address] [place] [address] [id number] Assigned Heart and Vascular Provider 10/01/21 03/29/23 Americo Shepherd MD [address] [place] [address] [phone] Cardiovascular Disease 07/13/21 documented as of this encounter
--- OUTSIDE RECORDS SUMMARY | 2023-12-18 18:28 | XMS_ITS | Encounter Summary ---
Author Name Unknown Organization [place] Address [address] [place] [address] Care Team Providers Care Gate Person Name Role Phone Andrew Pan MD Primary Care Provider Americo Shepherd MD Unavailable [phone] Kaushik Diamond MD Unavailable [phone] Reason for Visit * Reason Onset Date Comments Refill Request 05/30/2023 spironolactone Encounter Details Date Type Department Care Team (Late st Contact Info) Description 05/30/2023 Refill [facility] Heart [address] [place] [address] Barbara Khan PA [facility] [address] [place] [address] [phone] Refill Request (spironolactone) Social History Tobacco Use Types Packs/Day Years [...] Telephone Encounter - Elba Lindsey, RN - 05/30/2023 12:17 PM CDT [facility] Cardiology Refill Guideline reviewed. Medication meets criteria for refill. documented in this encounter Plan of Treatment Not on file documented as of this encounter Visit Diagnoses Diagnosis Benign essential hypertension Essential hypertension, benign documented in this encounter Care Teams Gate Person Relationship Specialty Start Date End Date Andrew Pan MD [facility] [address] [place] [address] PCP - General Emergency Medicine 05/29/19 Americo Shepherd MD [address] [place], [place] [address] Cardiovascular Disease 07/13/21 Kaushik Diamond MD [address] [facility] [address] [place], [place] [address] Assigned Heart and Vascular Provider 03/30/23 07/26/23 documented as of this encounter
--- OUTSIDE RECORDS SUMMARY | 2023-12-18 18:28 | XMS_ITS | Encounter Summary ---
Author Name Unknown Organization [place] Address [address] [place] [address] Care Team Providers Care Acquisition Cost Estimator Name Role Phone Andrew Pan MD Primary Care Provider Barbara Khan Unavailable Americo Shepherd MD Unavailable [phone] Reason for Visit * Reason Onset Date Comments Refill Request 02/27/2023 spironolactone Encounter Details Date Type Department Care Team (Late st Contact Info) Description 02/27/2023 Refill [facility] [address] [place] [address] Barbara Khan PA [facility] [address] [place] [address] [phone] Refill Request (spironolactone) Social History Tobacco Use Types Packs/Day Years Used Date Smoking Tobacco: Former Cigarettes 1 40 Smokeless Tobacco: Never Comments:quit 07/12/12 Alcohol Use Standard Drinks/Week Comments Not Currently 0 (1 standard drink = 0.6 oz pur e alcohol) PHQ-2 Answer Date Recorded PHQ-2 Score 0 11/26/2018 Sex and Gender Information Value Date Recorded Sex Assigned at Not on file Gender Identity Not on file Sexual Orientation Not on file documented as of this encounter Miscellaneous Notes * Telephone Encounter - Elba Lindsey, RN - 02/27/2023 10:30 AM CDT [facility] Refill Guideline reviewed. Medication meets criteria for refill. documented in this encounter Plan of Treatment Not on file documented as of this encounter Visit Diagnoses Diagnosis Benign essential hypertension Essential hypertension, benign documented in this encounter Care Teams Acquisition Cost Estimator Relationship Specialty Start Date End Date Andrew Pan MD [facility] [address] [place] [address] PCP - General Emergency Medicine 05/29/19 Barbara Khan PA [facility] [address] [place] [address] [phone] Assigned Heart and Vascular Provider 10/01/21 03/29/23 Americo Shepherd MD [address] [place] [address] [phone] Cardiovascular Disease 07/13/21 documented as of this encounter
--- OUTSIDE RECORDS SUMMARY | 2023-12-18 18:28 | XMS_ITS | Encounter Summary ---
Author Name Unknown Organization [place] Address [address] [place] [address]. [place] [address] Care Team Providers Care Retail Operations Manager Name Role Phone Andrew Pan MD Primary Care Provider Americo Shepherd MD Unavailable Kaushik Diamond MD Unavailable Kaushik Diamond MD Unavailable Americo Shepherd MD Unavailable Americo Shepherd MD Unavailable Reason for Visit * Reason Onset Date Comments Refill Request 04/20/2023 rosuvastatin (CR ESTOR) 20 MG tablet Encounter Details Date Type Department Care Team (Late st Contact Info) Description 04/20/2023 Refill [facility] [address] [facility] [address] [place] [address] Kaushik Diamond MD [address] [facility] [address] [place], [place] [address] Refill Request (rosuvastatin (CRESTOR) 20 MG tablet) Social History Tobacco Use Types [...] Telephone Encounter - Yasmani Thomas RN - 04/22/2023 7:17 AM CDT [facility] Cardiology Refill Guideline reviewed. Medication meets criteria for refill. * Telephone Encounter - Kalie Duffy LPN - 04/20/2023 10:06 AM CDT Images from the original note were not included. documented in this encounter Plan of Treatment Not on file documented as of this encounter Visit Diagnoses Diagnosis Claudication in peripheral vascular disease (H24) Peripheral vascular disease, unspecified documented in this encounter Care Teams Retail Operations Manager Relationship Specialty Start Date End Date Andrew Pan MD [facility] [address] [place] [address] PCP - General Emergency Medicine 05/29/19 Americo Shepherd MD [address] [place] [address] Cardiovascular Disease 07/13/21 Kaushik Diamond MD [address] [facility] [address] [place], [place] [phone] Assigned Heart and Vascular Provider 08/10/23 09/06/23 Kaushik Diamond MD [address] [facility] [address] [place], [place] [address] Assigned Heart and Vascular Provider 03/30/23 07/26/23 Americo Shepherd MD [address] [place] [address] [id number] Assigned Heart and Vascular Provider 07/27/23 08/09/23 Americo Shepherd MD [address] [place] [address] [phone] Assigned Heart and Vascular Provider 09/07/23 documented as of this encounter
--- OUTSIDE RECORDS SUMMARY | 2023-12-18 18:28 | XMS_ITS | Encounter Summary ---
Author Name Unknown Organization [place] Address [address] [place] [address] Care Team Providers Care Tile Sorter Name Role Phone Andrew Pan MD Primary Care Provider Americo Shepherd MD Unavailable [phone] Kaushik Diamond MD Unavailable [phone] Reason for Referral * Medication Prior Authorization - Closed Specialty Diagnoses / Procedures Referred By Sumit mendoza Referred To Contact Diagnoses Pulmonary hypertension (H) Americo Shepherd MD [address] [place] [phone] Referral ID Status Reason Start Date Expiration Date Visits Re quested Visits Authorized [id number] Closed 1 1 * Consultation (Routine: Next available opening) - Pending Review Specialty Diagnoses / Procedures Referred By Sumit mendoza Referred To Contact Cardiovascular Disease Diagnoses Chronic obstructive pulmonary disease, unspecified COPD type (H) PAH (pulmonary artery hypertension) (H) Claudication in peripheral vascular disease (H24) Benign essential hypertension Hyperlipidemia LDL goal <70 Americo Shepherd MD [address] [place] [phone] Referral ID Status Reason Start Date Expiration Date V isits Requested Visits Authorized [id number] Pending Review 07/25/2023 07/24/2024 1 1 Question Answer Preferred Location: [facility] Follow-up with: ALEXI - Barbara Khan PA-C only Reason for follow-up: Pulmonary Hypertension Scheduling Instructions: [facility] will call you to coordinate your care as prescribed by your provider. If you have concerns about scheduling, please call [phone]. Comments [facility] will call you to coordinate your care as prescribed by your provider. If you have concerns about scheduling, please call [phone]. Reason for Visit * Reason Comments Follow Up Pulmonary Hypertension Echo and labs 07/19 * Consultation (Routine) - Closed Specialty Diagnoses / Procedures Referred By Contac t Referred To Contact Cardiovascular Disease Diagnoses Chronic obstructive pulmonary disease, unspecified COPD type (H) Pulmonary hypertension (H) Americo Shepherd MD [address] [place] [id number] Referral ID Status Reason Start Date Expiration Date Visits Re quested Visits Authorized [id number] Closed 08/01/2022 08/01/2023 1 1 Encounter Details Date Type Department Care Team (Late st Contact Info) Description 07/25/2023 11:15 AM CDT Office Visit [facility] [id number] [place] [address] [address] [place] [address] Americo Shepherd MD [address] [place] [address] PAH (pulmonary artery hypertension) (H) (Primary Dx); Chronic obstructive pulmonary disease, unspecified COPD type (H); Claudication in peripheral vascular disease (H); Benign essential hypertension; Hyperlipidemia LDL goal <70 Social History Tobacco Use Types Packs/Day Years [...] Recorded In the last 10 days, have marjorie u been in contact with someone who was confirmed or suspected to have Coronavirus/COVID-19? No / Unsure 07/25/2023 11:05 AM CDT documented as of this encounter Last Filed Vital Signs Vital Sign Reading Time Taken Comments Blood Pressure 104/52 07/25/2023 11:18 AM CDT Pulse 82 07/25/2023 11:18 AM CDT Temperature - - Respiratory Rate - - Oxygen Saturation 84% 07/25/2023 11:18 AM CDT Inhaled Oxygen Concentration - - Weight 75.4 kg (166 lb 4.8 oz) 07/25/2023 11:18 AM CDT Height 170.2 cm (5' 7) 07/25/2023 11:18 AM CDT Body Mass Index 26.05 07/25/2023 11:18 AM CDT documented in this encounter Patient Instructions * Patient Instructions* Katie Cee RN - 07/25/2023 11:15 AM CDT Follow-up with cardiology ALEXI Barbara Khan in 6 months with previsit labs (CMP, CBC). Call my nurse team with any questions . documented in this encounter Progress Notes * Americo Shepherd MD - 07/25/2023 11:15 AM CDT SERVICE DATE: July 25, 2023 PRIMARY CARE PROVIDER: Andrew Pan [facility] [address] [facility] [id number] REASON FOR VISIT: Follow-up of pulmonary arterial hypertension. HISTORY OF PRESENT ILLNESS: Carlos Clark is a 83 year old male, accompanied by his today. History significant for oxygen dependent COPD (follows with Dr. Gonzalez of [place] [facility]), coronary artery disease, severe quality of life limiting peripheral arterial disease with significant lower extremity claudication and prior bilateral peripheral PCI, hypertension, hyperlipidemia, BMI 26, former tobacco user (quit in 2011), Alzheimer's dementia with mild cognitive impairment, type 2 diabetes mellitus (diet-controlled). He sees us in the pulmonary hypertension clinic for moderate pulmonary arterial hypertension with amean PA pressure of 41 mmHg with positive vasodilator response, normal wedge pressure of 11 mmHg, normal cardiac index. He has been established on sildenafil monotherapy. Patient has declined pulmonary rehabilitation exercise program or the walking program for his PAD. Inconsistent ambulatory oxygen use. Recent renal panel is normal with a creatinine of 1.0, last CBC was over a year ago and normal, LDLis 52 (on rosuvastatin 20 mg daily). NT-proBNP normal at 393. ECG shows sinus rhythm of 71 bpm with normal cardiac intervals. I independently interpreted his transthoracic echocardiogram dated 07/19/2023. Normal left ventricular size and systolic function, LVEF 60%, no regional wall motion abnormalities, grade 1 diastolic function, the right ventricle is mildly dilated with mildly reduced systolic function, right atrium is mildly dilated, estimated pulmonary artery pressures consistent with severe pulmonary hypertension at 80 mmHg plus the right atrial pressure. No significant valve disease. Right heart catheterization dated 08/11/2021 reviewed. As documented above. On exam - he walks independently, has oxygen on, has mild cognitive impairment, BP 104/52, pulse 82/min (sinus), heart sounds are regular, documents pressure is not elevated, no audible murmur, no lower extremity edema. Hyperinflated lungs with prolonged expiratory phase, no wheeze or rales. DIAGNOSES/ASSESSMENT: 1. Pulmonary arterial hypertension with mildly decreased right ventricular systolic function, normal NT proBNP. Patient has significant other lifestyle limiting comorbidities, primarily his severe peripheral arterial disease and severe COPD. From a PAH standpoint, his NT-proBNP is normal, RV function is only mildly decreased, no significant valvular heart disease, no angina, normal renal function. Therefore, continue low-dose amlodipine and sildenafil (PDE 5 inhibitor) monotherapy. 2. Severe oxygen dependent COPD. Reiterated importance of consistent oxygen use. Even with 4 L supplemental oxygen, his sats are between 85-88%. 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 3. Severe, lifestyle limiting pulmonary arterial disease. Dr. Diamond has referred him to [facility] who did a recent angioplasty. 4. Hyperlipidemia with goal LDL less than 70. LDL is 52. Continue rosuvastatin 20 mg daily. 5. Benign essential hypertension. Well-controlled. PLAN: 1. Continue sildenafil and amlodipine. 2. No changes to other cardiac medications. 3. Patient declines referral to walking program for PAD or pulmonary rehabilitation exercise program. 4. I have ordered follow-up with cardiology ALEXI Barbara Khan in 6 months with previsit labs (CMP, CBC). Americo Shepherd MD Established patient. 45 minutes spent by me on the date of the encounter doing chart review, history and exam, documentation and further activities per the note. PHYSICAL EXAMINATION: Vitals: BP 104/52 (BP Location: Right arm, Patient Position: Sitting, Cuff Size: Adult Regular) Pulse 82 Ht 1.702 m (5' 7) Wt 75.4 kg (166 lb 4.8 oz) SpO2 (!) 84% BMI 26.05 kg/m?? Wt Readings from Last 5 Encounters: 07/25/23 75.4 kg (166 lb 4.8 oz) 03/28/23 73 kg (161 lb) 07/30/22 75.3 kg (166 lb 1.6 oz) 03/07/22 76.5 kg (168 lb 9.6 oz) 02/01/22 72.6 kg (160 lb) Encounter Diagnoses Name Primary? PAH (pulmonary artery hypertension) (H) Yes Chronic obstructive pulmonary disease, unspecified COPD type (H) Claudication in peripheral vascular disease (H) Benign essential hypertension Hyperlipidemia LDL goal <70 CURRENT MEDICATIONS: Current Outpatient Medications Medication Sig Dispense Refill albuterol (PROAIR HFA) 108 (90 BASE) MCG/ACT inhaler Inhale 1-2 puffs into the lungs every 4 hours as needed for shortness of breath / dyspnea. 2 Inhaler 11 amLODIPine (NORVASC) 2.5 MG tablet Take 1 tablet (2.5 mg) by mouth daily 90 tablet 1 ASPIRIN 81 MG OR TABS cilostazol (PLETAL) 100 MG tablet Take 1 tablet (100 mg) by mouth 2 times daily 180 tablet 0 diphenhydrAMINE-acetaminophen (TYLENOL PM) 25-500 MG tablet Take 1 tablet by mouth nightly as needed for sleep donepezil (ARICEPT) 10 MG tablet Take 10 mg by mouth At Bedtime hydrochlorothiazide (HYDRODIURIL) 25 MG tablet Take 1 tablet (25 mg) by mouth daily 90 tablet 3 MULTI VITAMIN MENS OR 1 tab daily rosuvastatin (CRESTOR) 20 MG tablet Take 1 tablet (20 mg) by mouth daily 90 tablet 3 sertraline (ZOLOFT) 50 MG tablet Take 1 tablet (50 mg) by mouth daily Take with food. 90 tablet 3 sildenafil (REVATIO) 20 MG tablet Take 1 tablet (20 mg) by mouth 3 times daily 270 tablet 3 spironolactone (ALDACTONE) 25 MG tablet Take 1 tablet (25 mg) by mouth daily 90 tablet 3 TRELEGY ELLIPTA 100-62.5-25 MCG/INH oral inhaler daily metFORMIN (GLUCOPHAGE) 500 MG tablet Take 500 mg by mouth daily (with breakfast) (Patient not taking: Reported on 07/25/2023) naproxen sodium (ANAPROX) 220 MG tablet Take 220 mg by mouth 2 times daily as needed (Patient not taking: Reported on 07/25/2023) omeprazole (PRILOSEC) [address] capsule Take 1 capsule (20 mg) by mouth 2 times daily ALLERGIES: Allergies Allergen Reactions Atorvastatin Muscle Pain (Myalgia) Simvastatin Muscle Pain (Myalgia) Sulfa Antibiotics PAST MEDICAL HISTORY: Past Medical History: Diagnosis Date Atherosclerosis of sioux arteries of extremity with intermittent claudication (H) 07/10/2019 Benign essential hypertension CAD (coronary artery disease) COPD (chronic obstructive pulmonary disease) (H) Hyperlipidemia LDL goal <100 10/04/2010 Hypoxemia 02/28/2021 Lung nodule Peripheral arterial disease (H) Peripheral vascular disease (H) 05/01/2016 Polyp of colon 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 02/28/2021 SOB (shortness of breath) 05/30/2019 PAST SURGICAL HISTORY: Past Surgical History: Procedure Laterality Date ARTHROSCOPY KNEE RT/LT Bilateral arthroscopic procedures COLONOSCOPY N/A 08/20/2016 Procedure: COMBINED COLONOSCOPY, SINGLE OR MULTIPLE BIOPSY/POLYPECTOMY BY BIOPSY; Surgeon: Maxine Narvaez MD; Location: [facility] CORONARY ANGIOGRAPHY ADULT ORDER 05/2013 diffuse scattered calcium all 3 vessels, 60-70% ostial stenosis OM1, 70% stenosis body of OM1 CV LOWER EXTREMITY ANGIOGRAM BILATERAL Bilateral 08/11/2021 Procedure: Angiogram Lower Extremity Bilateral; Surgeon: Fredrick Palomo MD; Location: [facility] CV RIGHT HEART CATH MEASUREMENTS RECORDED N/A 08/11/2021 Procedure: CV RIGHT HEART CATH; Surgeon: Fredrick Palomo MD; Location: [facility]IAC [facility] DISCECTOMY LUMBAR POSTERIOR MICROSCOPIC ONE LEVEL 08/15/2012 Procedure: DISCECTOMY LUMBAR POSTERIOR MICROSCOPIC ONE LEVEL; LEFT L4-L5 DECOMPRESSION (CONTRAVIS, MIDAS SHAUN WITH AM8); Surgeon: Dean Marcos MD; Location: OR LAPAROSCOPIC CHOLECYSTECTOMY 06/25/2014 Procedure: LAPAROSCOPIC CHOLECYSTECTOMY; Surgeon: Alberto Abdi MD; Location: [facility] PVD STENTING ~2004 Two stents in each lower extremity FAMILY HISTORY: Family History Problem Relation Age of Onset Heart Disease Mother age 58 Hypertension Mother Heart Disease Father age 84 SOCIAL HISTORY: Social History Socioeconomic History Marital status: Spouse name: None Number of children: None Years of education: None Highest education level: None Tobacco Use Smoking status: Former Packs/day: 1.00 Years: 40.00 Pack years: 40.00 Types: Cigarettes Smokeless tobacco: Never Tobacco comments: quit 07/12/12 Substance and Sexual Activity Alcohol use: Not Currently Drug use: No Sexual activity: Yes Partners: Female Other Topics Concern Caffeine Concern Yes Comment: 1-2 cups of coffee a day 2-16-20oz bottles a day Special Diet No Exercise Yes Comment: golfing 3 times a week and 2 nights a week bowling documented in this encounter Plan of Treatment Scheduled Orders Name Type Priority Associated Diagnoses Orde r Schedule Comprehensive metabolic panel Lab Routine Chronic obstructive pulmonary disease, unspecified COPD type (H) PAH (pulmonary artery hypertension) (H) Claudication in peripheral vascular disease (H) Benign essential hypertension Hyperlipidemia LDL goal <70 Expected: 01/23/2024 (Approximate), Expires: 07/25/2024 CBC with platelets Lab Routine Chronic obstructive pulmonary disease, unspecified COPD type (H) PAH (pulmonary artery hypertension) (H) Claudication in peripheral vascular disease (H) Benign essential hypertension Hyperlipidemia LDL goal <70 Expected: 01/23/2024 (Approximate), Expires: 07/25/2024 Scheduled Referrals Name Type Priority Associated Diagnoses Orde r Schedule Follow-Up with Cardiology ALEXI Referral Routine: Next available opening Chronic obstructive pulmonary disease, unspecified COPD type (H) PAH (pulmonary artery hypertension) (H) Claudication in peripheral vascular disease (H) Benign essential hypertension Hyperlipidemia LDL goal <70 Expected: 01/23/2024 (Approximate), Expires: 07/25/2024 documented as of this encounter Visit Diagnoses Diagnosis PAH (pulmonary artery hypertension) (H)- Primary Other chronic pulmonary heart diseases Chronic obstructive pulmonary disease, unspecified COPD type (H) Claudication in peripheral vascular disease (H24) Peripheral vascular disease, unspecified Benign essential hypertension Essential hypertension, benign Hyperlipidemia LDL goal <70 Other and unspecified hyperlipidemia documented in this encounter Care Teams Tile Sorter Relationship Specialty Start Date End Date Andrew Pan MD [facility] [address] [place] [address] PCP - General Emergency Medicine 05/29/19 Americo Shepherd MD [address] [place], [place] [phone] Cardiovascular Disease 07/13/21 Kaushik Diamond MD [address] [facility] [address] [place], [place] [address] Assigned Heart and Vascular Provider 03/30/23 07/26/23 documented as of this encounter
--- OUTSIDE RECORDS SUMMARY | 2023-12-18 18:29 | XMS_ITS | Encounter Summary ---
Author Name Unknown Organization [place] Address [address] [place] [address] Care Team Providers Care Sales Project Administrator Name Role Phone Win Vo MD Primary Care Provider [phone] Win Vo MD Unavailable [phone] Win Vo MD Unavailable [phone] Andrew Pan MD Primary Care Provider Kaushik Diamond MD Unavailable [phone] Kaushik Diamond MD Unavailable [phone] Nida Henderson PA-C Unavailable [phone] Barbara Khan Unavailable Americo Shepherd MD Unavailable [phone] Barbara Khan Unavailable Americo Shepherd MD Unavailable [phone] Irma Mckay Unavailable [phone] Barbara Khan Unavailable Americo Shepherd MD Unavailable [phone] Kaushik Diamond MD Unavailable [phone] Kaushik Diamond MD Unavailable [phone] Americo Shepherd MD Unavailable Americo Shepherd MD Unavailable Encounter Details Date Type Department Care Team (Late st Contact Info) Description 05/23/2015 MyC Medical Advice [facility] PHYS STANDARD [address] [phone] Win Vo MD [address] [place] [address] Social History Tobacco Use Types Packs/Day Years Used Date Smoking Tobacco: Former Cigarettes 1 40 Smokeless Tobacco: Never Comments:quit 07/12/12 Alcohol Use Standard Drinks/Week Comments Yes 0 (1 standard drink = 0.6 oz pur e alcohol) mixed drinks only.-1-2/week Sex and Gender Information Value Date Recorded Sex Assigned at Not on file Gender Identity Not on file Sexual Orientation Not on file documented as of this encounter Plan of Treatment Not on file documented as of this encounter Visit Diagnoses Not on filedocumented in this encounter Care Teams Sales Project Administrator Relationship Specialty Start Date End Date Win Vo MD PCP - General 08/06/09 05/28/19 Win Vo MD [address] [place] [address] PCP - Assigned PCP 05/20/16 01/13/19 Andrew Pan MD [facility] [address] [place] [address] PCP - General Emergency Medicine 05/29/19 Win Vo MD [address] [place] [address] Assigned PCP 05/20/16 06/27/19 Kaushik Diamond MD [address] [place], [place] [address] Assigned Heart and Vascular Provider 09/02/20 01/24/21 Kaushik Diamond MD [address] [place], [place] [address] Assigned Heart and Vascular Provider 03/19/21 06/17/21 Nida Henderson PA-C [address] [place] [address] Assigned Heart and Vascular Provider 07/09/21 07/15/21 Barbara Khan PA [facility] [address] [place] [address] [phone] Assigned Heart and Vascular Provider 06/18/21 07/08/21 Americo Shepherd MD [address] [place] [address] Assigned Heart and Vascular Provider 07/16/21 08/05/21 Barbara Khan PA [facility] [address] [place] [phone] Assigned Heart and Vascular Provider 08/06/21 09/09/21 Americo Shepherd MD [address] [place] [address] [phone] Assigned Heart and Vascular Provider 09/10/21 09/30/[address] [facility] [address] [place] [address] [place] [address] Cardiac Rehabilitation Therapist 09/13/21 09/13/22 Barbara Khan PA [facility] [address] [place] [address] Assigned Heart and Vascular Provider 10/01/21 03/29/23 Americo Shepherd MD [address] [place] [address] Cardiovascular Disease 07/13/21 Kaushik Diamond MD [address] [place] [address] Assigned Heart and Vascular Provider 08/10/23 09/06/23 Kaushik Diamond MD [address] [place] [address] Assigned Heart and Vascular Provider 03/30/23 07/26/23 Americo Shepherd MD [address] [place] [address] Assigned Heart and Vascular Provider 07/27/23 08/09/23 Americo Shepherd MD [address] [place] [address] Assigned Heart and Vascular Provider 09/07/23 documented as of this encounter
--- OUTSIDE RECORDS SUMMARY | 2023-12-18 18:29 | XMS_ITS | Encounter Summary ---
Author Name Unknown Organization [place] Address [address] [place] [address] Care Team Providers Care Time Study Engineer Name Role Phone Andrew Pan MD Primary Care Provider Barbara Khan Unavailable Americo Shepherd MD Unavailable [phone] Reason for Visit * Reason Onset Date Comments Refill Request 01/28/2023 rosuvastatin Encounter Details Date Type Department Care Team (Late st Contact Info) Description 01/28/2023 Refill [facility] Heart [facility] [address] [place] [address] [address] [place] [address] Barbara Khan PA [facility] [address] [place] [address] Refill Request (rosuvastatin) Social History Tobacco Use Types Packs/Day Years [...] encounter Miscellaneous Notes * Telephone Encounter - BackerYasmani RN - 01/28/2023 3:06 PM CDT [facility] Cardiology Refill Guideline reviewed. Medication meets criteria for refill. documented in this encounter Plan of Treatment Not on file documented as of this encounter Visit Diagnoses Diagnosis Claudication in peripheral vascular disease (H24) Peripheral vascular disease, unspecified documented in this encounter Care Teams Time Study Engineer Relationship Specialty Start Date End Date Andrew Pan MD [facility] [address] [place] [address] PCP - General Emergency Medicine 05/29/19 Barbara Khan PA [facility] [address] [place], [place] 7[address] Assigned Heart and Vascular Provider 10/01/21 03/29/23 Americo Shepherd MD [address] [place] [address] [phone] Cardiovascular Disease 07/13/21 documented as of this encounter
--- OUTSIDE RECORDS SUMMARY | 2023-12-18 18:29 | XMS_ITS | Encounter Summary ---
Author Name Unknown Organization [place] Address [address] [place] [address] Care Team Providers Care Paper Deliverer Name Role Phone Andrew Pan MD Primary Care Provider Barbara Khan Unavailable Americo Shepherd MD Unavailable [phone] Reason for Visit * Reason Onset Date Comments Refill Request 02/11/2023 amlodipine Encounter Details Date Type Department Care Team (Late st Contact Info) Description 02/11/2023 Refill [facility] Heart [facility] [address] [place] [address] [address] [place] [address] Barbara Khan PA [facility] [address] [place] [address] Refill Request (amlodipine) Social History Tobacco Use [...] Telephone Encounter - Elba Lindsey, RN - 02/11/2023 4:40 PM CDT [facility] Cardiology Refill Guideline reviewed. Medication meets criteria for refill. documented in this encounter Plan of Treatment Not on file documented as of this encounter Visit Diagnoses Diagnosis Pulmonary hypertension (H) Other chronic pulmonary heart diseases documented in this encounter Care Teams Paper Deliverer Relationship Specialty Start Date End Date Andrew Pan MD [facility] [address] [place] [address] PCP - General Emergency Medicine 05/29/19 Barbara Khan PA [facility] [address] [place] [address] 167325 Assigned Heart and Vascular Provider 10/01/21 03/29/23 Americo Shepherd MD [address] [place] [address] [phone] Cardiovascular Disease 07/13/21 documented as of this encounter
--- OUTSIDE RECORDS SUMMARY | 2023-12-18 18:29 | XMS_ITS | Encounter Summary ---
Author Name Unknown Organization [place] Address [address] [place] [address] Care Team Providers Care Marketing Content Coordinator Name Role Phone Andrew Pan MD Primary Care Provider Barbara Khan Unavailable Americo Shepherd MD Unavailable Irma Mckay Unavailable Barbara Khan Unavailable Americo Shepherd MD Unavailable Kaushik Diamond MD Unavailable [phone] Kaushik Diamond MD Unavailable [phone] Americo Shepherd MD Unavailable Americo Shepherd MD Unavailable Encounter Details Date Type Department Care Team (Late st Contact Info) Description 08/08/2021 [facility] [address] [place] [address] [address] [place] [address] Barbara Khan PA [facility] [address] [place] [address] Social History Tobacco Use Types Packs/Day Years [...] Exposure Response Date Recorded In the last month, have you been in contact with someone who was confirmed or suspected to have Coronavirus / COVID-19? No / Unsure 08/11/2021 7:38 AM CDT documented as of this encounter Miscellaneous Notes * Telephone Encounter - Katie Cee RN - 08/08/2021 1:39 PM CDT I had the Covid Booster on 08/04/[address], if you would like toadd this to my chart. Thank you. Alonzo Clark documented in this encounter Plan of Treatment Not on file documented as of this encounter Visit Diagnoses Not on filedocumented in this encounter Care Teams Marketing Content Coordinator Relationship Specialty Start Date End Date Andrew Pan MD [facility] [address] [place] [address] PCP - General Emergency Medicine 05/29/19 Barbara Khan PA [facility] [address] [place], [place] 376315 Assigned Heart and Vascular Provider 08/06/21 09/09/21 Americo Shepherd MD [address] [place], [place] 880195 Assigned Heart and Vascular Provider 09/10/21 09/30/21 Iram Mckay EP [facility] [address] [place] [address] Cardiac Rehabilitation Therapist 09/13/21 09/13/22 Barbara Khan PA [facility] [address] [place], [place] 722805 Assigned Heart and Vascular Provider 10/01/21 03/29/23 Americo Shepherd MD [address] [place] [address] [phone] MD Cardiovascular Disease 07/13/21 Kaushik Diamond MD [address] [place] 504305 Assigned Heart and Vascular Provider 08/10/23 09/06/23 Kaushik Diamond MD [address] [place] 5[address]35 Assigned Heart and Vascular Provider 03/30/23 07/26/23 Americo Shepherd MD [address] [place] [address] [phone] Assigned Heart and Vascular Provider 07/27/23 08/09/23 Americo Shepherd MD [address] [place], [place] 093245 Assigned Heart and Vascular Provider 09/07/23 documented as of this encounter
--- OUTSIDE RECORDS SUMMARY | 2023-12-18 18:29 | XMS_ITS | Encounter Summary ---
Author Name Unknown Organization [place] Address [address] [place] [address] Care Team Providers Care Warp Tier Name Role Phone Andrew Pan MD Primary Care Provider Barbara Khan Unavailable Americo Shepherd MD Unavailable [phone] Reason for Visit * Reason Onset Date Comments Refill Request 01/21/2023 hydrochlorothiaz [email or web address] Encounter Details Date Type Department Care Team (Late st Contact Info) Description 01/21/2023 Refill [facility] Heart [facility] [address] [place] [address] [address] [place] [address] Barbara Khan PA [facility] [address] [place] [address] Refill Request (hydrochlorothiazide) Social History Tobacco Use Types Packs/Day Years [...] Telephone Encounter - Elba Lindsey, RN - 01/21/2023 10:44 AM CDT [facility] Cardiology Refill Guideline reviewed. Medication meets criteria for refill. documented in this encounter Plan of Treatment Not on file documented as of this encounter Visit Diagnoses Diagnosis Benign essential hypertension Essential hypertension, benign documented in this encounter Care Teams Warp Tier Relationship Specialty Start Date End Date Andrew Pan MD [facility] [address] [place] [address] PCP - General Emergency Medicine 05/29/19 Barbara Khan PA [facility] [address] [place] [address] [phone] Assigned Heart and Vascular Provider 10/01/21 03/29/23 Americo Shepherd MD [address] [place] [address] [phone] Cardiovascular Disease 07/13/21 documented as of this encounter
--- OUTSIDE RECORDS SUMMARY | 2023-12-18 18:29 | XMS_ITS | Encounter Summary ---
Author Name Unknown Organization [place] Address [address] [place] [address] Care Team Providers Care Movie Shot Camera Operator Name Role Phone Win Vo MD Primary Care Provider + [phone] Win Vo MD Unavailable [phone] Win Vo MD Unavailable [phone] Andrew Pan MD Primary Care Provider [...] Unavailable [phone] Americo Shepherd MD Unavailable [phone] Americo Shepherd MD Unavailable [phone] Reason for Visit * Reason Onset Date Comments Anxiety 11/02/2015 Medication Request 11/02/2015 Encounter Details Date Type Department Care Team (Late st Contact Info) Description 11/02/2015 [facility] Medical Advice [facility] [address] [place] [address] [place] [phone] Win Vo MD [address] [place], [place] 4965[address] Anxiety; Medication Request Social History Tobacco Use Types Packs/Day Years [...] encounter Miscellaneous Notes * Telephone Encounter - Luna Mak RN - 11/03/2015 9:27 AM CST Please review [employer] message from patient and advise. CIPAL ENGINEER documented in this encounter Plan of Treatment Not on file documented as of this encounter Visit Diagnoses Diagnosis Anxiety- Primary Anxiety state, unspecified documented in this encounter Care Teams Movie Shot Camera Operator Relationship Specialty Start Date End Date Win Vo MD PCP - General 08/06/09 05/28/19 Win Vo MD [address] [place] [address] PCP - Assigned PCP 05/20/16 01/13/19 Andrew Pan MD [facility] [address] [place] [address] PCP - General Emergency Medicine 05/29/19 Win Vo MD [address] [facility] [address] [place] [address] Assigned PCP 05/20/16 06/27/19 Kaushik Diamond MD [address] [place], [place] 748425 Assigned Heart and Vascular Provider 09/02/20 01/24/21 Kaushik Diamond MD [address] [place] [address] Assigned Heart and Vascular Provider 03/19/21 06/17/21 Nida Henderson PA-C [address] [facility] [place], [place] 8633[address] Assigned Heart and Vascular Provider 07/09/21 07/15/21 Barbara Khan PA [facility] [address] [place], [place] 424575 Assigned Heart and Vascular Provider 06/18/21 07/08/21 Americo Shepherd MD [address] [place], [place] 078195 Assigned Heart and Vascular Provider 07/16/21 08/05/21 Barbara Khan PA [facility] [address] [place], [place] 863325 Assigned Heart and Vascular Provider 08/06/21 09/09/21 Americo Shepherd MD [address] [place] [address] [phone] Assigned Heart and Vascular Provider 09/10/21 09/30/21 Irma Mckay EP [facility] [address] [place] [place] 365085 Cardiac Rehabilitation Therapist 09/13/21 09/13/22 Barbara Khan PA [facility] [address] [place], [place] 655775 Assigned Heart and Vascular Provider 10/01/21 03/29/23 Americo Shepherd MD [address] [place] [address] [phone] MD Cardiovascular Disease 07/13/21 Kaushik Diamond MD [address] [place], [place] 024885 Assigned Heart and Vascular Provider 08/10/23 09/06/23 Kaushik Diamond MD [address] [place], [place] 121205 Assigned Heart and Vascular Provider 03/30/23 07/26/23 Americo Shepherd MD [address] [place] [address] 427505 Assigned Heart and Vascular Provider 07/27/23 08/09/23 Americo Shepherd MD [address] [place] [address] 719105 Assigned Heart and Vascular Provider 09/07/23 documented as of this encounter
--- OUTSIDE RECORDS SUMMARY | 2023-12-18 18:29 | XMS_ITS | Encounter Summary ---
Author Name Unknown Organization [place] Address [address] [place] [address] Care Team Providers Care Machine Molder Squeeze Name Role Phone Andrew Pan MD Primary Care Provider Irma Mckay Unavailable [phone] Barbara Kahn Unavailable Americo Shepherd MD Unavailable Kaushik Diamond MD Unavailable Kaushik Diamond MD Unavailable [phone] Americo Shepherd MD Unavailable [phone] Americo Shepherd MD Unavailable [phone] Encounter Details Date Type Department Care Team (Late st Contact Info) Description 10/30/2021 [facility] [address] [place] [address] [address] [place] [address] Barbara Khan PA [facility] [address] [place] [address] [phone] Social History Tobacco Use Types Packs/Day Years [...] have Coronavirus / COVID-19? No / Unsure 10/30/2021 12:23 PM DESK MAKER documented as of this encounter Plan of Treatment Not on file documented as of this encounter Visit Diagnoses Not on filedocumented in this encounter Care Teams Machine Molder Squeeze Relationship Specialty Start Date End Date Andrew Pan MD [facility] [address] [place] [address] PCP - General Emergency Medicine 05/29/19 Irma Mckay EP [facility] [address] [place] 324725 Cardiac Rehabilitation Therapist 09/13/21 09/13/22 Barbara Khan PA [facility] [address] [place], [place] 451405 Assigned Heart and Vascular Provider 10/01/21 03/29/23 Americo Shepherd MD 6 [place], [place] 159875 Cardiovascular Disease 07/13/21 Kaushik Diamond MD [address] [place] 250315 Assigned Heart and Vascular Provider 08/10/23 09/06/23 Kaushik Diamond MD [address] [place] [address] Assigned Heart and Vascular Provider 03/30/23 07/26/23 Americo Shepherd MD [address] [place] [address] Assigned Heart and Vascular Provider 07/27/23 08/09/23 Americo Shepherd MD [address] [place] [address] Assigned Heart and Vascular Provider 09/07/23 documented as of this encounter
--- OUTSIDE RECORDS SUMMARY | 2023-12-18 18:29 | XMS_ITS | Encounter Summary ---
Author Name Unknown Organization [place] Address [address] [place] [address] Care Team Providers Care Department Assistant Name Role Phone Win Vo MD Primary Care Provider + [phone] Win Vo MD Unavailable [phone] Win Vo MD Unavailable [phone] Andrew Pan MD Primary Care Provider [...] Unavailable [phone] Americo Shepherd MD Unavailable [phone] Americo Sehpherd MD Unavailable [phone] Encounter Details Date Type Department Care Team (Late st Contact Info) Description 08/19/2018 [facility] Medical Advice [facility] [address] [place] [phone] Win Vo MD [address] [place], [place] 9[address] Social History Tobacco Use Types Packs/Day Years [...] on filedocumented in this encounter Care Teams Department Assistant Relationship Specialty Start Date End Date Win Vo MD PCP - General 08/06/09 05/28/19 Win Vo MD [address] [place] [address] PCP - Assigned PCP 05/20/16 01/13/19 Andrew Pan MD [facility] [address] [place] [address] PCP - General Emergency Medicine 05/29/19 Win Vo MD [address] [place] [address] Assigned PCP 05/20/16 06/27/19 Kaushik Diamond MD [address] [place], [place] 325275 Assigned Heart and Vascular Provider 09/02/20 01/24/21 Kaushik Diamond MD [address] [place], [place] 770715 Assigned Heart and Vascular Provider 03/19/21 06/17/21 Nida Henderson PA-C [address] [place] [address] Assigned Heart and Vascular Provider 07/09/21 07/15/21 Barbara Khan PA [facility] [address] [place] [address] 555595 Assigned Heart and Vascular Provider 06/18/21 07/08/21 Americo Shepherd MD [address] [place] [address] Assigned Heart and Vascular Provider 07/16/21 08/05/21 Barbara Khan PA [facility] [address] [place] [address] 728525 Assigned Heart and Vascular Provider 08/06/21 09/09/21 Americo Shepherd MD [address] [place] [address] Assigned Heart and Vascular Provider 09/10/21 09/30/21 Irma Mckay EP [facility] [address] [place] [address] Cardiac Rehabilitation Therapist 09/13/21 09/13/22 Barbara Khan PA [facility] [address] [place] [address] Assigned Heart and Vascular Provider 10/01/21 03/29/23 Americo Shepherd MD [address] [place] [address] Cardiovascular Disease 07/13/21 Kaushik Diamond MD [address] [place] [address] Assigned Heart and Vascular Provider 08/10/23 09/06/23 Kaushik Diamond MD [address] [place] [address] Assigned Heart and Vascular Provider 03/30/23 07/26/23 Americo Shepherd MD [address] [place] [address] Assigned Heart and Vascular Provider 07/27/23 08/09/23 Americo Shepherd MD [address] [place] [address] Assigned Heart and Vascular Provider 09/07/23 documented as of this encounter
--- OUTSIDE RECORDS SUMMARY | 2023-12-18 18:29 | XMS_ITS | Encounter Summary ---
Author Name Unknown Organization [place] Address [address] [place] [address] Care Team Providers Care Director Industrial Name Role Phone Andrew Pan MD Primary Care Provider Kaushik Diamond MD Unavailable [phone] Nida Henderson PA-C Unavailable [phone] Barbaar Khan Unavailable Americo Shepherd MD Unavailable [phone] Barbara Khan Unavailable Americo Shepherd MD Unavailable [phone] Irma Mckay Unavailable [phone] Barbara Khan Unavailable Americo Shepherd MD Unavailable [phone] Kaushik Diamond MD Unavailable [phone] Kaushik Diamond MD Unavailable [phone] Americo Shepherd MD Unavailable [phone] Americo Shepherd MD Unavailable [phone] Encounter Details Date Type Department Care Team (Late st Contact Info) Description 06/15/2021 [facility] [address] [place] [phone] Kaushik Diamond MD [address] [facility] [address] [place], [place] [address] Social History Tobacco Use Types Packs/Day Years Used Date Smoking Tobacco: Former Cigarettes 1 40 Smokeless Tobacco: Never Comments:quit 07/12/12 Alcohol Use Standard Drinks/Week Comments Yes 0 (1 standard drink = 0.6 oz pur e alcohol) mixed drinks only.-1-2/week PHQ-2 Answer Date Recorded PHQ-2 Score 0 11/26/2018 Sex and Gender Information Value Date Recorded Sex Assigned at Not on file Gender Identity Not on file Sexual Orientation Not on file COVID-19 Exposure Response Date Recorded In the last month, have you been in contact with someone who was confirmed or suspected to have Coronavirus / COVID-19? No / Unsure 06/12/2021 10:52 AM CDT documented as of this encounter Plan of Treatment Not on file documented as of this encounter Visit Diagnoses Not on filedocumented in this encounter Care Teams Director Industrial Relationship Specialty Start Date End Date Andrew Pan MD [facility] [address] [place] [address] PCP - General Emergency Medicine 05/29/19 Kaushik Diamond MD [address] [facility] [address] [place], [place] 305215 Assigned Heart and Vascular Provider 03/19/21 06/17/21 Nida Henderson PA-C [address] [place], [place] 515385 Assigned Heart and Vascular Provider 07/09/21 07/15/21 Barbara Khan PA [facility] [address] [place] [address] 415025 Assigned Heart and Vascular Provider 06/18/21 07/08/21 Americo Shepherd MD [address] [place] [address] 382875 Assigned Heart and Vascular Provider 07/16/21 08/05/21 Barbara Khan PA [facility] [address] [place] [address] 386925 Assigned Heart and Vascular Provider 08/06/21 09/09/21 Americo Shepherd MD [address] [place] [address] 168975 Assigned Heart and Vascular Provider 09/10/21 09/30/21 Irma Mckay EP [facility] [address] [place] [address] Cardiac Rehabilitation Therapist 09/13/21 09/13/22 Barbara Khan PA [facility] [address] [place] [address] Assigned Heart and Vascular Provider 10/01/21 03/29/23 Americo Shepherd MD [address] [place] [address] Cardiovascular Disease 07/13/21 Kaushik Diamond MD [address] [place] [address] Assigned Heart and Vascular Provider 08/10/23 09/06/23 Kaushik Diamond MD [address] [place], [place] 252255 Assigned Heart and Vascular Provider 03/30/23 07/26/23 Americo Shepherd MD [address] [place], [place] 948845 Assigned Heart and Vascular Provider 07/27/23 08/09/23 Americo Shepherd MD [address] [place], [place] 647695 Assigned Heart and Vascular Provider 09/07/23 documented as of this encounter
--- OUTSIDE RECORDS SUMMARY | 2023-12-18 18:29 | XMS_ITS | Encounter Summary ---
Author Name Unknown Organization [place] Address [address] [place] [address] Care Team Providers Care Special Projects Manager Name Role Phone Win Vo MD Primary Care Provider + [phone] Win Vo MD Unavailable [phone] Win Vo MD Unavailable [phone] Andrew Pan MD Primary Care Provider Kaushik Diamond MD Unavailable [phone] Kaushik Diamnod MD Unavailable [phone] Nida Henderson PA-C [...] Unavailable [phone] Americo Shepherd MD Unavailable [phone] Encounter Details Date Type Department Care Team (Late st Contact Info) Description 09/05/2017 MyC Medical Advice [facility] [address] [place] [address] Elodia Macedo RN Social History Tobacco Use Types Packs/Day Years [...] on filedocumented in this encounter Care Teams Special Projects Manager Relationship Specialty Start Date End Date Win Vo MD PCP - General 08/06/09 05/28/19 Win Vo MD [address] [place] [address] PCP - Assigned PCP 05/20/16 01/13/19 Andrew Pan MD [facility] [address] [place] [address] PCP - General Emergency Medicine 05/29/19 Win Vo MD [address] [place] [address] Assigned PCP 05/20/16 06/27/19 Kaushik Diamond MD [address] [place] [address] [place] [address] Assigned Heart and Vascular Provider 09/02/20 01/24/21 Kaushik Diamond MD [address] [facility] [address] [place] [address] Assigned Heart and Vascular Provider 03/19/21 06/17/21 Nida Henderson PA-C [address] [place], [place] 503685 Assigned Heart and Vascular Provider 07/09/21 07/15/21 Barbara Khan PA [facility] [address] [place] [address] 944325 Assigned Heart and Vascular Provider 06/18/21 07/08/21 Americo Shepherd MD [address] [place] [address] 013375 Assigned Heart and Vascular Provider 07/16/21 08/05/21 Barbara Khan PA [facility] [address] [place] [address] 050215 Assigned Heart and Vascular Provider 08/06/21 09/09/21 Americo Shepherd MD [address] [place] [address] Assigned Heart and Vascular Provider 09/10/21 09/30/21 Irma Mckay EP [facility] [address] [place] 184505 Cardiac Rehabilitation Therapist 09/13/21 09/13/22 Barbara Khan PA [facility] [address] [place], [place] 358025 Assigned Heart and Vascular Provider 10/01/21 03/29/23 Americo Shepherd MD 6 [place], [place] 969265 MD Cardiovascular Disease 07/13/21 Kaushik Diamond MD [address] [place] 02[address]95 Assigned Heart and Vascular Provider 08/10/23 09/06/23 Kaushik Diamond MD [address] [place] 7[address]75 Assigned Heart and Vascular Provider 03/30/23 07/26/23 Americo Shepherd MD [address] [place] [address] 015635 Assigned Heart and Vascular Provider 07/27/23 08/09/23 Americo Shepherd MD [address] [place] [address] 898335 Assigned Heart and Vascular Provider 09/07/23 documented as of this encounter
--- OUTSIDE RECORDS SUMMARY | 2023-12-18 18:29 | XMS_ITS | Encounter Summary ---
Author Name Unknown Organization [facility] Address [address] [place] [address] Care Team Providers Care Delivery Assistant Name Role Phone Win Vo MD Primary Care Provider + [phone] Win Vo MD Unavailable [phone] Win Vo MD Unavailable [phone] Andrew Pan MD Primary Care Provider [...] Americo Shepherd MD Unavailable [phone] Americo Shepherd MD Unavailable Encounter Details Date Type Department Care Team (Late st Contact Info) Description 05/11/2016 MyC Medical Advice [facility] [address] [place] [phone] Win Vo MD [address] [place], [place] 3[address]17 Social History Tobacco Use Types Packs/Day Years [...] on filedocumented in this encounter Care Teams Delivery Assistant Relationship Specialty Start Date End Date Win Vo MD PCP - General 08/06/09 05/28/19 Win Vo MD [address] [place] [address] PCP - Assigned PCP 05/20/16 01/13/19 Andrew Pan MD [facility] [address] [place] [address] PCP - General Emergency Medicine 05/29/19 Win Vo MD [address] 160 [place] [address] Assigned PCP 05/20/16 06/27/19 Kaushik Diamond MD [address] [place], [place] 6025[address] Assigned Heart and Vascular Provider 09/02/20 01/24/21 Kaushik Diamond MD [address] [place], [place] 332[address] Assigned Heart and Vascular Provider 03/19/21 06/17/21 Nida Henderson PA-C [address] [place] [address] Assigned Heart and Vascular Provider 07/09/21 07/15/21 Barbara Khan PA [facility] [address] [place] [address] 714445 Assigned Heart and Vascular Provider 06/18/21 07/08/21 Americo Shepherd MD [address] [place] [address] Assigned Heart and Vascular Provider 07/16/21 08/05/21 Barbara Khan PA [facility] [address] [place] [address] 115165 Assigned Heart and Vascular Provider 08/06/21 09/09/21 Americo Shepherd MD [address] [place] [address] Assigned Heart and Vascular Provider 09/10/21 09/30/21 Irma Mckay EP [facility] [address] [place] [address] Cardiac Rehabilitation Therapist 09/13/21 09/13/22 Barbara Khan PA [facility] [address] [place] [address] Assigned Heart and Vascular Provider 10/01/21 03/29/23 Americo Shepherd MD [address] [place] [address] Cardiovascular Disease 07/13/21 Kaushik Diamond MD [address] [place] [address] Assigned Heart and Vascular Provider 08/10/23 09/06/23 Kaushik Diamond MD [address] [place] [address] Assigned Heart and Vascular Provider 03/30/23 07/26/23 Americo Shepherd MD [address] [place] [address] Assigned Heart and Vascular Provider 07/27/23 08/09/23 Americo Shepherd MD [address] [place] [address] Assigned Heart and Vascular Provider 09/07/23 documented as of this encounter
--- OUTSIDE RECORDS SUMMARY | 2023-12-18 18:29 | XMS_ITS | Encounter Summary ---
Author Name Unknown Organization [facility] Address [address] [place] [address] Care Team Providers Care Technology Sales Consultant Name Role Phone Win Vo MD Primary Care Provider + [phone] Win Vo MD Unavailable [phone] Win Vo MD Unavailable [phone] Andrew Pan MD Primary Care Provider [...] Unavailable [phone] Americo Shepherd MD Unavailable + [phone] Americo Shepherd MD Unavailable + [phone] Reason for Referral * Patient Education - Closed Specialty Diagnoses / Procedures Referred By Sumit mendoza Referred To Contact Diagnoses Type 2 diabetes mellitus with other circulatory complication, 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 Medicare covers: 10 hours of initial DSMT in 12 month period from the time of first visit, plus 2 hours of follow-up DSMT annually, and additional hours as requested for insulin training. Diabetes Type: Type 2 - Diet Control Diabetes Co-Morbidities: atherosclerotic cardiovascular disease A1C Goal: <7.0 A1C is: Lab Results Component Value Date A1C 5.7 04/16/2017 If an urgent visit is needed or A1C is above 12, Care Team to call the Diabetes Education Team at or send an In Basket message to the Diabetes Education Pool (P DIAB ED-PATIENT CARE). Diabetes Education Topics: Comprehensive Knowledge Assessment and Instruction Special Educational Needs Requiring Individual DSMT: None MEDICAL NUTRITION THERAPY (MNT) for Diabetes Medical Nutrition Therapy with a Registered Dietitian can be provided in coordination with Diabetes Self-Management Training to assist in achieving optimal diabetes management. MNT Type and Hours: New diagnosis: Initial MNT - 3 hours Medicare will cover: 3 hours initial MNT in 12 month period after first visit, plus 2 hours of follow-up MNT annually Please be aware that coverage of these services is subject to the terms and limitations of your health insurance plan. Call member services at your health plan to determine Diabetes Self-Management Training benefits and ask which blood glucose monitor brands are covered by your plan. Please bring the following with you to your appointment: (1) List of current medications (2) List of Blood Glucose Monitor brands that are covered by your insurance plan (3) Blood Glucose Monitor and log book (4) Food records for the 3 days prior to your visit The Mine Engineering Superintendent may make diabetes medication adjustments per the CDE Protocol and Collaborative Practice Agreement. Reason for Visit * Reason Onset Date Comments MyChart Communication 05/03/201704/16 resu lts Encounter Details Date Type Department Care Team (Late st Contact Info) Description 05/03/2017 [facility] [address] [place] [phone] Win Vo MD [address] [facility] 160 [place], [place] [phone] MyChart Communication (04/16 results) Social History Tobacco Use Types Packs/Day Years [...] encounter Miscellaneous Notes * Telephone Encounter - Rama Hilario - 05/03/2017 10:22 AM CDT See [employer] message below. 04/16 results back. 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)- Primary documented in this encounter Care Teams Technology Sales Consultant Relationship Specialty Start Date End Date Win Vo MD PCP - General 08/06/09 05/28/19 Win Vo MD [address] [place] [address] PCP - Assigned PCP 05/20/16 01/13/19 Andrew Pan MD [facility] [address] [place] [address] PCP - General Emergency Medicine 05/29/19 Win Vo MD [address] [facility] 160 [place] [address] Assigned PCP 05/20/16 06/27/19 Kaushik Diamond MD [address] [facility] [address] [place], [place] [address]255 Assigned Heart and Vascular Provider 09/02/20 01/24/21 Kaushik Diamond MD [address] [facility] [address] [place], [place] [address]85 Assigned Heart and Vascular Provider 03/19/21 06/17/21 Nida Henderson PA-C [address] [place], [place] 765565 Assigned Heart and Vascular Provider 07/09/21 07/15/21 Barbara Khan PA [facility] [address] [place] [address]405 Assigned Heart and Vascular Provider 06/18/21 07/08/21 Americo Shepherd MD [address] [place] [address] 614055 Assigned Heart and Vascular Provider 07/16/21 08/05/21 Barbara Khan PA [facility] [address] [place], [place] 694015 Assigned Heart and Vascular Provider 08/06/21 09/09/21 Americo Shepherd MD [address] [place] [address] 728645 Assigned Heart and Vascular Provider 09/10/21 09/30/21 Irma Mckay EP [facility] [address] [place] [address]39[address] Cardiac Rehabilitation Therapist 09/13/21 09/13/22 Barbara Khan PA [facility] [address] [place] [address] 789085 Assigned Heart and Vascular Provider 10/01/21 03/29/23 Americo Shepherd MD [address] [place] [address] 832125 Cardiovascular Disease 07/13/21 Kaushik Diamond MD [address] [place] 9[address]75 Assigned Heart and Vascular Provider 08/10/23 09/06/23 Kaushik Diamond MD [address] [place] [address]2505 Assigned Heart and Vascular Provider 03/30/23 07/26/23 Americo Shepherd MD [address] [place], [place] 337245 Assigned Heart and Vascular Provider 07/27/23 08/09/23 Americo Shepherd MD [address] [place], [place] 488615 Assigned Heart and Vascular Provider 09/07/23 documented as of this encounter
--- OUTSIDE RECORDS SUMMARY | 2023-12-18 18:29 | XMS_ITS | Encounter Summary ---
Author Name Unknown Organization [facility] Address [address] [place] [address] Care Team Providers Care Career Placement Specialist Name Role Phone Andrew Pan MD Primary Care Provider Barbara Khan Unavailable Americo Shepherd MD Unavailable Irma Mckay Unavailable Barbara Khan Unavailable Americo Shepherd MD Unavailable Kaushik Diamond MD Unavailable [phone] Kaushik Diamond MD Unavailable [phone] Americo Shepherd MD Unavailable Americo Shepherd MD Unavailable Encounter Details Date Type Department Care Team (Late st Contact Info) Description 09/01/2021 [facility] [address] [phone] Joyce Castillo Social History Tobacco Use Types Packs/Day Years [...] have Coronavirus / COVID-19? No / Unsure 08/21/2021 1:19 PM CDT documented as of this encounter Plan of Treatment Not on file documented as of this encounter Visit Diagnoses Not on filedocumented in this encounter Care Teams Career Placement Specialist Relationship Specialty Start Date End Date Andrew Pan MD [facility] [address] [place] [address] PCP - General Emergency Medicine 05/29/19 Barbara Khan PA [facility] [address] [place] [address] 257915 Assigned Heart and Vascular Provider 08/06/21 09/09/21 Americo Shepherd MD [address] [place] [address] 231045 Assigned Heart and Vascular Provider 09/10/21 09/30/21 Irma Mckay EP [address] [address] Cardiac Rehabilitation Therapist 09/13/21 09/13/22 Barbara Khan PA [facility] [address] [place] [address] 547365 Assigned Heart and Vascular Provider 10/01/21 03/29/23 Americo Shepherd MD [address] [place] [address] Cardiovascular Disease 07/13/21 Kaushik Diamond MD [address] [place] [address] Assigned Heart and Vascular Provider 08/10/23 09/06/23 Kaushik Diamond MD [address] [place], [place] 304005 Assigned Heart and Vascular Provider 03/30/23 07/26/23 Americo Shepherd MD [address] [place], [place] 141465 Assigned Heart and Vascular Provider 07/27/23 08/09/23 Americo Shepherd MD 6 [place] [address] Assigned Heart and Vascular Provider 09/07/23 documented as of this encounter
--- OUTSIDE RECORDS SUMMARY | 2023-12-18 18:29 | XMS_ITS | Encounter Summary ---
Author Name Unknown Organization [facility] Address [address] [place] [address] Care Team Providers Care Wind Plant Manager Name Role Phone Win Vo MD Primary Care Provider + [phone] Win Vo MD Unavailable [phone] Win Vo MD Unavailable [phone] Andrew Pan MD Primary Care Provider Kaushik Diamond MD Unavailable [phone] Kaushik Diamond MD Unavailable [phone] Nida Henderson PA-C Unavailable +[phone] Babrara Khan Unavailable Americo Shepherd MD Unavailable [phone] Barbara Khan Unavailable Americo Shepherd MD Unavailable [phone] Irma Mckay Unavailable [phone] Barbara Khan Unavailable Americo Shepherd MD Unavailable [phone] Kaushik Diamond MD Unavailable [phone] Kaushik Diamond MD Unavailable [phone] Americo Shepherd MD Unavailable [phone] Americo Shepherd MD Unavailable [phone] Reason for Visit * Reason Onset Date Comments Diabetes 05/07/2017 Scheduling Outre ach Encounter Details Date Type Department Care Team (Late st Contact Info) Description 05/07/2017 Telephone [facility] [address] [place] [address] Win Vo MD [address] 160 [place] [address] Diabetes (Scheduling Outreach) Social History Tobacco Use Types Packs/Day Years [...] encounter Miscellaneous Notes * Telephone Encounter - Benjamin Garner - 05/16/2017 12:58 PM CDT Diabetes Education Scheduling Outreach #2: Call to patient to schedule. Left message with phone number to call to schedule. Letter sent to patient requesting to call to schedule. Benjamin Vora Diabetes and Nutrition Scheduling * Telephone Encounter - Opal Babb CMA - 05/07/2017 1:07 PM CDT Diabetes Education Scheduling Outreach #1: Call to patient to schedule. Left message with phone number to call to schedule. Plan for 2nd outreach attempt within 1 week. Opal Vora Diabetes and Nutrition Scheduling documented in this encounter Plan of Treatment Not on file documented as of this encounter Visit Diagnoses Not on filedocumented in this encounter Care Teams Wind Plant Manager Relationship Specialty Start Date End Date Win Vo MD PCP - General 08/06/09 05/28/19 Win Vo MD [address] [place] [address] PCP - Assigned PCP 05/20/16 01/13/19 Andrew Pan MD [facility] [address] [place] [address] PCP - General Emergency Medicine 05/29/19 Win Vo MD [address] [place] [address] Assigned PCP 05/20/16 06/27/19 Kaushik Diamond MD [address] [place], [place] 479575 Assigned Heart and Vascular Provider 09/02/20 01/24/21 Kaushik Diamond MD [address] [place], [place] 983415 Assigned Heart and Vascular Provider 03/19/21 06/17/21 Nida Henderson PA-C [address] [facility] [address] [place], [place] 2976[address] Assigned Heart and Vascular Provider 07/09/21 07/15/21 Barbara Khan PA [facility] [address] [place] [address] 927645 Assigned Heart and Vascular Provider 06/18/21 07/08/21 Americo Shepherd MD [address] [place] [address] 306705 Assigned Heart and Vascular Provider 07/16/21 08/05/21 Barbara Khan PA [facility] [address] [place] [address] 361945 Assigned Heart and Vascular Provider 08/06/21 09/09/21 Americo Shepherd MD [address] [place] [address] 330605 Assigned Heart and Vascular Provider 09/10/21 09/30/21 Irma Mckay EP [facility] [address] [place] 615445 Cardiac Rehabilitation Therapist 09/13/21 09/13/22 Barbara Khan PA [facility] [address] [place] [address] 020075 Assigned Heart and Vascular Provider 10/01/21 03/29/23 Americo Shepherd MD [address] [place] [address] 905915 Cardiovascular Disease 07/13/21 Kaushik Diamond MD [address] [place] 824025 Assigned Heart and Vascular Provider 08/10/23 09/06/23 Kaushik Diamond MD [address] [place] [address] Assigned Heart and Vascular Provider 03/30/23 07/26/23 Americo Shepherd MD 6 [place], [place] 814605 Assigned Heart and Vascular Provider 07/27/23 08/09/23 Americo Shepherd MD 6 [place] [address] Assigned Heart and Vascular Provider 09/07/23 documented as of this encounter
--- OUTSIDE RECORDS SUMMARY | 2023-12-18 18:29 | XMS_ITS | Encounter Summary ---
Author Name Unknown Organization [facility] Address [address] [place] [address] Care Team Providers Care Meat Cutting Teacher Name Role Phone Win Vo MD Primary Care Provider + [phone] Win Vo MD Unavailable [phone] Win Vo MD Unavailable [phone] Andrew Pan MD Primary Care Provider [...] Unavailable [phone] Americo Shepherd MD Unavailable [phone] Americo Shepherd MD Unavailable + [phone] Reason for Referral * Consultation - Closed Specialty Diagnoses / Procedures Referred By Sumit mendoza Referred To Contact Diagnoses Low TSH level Win Vo MD [address] [facility] 160 [place] [address] [address] Referral ID Status Reason Start Date Expiration Date Visits Re quested Visits Authorized [id number] Closed 05/11/2016 05/11/2017 1 1 Comments Your provider has referred you to: FM[facility]: [facility] [email or web address] Please be aware that coverage of these services is subject to the terms and limitations of your health insurance plan. Call member services at your health plan with any benefit or coverage questions. Please bring the following to your appointment: >> Any x-rays, CTs or MRIs which have been performed. Contact the facility where they were done to arrange for fruit picker prior to your scheduled appointment. Any new CT, MRI or other procedures ordered by your specialist must be performed at a [facility] facility or coordinated by your clinic's referral office. >> List of current medications >> This referral request >> Any documents/labs given to you for this referral Reason for Visit * Reason Onset Date Comments MyChart Communication 05/09/2016 hypothyroi dism and anxiety Encounter Details Date Type Department Care Team (Late st Contact Info) Description 05/09/2016 MyC Medical Advice [address] [place] [phone] Win Vo MD [address] [facility] 160 [place] [address] MyChart Communication (hypothyroidism and ... Social History Tobacco Use Types Packs/Day Years [...] as of this encounter Plan of Treatment Scheduled Referrals Name Type Priority Associated Diagnoses Orde r Schedule ENDOCRINOLOGY ADULT REFERRAL Referral Routine Low TSH level Ordered: 05/11/2016 documented as of this encounter Visit Diagnoses Diagnosis Low TSH level- Primary Nonspecific abnormal results of thyroid function study documented in this encounter Care Teams Meat Cutting Teacher Relationship Specialty Start Date End Date Win Vo MD PCP - General 08/06/09 05/28/19 Win Vo MD [address] [address] PCP - Assigned PCP 05/20/16 01/13/19 Andrew Pan MD [address] [address] PCP - General Emergency Medicine 05/29/19 Win Vo MD [address] [address] Assigned PCP 05/20/16 06/27/19 Kaushik Diamond MD [address] [place] [address]505 Assigned Heart and Vascular Provider 09/02/20 01/24/21 Kaushik Diamond MD [address] [place] [address] Assigned Heart and Vascular Provider 03/19/21 06/17/21 Nida Henderson PA-C [address] [place] [address] Assigned Heart and Vascular Provider 07/09/21 07/15/21 Barbara Khan PA [facility] [address] [place] [address] Assigned Heart and Vascular Provider 06/18/21 07/08/21 Americo Shepherd MD [address] [place] [address] 624805 Assigned Heart and Vascular Provider 07/16/21 08/05/21 Barbara Khan PA [facility] [address] [place] [address] Assigned Heart and Vascular Provider 08/06/21 09/09/21 Americo Shepherd MD [address] [place] [address] Assigned Heart and Vascular Provider 09/10/21 09/30/21 Irma Mckay EP [facility] [address] [place], [place] 960285 Cardiac Rehabilitation Therapist 09/13/21 09/13/22 Barbara Khan PA [facility] [address] [place] [address] 055095 Assigned Heart and Vascular Provider 10/01/21 03/29/23 Americo Shepherd MD [address], [place] 143425 Cardiovascular Disease 07/13/21 Kaushik Diamond MD [address] [place], [place] 228385 Assigned Heart and Vascular Provider 08/10/23 09/06/23 Kaushik Diamond MD [address] [place], [place] 329775 Assigned Heart and Vascular Provider 03/30/23 07/26/23 Americo Shepherd MD [address], [place] 505195 Assigned Heart and Vascular Provider 07/27/23 08/09/23 Americo Shepherd MD [address], [place] 667275 Assigned Heart and Vascular Provider 09/07/23 documented as of this encounter
--- OUTSIDE RECORDS SUMMARY | 2023-12-18 18:29 | XMS_ITS | Encounter Summary ---
Author Name Unknown Organization [facility] Address [address] [place] [address] Care Team Providers Care Jacquard Loom Weaver Name Role Phone Andrew Pan MD Primary Care Provider Nida Henderson PA-C Unavailable +[phone] Barbara Khan Unavailable Americo Shepherd MD Unavailable [phone] Barbara Khan Unavailable Americo Shepherd MD Unavailable [phone] Irma Mckay Unavailable [phone] Barbara Khan Unavailable Americo Shepherd MD Unavailable [phone] Kaushik Diamond MD Unavailable [phone] Kaushik Diamond MD Unavailable [phone] Americo Shepherd MD Unavailable [phone] Americo Shepherd MD Unavailable [phone] Encounter Details Date Type Department Care Team (Late st Contact Info) Description 07/06/2021 [facility] [place] [facility] Heart [address] [place] [address] Barbara Khan PA [facility] [address] [place], [place] 7[address] Social History Tobacco Use Types Packs/Day Years [...] have Coronavirus / COVID-19? No / Unsure 07/07/2021 2:39 PM CDT documented as of this encounter Plan of Treatment Not on file documented as of this encounter Visit Diagnoses Not on filedocumented in this encounter Care Teams Jacquard Loom Weaver Relationship Specialty Start Date End Date Andrew Pan MD [facility] [address] [place] [address] PCP - General Emergency Medicine 05/29/19 Nida Henderson PA-C [address] [place], [place] 842965 Assigned Heart and Vascular Provider 07/09/21 07/15/21 Barbara Khan PA [facility] [address] [place], [place] 092385 Assigned Heart and Vascular Provider 06/18/21 07/08/21 Americo Shepherd MD [address] [place], [place] 833455 Assigned Heart and Vascular Provider 07/16/21 08/05/21 Barbara Khan PA [facility] [address] [place], [place] 234485 Assigned Heart and Vascular Provider 08/06/21 09/09/21 Americo Shepherd MD [address] [place] [address] 662185 Assigned Heart and Vascular Provider 09/10/21 09/30/21 Irma Mckay EP [facility] [address] [place] 548205 Cardiac Rehabilitation Therapist 09/13/21 09/13/22 Barbara Khan PA [facility] [address] [place], [place] [address] Assigned Heart and Vascular Provider 10/01/21 03/29/23 Americo Shepherd MD [address] [place] [address] 788495 MD Cardiovascular Disease 07/13/21 Kaushik Diamond MD [address] [place] 65[address]15 Assigned Heart and Vascular Provider 08/10/23 09/06/23 Kaushik Diamond MD [address] [place] 466725 Assigned Heart and Vascular Provider 03/30/23 07/26/23 Americo Shepherd MD [address] [place] [address] 913735 Assigned Heart and Vascular Provider 07/27/23 08/09/23 Americo Shepherd MD [address] [place] [address] Assigned Heart and Vascular Provider 09/07/23 documented as of this encounter
--- OUTSIDE RECORDS SUMMARY | 2023-12-18 18:29 | XMS_ITS | Encounter Summary ---
Author Name Unknown Organization [place] Address [address] [place] [address]266 Care Team Providers Care Pre Sales Systems Engineer Name Role Phone Andrew Pan MD Primary Care Provider Americo Shepherd MD Unavailable [phone] Barbara Khan Unavailable Americo Shepherd MD Unavailable [phone] Irma Mckay Unavailable [phone] Barbara Khan Unavailable Americo Shepherd MD Unavailable [phone] Kaushik Diamond MD Unavailable [phone] Kaushik Diamond MD Unavailable [phone] Americo Shepherd MD Unavailable [phone] Americo Shepherd MD Unavailable [phone] Encounter Details Date Type Department Care Team (Late st Contact Info) Description 07/17/2021 [facility] [address] [place] [address] Kaushik Diamond MD [address] [facility] [address] [place] [address] Social History Tobacco Use Types Packs/Day Years [...] have Coronavirus / COVID-19? No / Unsure 07/13/2021 10:22 AM CDT documented as of this encounter Miscellaneous Notes * Telephone Encounter - Ailyn Baeza RN - 07/21/2021 10:41 AM CDT Messaged pt letting him know Dr. Palomo agree's with peripheral angiogram. Told pt nurse or scheduling will reach out to arrange. Sent to Dr. Palomo's nurse for help with placing orders and arranging. Ailyn Baeza RN, BSN 07/21/21 at 10:42 AM * Telephone Encounter - Ailyn Baeza RN - 07/21/2021 10:38 AM CDT ----- Message ----- From: Fredrick Palomo MD Sent: 07/20/2021 ?? 4:18 PM CDT To: Nida Henderson PA-C, Nayeli Hu RN Subject: RE: ABIs ? Adelita Hsu go ahead and schedule peripheral angiogram. I can do his case August 11 if he can't wait peripheral day which is September 01. Thanks ----- Message ----- From: Nida Henderson PA-C Sent: 07/19/2021 ??12:39 PM CDT To: Fredrick Palomo MD Subject: FW: ABIs ? Hi Dr. Palomo, Can you take a peak at this patient please? Wondering how you would like to proceed re imaging and/or procedures. Nida Henderson PA-C 07/19/2021 12:43 PM ----- Message ----- From: Nida Henderson PA-C Sent: 07/07/2021 ?? 1:57 PM CDT To: Fredrick Palomo MD Subject: ABIs ? 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 I was going to get him on your peripheral angio day. But my questions are: 1. ??Do you want arterial duplex prior? Or no reason to get this? 2. ??Your next peripheral day is apparently in Aug. ??Chente was mentioning perhaps he could be added on to one of your regular IV days... Thanks, Nida Henderson PA-C 07/07/2021 1:59 PM documented in this encounter Plan of Treatment Not on file documented as of this encounter Visit Diagnoses Not on filedocumented in this encounter Care Teams Pre Sales Systems Engineer Relationship Specialty Start Date End Date Andrew Pan MD [facility] [address] [place] [address] PCP - General Emergency Medicine 05/29/19 Americo Shepherd MD [address] [place], [place] [id number] Assigned Heart and Vascular Provider 07/16/21 08/05/21 Barbara Khan PA [facility] [address] [place], [place] 961385 Assigned Heart and Vascular Provider 08/06/21 09/09/21 Americo Shepherd MD [address] [place] [address] 746505 Assigned Heart and Vascular Provider 09/10/21 09/30/21 Irma Mckay EP [facility] [address] [id number] Cardiac Rehabilitation Therapist 09/13/21 09/13/22 Barbara Khan PA [facility] [address] [place], [place] 5232[address] Assigned Heart and Vascular Provider 10/01/21 03/29/23 Americo Shepherd MD [address] [place] [address] [id number] MD Cardiovascular Disease 07/13/21 Kaushik Diamond MD [address] [place] [address] Assigned Heart and Vascular Provider 08/10/23 09/06/23 Kaushik Diamond MD [address] [place] 715625 Assigned Heart and Vascular Provider 03/30/23 07/26/23 Americo Shepherd MD [address] [place] [address] [id number] Assigned Heart and Vascular Provider 07/27/23 08/09/23 Americo Shepherd MD [address] [place], [place] 578315 Assigned Heart and Vascular Provider 09/07/23 documented as of this encounter
--- OUTSIDE RECORDS SUMMARY | 2023-12-18 18:30 | XMS_ITS | Encounter Summary ---
Author Name Unknown Organization [place] Address [address] [place] [address]72 Care Team Providers Care Cardiologist Name Role Phone Win Vo MD Primary Care Provider + [phone] Win Vo MD Unavailable [phone] Win Vo MD Unavailable [phone] Andrew Pan MD Primary Care Provider [...] Care Team (Late st Contact Info) Description 08/28/2009 MyC Medical Advice [facility] [address] [address] [place] [address] Win Vo MD [address] [place], [place] [address] Social History Tobacco Use Types Packs/Day Years Used Date Smoking Tobacco: Every Day Cigarettes 0.5 Comments:up to 2 packs per w [place] for 40 + years. Alcohol Use Standard Drinks/Week Comments Yes 0 (1 standard drink = 0.6 oz pur e alcohol) beer only. Sex and Gender Information Value Date Recorded Sex Assigned at Not on file Gender Identity Not on file Sexual Orientation Not on file documented as of this encounter Plan of Treatment Not on file documented as of this encounter Visit Diagnoses Not on filedocumented in this encounter Care Teams Cardiologist Relationship Specialty Start Date End Date Win Vo MD PCP - General 08/06/09 05/28/19 Win Vo MD [address] [place] [address] PCP - Assigned PCP 05/20/16 01/13/19 Andrew Pan MD [facility] [address] [place] [address] PCP - General Emergency Medicine 05/29/19 Win Vo MD [address] [place] [address] Assigned PCP 05/20/16 06/27/19 Kaushik Diamond MD [address] [place], [place] [address]505 Assigned Heart and Vascular Provider 09/02/20 01/24/21 Kaushik Diamond MD [address] [place], [place] 1339[address] Assigned Heart and Vascular Provider 03/19/21 06/17/21 Nida Henderson PA-C [address] [place] [address] Assigned Heart and Vascular Provider 07/09/21 07/15/21 Barbara Khan PA [facility] [address] [place] [address] 654125 Assigned Heart and Vascular Provider 06/18/21 07/08/21 Americo Shepherd MD [address] [place] [address] Assigned Heart and Vascular Provider 07/16/21 08/05/21 Barbara Khan PA [facility] [address] [place] [address] 080115 Assigned Heart and Vascular Provider 08/06/21 09/09/21 Americo Shepherd MD [address] [place] [address] Assigned Heart and Vascular Provider 09/10/21 09/30/21 Irma Mckay EP [facility] [address] [place] [address] Cardiac Rehabilitation Therapist 09/13/21 09/13/22 Barbara Khan PA [facility] [address] [place] [address] Assigned Heart and Vascular Provider 10/01/21 03/29/23 Americo Shepherd MD [address] [place] [address] Cardiovascular Disease 07/13/21 Kaushik Diamond MD [address] [place] [address] Assigned Heart and Vascular Provider 08/10/23 09/06/23 Kaushik Diamond MD [address] [place] [address] Assigned Heart and Vascular Provider 03/30/23 07/26/23 Americo Shepherd MD [address] [place] [address] Assigned Heart and Vascular Provider 07/27/23 08/09/23 Americo Shepherd MD [address] [place] [address] Assigned Heart and Vascular Provider 09/07/23 documented as of this encounter
--- OUTSIDE RECORDS SUMMARY | 2023-12-18 18:30 | XMS_ITS | Encounter Summary ---
Author Name Unknown Organization [place] Address [address] [place] [address] Care Team Providers Care Poultry Hatchery Man Name Role Phone Livia Vo MD Primary Care Provider + [phone] Livia Vo MD Unavailable [phone] Livia Vo MD Unavailable [phone] Andrew Pan MD Primary Care Provider [...] [phone] Americo Shepherd MD Unavailable + Americo Shepherd MD Unavailable + [phone] Encounter Details Date Type Department Care Team (Late st Contact Info) Description 10/10/2010 Office Visit-[facility] [place] [address] [facility] [address] [place] [phone] Elio Cobb MD XXX XXX [address] [facility] [address] [place] [address] Social History Tobacco Use Types Packs/Day Years Used Date Smoking Tobacco: Passive Smo ke Exposure - Never Smoker Cigarettes 0.5 Comments:every once and a wh ile Alcohol Use Standard Drinks/Week Comments Yes 0 (1 standard drink = 0.6 oz pur e alcohol) beer only. Sex and Gender Information Value Date Recorded Sex Assigned at Not on file Gender Identity Not on file Sexual Orientation Not on file documented as of this encounter Progress Notes * Elio Cobb MD - 10/23/2010 3:09 PM CST Progress Note Created by: Elio Cobb M.D. DATE: 10/10/2010 SHERRIE CLARK DATE OF : 1940 AGE: [age] years old Referring Physician: LIVIA VO Referring Clinic: [facility] CURRENT DIAGNOSES 1. 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 Claudication-intermittent, 443.9 ALLERGIES NKDA MEDICATIONS (prior to changes made today) 1. Losartan-Hydrochlorothiazide 100-25 mg Tablet, 1 p.o. daily 2. Simvastatin 80 mg Tablet, 1/2 tab daily 3. Magnesium 250 mg Tablet, 1 p.o. daily 4. Vitamin D 1,000 unit Tablet, 1 p.o. daily 5. CoQ-10 100 mg Capsule, 1 p.o. daily 6. Cilostazol 100 mg Tablet, 1 p.o. twice daily 7. Plavix 75 mg Tablet, 1 p.o. daily 8. Aspirin 81 mg Tablet, 1 p.o. daily 9. Daily Multivitamin Tablet, 1 p.o. daily 10. Calcium 500 + D 200 ., 1 p.o. daily CHIEF COMPLAINTS PAD HISTORY OF PRESENT ILLNESS Sherrie Clark was seen in our office today for his peripheral arterial disease. As you probably remember, the patient is a 70-year-old gentleman whom I first saw a year ago after he moved from [place] to be with his family. The patient apparently has had peripheral arterial diseaseand had extensive stenting of his lower extremities while in [place]. He has been maintained on Plavix, Pletal, and aspirin since then. The patient was seen by me a year ago because the doctors in [place] recommended followup, including noninvasive studies. At his visit a year ago he had been feeling well without any claudication symptoms. Arterial ultrasounds showed no evidence for significant restenosis. The patient comes to the office now for followup. Since his visit a year ago he continues to feel well. He has had no claudication symptoms like he had prior to his stenting five years ago. He has had no chest pain, chest pressure, or chest heaviness. He is able to carry on his normal activities this year as he was last year. Physical exam is as listed below. PAST HISTORY Past Medical Illnesses: Peripheral vascular disease, COPD, hyperlipidemia, hypertension, tobacco use Surgeries/Procedures - General: arthroscopic knee surgery, elbow surgery Peripheral Vasc Procedure Results: 07/20-KULWINDER-no hemodynamically significant stenosis, 07/20-LE USN-patent stents of bilateral SFA, stenosis present of bilateral SFA, 07/20-Aorta duplex USN-diffuse plaque in abd aorta and iliac system PMHx Echo Results: 07/31/07 Mild LVE with normal function, valves essentially normal FAMILY HISTORY: SOCIAL HISTORY Alcohol Use - occasionally and beer; Smoking - smokes, and one pack weekly; Diet - regular diet without modifications and caffeine use-1-2 per day; Lifestyle - , drives car and active lifestyle; Exercise - some exercise and bowling 2 times a weeks; Seat Belt Use - always; Occupation - retired; Residence - lives in [place] year round and [place] for 1 month in winter; Place of - [place] ; REVIEW OF SYSTEMS GENERAL feels well, no change in exercise tolerance., weight loss, has questions about bleeding INTEGUMENTARY denies any change in hair or nails, rashes, or skin lesions. EYES wears eye glasses/contact lenses EARS, NOSE, THROAT, MOUTH denies any hearing loss, epistaxis, hoarseness or difficulty speaking. RESPIRATORY history of COPD, dyspnea, wheezing, Oxygen QHS CARDIOVASCULAR negative for palpitations, chest pain, orthopnea, PND, peripheral edema, syncope or claudication. ABDOMINAL denies ulcer disease, hematochezia or melena. GENITOURINARY-MALE nocturia MUSCULOSKELETAL arthritis of the hand(s) NEUROLOGICAL denies any history of recurrent strokes, headaches, TIA, or seizure disorder. PSYCHIATRIC denies any history of depression, substance abuse or change in cognitive functions. ENDOCRINE denies any history of thyroid disease or diabetes mellitus. HEMATOLOGICAL/IMMUNOLOGIC denies any food allergies, seasonal allergies, bleeding disorders. PHYSICAL EXAMINATION VITAL SIGNS: Blood Pressure: 130/77Sitting, Left arm, regular cuff Pulse- 78.00/min. Weight- 180.60 lbs. Height- 68.00 Temperature- .00 CONSTITUTIONAL NAD, alert and oriented, ambulating in halls without difficulty SKIN dry and warm HEAD atraumatic EYES pupils round and equal ENT speech normal, no perioral cyanosis NECK supple CHEST mild large airway rhonchi with clear with coughing CARDIAC RRR without murmur ABDOMEN non-tender PERIPHERAL PULSES femoral 2-, PT 2- bilateral EXTREMITIES & BACK no edema/sores/feet warm PSYCHIATRIC non-aggitated NEUROLOGICAL motor grossly intact MEDICATIONS UPDATED/STARTED TODAY: Cilostazol 100 mg Tablet, 1 p.o. twice daily CoQ-10 100 mg Capsule, 1 p.o. daily, #-1 Losartan-Hydrochlorothiazide 100-25 mg Tablet, 1 p.o. daily, #-1 Magnesium 250 mg Tablet, 1 p.o. daily, #-1 Simvastatin 80 mg Tablet, 1/2 tab daily, #-1 Vitamin D 1,000 unit Tablet, 1 p.o. daily, #0 MEDICATIONS REFILLED/STOPPED TODAY: Lipitor 80 mg Tablet 1/2 tab daily 0 Substitution, Coenzyme Q10 . 1 p.o. daily 0 Substitution, Vitamin D . 1000mg daily 0 Refill, Magnesium - 250mg daily 0 Refill and Diovan . Dose/instruction UNKNOWN 0 Substitution IMPRESSIONS/PLAN 1. The patient is five years status post stenting to his lower extremities for symptomatic claudication. He has no claudication at this time, with good pulses in his ankles. We will continue with risk modification. 2. The patient has no history of coronary artery disease but the presence of peripheral arterial disease makes coronary artery disease more likely. Currently he is not having any chestpain or congestive heart failure symptoms. I would recommend aggressive risk modification. 3. An LDL of less than 70 would be desirable but he apparently has had problems with side effects to statins. I will leave this for you to monitor. 4. His blood pressure is under adequate control today as it m easured 130/77. 5. Unfortunately, the patient continues to smoke. I advised him that he should stopsmoking if at all possible. Thank you very much for allowing us to participate in the care of your patient. Should you have anyquestions about this patient or any other patient, please feel free to contact us at any time. TODAYS ORDERS 1. Return Visit 1 year Eilo Cobb M.D. documented in this encounter Plan of Treatment Not on file documented as of this encounter Visit Diagnoses Not on filedocumented in this encounter Care Teams Poultry Hatchery Man Relationship Specialty Start Date End Date Livia Vo MD PCP - General 08/06/09 05/28/19 Livia Vo MD [address] [place] [address] PCP - Assigned PCP 05/20/16 01/13/19 Andrew Pan MD [facility] [address] [place] [address] PCP - General Emergency Medicine 05/29/19 Livia Vo MD [address] [place] [address] Assigned PCP 05/20/16 06/27/19 Kaushik Diamond MD [address] [facility] [address] [place], [place] 4522[address] Assigned Heart and Vascular Provider 09/02/20 01/24/21 Kaushik Diamond MD [address] [facility] [address] [place], [place] 917925 Assigned Heart and Vascular Provider 03/19/21 06/17/21 Nida Henderson PA-C [address] [place], [place] [address]005 Assigned Heart and Vascular Provider 07/09/21 07/15/21 Barbara Khan PA [facility] [address] [place] [address] Assigned Heart and Vascular Provider 06/18/21 07/08/21 Americo Shepherd MD [address] [place] [address] Assigned Heart and Vascular Provider 07/16/21 08/05/21 Barbara Khan PA [facility] [address] [place] [address] Assigned Heart and Vascular Provider 08/06/21 09/09/21 Americo Shepherd MD [address] [place] [address] [id number] Assigned Heart and Vascular Provider 09/10/21 09/30/21 Irma Mckay EP [facility] [address] 239305 Cardiac Rehabilitation Therapist 09/13/21 09/13/22 Barbara Khan PA [facility] [address] [place] [address] Assigned Heart and Vascular Provider 10/01/21 03/29/23 Americo Shepherd MD [address] [place] [address] 214335 Cardiovascular Disease 07/13/21 Kaushik Diamond MD [address] [place] 223285 Assigned Heart and Vascular Provider 08/10/23 09/06/23 Kaushik Diamond MD [address] [facility] [address] [place], [place] 7139[address] Assigned Heart and Vascular Provider 03/30/23 07/26/23 Americo Shepherd MD [address] [place] [address] [id number] Assigned Heart and Vascular Provider 07/27/23 08/09/23 Americo Shepherd MD [address] [place] [address] [id number] Assigned Heart and Vascular Provider 09/07/23 documented as of this encounter
--- OUTSIDE RECORDS SUMMARY | 2023-12-18 18:30 | XMS_ITS | Encounter Summary ---
Author Name Unknown Organization [place] Address [address] [place] [address] Care Team Providers Care Luncheonette Operator Name Role Phone Win Vo MD Primary Care Provider + [phone] Win Vo MD Unavailable [phone] Win Vo MD Unavailable [phone] Andrew Pan MD Primary Care Provider [...] Unavailable [phone] Americo Shepherd MD Unavailable [phone] Encounter Details Date Type Department Care Team (Late st Contact Info) Description 04/06/[address] [facility] [address] [place] [phone] Win Vo MD [address] [place], [place] [address] Social History Tobacco Use Types Packs/Day Years [...] on filedocumented in this encounter Care Teams Luncheonette Operator Relationship Specialty Start Date End Date Win Vo MD PCP - General 08/06/09 05/28/19 Win Vo MD [address] [place] [address] PCP - Assigned PCP 05/20/16 01/13/19 Andrew Pan MD [facility] [address] [place] [address] PCP - General Emergency Medicine 05/29/19 Win Vo MD [address] [place] [address] Assigned PCP 05/20/16 06/27/19 Kaushik Diamond MD [address] [place], [place] [address] Assigned Heart and Vascular Provider 09/02/20 01/24/21 Kaushik Diamond MD [address] [place], [place] 3612[address] Assigned Heart and Vascular Provider 03/19/21 06/17/21 Nida Henderson PA-C [address] [place] [address] Assigned Heart and Vascular Provider 07/09/21 07/15/21 Barbara Khan PA [facility] [address] [place] [address] 115395 Assigned Heart and Vascular Provider 06/18/21 07/08/21 Americo Shepherd MD [address] [place] [address] Assigned Heart and Vascular Provider 07/16/21 08/05/21 Barbara Khan PA [facility] [address] [place] [address] 598415 Assigned Heart and Vascular Provider 08/06/21 09/09/21 Americo Shepherd MD [address] [place] [address] Assigned Heart and Vascular Provider 09/10/21 09/30/21 Irma Mckay EP [facility] [address] [place] [address] Cardiac Rehabilitation Therapist 09/13/21 09/13/22 Barbara Khan PA [facility] [address] [place] [address] Assigned Heart and Vascular Provider 10/01/21 03/29/23 Americo Shepherd MD [address] [place] [address] Cardiovascular Disease 07/13/21 Kaushik Diamond MD [address] [place] [address] Assigned Heart and Vascular Provider 08/10/23 09/06/23 Kaushik Diamond MD [address] [place] [address] Assigned Heart and Vascular Provider 03/30/23 07/26/23 Americo Shepherd MD [address] [place] [address] Assigned Heart and Vascular Provider 07/27/23 08/09/23 Americo Shepherd MD [address] [place] [address] Assigned Heart and Vascular Provider 09/07/23 documented as of this encounter
--- OUTSIDE RECORDS SUMMARY | 2023-12-18 18:30 | XMS_ITS | Encounter Summary ---
Author Name Unknown Organization [place] Address [address] [place] [address] Care Team Providers Care Pipeline Inspector Name Role Phone Win Vo MD Primary Care Provider + [phone] Win Vo MD Unavailable [phone] Win Vo MD Unavailable [phone] Andrew Pan MD Primary Care Provider [...] Unavailable [phone] Americo Shepherd MD Unavailable [phone] Americo Shepherd MD Unavailable [phone] Encounter Details Date Type Department Care Team (Late st Contact Info) Description 05/17/2010 MyC Medical Advice [facility] [address] [place] [phone] Win Vo MD [address] [place] [address] Vitamin D Deficiency (Primary Dx) Social History Tobacco Use Types [...] encounter Miscellaneous Notes * Telephone Encounter - Meseret Guillen - 05/18/2010 2:15 PM CDT Called spoke with pt's advised pt's will have pt read my chart message,advised any further questions to let Dr Vo know. * Telephone Encounter - Win Vo - 05/17/2010 10:25 PM CDT Pt needs to take high dose Vitamin D weekly. Sent [email or web address] message, please contact pt to assure thathe reads it. documented in this encounter Plan of Treatment Not on file documented as of this encounter Visit Diagnoses Diagnosis Vitamin D deficiency- Primary Unspecified vitamin D deficiency documented in this encounter Care Teams Pipeline Inspector Relationship Specialty Start Date End Date Win Vo MD PCP - General 08/06/09 05/28/19 Win Vo MD [address] [place] [address] PCP - Assigned PCP 05/20/16 01/13/19 Andrew Pan MD [facility] [address] [place] [address] PCP - General Emergency Medicine 05/29/19 Win Vo MD [address] [place] [address] Assigned PCP 05/20/16 06/27/19 Kaushik Diamond MD [address] [place], [place] [address] Assigned Heart and Vascular Provider 09/02/20 01/24/21 Kaushik Diamond MD [address] [place], [place] [address] Assigned Heart and Vascular Provider 03/19/21 06/17/21 Nida Henderson PA-C [address] [place], [place] [address] Assigned Heart and Vascular Provider 07/09/21 07/15/[address] [facility] [address] [place], [place] [address] Assigned Heart and Vascular Provider 06/18/21 07/08/21 Americo Shepherd MD [address] [place], [place] 3144[address] Assigned Heart and Vascular Provider 07/16/21 08/05/[address] [facility] [address] [place], [place] [address]265 Assigned Heart and Vascular Provider 08/06/21 09/09/21 Americo Shepherd MD [address] [place] [address] [id number] Assigned Heart and Vascular Provider 09/10/21 09/30/21 Irma Mckay EP [facility] [address] [place] [phone] Cardiac Rehabilitation Therapist 09/13/21 09/13/[address] [facility] [address] [place], [place] [address] Assigned Heart and Vascular Provider 10/01/21 03/29/23 Americo Shepherd MD [address] [place] [address] [id number] MD Cardiovascular Disease 07/13/21 Kaushik Diamond MD [address] [place] [address] Assigned Heart and Vascular Provider 08/10/23 09/06/23 Kaushik Diamond MD [address] [place] [address] Assigned Heart and Vascular Provider 03/30/23 07/26/23 Americo Shepherd MD [address] [place] [address] 788755 Assigned Heart and Vascular Provider 07/27/23 08/09/23 Americo Shepherd MD [address] [place], [place] [phone] Assigned Heart and Vascular Provider 09/07/23 documented as of this encounter
--- OUTSIDE RECORDS SUMMARY | 2023-12-18 18:30 | XMS_ITS | Encounter Summary ---
Author Name Unknown Organization [place] Address [address] [place] [address] Care Team Providers Care Dust Operator Name Role Phone Win Vo MD Primary Care Provider + [phone] Win Vo MD Unavailable [phone] Win Vo MD Unavailable [phone] Andrew Pan MD Primary Care Provider [...] Unavailable [phone] Americo Shepherd MD Unavailable [phone] Americo Shepherd MD Unavailable Encounter Details Date Type Department Care Team (Late st Contact Info) Description 07/17/2010 MyC Medical Advice [facility] [address] [place] [address] Win Vo MD [address] [place], [place] [phone] Social History Tobacco Use Types Packs/Day Years [...] on filedocumented in this encounter Care Teams Dust Operator Relationship Specialty Start Date End Date Win Vo MD PCP - General 08/06/09 05/28/19 Win Vo MD [address] [place] [address] PCP - Assigned PCP 05/20/16 01/13/19 Andrew Pan MD [facility] [address] [place] [address] PCP - General Emergency Medicine 05/29/19 Win Vo MD [address] [place] [address] Assigned PCP 05/20/16 06/27/19 Kaushik Diamond MD [address] [place], [place] [address] Assigned Heart and Vascular Provider 09/02/20 01/24/21 Kaushik Diamond MD [address] [place], [place] 6[address] Assigned Heart and Vascular Provider 03/19/21 06/17/21 Nida Henderson PA-C [address] [place] [address] Assigned Heart and Vascular Provider 07/09/21 07/15/21 Barbara Khan PA [facility] [address] [place] [address] [phone] Assigned Heart and Vascular Provider 06/18/21 07/08/21 Americo Shepherd MD [address] [place] [address] Assigned Heart and Vascular Provider 07/16/21 08/05/21 Barbara Khan PA [facility] [address] [place] [address] 466065 Assigned Heart and Vascular Provider 08/06/21 09/09/21 Americo Shepherd MD [address] [place] [address] Assigned Heart and Vascular Provider 09/10/21 09/30/21 Irma Mckay EP [facility] [address] [place] [address] Cardiac Rehabilitation Therapist 09/13/21 09/13/22 Barbara Khan PA [facility] [address] [place] [address] Assigned Heart and Vascular Provider 10/01/21 03/29/23 Americo Shepherd MD [address] [place] [address] Cardiovascular Disease 07/13/21 Kaushik Diamond MD [address] [place] [address] Assigned Heart and Vascular Provider 08/10/23 09/06/23 Kaushik Diamond MD [address] [place] [address] Assigned Heart and Vascular Provider 03/30/23 07/26/23 Americo Shepherd MD [address] [place] [address] Assigned Heart and Vascular Provider 07/27/23 08/09/23 Americo Shepherd MD [address] [place] [address] Assigned Heart and Vascular Provider 09/07/23 documented as of this encounter
--- OUTSIDE RECORDS SUMMARY | 2023-12-18 18:30 | XMS_ITS | Encounter Summary ---
Author Name Unknown Organization [place] Address [address] [place] [address] Care Team Providers Care Javascript Programmer Name Role Phone Livia Vo MD Primary Care Provider + [phone] Livia Vo MD Unavailable [phone] Livia Vo MD Unavailable [phone] Andrew Pan MD Primary Care Provider [...] [phone] Americo Shepherd MD Unavailable + [phone] Americo Shepherd MD Unavailable + [phone] Encounter Details Date Type Department Care Team (Late st Contact Info) Description 03/10/2013 Office Visit-[facility] [place] [address] [facility] [address] [place] [phone] Kaushik Diamond MD [address] [facility] [address] [address] [place] [id number] Social History Tobacco Use Types Packs/Day Years [...] as of this encounter Progress Notes * Kaushik Diamond MD - 03/12/2013 10:06 AM CDT Progress Note Created by: Kaushik Diamond MD DATE: 03/10/2013 SHERRIE CLARK DATE OF : 1940 AGE: [age] years old Referring Physician: LIVIA VO Referring Clinic: [facility] CURRENT DIAGNOSES 1. 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 Claudication-intermittent, 443.9 3. Hypercholesterolemia, 272.0 4. Hypertension-Essential (Benign), 401.1 ALLERGIES atorvastatin calcium, Muscle aches MEDICATIONS (prior to changes made today) 1. Aspirin 81 mg Tablet, 1 p.o. daily 2. Calcium 500 + D 200 ., 1 p.o. daily 3. CoQ-10 100 mg Capsule, 1 p.o. daily 4. Daily Multivitamin Tablet, 1 p.o. daily 5. Losartan-Hydrochlorothiazide 100-25 mg Tablet, 1 p.o. daily 6. Magnesium 250 mg Tablet, 1 p.o. daily 7. pravastatin 40 mg tablet, 1 p.o. daily 8. Vitamin D 1,000 unit Tablet, 1 p.o. daily CHIEF COMPLAINTS PAD HISTORY OF PRESENT ILLNESS Indication for follow-up: Peripheral arterial disease. The patient is a very pleasant 72-year-old with a history of bilateral lower extremity peripheral arterial disease with bilateral stent to the SFAs. Since that time, he has had resolution of his bilateral calf burning. He did not notice any exacerbation of claudication since stopping Plavix and cilostazol in September 2011. He is doing well and has quit smoking. He used Chantix. This has been since last August. He has also lost 10 pounds and pravastatin has kept his LDL at goal. Last check 03/25/2012 LDL was 84. He vacations in [place] during the winter, has no problems with exertional chest discomfort. He does have some chronic shortness of breath. He was concerned that he might have obstructive coronary artery disease given his peripheral vascular disease. He thinks he had a dobutamine echocardiogram a number of years back approximately 15. PAST HISTORY Past Medical Illnesses: Peripheral vascular disease, COPD, hyperlipidemia, hypertension, history of tobacco use Surgeries/Procedures - General: arthroscopic knee surgery, elbow surgery, 08/2012: back surgery Peripheral Vasc Procedure Results: 07/20-KULWINDER-no hemodynamically significant stenosis, 07/20-LE USN-patent stents of bilateral SFA, stenosis present of bilateral SFA, 07/20-Aorta duplex USN-diffuse plaque in abd aorta and iliac system PMHx Echo Results: 07/31/07 Mild LVE with normal function, valves essentially normal LVEF not documented FAMILY HISTORY: Family - noncontributory; SOCIAL HISTORY Alcohol Use - occasionally and beer; Smoking - used to smoke but quit; Diet - regular diet without modifications and caffeine use-1-2 per day; Lifestyle - , drives car and active lifestyle; Exercise - some exercise, bowling twice a week and walk dog everyday; Seat Belt Use - always; Occupation - retired; Residence - lives in [place] year round and [place] for 1 month in winter; Place of - [place]; REVIEW OF SYSTEMS GENERAL feels well, no change in exercise tolerance. of approximately 10 lbs, weight loss of approximately 10 lbs INTEGUMENTARY denies any change in hair or nails, rashes, or skin lesions. EYES wears eye glasses/contact lenses EARS, NOSE, THROAT, MOUTH denies any hearing loss, epistaxis, hoarseness or difficulty speaking. RESPIRATORY history of COPD, dyspnea with exertion, pt don't use oxygen, wheezing CARDIOVASCULAR negative for palpitations, chest pain, orthopnea, [...] disorders. PHYSICAL EXAMINATION VITAL SIGNS: Blood Pressure: 125/73Sitting, Right arm, large cuff Pulse- 69.00/min. Weight- 178.90 lbs. Height- 68 BMI Measurement: 27 CONSTITUTIONAL NAD, alert and oriented, ambulating without difficulty SKIN dry and warm HEAD atraumatic EYES pupils round and equal ENT speech normal, no perioral cyanosis NECK supple, no JVD, no bruits CHEST clear without wheezes or crackles CARDIAC RRR without murmur ABDOMEN benign PERIPHERAL PULSES normal and symmetric radial and DPs EXTREMITIES & BACK no edema PSYCHIATRIC normal affect NEUROLOGICAL motor grossly intact MEDICATIONS UPDATED/STARTED TODAY: MEDICATIONS REFILLED/STOPPED TODAY: cefprozil 500 mg Tablet 1 p.o. twice daily #0 (Zero) Physician Order ASSESSMENT AND PLAN: 1.Peripheral arterial disease, stable, asymptomatic. Patient is on good medical regimen including statin and single antiplatelet therapy. Good control of blood pressure and successful nicotine cessation. 2.Possible coronary artery disease. The patient had some dyspnea relatively stable. Would like further evaluation for potential silent myocardial infarction. Will do nuclear stress testing as he does not think he could exert himself on a treadmill due to arthritis. He has had episodes of lower extremity edema in the past and would like functional testing to see if any reduced LV function and/or ischemia. If no significant ischemia, would see patient back in approximately one year. If significant ischemia present, would want earlier follow-up. Currently on good medical regimen for atherosclerotic vascular disease. It was my pleasure to see this most pleasant patient, looking forward to seeing him again. TODAYS ORDERS 1. Lexiscan Infusion 1 week,MD able to convert to treadmill stress if pt able to exercise Kaushik Diamond MD documented in this encounter Plan of Treatment Not on file documented as of this encounter Visit Diagnoses Not on filedocumented in this encounter Care Teams Javascript Programmer Relationship Specialty Start Date End Date Livia Vo MD PCP - General 08/06/09 05/28/19 Livia Vo MD [address] [facility] [address] [place] [address] PCP - Assigned PCP 05/20/16 01/13/19 Andrew Pan MD [facility] [address] [place] [address] PCP - General Emergency Medicine 05/29/19 Livia Vo MD [facility] [address] [facility] [address] [place] [address] Assigned PCP 05/20/16 06/27/19 Kaushik Diamond MD [address] [place], [place] [address] Assigned Heart and Vascular Provider 09/02/20 01/24/21 Kaushik Diamond MD [address] [place], [place] [address] Assigned Heart and Vascular Provider 03/19/21 06/17/21 Nida Henderson PA-C [address] [place], [place] 3[address] Assigned Heart and Vascular Provider 07/09/21 07/15/21 Barbara Khan PA [facility] [address] [place] [address] Assigned Heart and Vascular Provider 06/18/21 07/08/21 Americo Shephred MD [address] [place], [place] 5601[address] Assigned Heart and Vascular Provider 07/16/21 08/05/21 Barbara Khan PA [facility] [address] [place], [place] [address]16425 Assigned Heart and Vascular Provider 08/06/21 09/09/21 Americo Shepherd MD [address] [place] [address] 151565 Assigned Heart and Vascular Provider 09/10/21 09/30/21 Irma Mckay EP [facility] [address] [place] [id number] Cardiac Rehabilitation Therapist 09/13/21 09/13/22 Barbara Khan PA [facility] [address] [place], [place] 3037[address] Assigned Heart and Vascular Provider 10/01/21 03/29/23 Americo Shepherd MD [address] [place] [address] [id number] MD Cardiovascular Disease 07/13/21 Kaushik Diamond MD [address] [place], [place] 4496[address] Assigned Heart and Vascular Provider 08/10/23 09/06/23 Kaushik Diamond MD [address] [place], [place] [address] Assigned Heart and Vascular Provider 03/30/23 07/26/23 Americo Shepherd MD [address] [place] [address] 208385 Assigned Heart and Vascular Provider 07/27/23 08/09/23 Americo Shepherd MD [address] [place] [address] Assigned Heart and Vascular Provider 09/07/23 documented as of this encounter
--- OUTSIDE RECORDS SUMMARY | 2023-12-18 18:30 | XMS_ITS | Encounter Summary ---
Author Name Unknown Organization [place] Address [address] [place] [address] Care Team Providers Care Customs Consultant Name Role Phone Livia Vo MD Primary Care Provider + [phone] Livia Vo MD Unavailable [phone] Livia Vo MD Unavailable [phone] Andrew Pan MD Primary Care Provider Kaushik Diamond MD Unavailable [phone] Kaushik Diamond MD Unavailable [phone] Nida Henderson PA-C Unavailable +[phone] Barbara Khan Unavailable Americo Shepherd MD Unavailable +[phone] Barbara Khan Unavailable Americo Shepherd MD Unavailable [phone] Irma Mckay Unavailable [phone] Barbara Khan Unavailable Amercio Shepherd MD Unavailable [phone] Kaushik Diamond MD Unavailable [phone] Kaushik Diamond MD Unavailable [phone] Americo Shepherd MD Unavailable + Americo Shepherd MD Unavailable + [phone] Encounter Details Date Type Department Care Team (Late st Contact Info) Description 09/22/2009 Office Visit-[facility] [place] [address] [facility] [address] [place] [phone] Elio Cobb MD XXX XXX [address] [facility] [address] [place] [address] Social History Tobacco Use Types Packs/Day Years Used Date Smoking Tobacco: Every Day Cigarettes 0.5 Comments:up to 2 packs per w [place] for 40 + years. Alcohol Use Standard Drinks/Week Comments Yes 0 (1 standard drink = 0.6 oz pur e alcohol) beer only. Sex and Gender Information Value Date Recorded Sex Assigned at Not on file Gender Identity Not on file Sexual Orientation Not on file documented as of this encounter Progress Notes * Elio Cobb MD - 10/12/2009 10:03 AM CST Progress Note Created by: Elio Cobb M.D. DATE: 09/22/2009 SHERRIE CLARK DATE OF : 1940 AGE: [age] years old Referring Physician: LIVIA VO Referring Clinic: [facility] CURRENT DIAGNOSES 1. 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 Claudication-intermittent, 443.9 ALLERGIES MEDICATIONS (prior to changes made today) 1. Plavix 75 mg, 1 p.o. daily 2. Cilostazol 100 mg, 1 p.o. daily 3. Aspirin 81 mg, 1 p.o. daily 4. multivitamin daily, 1 p.o. daily 5. Coenzyme Q10 ., 1 p.o. daily 6. Vitamin D ., 1000mg daily 7. Calcium 500 + D 200 ., 1 p.o. daily 8. Magnesium -, 250mg daily 9. Diovan ., Dose/instruction UNKNOWN 10. Lipitor 80 mg, 1/2 tab daily CHIEF COMPLAINTS Followup of test results HISTORY OF PRESENT ILLNESS Sherrie Clark was seen in office today to go over the results of the tests and for followup for his peripheral vascular disease. Hopefully my consultation letter from about a month ago has arrived at your office by this time. As you probably remember, the patient is a 69-year-old gentleman who used to live in [place]. He had stenting of his SFAs while in [place]. He did bring in reports today which showed that he had bilateral SFA stents placed in 2004. He has had yearly checkups with noninvasive physiologic testing since then. He has since moved to the [facility] and I was asked to see him for followup of his peripheral arterial disease. As mentioned in my previous letter, the patient has minimal claudication symptoms. Prior to his stenting he had significant claudication which has improved. He denies any interval changes since his last evaluation in [place]. There certainly has been no rest pain. He has been active, golfing with a golf cart as mentioned in my previous letter. Physical exam is as listed below. His noninvasive studies show there is greater than 50% stenosis in the left SFA stent site without any significant inflow disease. No stenosis greater than 50% was seen on the right side. His restingABIs were above 1.0 and within normal limits. Post exercise ABIs were not done as the patient had difficulty lying flat. SOCIAL HISTORY Alcohol Use - occasionally and beer; Smoking - smokes, and one pack weekly; Diet - regular diet without modifications and caffeine use-1-2 per day; Lifestyle - , drives car and active lifestyle; Exercise - exercises daily, golf, walking and bowling; Seat Belt Use - always; Occupation - retired; Residence - lives in [place] year round and [place] for 1 month in winter; Place of - [place]; PHYSICAL EXAMINATION VITAL SIGNS: Blood Pressure: 123/80 Sitting, Right arm, large cuff Pulse- 74.00/min. Weight- 182.00 lbs. Height- 68.00 Temperature- .00 CONSTITUTIONAL NAD, ambulating the halls without difficulty SKIN warm and dry HEAD atraumatic EYES EOMI ENT dentures, tongue midline NECK supple CHEST unlabored CARDIAC RRR without lift/thirll/murmur ABDOMEN soft without tenderness/bruit PERIPHERAL PULSES good femorals without bruit, good R pop and PT, 1+ R DP L Pop, L ankles EXTREMITIES & BACK no edema, feet and toes warm, good capillary refill PSYCHIATRIC appropriate in answers NEUROLOGICAL motor grossly intact MEDICATIONS UPDATED/STARTED TODAY: ASSESSMENT/RECOMMENDATION: 1. The patient is about four years status post bilateral SFA stenting in [place]. He has minimal to noclaudication at this time. At least his resting ABIs are within normal limits. Ultrasound studies show only moderate stenoses of the left superficial femoral artery stents. 2. Given his lack of symptoms and lack of severe stenoses, I would recommend continued medical treatment and risk modification. This was discussed with the patient and he is in agreement. 3. Even though we are going to treat him medically, he still needs to aggressively control his risk factors. As you know, he is a smoker and I have encouraged him to stop smoking. I will leave it for you to decide whether he would benefitfrom a formal smoking cessation program. 4. His blood pressure is under good control. It is 123/80 today. 5. I would recommend aggressive control of his lipids. Currently he is on Lipitor 40 mg p.o. q.d. Iwould recommend an LDL cholesterol less than 70 if at all possible. 6. I have scheduled the patientto see me back in approximately one year's time. If he should develop cardiac problems prior to that, or problems with recurrent claudication that is lifestyle limiting, I would be happy to see him sooner. Thank you very much for allowing us to care for your patient. Should you have any questions about this patient or any other patient, please feel free to contact us at any time. TODAYS ORDERS 1. Return Visit 1 year Elio Cobb M.D. documented in this encounter Plan of Treatment Not on file documented as of this encounter Visit Diagnoses Not on filedocumented in this encounter Care Teams Customs Consultant Relationship Specialty Start Date End Date Livia Vo MD PCP - General 08/06/09 05/28/19 Livia Vo MD [address] [address] PCP - Assigned PCP 05/20/16 01/13/19 Andrew Pan MD [address] [address] PCP - General Emergency Medicine 05/29/19 Livia Vo MD [address] [place] [address] Assigned PCP 05/20/16 06/27/19 Kaushik Diamond MD [address] [place] [address] Assigned Heart and Vascular Provider 09/02/20 01/24/21 Kaushik Diamond MD [address] [place] [address] Assigned Heart and Vascular Provider 03/19/21 06/17/21 Nida Henderson PA-C [address] [place] [address] Assigned Heart and Vascular Provider 07/09/21 07/15/21 Barbara Khan PA [facility] [address] [place] [address] Assigned Heart and Vascular Provider 06/18/21 07/08/21 Americo Shepherd MD [address] [place] [address] Assigned Heart and Vascular Provider 07/16/21 08/05/21 Barbara Khan PA [facility] [address] [place] [address] Assigned Heart and Vascular Provider 08/06/21 09/09/21 Americo Shepherd MD [address] [place] [address] 970675 Assigned Heart and Vascular Provider 09/10/21 09/30/[address] [facility] [address] [place] [address] Cardiac Rehabilitation Therapist 09/13/21 09/13/22 Barbara Khan PA [facility] [address] [place] [address] 296235 Assigned Heart and Vascular Provider 10/01/21 03/29/23 Americo Shepherd MD [address] [place] [address] 935145 Cardiovascular Disease 07/13/21 Kaushik Diamond MD [address] [place] [address]015 Assigned Heart and Vascular Provider 08/10/23 09/06/23 Kaushik Diamond MD [address] [place] [address] Assigned Heart and Vascular Provider 03/30/23 07/26/23 Americo Shepherd MD [address] [place] [address] 278025 Assigned Heart and Vascular Provider 07/27/23 08/09/23 Americo Shepherd MD [address] [place] [address] [id number] Assigned Heart and Vascular Provider 09/07/23 documented as of this encounter
--- OUTSIDE RECORDS SUMMARY | 2023-12-18 18:30 | XMS_ITS | Encounter Summary ---
Author Name Unknown Organization [place] Address [address] [place] [address] Care Team Providers Care Educational Program Assistant Name Role Phone Win Vo MD Primary Care Provider + [phone] Win Vo MD Unavailable [phone] Win Vo MD Unavailable [phone] Andrew Pan MD Primary Care Provider [...] Care Team (Late st Contact Info) Description 08/19/2012 MyC Medical Advice [facility] [address] [place] [phone] Win Vo MD [address] [place] [address] Social History Tobacco Use Types Packs/Day Years Used Date Smoking Tobacco: Every Day Cigarettes 1 40 Smokeless Tobacco: Never Comments:quit [...] on filedocumented in this encounter Care Teams Educational Program Assistant Relationship Specialty Start Date End Date Win Vo MD PCP - General 08/06/09 05/28/19 Win Vo MD [address] [place] [address] PCP - Assigned PCP 05/20/16 01/13/19 Andrew Pan MD [facility] [address] [place] [address] PCP - General Emergency Medicine 05/29/19 Win Vo MD [address] [place] [address] Assigned PCP 05/20/16 06/27/19 Kaushik Diamond MD [address] [place], [place] [address] Assigned Heart and Vascular Provider 09/02/20 01/24/21 Kaushik Diamond MD [address] [place] [address] Assigned Heart and Vascular Provider 03/19/21 06/17/21 Nida Henderson PA-C [address] [place] [address] Assigned Heart and Vascular Provider 07/09/21 07/15/21 Barbara Khan PA [facility] [address] [place] [address] 204645 Assigned Heart and Vascular Provider 06/18/21 07/08/21 Americo Shepherd MD [address] [place] [address] 898505 Assigned Heart and Vascular Provider 07/16/21 08/05/21 Barbara Khan PA [facility] [address] [place], [place] [address]43[address] Assigned Heart and Vascular Provider 08/06/21 09/09/21 Americo Shepherd MD [address] [place] [address] Assigned Heart and Vascular Provider 09/10/21 09/30/[address] [facility] [address] [place] [address] Cardiac Rehabilitation Therapist 09/13/21 09/13/22 Barbara Khan PA [facility] [address] [place] [address] Assigned Heart and Vascular Provider 10/01/21 03/29/23 Americo Shepherd MD [address] [place] [address] Cardiovascular Disease 07/13/21 Kaushik Diamond MD [address] [place] [address] Assigned Heart and Vascular Provider 08/10/23 09/06/23 Kaushik Diamond MD [address] [place] [address] Assigned Heart and Vascular Provider 03/30/23 07/26/23 Americo Shepherd MD [address] [place] [address] Assigned Heart and Vascular Provider 07/27/23 08/09/23 Americo Shepherd MD [address] [place] [address] Assigned Heart and Vascular Provider 09/07/23 documented as of this encounter
--- OUTSIDE RECORDS SUMMARY | 2023-12-18 18:30 | XMS_ITS | Encounter Summary ---
Author Name Unknown Organization [facility] Address [address] [place] [address] Care Team Providers Care Sawmill Relief Worker Name Role Phone Win Vo MD Primary Care Provider + [phone] Win Vo MD Unavailable [phone] Win Vo MD Unavailable [phone] Andrew Pan MD Primary Care Provider [...] [phone] Americo Shepherd MD Unavailable [phone] Americo Shepherd MD Unavailable [phone] Reason for Visit * Reason Onset Date Comments Refill Request 08/22/2010 Encounter Details Date Type Department Care Team (Late st Contact Info) Description 08/22/2010 MyC Refill [facility] [address] [place] [phone] Win Vo MD [address] [place] [address] Refill Request Social History Tobacco Use Types Packs/Day [...] encounter Miscellaneous Notes * Telephone Encounter - Jennifer Alfred - 08/22/2010 2:00 PM CDT Rx for [place] requires MD approval. Pharm listed. * Telephone Encounter - Jennifer Alfred - 08/22/2010 1:57 PM CDT[facility]: Carlos Clark would like a refill of the following medications: CILOSTAZOL 100 MG OR TABS [Win Vo MD] Preferred pharmacy: [facility] Comment: This message is being sent by Radha Clark on behalf of Carlos Clark documented in this encounter Plan of Treatment Not on file documented as of this encounter Visit Diagnoses Diagnosis Peripheral arterial disease (H24)- Primary Unspecified disorders of arteries and arterioles documented in this encounter Care Teams Sawmill Relief Worker Relationship Specialty Start Date End Date Win Vo MD PCP - General 08/06/09 05/28/19 Win Vo MD [address] [place] [address] PCP - Assigned PCP 05/20/16 01/13/19 Andrew Pan MD [facility] [address] [place] [address] PCP - General Emergency Medicine 05/29/19 Win Vo MD [address] [address] Assigned PCP 05/20/16 06/27/19 Kaushik Diamond MD [address] [facility] [address] [address] Assigned Heart and Vascular Provider 09/02/20 01/24/21 Kaushik Diamond MD [address] [facility] [address] [address] Assigned Heart and Vascular Provider 03/19/21 06/17/21 Nida Henderson PA-C [address] [place], [place] [phone] Assigned Heart and Vascular Provider 07/09/21 07/15/21 Barbara Khan PA [facility] [address] [place] [address] [id number] Assigned Heart and Vascular Provider 06/18/21 07/08/21 Americo Shepherd MD [address] [place] [address] [place] [address] Assigned Heart and Vascular Provider 07/16/21 08/05/21 Barbara Khan PA [facility] [address] [place], [place] [address] Assigned Heart and Vascular Provider 08/06/21 09/09/21 Americo Shepherd MD [address] [place] [address] [id number] Assigned Heart and Vascular Provider 09/10/21 09/30/21 Irma Mckay EP [facility] [address] [place] [phone] Cardiac Rehabilitation Therapist 09/13/21 09/13/22 Barbara Khan PA [facility] [address] [place] [address]385 Assigned Heart and Vascular Provider 10/01/21 03/29/23 Americo Shepherd MD [address] [place] [address] [id number] Cardiovascular Disease 07/13/21 Kaushik Diamond MD [address] [place] [address] Assigned Heart and Vascular Provider 08/10/23 09/06/23 Kaushik Diamond MD [address] [place] [address] Assigned Heart and Vascular Provider 03/30/23 07/26/23 Americo Shepherd MD [address] [place], [place] [phone] Assigned Heart and Vascular Provider 07/27/23 08/09/23 Americo Shepherd MD [address] [place], [place] [phone] Assigned Heart and Vascular Provider 09/07/23 documented as of this encounter
--- OUTSIDE RECORDS SUMMARY | 2023-12-18 18:30 | XMS_ITS | Encounter Summary ---
Author Name Unknown Organization [facility] Address [address] [place] [address] Care Team Providers Care Nylon Hot Wire Cutter Name Role Phone Livia Vo MD Primary Care Provider + [phone] Livia Vo MD Unavailable [phone] Livia Vo MD Unavailable [phone] Andrew Pan MD Primary Care Provider [...] Care Team (Late st Contact Info) Description 10/08/2011 Office Visit-[facility] [place] [address] [facility] [address] [place] [phone] Kaushik Diamond MD [address] [facility] [address] [place] [id number] Social History Tobacco Use Types Packs/Day Years Used Date Smoking Tobacco: Every Day Cigarettes 1 40 Smokeless Tobacco: Never Comments:every once and a wh ile Alcohol Use Standard Drinks/Week Comments Yes 0 (1 standard drink = 0.6 oz pur e alcohol) mixed drinks only. Sex and Gender Information Value Date Recorded Sex Assigned at Not on file Gender Identity Not on file Sexual Orientation Not on file documented as of this encounter Progress Notes * Kaushik Diamond MD - 11/12/2011 6:02 PM CST Progress Note Created by: Kaushik Diamond MD DATE: 10/08/2011 SHERRIE CLARK DATE OF : 1940 AGE: [age] years old Referring Physician: LIVIA VO Referring Clinic: [facility] CURRENT DIAGNOSES 1. 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 Claudication-intermittent, 443.9 3. Hypercholesterolemia, 272.0 4. Hypertension-Essential (Benign), 401.1 ALLERGIES atorvastatin calcium, Muscle aches MEDICATIONS (prior to changes made today) 1. Aspirin 81 mg Tablet, 1 p.o. daily 2. Calcium 500 + D 200 ., 1 p.o. daily 3. cefprozil 500 mg Tablet, 1 p.o. twice daily 4. CoQ-10 100 mg Capsule, 1 p.o. daily 5. Daily Multivitamin Tablet, 1 p.o. daily 6. Losartan-Hydrochlorothiazide 100-25 mg Tablet, 1 p.o. daily 7. Magnesium 250 mg Tablet, 1 p.o. daily 8. pravastatin 40 mg Tablet, 1 p.o. daily Start with 1/2 tablet daily for two weeks, then increase to a full pill daily. 9. Vitamin D 1,000 unit Tablet, 1 p.o. daily CHIEF COMPLAINTS follow up PAD HISTORY OF PRESENT ILLNESS INDICATION FOR FOLLOW UP: Peripheral arterial disease. Sherrie Clark is a pleasant 71-year-old current smoker with peripheral arterial disease with previous percutaneous revascularization of the bilateral lower extremities. Prior to his intervention, hehad bilateral calf burning after one block of exertion. He noticed this more when walking up hills when playing golf. He has not noticed any return of his previous claudication after the percutaneous revascularization. He asks about stopping Plavix at this time. He states that the cilostazol was started prior to hisrevascularization. He denies any palpitations or atrial fibrillation being documented. Prior to statin use, his LDL was only mildly elevated but was likely too high for him. He was switched to generic simvastatin with improvement of his LDL (63) by 10-04-10. He states that he got myalgias and stopped the statin in June 2011. He has not had any myalgias since that time. He has not tried a hydrophilic statin such as pravastatin or rosuvastatin. He currently smokes approximately one pack per week. He tried Chantix, but he did not tolerate it secondary to nightmares. He denies any exertional shortness of breath or chest discomfort. He has noticed lower extremity edema and shoes fitting tighter in the past three days. He thinks that he may have eaten saltier foods during the Thanksgiving holiday. He is on a small dose of diuretic with the combination of lisinopril/hydrochlorothiazide. PAST HISTORY Past Medical Illnesses: Peripheral vascular [...] - lives in [place] year round and [place] for 1 month in winter; Place of - [place]; REVIEW OF SYSTEMS GENERAL feels well, no change in exercise tolerance., weight loss, has questions about bleeding INTEGUMENTARY denies any change in hair or nails, rashes, or skin lesions. EYES wears eye glasses/contact lenses EARS, NOSE, THROAT, MOUTH denies any hearing loss, epistaxis, hoarseness or difficulty speaking. RESPIRATORY history of COPD, dyspnea with exertion, pt don't use oxygen CARDIOVASCULAR negative for palpitations, chest pain, orthopnea, [...] disorders. PHYSICAL EXAMINATION VITAL SIGNS: Blood Pressure: 144/74Sitting, Right arm, large cuff Pulse- 81.00/min. Weight- 187.40 lbs. Height- 68 CONSTITUTIONAL NAD, alert and oriented, ambulating without difficulty SKIN dry and warm HEAD atraumatic EYES pupils round and equal ENT speech normal, no perioral cyanosis NECK supple CHEST mild large airway rhonchi with clear with coughing, end expiratory wheeze CARDIAC RRR without murmur ABDOMEN non-tender PERIPHERAL PULSES femoral 2-, PT 2- bilateral EXTREMITIES & BACK 1-2+ edema bilat LE PSYCHIATRIC normal affect NEUROLOGICAL motor grossly intact MEDICATIONS UPDATED/STARTED TODAY: cefprozil 500 mg Tablet, 1 p.o. twice daily, #0 (Zero) pravastatin 40 mg Tablet, 1 p.o. daily Start with 1/2 tablet daily for two weeks, then increase to a full pill daily., #30 (Thirty) MEDICATIONS REFILLED/STOPPED TODAY: Cilostazol 100 mg Tablet 1 p.o. twice daily Physician Order, Plavix 75 mg Tablet 1 p.o. daily 0 Patient Terminated and Simvastatin 80 mg Tablet 1/2 tab daily #-1 Physician Order IMPRESSIONS/PLAN 1. Peripheral arterial disease, stable. I would like some amount of statin given his peripheral arterial disease. We will try pravastatin 20 mg for two weeks and then increase it to 40 mg daily. Thiscould be increased further if tolerated. I would check his cholesterol after approximately four to six weeks of stable dosing. I would aim for an LDL of under 100 and optimally less than 70. We may be able to achieve this with the weak statin given his overall modest elevation of LDL. 2. I have also discussed that he may stop the Plavix at this time and continue on aspirin monotherapy for his peripheral arterial disease. He may also stop the cilostazol given no current claudication symptoms. 3.Lower extremity edema. This is a new problem for him. I have discussed cutting back on salt and fluid. If this is not better in the next week, he will notify us or Dr. Vo. He has no PND or orthopnea at this time. If lower extremity edema does not resolve with conservative management, I would consider a transthoracic echocardiogram to assess LV function. His last echocardiogram in 2006 had normal LV function without significant valvular heart disease. 4. Nicotine abuse. He was urged to quit. Kaushik Diamond MD documented in this encounter Plan of Treatment Not on file documented as of this encounter Visit Diagnoses Not on filedocumented in this encounter Care Teams Nylon Hot Wire Cutter Relationship Specialty Start Date End Date Livia Vo MD PCP - General 08/06/09 05/28/19 Livia Vo MD [address] [address] PCP - Assigned PCP 05/20/16 01/13/19 Andrew Pan MD [address] [address] PCP - General Emergency Medicine 05/29/19 Livia Vo MD [address] [address] Assigned PCP 05/20/16 06/27/19 Kaushik Diamond MD [address] [place] [phone] Assigned Heart and Vascular Provider 09/02/20 01/24/21 Kaushik Diamond MD [address] [place] [address] Assigned Heart and Vascular Provider 03/19/21 06/17/21 Nida Henderson PA-C [address] [facility] [place] [address] Assigned Heart and Vascular Provider 07/09/21 07/15/21 Barbara Khan PA [facility] [address] [place] [address] Assigned Heart and Vascular Provider 06/18/21 07/08/21 Americo Shepherd MD [address] [place] [address] 677315 Assigned Heart and Vascular Provider 07/16/21 08/05/21 Barbara Khan PA [facility] [address] [place] [address] Assigned Heart and Vascular Provider 08/06/21 09/09/21 Americo Shepherd MD [address] [place] [address] Assigned Heart and Vascular Provider 09/10/21 09/30/21 Irma Mckay EP [facility] [address] [place], [place] [address] Cardiac Rehabilitation Therapist 09/13/21 09/13/22 Barbara Khan PA [facility] [address] [place] [address] Assigned Heart and Vascular Provider 10/01/21 03/29/23 Americo Shepherd MD [address] [place], [place] 6896[address] Cardiovascular Disease 07/13/21 Kaushik Diamond MD [address] [place], [place] [address] Assigned Heart and Vascular Provider 08/10/23 09/06/23 Kaushik Diamond MD [address] [place], [place] [address] Assigned Heart and Vascular Provider 03/30/23 07/26/23 Americo Shepherd MD [address] [place] [address] [id number] Assigned Heart and Vascular Provider 07/27/23 08/09/23 Americo Shepherd MD [address] [place], [place] [address]265 Assigned Heart and Vascular Provider 09/07/23 documented as of this encounter
--- OUTSIDE RECORDS SUMMARY | 2023-12-18 18:30 | XMS_ITS | Encounter Summary ---
Author Name Unknown Organization [facility] Address [address] [place] [address] Care Team Providers Care Director Of Sports Performance Name Role Phone Livia Vo MD Primary Care Provider + [phone] Livia Vo MD Unavailable [phone] Livia Vo MD Unavailable Andrew Pan MD Primary Care Provider Kaushik [...] [phone] Americo Shepherd MD Unavailable + [phone] Americo Shepherd MD Unavailable + [phone] Encounter Details Date Type Department Care Team (Late st Contact Info) Description 05/15/2013 Office Visit-[facility] [place] [id number] [facility] [address] [place] [id number] Opal Tariq PA-C Social History Tobacco Use Types Packs/Day Years [...] as of this encounter Progress Notes * Opal Tariq PA-C - 06/12/2013 2:43 PM CDT Progress Note Created by: HOWARD Tolbert [id number] DATE: 05/15/2013 SHERRIE CLARK DATE OF : 1940 AGE: [age] years old Referring Physician: LIVIA VO Referring Clinic: [facility] CURRENT DIAGNOSES 1. Hypercholesterolemia, 272.0 2. Hypertension-Essential (Benign), 401.1 3. - CAD, 414.00 4. - Abnormal Function Test unspecified, 794.30 5. 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 Claudication-intermittent, 443.9 ALLERGIES atorvastatin calcium, Muscle aches MEDICATIONS (prior to changes made today) 1. Aspirin 81 mg Tablet, 1 p.o. daily 2. Calcium 500 + D 200 ., 1 p.o. daily 3. CoQ-10 100 mg Capsule, 1 p.o. daily 4. Daily Multivitamin Tablet, 1 p.o. daily 5. Fish Oil 1,000 mg capsule, 1 p.o. daily 6. Losartan-Hydrochlorothiazide 100-25 mg Tablet, 1 p.o. daily 7. Magnesium 250 mg Tablet, 1 p.o. daily 8. nitroglycerin 0.4 mg tablet, sublingual, 1 Tab Sublingual - May Repeat Every 5 Minutes x2 For Chestpain 9. pravastatin 40 mg tablet, 1 p.o. daily 10. Spiriva with HandiHaler 18 mcg capsule, w/inhalation device, as directed 11. Symbicort 80-4.5 mcg/actuation HFA Aerosol Inhaler, as directed 12. Vitamin D 1,000 unit Tablet, 1 p.o. daily CHIEF COMPLAINTS Cardiac Assessment and Consult Coronary Angiogram HISTORY OF PRESENT ILLNESS: Mr. Clark is a pleasant 72-year-old patient who presents to the clinic today for a visit to discuss the results of his CT angiogram. He has a history of peripheral arterial disease as well as a history of bilateral superficial femoral arterial stents. He also has a history of dyslipidemia and has been on 40 mg of pravastatin with his LDL being at goal of less than 70. He was a previous smoker, but has continued to be smoke free for the past 8 1/2 months. His hypertension is well controlled. 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 His ejection fraction was measured at 52%. He met with Dr. Diamond about two weeks ago to discuss the results of this test as well as the plan. Dr. Diamond offered CT coronary angiography as well as an invasive coronary angiography for further assessment in addition to medical management. Mr. Clark opted for CT angiography, which was performed on 05-05-13. This revealed severe three vessel coronary calcification with an Agatston calcium score of 1,707, which placed him in the highest score tile risk. It was actually decided not to proceed with the full CT coronary angiogram givenhis significant calcifications in the proximal vessels, which would significantly decrease the predicted value of the CT angiogram. Dr. Diamond reviewed these results and recommended continued medical management with close monitoring of his symptoms or an invasive angiography. Mr. Clark presents today with his to discuss these options. Today, Sherrie tells me that he feels well. He continues to deny any symptoms of chest pain, tightness, diaphoresis, arm, neck, or jaw pain, dizziness, lightheadedness, palpitations, or edema. He does have shortness of breath with physical activity, but this continues to be at his baseline given his history of COPD. We discussed angiography in detail today. He and his would like to proceed with this for further evaluation, especially given his previous heart attach was likely silent, and he had no symptoms. Please see below for further review of systems, history, and physical examination findings. PAST HISTORY Past Medical Illnesses: Peripheral vascular disease, COPD, hyperlipidemia, hypertension, history of tobacco use Past Cardiac Illnesses: Coronary Artery Disease Surgeries/Procedures - General: arthroscopic knee surgery, elbow surgery, 08/2012: back surgery Cardiology Procedures-NonInvasive: myocardial perfusion (Nuc) -abnormal Apr 2013, 04/23: CT calcium score Peripheral Vasc Procedure Results: 07/20-KULWINDER-no hemodynamically significant stenosis, 07/20-LE USN-patent stents of bilateral SFA, stenosis present of bilateral SFA, 07/20-Aorta duplex USN-diffuse plaque in abd aorta and iliac system PMHx Echo Results: 07/31/07 Mild LVE with normal function, valves essentially normal PMHx Stress Echo Results: Nuclear stress test April 2013 mod-large partly reversible inferior/inferoseptal/inferolateral defect 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 Left Ventricular Ejection Fraction: EF 52% by nuclear study -Apr 2013 CT Results: 04/23: CT calcium score: 1707 with severe three vessel coronary calcifications including proximal LAD and proximal RCA LVEF of 52% documented via nuclear study on 04/24/2013 FAMILY HISTORY: Family - noncontributory; SOCIAL HISTORY Alcohol Use - occasionally and beer; Smoking - used to smoke but quit and 50 pack year history; Diet - regular diet without modifications and caffeine use-1-2 per day; Lifestyle - , drives carand active lifestyle; Exercise - some exercise, bowling twice a week and walk dog everyday; Seat Belt Use - always; Occupation - retired; Residence - lives in [place] year round and [place] for 1 month in winter; Place of - [place]; REVIEW OF SYSTEMS GENERAL fatigue INTEGUMENTARY denies any change in hair or nails, rashes, or skin lesions. EYES wears eye glasses/contact lenses EARS, NOSE, THROAT, MOUTH denies any hearing loss, epistaxis, hoarseness or difficulty speaking. RESPIRATORY history of COPD, dyspnea with exertion, wheezing CARDIOVASCULAR negative for palpitations, chest pain, orthopnea, PND, peripheral edema, syncope or claudication. ABDOMINAL denies change in bowel habits, dyspepsia, ulcer disease, hematochezia or melena. GENITOURINARY-MALE nocturia MUSCULOSKELETAL arthritis of the hand(s), leg cramps NEUROLOGICAL denies any history of recurrent headaches, strokes, TIA, or seizure disorder. PSYCHIATRIC denies any history of depression, substance abuse or change in cognitive functions. ENDOCRINE fatigue HEMATOLOGICAL/IMMUNOLOGIC medication allergies PHYSICAL EXAMINATION VITAL SIGNS: Blood Pressure: 128/78Sitting, Left arm, large cuff Pulse- 66.00/min. Weight- 178.00 lbs. Height- 68 BMI Measurement: 27 CONSTITUTIONAL [...] NEUROLOGICAL motor grossly intact MEDICATIONS UPDATED/STARTED TODAY: nitroglycerin 0.4 mg tablet, sublingual, 1 Tab Sublingual - May Repeat Every 5 Minutes x2 For Chestpain, #30 (Thirty) ASSESSMENT/PLAN: Mr. Clark is a pleasant 72-year-old patient who presents to the clinic today to discuss the results of his CT coronary angiogram. 1. Severe three vessel coronary calcifications noted on a CT coronary angiogram. We discussed options today including medical management with close monitoring of his symptoms or invasive coronary angiography. He and his would like to pursue a coronary angiogram. We discussed this procedure in detail today including the risks and benefits. The risks included (but were not limited to) bleeding, infection, damage to vasculature, dye nephropathy, induction of an arrhythmia, CVA, MS, and .He understands and agrees to accept these risks. A consent form was signed today in the clinic and was given to scheduling. He does have a trip planned for late May. He will be gone until mid June. He would ideally like to schedule this procedure before then. We will try to do so for him. I did ask that certainly if he developed any symptoms prior to the angiogram that he let us know. I also gave him a prescription for nitroglycerin to use especially as he is about to go on a trip. I instructed him on its use. He and his expressed understanding. 2. He will continue on aspirin, ARB, and statin medications. 3. Hypertension. Blood pressure is well controlled today. 4. Hypercholesterolemia. He continues to be at goal on pravastatin 40 mg q.h.s. 5. Peripheral arterial disease with the placement of bilateral SFA stents. He does not note any symptoms of claudication. Thank you for allowing me to participate in the care of this pleasant patient. He will schedule hisangiogram today, and we will follow up with him regarding those results. TODAYS ORDERS 1. Pre Cath Labs 2. Left Heart Cath HOWARD Tolbert documented in this encounter Plan of Treatment Not on file documented as of this encounter Visit Diagnoses Not on filedocumented in this encounter Care Teams Director Of Sports Performance Relationship Specialty Start Date End Date Livia Vo MD PCP - General 08/06/09 05/28/19 Livia Vo MD [address] [place] [address] PCP - Assigned PCP 05/20/16 01/13/19 Andrew Pan MD [facility] [address] [place] [address] PCP - General Emergency Medicine 05/29/19 Livia Vo MD [address] [place] [address] Assigned PCP 05/20/16 06/27/19 Kaushik Diamond MD [address] [place] [address] Assigned Heart and Vascular Provider 09/02/20 01/24/21 Kaushik Diamond MD [address] [address] Assigned Heart and Vascular Provider 03/19/21 06/17/21 Nida Henderson PA-C [address] [facility] [address] [place], [place] [address] Assigned Heart and Vascular Provider 07/09/21 07/15/21 Barbara Khan PA [facility] [address] [place] [address] [place] [address] Assigned Heart and Vascular Provider 06/18/21 07/08/21 Americo Shepherd MD [address] [place] [address] Assigned Heart and Vascular Provider 07/16/21 08/05/21 Barbara Khan PA [facility] [address] [place] [address] Assigned Heart and Vascular Provider 08/06/21 09/09/21 Americo Shepherd MD [address] [place] [address] Assigned Heart and Vascular Provider 09/10/21 09/30/21 Irma Mckay EP [facility] [address] [id number] Cardiac Rehabilitation Therapist 09/13/21 09/13/22 Barbara Khan PA [facility] [address] [place] [address] Assigned Heart and Vascular Provider 10/01/21 03/29/23 Americo Shepherd MD [address] [place] [id number] Cardiovascular Disease 07/13/21 Kaushik Diamond MD [address] [place] [address] Assigned Heart and Vascular Provider 08/10/23 09/06/23 Kaushik Diamond MD [address] [facility] [address] [place], [place] 646[address] Assigned Heart and Vascular Provider 03/30/23 07/26/23 Americo Shepherd MD [address] [place], [place] 895905 Assigned Heart and Vascular Provider 07/27/23 08/09/23 Americo Shepherd MD [address] [place], [place] [id number] Assigned Heart and Vascular Provider 09/07/23 documented as of this encounter
--- OUTSIDE RECORDS SUMMARY | 2023-12-18 18:30 | XMS_ITS | Encounter Summary ---
Author Name Unknown Organization [facility] Address [address] [place] [address] Care Team Providers Care Wildlife Removal Specialist Name Role Phone Livia Vo MD Primary Care Provider + [phone] Livia Vo MD Unavailable [phone] Livia Vo MD Unavailable [phone] Andrew Pan MD Primary Care Provider [...] Care Team (Late st Contact Info) Description 02/26/2014 Office Visit-[facility] [place] [address] [facility] [address] [phone] Elio Cobb MD XXX XXX [address] [facility] [address] [place] [address] Social History Tobacco Use Types Packs/Day Years [...] Progress Notes * Elio Cobb MD - 03/19/2014 8:30 AM CDT Progress Note Created by: Elio Cobb M.D. DATE: 02/26/2014 SHERRIE CLARK DATE OF : 1940 AGE: [age] years old Referring Physician: LIVIA VO Referring Clinic: [facility] CURRENT DIAGNOSES 1. 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 Hypercholesterolemia, 272.0 3. Hypertension-Essential (Benign), 401.1 4. - CAD, 414.00 ALLERGIES atorvastatin calcium, Muscle aches MEDICATIONS (prior to changes made today) 1. Aspirin 81 mg Tablet, 1 p.o. daily 2. Calcium 500 + D 200 ., 1 p.o. daily 3. CoQ-10 100 mg Capsule, 1 p.o. daily 4. Daily Multivitamin Tablet, 1 p.o. daily 5. Fish Oil 1,000 mg capsule, 1 p.o. daily 6. Losartan-Hydrochlorothiazide 100-25 mg Tablet, 1 p.o. daily 7. nitroglycerin 0.4 mg tablet, sublingual, 1 Tab Sublingual - May Repeat Every 5 Minutes x2 For Chestpain 8. pravastatin 40 mg tablet, 1 p.o. daily 9. Spiriva with HandiHaler 18 mcg capsule, w/inhalation device, as directed 10. Symbicort 80-4.5 mcg/actuation HFA Aerosol Inhaler, as directed 11. Vitamin D 1,000 unit Tablet, 1 p.o. daily CHIEF COMPLAINTS HISTORY OF PRESENT ILLNESS Sherrie Clark was seen in our office today for his coronary artery disease and peripheral arterialdisease. As you probably remember, the patient is a 73-year-old gentleman whom I saw about five years ago after he had previous stenting done of his lower extremities while in [place]. Lately he has been followed by one of my partners and because of a high calcium score he underwent heart catheterization in May of last year. This showed only mild disease except for some 60-70% stenoses of the origin of the obtuse marginal artery. As the patient was not having cardiac symptoms, it was decided to treat him medically. The patient comes to the office today and continues to feel well. He has had no chest pain, chest pressure, or chest heaviness. There has been no PND and no orthopnea. He also denies any claudication. Previously he has had severe cramping of his legs with burning sensation when he would ambulate. Currently he is walking indefinitely including stairs. He is able to golf. He feels he is doing well since his stenting intervention in [place]. Physical exam is as listed below. The patient did have lipid levels drawn yesterday which showed a total cholesterol of 163, with HDLof 64 and LDL of 83. An echocardiogram ordered by one of my partners a few days ago also showed good left ventricular function with no regional wall motion abnormality. No significant valvular abnormality was demonstrated. PAST HISTORY Past Medical Illnesses: Peripheral vascular disease, COPD, hyperlipidemia, hypertension, history of tobacco use Past Cardiac Illnesses: Coronary Artery Disease Surgeries/Procedures - General: arthroscopic knee surgery, elbow surgery, 08/2012: back surgery Cardiac/Vasc Procedures-Invasive: cardiac cath (left) May 2013 Cardiology Procedures-NonInvasive: myocardial perfusion (Nuc) -abnormal Apr 2013, 04/23: CT calcium score, echocardiogram Feb 2014 Vascular Procedures-Noninvasive: KULWINDER 07/20, LE US 07/20 Cardiac Cath Results: 05/23 diffuse scattered calcium all 3 vessels, 60-70% ostial stenosis OM1, 70% stenosis body of OM1 Peripheral Vasc Procedure Results: 07/20-KULWINDER-no hemodynamically significant stenosis, 07/20-LE USN-patent stents of bilateral SFA, stenosis present of bilateral SFA, 07/20-Aorta duplex USN-diffuse plaque in abd aorta and iliac system PMHx Echo Results: 07/31/07 Mild LVE with normal function, valves essentially normal, 02/22 no RWMA, LVSF normal PMHx Stress Echo Results: Nuclear stress test April 2013 mod-large partly reversible inferior/inferoseptal/inferolateral defect 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 Left Ventricular Ejection Fraction: EF 52% by nuclear study -Apr 2013, EF<GT>55% by Echo -Feb 2014 CT Results: 04/23: CT calcium score: 1707 with severe three vessel coronary calcifications including proximal LAD and proximal RCA LVEF of 60-65% documented via echocardiogram on 02/23/2014 SOCIAL HISTORY Alcohol Use - occasionally and beer; Smoking - used to smoke but quit and 50 pack year history; Diet - regular diet without modifications and caffeine use-1-2 per day; Lifestyle - , drives carand active lifestyle; Exercise - some exercise, bowling twice a week, walk dog everyday and Golf; Seat Belt Use - always; Occupation - retired; Residence - lives in [place] year round and [place] for 3 month in winter; Place of - [place]; REVIEW OF SYSTEMS GENERAL weight gain, approx 7 lbs since last OV, positive for energy, no change in appetite INTEGUMENTARY denies any change in hair or nails, rashes, or skin lesions. EYES wears eye glasses/contact lenses EARS, NOSE, THROAT, MOUTH denies any hearing loss, epistaxis, hoarseness or difficulty speaking. RESPIRATORY history of COPD, dyspnea with exertion, wheezing CARDIOVASCULAR edema of the feet, a little bit - I think per pt, negative for chest discomfort, negative for palpitations, negative for dizziness ABDOMINAL a lot of gas GENITOURINARY-MALE nocturia MUSCULOSKELETAL arthritis of the hand(s), leg cramps, back surgery 10/2012 NEUROLOGICAL denies any history of recurrent headaches, strokes, TIA, or seizure disorder. PSYCHIATRIC denies any history of depression, substance abuse or change in cognitive functions. ENDOCRINE denies any history of thyroid disease or diabetes mellitus. HEMATOLOGICAL/IMMUNOLOGIC medication allergies PHYSICAL EXAMINATION VITAL SIGNS: Blood Pressure: 156/80Sitting, Left arm, regular cuff Pulse- 66.00/min. Weight- 185.80 lbs. Height- 68.00 BMI Measurement: 28 CONSTITUTIONAL NAD, ambulating halls without difficulty SKIN well tanned, warm and dry HEAD atraumatic EYES EOM intact ENT speech normal, tongue midline NECK supple CHEST clear to ascultation CARDIAC RRR without murmur/lift/thrill ABDOMEN non-tender PERIPHERAL PULSES radial 2- bilateral, PT 2- bilateral EXTREMITIES & BACK no edema PSYCHIATRIC appropriate in answers NEUROLOGICAL motor grossly symmetrical MEDICATIONS UPDATED/STARTED TODAY: MEDICATIONS REFILLED/STOPPED TODAY: Magnesium 250 mg Tablet 1 p.o. daily #-1 Patient Terminated ASSESSMENT/RECOMMENDATIONS: 1. The patient has coronary artery disease that appears to be moderate at most and not associated with any symptoms. At this point I would recommend continued medical treatment. Guidelines would suggest that no revascularization is indicated at this time. 2. The patient does have peripheral vascular disease and is status post bilateral lower extremity stenting. Currently he is without claudication and his physical exam showed good posterior tibial pulses bilaterally. At this point there are no plans for any invasive procedure for his PAD. 3. The patients systolic blood pressure is slightly elevated at 156. I have asked him to monitor this and check with you. I will leave it for you to adjust his medications. I did explain to the patient that he does not need to see me for his blood pressure unless it is difficult to control. 4. The patients BMI is around 28. Some weight loss would be reasonable. I did discuss this for minutes with the patient. 5. I have scheduled the patient to see meback in approximately one years time. His lipid levels were good today and I will leave this for you to follow. Thank you for allowing us to follow your patient. Should you have any questions about this patient or any other patient, please feel free to contact us at any time. TODAYS ORDERS 1. Return Visit 1 year Elio Cobb M.D. documented in this encounter Plan of Treatment Not on file documented as of this encounter Visit Diagnoses Not on filedocumented in this encounter Care Teams Wildlife Removal Specialist Relationship Specialty Start Date End Date Livia Vo MD PCP - General 08/06/09 05/28/19 Livia Vo MD [address] [place] [address] PCP - Assigned PCP 05/20/16 01/13/19 Andrew Pan MD [facility] [address] [place] [address] PCP - General Emergency Medicine 05/29/19 Livia Vo MD [address] [place] [address] Assigned PCP 05/20/16 06/27/19 Kaushik Diamond MD [address] [place] [address] Assigned Heart and Vascular Provider 09/02/20 01/24/21 Kaushik Diamond MD [address] [place] [address] Assigned Heart and Vascular Provider 03/19/21 06/17/21 Nida Henderson PA-C [address] [place], [place] [phone] Assigned Heart and Vascular Provider 07/09/21 07/15/21 Barbara Khan PA [facility] [address] [place], [place] [address] Assigned Heart and Vascular Provider 06/18/21 07/08/21 Americo Shepherd MD [address] [place] [address] [id number] Assigned Heart and Vascular Provider 07/16/21 08/05/21 Barbara Khan PA [facility] [address] [place], [place] 397435 Assigned Heart and Vascular Provider 08/06/21 09/09/21 Americo Shepherd MD [address] [place] [address] Assigned Heart and Vascular Provider 09/10/21 09/30/21 Irma Mckay EP [facility] [address] [place] [id number] Cardiac Rehabilitation Therapist 09/13/21 09/13/22 Barbara Khan PA [facility] [address] [place], [place] 949925 Assigned Heart and Vascular Provider 10/01/21 03/29/23 Americo Shepherd MD [address] [place] [address] 697125 MD Cardiovascular Disease 07/13/21 Kaushik Diamond MD [address] [place] [id number] Assigned Heart and Vascular Provider 08/10/23 09/06/23 Kaushik Diamond MD [address] [place] [id number] Assigned Heart and Vascular Provider 03/30/23 07/26/23 Americo Shepherd MD [address] [place] [id number] Assigned Heart and Vascular Provider 07/27/23 08/09/23 Americo Shepherd MD [address] [place] [address] [id number] Assigned Heart and Vascular Provider 09/07/23 documented as of this encounter
--- OUTSIDE RECORDS SUMMARY | 2023-12-18 18:30 | XMS_ITS | Encounter Summary ---
Author Name Unknown Organization [facility] Address [address] [place] [address] Care Team Providers Care Target Man Name Role Phone Livia Vo MD Primary Care Provider + [phone] Livia Vo MD Unavailable Livia Vo MD Unavailable [phone] Andrew Pan MD Primary Care Provider [...] + [phone] Americo Shepherd MD Unavailable + [phone] Encounter Details Date Type Department Care Team (Late st Contact Info) Description 04/28/2013 Office Visit-[facility] Nicole [address] [facility] [address] [place] [phone] Kaushik Diamond MD [address] [facility] [address] [place] [address] Social History Tobacco Use Types Packs/Day Years [...] Progress Notes * Kaushik Diamond MD - 05/06/2013 1:36 PM CDT Progress Note Created by: Kaushik Diamond MD DATE: 04/28/2013 SHERRIE CLARK DATE OF : 1940 AGE: [age] years old Referring Physician: LIVIA VO Referring Clinic: [facility] CURRENT DIAGNOSES 1. 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 Hypercholesterolemia, 272.0 3. Hypertension-Essential (Benign), 401.1 4. - Abnormal Function Test unspecified, 794.30 5. Claudication-intermittent, 443.9 ALLERGIES atorvastatin calcium, Muscle aches [...] 1 p.o. daily 8. pravastatin 40 mg tablet, 1 p.o. daily 9. Spiriva with HandiHaler 18 mcg capsule, w/inhalation device, as directed 10. Symbicort 80-4.5 mcg/actuation HFA Aerosol Inhaler, as directed 11. Vitamin D 1,000 unit Tablet, 1 p.o. daily CHIEF COMPLAINTS follow up stress test HISTORY OF PRESENT ILLNESS Sherrie Clark is a very pleasant 72-year-old who is well known to me from previous visits. He has peripheral arterial disease with bilateral SFA stents. He has quit smoking for approximately eight months at this point. His LDL is at goal on 40 mg of pravastatin. His blood pressure is also at goal on 100 mg of losartan/hydrochlorothiazide 25 mg. He feels well and is able to play golf regularly on Saturday. 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 This has not changed. He does not get any central chest heaviness with exertion. Due to his peripheral arterial disease, we had nuclear stress testing performed on 04-24-13. This was abnormal. There was a suggestion of a moderately large partially reversible inferior/inferoseptal/inferolateral defect consistent a silent infarct with mild to moderate carlos-infarct ischemia in the inferolateral wall. EF was 52%. He comes in to discuss the results of the test. PAST HISTORY Past Medical Illnesses: Peripheral vascular disease, COPD, hyperlipidemia, hypertension, history of tobacco use Surgeries/Procedures - General: arthroscopic knee surgery, elbow surgery, 08/2012: back surgery Cardiology Procedures-NonInvasive: myocardial perfusion (Nuc) -abnormal Apr 2013 Peripheral Vasc Procedure Results: 07/20-KULWINDER-no hemodynamically significant [...] EF 52% by nuclear study -Apr 2013 LVEF of 52% documented via nuclear study on 04/24/2013 REVIEW OF SYSTEMS GENERAL no change in weight, follow up appt INTEGUMENTARY denies any change in hair or [...] disorders. PHYSICAL EXAMINATION VITAL SIGNS: Blood Pressure: 126/74Sitting, Right arm, regular cuff Pulse- 66.00/min. Weight- 178.00 lbs. Height- 68.00 BMI Measurement: 27 CONSTITUTIONAL NAD, alert and [...] NEUROLOGICAL motor grossly intact MEDICATIONS UPDATED/STARTED TODAY: Fish Oil 1,000 mg capsule, 1 p.o. daily, #0 (Zero) Spiriva with HandiHaler 18 mcg capsule, w/inhalation device, as directed, #0 (Zero) Symbicort 80-4.5 mcg/actuation HFA Aerosol Inhaler, as directed, #0 (Zero) IMPRESSION/PLAN: Coronary artery disease. I have given him the option of continuing medical management given his modification of current risk factors with antihypertensives and antihyperlipidemics. Ihave also given him the option of CT coronary angiography knowing that we may have sub-optimal imaging if severe coronary calcification is noted. I have also given him the option of invasive coronaryangiography, which he declines given his lack of symptoms at this point. I have discussed that if there was anterior ischemia, I would urge coronary angiography and revascularization. At this point, it is only partially reversible and mild to moderately sized. He could either remain with medical man agement or investigate further. He chooses CT coronary angiography, which I think is reasonable. We will schedule this for later this week and will notify him with the results. TODAYS ORDERS 1. CT Coronary Angiogram 1 Day Kaushik Diamond MD documented in this encounter Plan of Treatment Not on file documented as of this encounter Visit Diagnoses Not on filedocumented in this encounter Care Teams Target Man Relationship Specialty Start Date End Date Livia Vo MD PCP - General 08/06/09 05/28/19 Livia oV MD [address] [place] [address] PCP - Assigned PCP 05/20/16 01/13/19 Andrew Pan MD [facility] [address] [place] [address] PCP - General Emergency Medicine 05/29/19 Livia Vo MD [address] [facility] [address] [place] [address] Assigned PCP 05/20/16 06/27/19 Kaushik Diamond MD [address] [facility] [address] [place], [place] [address] Assigned Heart and Vascular Provider 09/02/20 01/24/21 Kaushik Diamond MD [address] [place], [place] 3623[address] Assigned Heart and Vascular Provider 03/19/21 06/17/21 Nida Henderson PA-C [address] [place] [address] Assigned Heart and Vascular Provider 07/09/21 07/15/21 Barbara Khan PA [facility] [address] [place] [address] [id number] Assigned Heart and Vascular Provider 06/18/21 07/08/21 Americo Shepherd MD [address] [place], [place] 173055 Assigned Heart and Vascular Provider 07/16/21 08/05/21 Barbara Khan PA [facility] [address] [place], [place] 402525 Assigned Heart and Vascular Provider 08/06/21 09/09/21 Americo Shepherd MD [address] [place] [address] 655625 Assigned Heart and Vascular Provider 09/10/21 09/30/21 Irma Mckay EP [facility] [address] [place], [place] [address] Cardiac Rehabilitation Therapist 09/13/21 09/13/22 Barbara Khan PA [facility] [address] [place], [place] 715385 Assigned Heart and Vascular Provider 10/01/21 03/29/23 Americo Shepherd MD [address] [place] [address] 506015 Cardiovascular Disease 07/13/21 Kaushik Diamond MD [address] [place] [address] Assigned Heart and Vascular Provider 08/10/23 09/06/23 Kaushik Diamond MD [address] [place] [address] Assigned Heart and Vascular Provider 03/30/23 07/26/23 Americo Shepherd MD [address] [place] [address] [phone] Assigned Heart and Vascular Provider 07/27/23 08/09/23 Americo Shepherd MD [address] [place] [address] Assigned Heart and Vascular Provider 09/07/23 documented as of this encounter
--- OUTSIDE RECORDS SUMMARY | 2023-12-18 18:30 | XMS_ITS | Encounter Summary ---
Author Name Unknown Organization [facility] Address [address] [place] [address] Care Team Providers Care Disability Representative Name Role Phone Win Vo MD Primary Care Provider + [phone] Win Vo MD Unavailable [phone] Win Vo MD Unavailable [phone] Andrew Pan MD Primary Care Provider [...] Care Team (Late st Contact Info) Description 10/01/2011 MyC Medical Advice [facility] [address] [place] [phone] Win Vo MD [address] [place], [place] [address] Nodule, lung (Primary Dx) Social History Tobacco Use Types [...] as of this encounter Visit Diagnoses Diagnosis Nodule, lung- Primary Solitary pulmonary nodule documented in this encounter Care Teams Disability Representative Relationship Specialty Start Date End Date Win Vo MD PCP - General 08/06/09 05/28/19 Win Vo MD [address] [place] [address] PCP - Assigned PCP 05/20/16 01/13/19 Andrew Pan MD [facility] [address] [place] [address] PCP - General Emergency Medicine 05/29/19 Win Vo MD [address] [place] [address] Assigned PCP 05/20/16 06/27/19 Kaushik Diamond MD [address] [place] [address] Assigned Heart and Vascular Provider 09/02/20 01/24/21 Kaushik Diamond MD [address] [place] [address] Assigned Heart and Vascular Provider 03/19/21 06/17/21 Nida Henderson PA-C [address] [place], [place] [address] Assigned Heart and Vascular Provider 07/09/21 07/15/21 Barbara Khan PA [facility] [address] [place], [place] 0[address] Assigned Heart and Vascular Provider 06/18/21 07/08/21 Americo Shepherd MD [address] [place] [address] 016265 Assigned Heart and Vascular Provider 07/16/21 08/05/21 Barbara Khan PA [facility] [address] [place], [place] 8109[address] Assigned Heart and Vascular Provider 08/06/21 09/09/21 Americo Shepherd MD [address] [place] [address] Assigned Heart and Vascular Provider 09/10/21 09/30/21 Irma Mckay EP [facility] [address] [place] [address] Cardiac Rehabilitation Therapist 09/13/21 09/13/22 Barbara Khan PA [facility] [address] [place] [address] Assigned Heart and Vascular Provider 10/01/21 03/29/23 Americo Shepherd MD [address] [place] [address] [phone] Cardiovascular Disease 07/13/21 Kaushik Diamond MD [address] [place] [address] Assigned Heart and Vascular Provider 08/10/23 09/06/23 Kaushik Diamond MD [address] [place] 94[address] Assigned Heart and Vascular Provider 03/30/23 07/26/23 Americo Shepherd MD [address] [place] [address] 034835 Assigned Heart and Vascular Provider 07/27/23 08/09/23 Americo Shepherd MD [address] [place] [address] 225735 Assigned Heart and Vascular Provider 09/07/23 documented as of this encounter
--- OUTSIDE RECORDS SUMMARY | 2023-12-18 18:30 | XMS_ITS | Encounter Summary ---
Author Name Unknown Organization [facility] Address [address] [place] [address] Care Team Providers Care Sub Acute Care Nurse Name Role Phone Win Vo MD Primary Care Provider + [phone] Win Vo MD Unavailable [phone] Win Vo MD Unavailable [phone] Andrew Pan MD Primary Care Provider [...] Unavailable [phone] Americo Shepherd MD Unavailable [phone] Americo Shepherd MD Unavailable Encounter Details Date Type Department Care Team (Late st Contact Info) Description 03/03/2012 MyC Medical Advice [facility] [address] [place] [address] Win Vo MD [address] [place], [place] [phone] Social History Tobacco Use Types Packs/Day Years [...] on filedocumented in this encounter Care Teams Sub Acute Care Nurse Relationship Specialty Start Date End Date Win Vo MD PCP - General 08/06/09 05/28/19 Win Vo MD [address] [place] [address] PCP - Assigned PCP 05/20/16 01/13/19 Andrew Pan MD [facility] [address] [place] [address] PCP - General Emergency Medicine 05/29/19 Win Vo MD [address] [place] [address] Assigned PCP 05/20/16 06/27/19 Kaushik Diamond MD [address] [place], [place] [address] Assigned Heart and Vascular Provider 09/02/20 01/24/21 Kaushik Diamond MD [address] [place], [place] [address] Assigned Heart and Vascular Provider 03/19/21 06/17/21 Nida Henderson PA-C [address] [place] [address] Assigned Heart and Vascular Provider 07/09/21 07/15/21 Barbara Khan PA [facility] [address] [place] [address] 456205 Assigned Heart and Vascular Provider 06/18/21 07/08/21 Americo Shepherd MD [address] [place] [address] Assigned Heart and Vascular Provider 07/16/21 08/05/21 Barbara Khan PA [facility] [address] [place] [address] [phone] Assigned Heart and Vascular Provider 08/06/21 09/09/21 Americo Shepherd MD [address] [place] [address] Assigned Heart and Vascular Provider 09/10/21 09/30/21 Irma Mckay EP [facility] [address] [place] [address] Cardiac Rehabilitation Therapist 09/13/21 09/13/22 Barbara Khan PA [facility] [address] [place] [address] Assigned Heart and Vascular Provider 10/01/21 03/29/23 Americo Shepherd MD [address] [place] [address] Cardiovascular Disease 07/13/21 Kaushik Diamond MD [address] [place] [address] Assigned Heart and Vascular Provider 08/10/23 09/06/23 Kaushik Diamond MD [address] [place] [address] Assigned Heart and Vascular Provider 03/30/23 07/26/23 Americo Shepherd MD [address] [place] [address] Assigned Heart and Vascular Provider 07/27/23 08/09/23 Americo Shepherd MD [address] [place] [address] Assigned Heart and Vascular Provider 09/07/23 documented as of this encounter
--- OUTSIDE RECORDS SUMMARY | 2023-12-18 18:30 | XMS_ITS | Encounter Summary ---
Author Name Unknown Organization [facility] Address [address] [place] [address] Care Team Providers Care Superintendent [employer] Field [employer] Name Role Phone Win Vo MD Primary Care Provider + [phone] Win Vo MD Unavailable Win Vo MD Unavailable [phone] Andrew Pan MD Primary Care Provider [...] Unavailable [phone] Americo Shepherd MD Unavailable [phone] Americo Shepherd MD Unavailable [phone] Reason for Visit * Reason Onset Date Comments Refill Request 10/26/2010 Encounter Details Date Type Department Care Team (Late st Contact Info) Description 10/26/2010 Refill [facility] [address] [place] [phone] Win Vo MD [address] [place] [address] Refill Request Social History Tobacco Use Types [...] * Telephone Encounter - Jennifer Alfred - 10/26/2010 9:36 AM CST Pt called requesting RF Losartan. This med not on pt's med list so needs MD approval; pt said his last BPmed was changed to Losartan in September 2010. Last OV 10/04/10, BP 122/72. OR BOOKKEEPER documented in this encounter Plan of Treatment Not on file documented as of this encounter Visit Diagnoses Diagnosis Unspecified essential hypertension- Primary documented in this encounter Care Teams Superintendent [employer] Drilling Relationship Specialty Start Date End Date Win Vo MD PCP - General 08/06/09 05/28/19 Win Vo MD [address] [place] [address] PCP - Assigned PCP 05/20/16 01/13/19 Andrew Pan MD [facility] [address] [place] [address] PCP - General Emergency Medicine 05/29/19 Win Vo MD [address] [facility] [address] [place] [address] Assigned PCP 05/20/16 06/27/19 Kaushik Diamond MD [address] [place], [place] [address] Assigned Heart and Vascular Provider 09/02/20 01/24/21 Kaushik Diamond MD [address] [place], [place] [address] Assigned Heart and Vascular Provider 03/19/21 06/17/21 Nida Henderson PA-C [address] [facility] [place] [place] [address] Assigned Heart and Vascular Provider 07/09/21 07/15/21 Barbara Khan PA [facility] [address] [place] [address] 927645 Assigned Heart and Vascular Provider 06/18/21 07/08/21 Americo Shepherd MD 6 [place], [place] [address]395 Assigned Heart and Vascular Provider 07/16/21 08/05/21 Barbara Khan PA [facility] [address] [place], [place] [address] Assigned Heart and Vascular Provider 08/06/21 09/09/21 Americo Shepherd MD [address] [place] [address] 479265 Assigned Heart and Vascular Provider 09/10/21 09/30/21 Irma Mckay EP [facility] [address] [place] [address] Cardiac Rehabilitation Therapist 09/13/21 09/13/22 Barbara Khan PA [facility] [address] [place] [address] [phone] Assigned Heart and Vascular Provider 10/01/21 03/29/23 Americo Shepherd MD [address] [place] [address] 235995 MD Cardiovascular Disease 07/13/21 Kaushik Diamond MD [address] [place] [address] Assigned Heart and Vascular Provider 08/10/23 09/06/23 Kaushik Diamond MD [address] [place] [address] Assigned Heart and Vascular Provider 03/30/23 07/26/23 Americo Shepherd MD [address] [place] [address] [phone] Assigned Heart and Vascular Provider 07/27/23 08/09/23 Americo Shepherd MD [address] [place] [address] Assigned Heart and Vascular Provider 09/07/23 documented as of this encounter
--- NOTE | 2023-12-18 18:31 | ED.NURSE ---
Nurse to Nurse given to ANTHONY Brice. Transfer to room 245.
--- OUTSIDE RECORDS SUMMARY | 2023-12-18 18:31 | XMS_ITS | Encounter Summary ---
Author Name Unknown Organization [facility] Address [address] [place] [address] Care Team Providers Care Finished Cloth Examiner Name Role Phone Livia Vo MD Primary Care Provider + [phone] Livia Vo MD Unavailable [phone] Livia Vo MD Unavailable [phone] Andrew Pan MD Primary Care Provider Kaushik Diaomnd MD Unavailable [phone] Kaushik Diamond MD [...] Care Team (Late st Contact Info) Description 07/28/2009 Office Visit-[facility] [place] [address] [facility] [address] [place] [phone] Elio Cobb MD XXX XXX [address] [facility] [address] [place] [id number] Social History Tobacco Use Types Packs/Day Years Used Date Smoking Tobacco: Every Day Cigarettes 0.5 Comments:up to 2 packs per w [place] for 40 + years. Alcohol Use Standard Drinks/Week Comments Yes 0 (1 standard drink = 0.6 oz pur e alcohol) beer only. Sex and Gender Information Value Date Recorded Sex Assigned at Not on file Gender Identity Not on file Sexual Orientation Not on file documented as of this encounter Progress Notes * Elio Cobb MD - 08/10/2009 3:09 PM CDT Progress Note Created by: Elio Cobb M.D. DATE: 07/28/2009 SHERRIE CLARK DATE OF : 1940 AGE: [age] years old Referring Physician: LIVIA VO Referring Clinic: [facility] CURRENT DIAGNOSES 1. Atherosclerosis-Lower Extremity [...] 80 mg, 1/2 tab daily CHIEF COMPLAINTS PAD HISTORY OF PRESENT ILLNESS Thank you very much for asking me to see Sherrie Clark in consultation because of his peripheral arterial disease. As you probably remember, the patient is a 69-year-old gentleman who recently moved to [place] from [place], [place]. He has had previous stenting in his lower extremity and he received a letter advising him to get physiologic testing of his lower extremities. The patient is here now to arrange for this testing. The patient states that about four to five years ago he had bilateral stents placed in his lower extremity. He points to the superficial femoral artery area and remembers groin punctures in both sites. Prior to stenting he had symptomatic claudication after a few hundred feet, with dramatic improvement after the stents were placed. Initially he was able to walk indefinitely without any problems. The patient believes they were some sort of special stents with drugs, although there are no FDA-approved drug-coated peripheral stents. I cannot exclude the possibility that he was under some sort ofinvestigational device protocol. The patient states that he has gotten the blood pressure readings,i.e., KULWINDER readings and segmental blood pressures, yearly since. He states that initially he had no claudication but now he develops claudication with the left definitely worse than the right. It occurs after around four blocks of walking. Even with this degree of claudication he has been able to car ry on his normal activities. He goes shopping with his and does not have to stop walking, although he states he does not walk fast. He plays 18 holes of golf using a motorized golf cart but has not had to decrease his golfing activities. He has had no rest pain. There have been no non-healing ulcers. He unfortunately continues to smoke but is trying to stop. He is being treated for dyslipidemia, as well as high blood pressure. He is not on any diabetic medications. The patient does notice some shortness of breath which he relates to his smoking and COPD. He is scheduled to see a outpatient phlebotomist here in the [facility]. The patient denies any chest pressure, chestheaviness, palpitations, or syncope. Past medical history is as listed below. Social history: The patient is . He is in the process of trying to stop smoking. Physical exam is as listed below. PAST HISTORY Past Medical Illnesses: Peripheral vascular disease, COPD, hyperlipidemia, hypertension, tobacco use Surgeries/Procedures - General: arthroscopic knee surgery, elbow surgery PMHx Echo Results: 07/31/07 Mild LVE with normal function, valves essentially normal REVIEW OF SYSTEMS GENERAL denies recent weight loss, weight gain, fever or chills or change in exercise tolerance. INTEGUMENTARY denies any change in hair or nails, rashes, or skin lesions. EYES wears eye glasses/contact lenses EARS, NOSE, THROAT, MOUTH denies any hearing loss, epistaxis, hoarseness or difficulty speaking. RESPIRATORY denies dyspnea, cough, wheezing or hemoptysis., history of COPD, dyspnea, wheezing, Oxygen QHS CARDIOVASCULAR no CP/palpitation/etc ABDOMINAL denies ulcer disease, hematochezia or melena. [...] disorders. PHYSICAL EXAMINATION VITAL SIGNS: Blood Pressure: 116/69 Sitting, Left arm, large cuff Pulse- 78.00/min. Weight- 181.10 lbs. Height- 68.00 Temperature- .00 CONSTITUTIONAL NAD, ambulating halls without difficulty, alert and oriented SKIN warm and dry, faded tattoos, HEAD atraumatic EYES EOMI, conjunctiva normal ENT dentures, tongue midline NECK supple without JVD/bruit CHEST mild coarseness with clearing CARDIAC RRR without lift/thirll/murmur ABDOMEN soft without tenderness/bruit PERIPHERAL PULSES good femorals without bruit, good R pop and PT, 1+ R DP L Pop, L ankles EXTREMITIES & BACK no edema, feet and toes warm, good capillary refill PSYCHIATRIC appropriate in answers NEUROLOGICAL motor grossly intact MEDICATIONS UPDATED/STARTED TODAY: Lipitor 80 mg, 1/2 tab daily, 0 MEDICATIONS REFILLED/STOPPED TODAY: Lipitor 80 mg 1 p.o. daily 0 Refill ASSESSMENT/RECOMMENDATION: 1. The patient has some recurrent claudication and I suspect has bilateral SFA stents, although this is unclear. The patient believes he has a diagram of where the stents were placed but forgot to bring it to the office today. 2. I believe it is worthwhile to proceed with surveillance physiologic studies, as well as ultrasound of his arteries in his legs to check for any restenosis or progressionof disease. 3. I did explain to the patient that there is no indication for revascularization unless there is a critical stenosis which threatens stent closure. Currently he is not having critical limb ischemia and therefore limb salvage is not a question. Intervention would be based on lifestyle-limiting claudication rather than limb salvage. I also made sure the patient understands that any intervention to the leg from a mechanical standpoint would not necessarily improve blockages in his neck to prevent stroke or his cardiac arteries to prevent myocardial infarction. 4. I did explain to him that medical treatment of his legs would be beneficial both for his heart as well as his neck arteries to decrease the risk of stroke. These include good control of his cholesterol with an LDL cholesterol of at least less than 100, but less than 70 would be advisable. He needs to stop smoking. Hisblood pressure is under good control. He is not a diabetic at this time. 5. We will arrange for these tests, and then I will see the patient afterward, at which time I will make further recommendations. Thank you very much for allowing us to participate in the care of your patient. Should you have anyquestions about this patient or any other patient, please feel free to contact us at any time. TODAYS ORDERS 1. KULWINDER/Segmental Pressure/Exercise 1 week 2. Aorta Iliac Doppler Ultrasound 1 week 3. Lower Extremity-Arterial Duplex 1 week 4. Return Visit 1 month Elio Cobb M.D. documented in this encounter Plan of Treatment Not on file documented as of this encounter Visit Diagnoses Not on filedocumented in this encounter Care Teams Finished Cloth Examiner Relationship Specialty Start Date End Date Livia Vo MD PCP - General 08/06/09 05/28/19 Livia Vo MD [address] [place] [address] PCP - Assigned PCP 05/20/16 01/13/19 Andrew Pan MD [facility] [address] [place] [address] PCP - General Emergency Medicine 05/29/19 Livia Vo MD [address] [place] [address] Assigned PCP 05/20/16 06/27/19 Kaushik Diamond MD [address] [place] [id number] Assigned Heart and Vascular Provider 09/02/20 01/24/21 Kaushik Diamond MD [address] [place] [id number] Assigned Heart and Vascular Provider 03/19/21 06/17/21 Nida Henderson PA-C [address] [place], [place] [id number] Assigned Heart and Vascular Provider 07/09/21 07/15/21 Barbara Khan PA [facility] [address] [place] [id number] Assigned Heart and Vascular Provider 06/18/21 07/08/21 Americo Shepherd MD [address] [place] [address] [id number] Assigned Heart and Vascular Provider 07/16/21 08/05/21 Barbara Khan PA [facility] [address] [place] [address] [id number] Assigned Heart and Vascular Provider 08/06/21 09/09/21 Americo Shepherd MD [address] [place] [address] [id number] Assigned Heart and Vascular Provider 09/10/21 09/30/21 Irma Mckay EP [facility] [address] [place], [place] [id number] Cardiac Rehabilitation Therapist 09/13/21 09/13/22 Barbara Khan PA [facility] [address] [place] [address] [id number] Assigned Heart and Vascular Provider 10/01/21 03/29/23 Americo Shepherd MD [address] [place] [id number] Cardiovascular Disease 07/13/21 Kaushik Diamond MD [address] [place] [address] Assigned Heart and Vascular Provider 08/10/23 09/06/23 Kaushik Diamond MD [address] [place], [place] [phone] Assigned Heart and Vascular Provider 03/30/23 07/26/23 Americo Shepherd MD [address] [place] [address] [id number] Assigned Heart and Vascular Provider 07/27/23 08/09/23 Americo Shepherd MD [address] [place] [address] Assigned Heart and Vascular Provider 09/07/23 documented as of this encounter
[2023-12-18 18:51] VITALS: BP 140/67; PULSE 93; RESP 20; TEMP 36.3; O2SAT 85
[2023-12-18 19:16] VITALS: BP 140/67; PULSE 93; RESP 20; TEMP 36.3; O2SAT 85; BMI 22.4
[2023-12-18] MEDS: MORPHINE 10 MG/0.5 ML ORAL SOLN 5 MG PO (19:42)
[2023-12-18 19:45] VITALS: RESP 18; O2SAT 93
[2023-12-18] MEDS: MORPHINE 10 MG/0.5 ML ORAL SOLN PO ×3 (19:57→21:58)
--- NOTE | 2023-12-18 19:58 | PC.NURSE ---
end of shift. pt was admitted to 245, family is not able to take care of him at home. he is confused and restless. he was agitated and struggling with nurse with cares vs, and assessment. was in room
[2023-12-18] MEDS: MELATONIN 3 MG TABLET PO (21:00)
[2023-12-18] MEDS: LORazepam 1 MG TABLET PO (21:17)
--- NOTE | 2023-12-18 21:21 | P.IMHP_ITS ---
Hospitalist- H&P: HPI History of Present Illness Date Seen: 12/18/23 Chief complaint: Ill, inderminent pain, confusion Narrative: Carlos Clark is a 83 year old male admitted to the hospital with uncontrolled behavior related to dementia with delirium. Patient is had longstanding dementia with delirium. He has been living with his . He has recently enrolled in hospice for his dementia and delirium and COPD. Recently he has had worsening illness with more agitation, getting up and moving around but at high risk for falling, not eating. He has been receiving haloperidol, lorazepam, morphine without good relief of his agitation. The hospice nurse recommended they bring him to the hospital to because of his uncontrolled behavior and agitation. The nurse and the felt that he was unsafe with his agitation and restlessness at home is not aware of a recent illness such as fever or cough. He has oxygen at home for his COPD and does not consistently use it. Sometimes he is hypoxic. The hospice nurse indicated that she was going to try to arrange for him to go to a senior care facility for hospice care. Review of Systems Narrative: Unable to obtain from the patient. primarily notes that he has been increasingly agitated, restless, getting up and moving around but very unsteady on his feet, not eating or drinking. [facility] Medical History (Updated 12/18/23 @ 21:33 by Noe Brasher MD) Palliative care encounter ?Z51.5 - Encounter for palliative care (ICD-10) Pneumonia ?J18.9 - Pneumonia, unspecified organism (ICD-10) Memory impairment ?R41.3 - Other amnesia (ICD-10) Dysphagia ?R13.10 - Dysphagia, unspecified (ICD-10) Infection due to severe acute respiratory syndrome coronavirus 2 (SARS-CoV-2) (~06/07/22) ?U07.1 - COVID-19 (ICD-10) Pulmonary hypertension ?I27.20 - Pulmonary hypertension, unspecified (ICD-10) Dementia ?F03.90 - Unspecified dementia without behavioral disturbance (ICD-10) Peripheral vascular disease ?I73.9 - Peripheral vascular disease, unspecified (ICD-10) Mesenteric artery stenosis ?K55.1 - Chronic vascular disorders of intestine (ICD-10) Renal artery stenosis ?I70.1 - Atherosclerosis of renal artery (ICD-10) Health care directive on file ?Z78.9 - Other specified health status (ICD-10) Constipation ?K59.00 - Constipation, unspecified (ICD-10) COPD (chronic obstructive pulmonary disease) ?J44.9 - Chronic obstructive pulmonary disease, unspecified (ICD-10) Type 2 diabetes mellitus ?E11.9 - Type 2 diabetes mellitus without complications (ICD-10) Allergies ?T78.40XA - Allergy, unspecified, initial encounter (ICD-10) GERD (gastroesophageal reflux disease) ?K21.9 - Gastro-esophageal reflux disease without esophagitis (ICD-10) Chronic radicular low back pain ?M54.16 - Radiculopathy, lumbar region (ICD-10) ?G89.29 - Other chronic pain (ICD-10) Anxiety ?F41.9 - Anxiety disorder, unspecified (ICD-10) Type 2 diabetes mellitus ?E11.9 - Type 2 diabetes mellitus without complications (ICD-10) Pneumothorax ?J93.9 - Pneumothorax, unspecified (ICD-10) Peripheral arterial disease ?I73.9 - Peripheral vascular disease, unspecified (ICD-10) Hypertension ?I10 - Essential (primary) hypertension (ICD-10) Hyperlipidemia ?E78.5 - Hyperlipidemia, unspecified (ICD-10) History of adenomatous polyp of colon ?Z86.010 - Personal history of colonic polyps (ICD-10) Gout ?M10.9 - Gout, unspecified (ICD-10) Generalized anxiety disorder ?F41.1 - Generalized anxiety disorder (ICD-10) Coronary artery disease ?I25.10 - Atherosclerotic heart disease of [place] coronary artery without angina pectoris (ICD-10) Surgical History History of thumb surgery ?Z98.890 - Other specified postprocedural states (ICD-10) History of phacoemulsification of cataract of both eyes with intraocular lens implantation ?Z98.41 - Cataract extraction status, right eye (ICD-10) ?Z98.42 - Cataract extraction status, left eye (ICD-10) ?Z96.1 - Presence of intraocular lens (ICD-10) History of lumbar discectomy ?Z98.890 - Other specified postprocedural states (ICD-10) History of decompression of both ulnar nerves ?Z98.890 - Other specified postprocedural states (ICD-10) Social History (Updated 12/18/23 @ 21:27 by Noe Brasher MD) Narrative: , lives with his in [place]. is healthcare power of disability attorney. Son, Rusty, living with them temporarily due to patient's worsening dementia. Code status is DNR. Recently enrolled in [facility]. 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 Quit smoking 2009. Long-standing history of cigarette smoking. Longstanding history of alcohol abuse. Son reports that patient drinks one alcoholic drink per day and will go over to the neighbors house to ask them to get him alcohol. What is your current living situation?: I presently have a place to live Problems where you live: no known problems Problems where you live details: na In the past 12 months, utilities in danger of being shut off: no In past 12 months, lack of transportation kept you from medical appts, meetings, work, or getting things needed for daily living: no In the past 12 mos, have been you worried that your food would run out before you had money to buy more?: never true In the past 12 mos, the food you bought just didn't last and you didn't have money to buy more?: never true Highest level of school completed/degree received: high school graduate Smoking Status: Former smoker What tobacco products do you use: cigarettes Smoking quit date/years: <= 15 years ago Do you use any of these nicotine containing products: None Second hand tobacco smoke exposure: No How often do you have a drink containing alcohol: never How many standard drinks containing alcohol do you have on a typical day: 1 or 2 How often do you have six or more drinks on one occasion: Never AUDIT-C Alcohol total score: 0 Non-prescribed substance use: denies use Caffeine: Yes How often does anyone, including family, friends and others, physically hurt you : unable to answer How often does anyone, including family, friends and others, insult or talk down to you: unable to answer How often does anyone, including family, friends and others, threaten you with harm: unable to answer How often does anyone, including family, friends and others, scream or curse at you: unable to answer Little interest or pleasure in doing things: more than half the days Feeling down, depressed, or hopeless: not at all service: No Meds Home Medications and Allergies Home Medications Medication Instructions Recorded Confirmed Type albuterol sulfate 90 mcg/actuation 1 inh inhalation Q6H PRN 05/09/22 11/12/23 History breath activated powder inhaler amlodipine 2.5 mg tablet 2.5 mg PO DAILY 05/09/22 11/12/23 History aspirin 81 mg tablet,delayed 81 mg PO HS 05/09/22 11/12/23 History release hydrochlorothiazide 25 mg tablet 25 mg PO DAILY 05/09/22 11/12/23 History ipratropium 0.5 mg-albuterol 3 mg 1 ml inhalation Q6H PRN 05/09/22 11/12/23 History (2.5 mg base)/3 mL nebulization soln multivitamin 1 tab PO DAILY 05/09/22 11/12/23 History sildenafil (pulm.hypertension) 20 20 mg PO TID 05/09/22 11/12/23 History mg tablet spironolactone 25 mg tablet 25 mg PO DAILY 05/09/22 11/12/23 History cilostazol 100 mg tablet 100 mg PO BID 10/07/23 11/12/23 History famotidine 40 mg tablet (Pepcid) 40 mg PO BID GERD 10/07/23 11/12/23 History fluticasone fur. 100 mcg-umeclid 1 inh inhalation DAILY 10/07/23 11/12/23 History 62.5 mcg-vilant 25 mcg inhalat.powder (Trelegy Ellipta) rosuvastatin 20 mg tablet 20 mg PO HS 10/07/23 11/12/23 History sertraline 100 mg tablet 100 mg PO DAILY Anxiety 10/07/23 11/12/23 History Home Medication Comments: He has been receiving morphine, Haldol, lorazepam. Most other medications including breathing treatments have been discontinued. He is unable to use an inhaler. The morphine dose has been 5 mg every 4 hours on schedule plus additional doses as needed. This is not causing significant sedation Allergies Allergy/AdvReac Type Severity Reaction Status Date / Time atorvastatin Allergy Verified 11/12/23 12:56 simvastatin Allergy Verified 11/12/23 12:56 Sulfa (Sulfonamide Allergy Verified 11/12/23 12:56 Antibiotics) Exam Narrative: Exam Narrative: He is lying in bed. He arouses to voice. When I wake him up he medially tries to sit up in climb out of bed. He is essentially nonverbal. He appears anxious. He does not appear to be particularly dyspneic. He has marked decreased breath sounds with occasional wheezes but fair air exchange all lung schwarz. Cardiovascular: S1, S2, regular rate and rhythm. Abdomen is soft without tenderness or mass. He moves all 4 extremities fairly well. No obvious skin rash. Const: Vital Signs, click to edit/add: Vital Signs - 24 hr 12/18/23 16:40 12/18/23 18:51 12/18/23 19:16 Temperature 98 F 97.3 F L 97.3 F L Pulse Rate [Pulse Oximeter] 88 Pulse Rate [Right Radial] 93 93 Respiratory Rate 16 20 20 Blood Pressure [Le ft Arm] 140/67 H 140/67 H Blood Pressure [Ri ght Upper Arm] 136/89 Pulse Oximetry 90 85 L 85 L Oxygen Delivery Me thod Nasal Cannula Nasal Cannula Nasal Cannula Oxygen Flow Rate 3 3 3 Documenting provider has reviewed patient's vital signs: yes Common normals: negative for average body habitus Assessment and Plan Assessment and plan (1) Palliative care encounter: Problem comment: I discussed with the patient's his current status. She understands that his current delirium is source of suffering for him and she would like additional medication for sedation. She understands that this additional medicine for sedation may hasten the dying process. She believes that the dying process is accelerating for him recently. She very much wants to see him co mfortable. Status: Acute (2) Need for comfort care: Status: Acute (3) Dementia: Status: Acute (4) COPD (chronic obstructive pulmonary disease): Problem comment: Provide oxygen for comfort only. Goal is to relieve obvious dyspnea, not to reach target O2 sats. Status: Chronic Plan Patient is admitted for end of life comfort cares. After discussion with the the plan will be to provide sedation favoring morphine and lorazepam over haloperidol at higher doses. Fentanyl patch is also applied. Per family the goal is to given of sedation so that he is not so restless and agitated. Comfort cares Total time spent is 65 minutes, 50 minutes in coordination of care and discussing with patient's and other providers end of life care
[2023-12-18] MEDS: fentaNYL 50 MCG/HR PATCH 1 PATCH TRANSDERMA (21:58)
[2023-12-18 23:00] VITALS: RESP 18
[2023-12-19] MEDS: MORPHINE 10 MG/0.5 ML ORAL SOLN PO ×11 (04:21→23:56)
[2023-12-19] MEDS: LORazepam 1 MG TABLET PO ×3 (04:28→15:30)
--- NOTE | 2023-12-19 06:33 | PC.NURSE ---
End of shift [id number]: Pt confused and agitated. Family at bedside at beginning of shift. 1:1 intermittently throughout shift. See eMAR for interventions. Turn and repo. Inc of urine.
[2023-12-19 07:00] VITALS: PULSE 86; RESP 20; O2SAT 93
--- NOTE | 2023-12-19 09:09 | PM.IMPN1 ---
Progress Note: A&P Assessment and plan (1) Palliative care encounter: Problem details: -continue comfort cares -goal is minimal agitation even if this means sedation Status: Acute (2) Need for comfort care: Status: Acute (3) Dementia: Problem details: end-stage Status: Acute (4) COPD (chronic obstructive pulmonary disease): Problem details: Provide oxygen for comfort only. Goal is to relieve obvious dyspnea, not to reach target O2 sats. Status: Chronic Subjective Date Seen: 12/19/23 Interval history: Daily Progress Note - Hospital Medicine #: 2 CC: agitation, end stage dementia OVERNIGHT UPDATES FROM STAFF & MED, LAB, IMAGING UPDATES with additional meds: SL morphine, ativan and fentanyl duragesic -pt is resting comfortably. has NC oxygen for comfort. vitals have been stable. Objective: sleeping peacefully Vitals: see above Lungs: Clear. Cardiac: S1S2. Disposition/Potential discharge - Likely to return to previous living situation. Today I spent 20 minutes seeing the patient, reviewing Expanse and EPIC notes/diagnostics, discussing the care plan with our care time that includes social work, PT/OT, pharmacy, RT, fpc and documenting my impressions and plan in the medical record. Exam Const: Vital Signs, click to edit/add: Vital Signs - 24 hr 12/18/23 16:40 12/18/23 18:51 12/18/23 19:16 Temperature 98 F 97.3 F L 97.3 F L Pulse Rate [Pulse Oximeter] 88 Pulse Rate [Right Radial] 93 93 Respiratory Rate 16 20 20 Blood Pressure [Le ft Arm] 140/67 H 140/67 H Blood Pressure [Ri ght Upper Arm] 136/89 Pulse Oximetry 90 85 L 85 L Oxygen Delivery Me thod Nasal Cannula Nasal Cannula Nasal Cannula Oxygen Flow Rate 3 3 3 12/18/23 19:45 12/18/23 23:00 Temperature Pulse Rate [Pulse Oximeter] Pulse Rate [Right Radial] Respiratory Rate 18 18 Blood Pressure [Le ft Arm] Blood Pressure [Ri ght Upper Arm] Pulse Oximetry 93 Oxygen Delivery Me thod Nasal Cannula Oxygen Flow Rate 5
--- NOTE | 2023-12-19 11:01 | PC.SOCIAL ---
Addendum entered by MARGARET Patel 12/19/23 15:27: Gary from [facility] in [place] came to [facility] to complete face to face with pt. Discussed with pt's son and pt's about change in discharge plans. Per family, [facility] has continued to work on discharge plans and has located placement with [facility]. Family gives permission to provide referral information to Gary from [facility]. [facility] can accept pt tomorrow. Family requests that pt transport through non-emergency EMS. Family informs that Hospice services will continue with [facility]. Provided referral packet to Gary from [facility]. Gary can be reached at [phone]. [facility] can accept pt tomorrow before 2:00 pm. Discharge orders can be faxed to [facility] at [phone]. Provided update to charge nurse. Charge nurse will set non-emergency EMS for tomorrow. Original Note: Discharge planning- Phone call to [facility] at [phone]. Pt works with a nurse Carrasco and they will have her reach out to this worker. Received a phone call from Luna ([phone]) at [facility]. Per Luna [facility] has not closed pt for hospice services and states pt is in the hospital because he is unsafe at home and needs placement. Per Luna, they were looking into getting pt into [facility] [place], however, they didn't have openings for a few days. Informed Luna that [facility] does not have a contract with hospice and does not do hospice respite and asked if [facility] plans to close hospice services during hospital stay and Luna informs they do not plan to close services. Luna will have her leader call this worker back to discuss further. Phone call to pt's to discuss discharge plan. Pt's would like pt to go to [facility] [place] with hospice in place. Pt's is aware that she will have to private pay for room and board at the [facility]. This worker informed this worker will follow up with [facility] and will keep pt's updated on progress. Phone call to admissions at [facility] at [phone]. Left voicemail inquiring on bed availability. Faxed referral to [phone]. Social work will follow up as needed.
[2023-12-19 15:00] VITALS: RESP 20
--- NOTE | 2023-12-19 18:53 | PC.NURSE ---
End of shift [id number]: Pt alert to self otherwise disoriented and confused. Pt has not really been verbal this shift, just making facial expressions at staff and family and mumbling incoherent sounds. Pt remained on 1L NC O2 for comfort. PO morphine given q1H throughout the day for pain & agitation. PO lorazepam given x2 doses q4H, last dose at 1530. Talavera placed this afternoon- draining 1300 mL clear, sarah urine this shift. Family has been visiting at bedside throughout the day. Pt repositions himself in bed from side to side. No BM today. Mottling noticed on anterior bilateral lower legs. Wet, rattling noticed this evening with inspiration- family aware to notify nurse if they wish to have PRN?s ordered for secretions. No PO intake today other than medications, overall sedated for comfort. Plan to discharge to [facility] tomorrow 12/20.?
[2023-12-19 23:00] VITALS: RESP 22
--- NOTE | 2023-12-19 23:39 | PC.NURSE ---
Pt appears comfortable, T&R Q2H. Frequent oral swabs and mouth moisturizer. at bedside most of the evening but did leave unit to go home and sleep. [employer]iconductor Processing Technician phoned at [phone] to update her on change in breathing pattern with increased apneic episodes. did not answer, voicemail left.
--- NOTE | 2023-12-20 01:01 | PC.NURSE ---
Morphine given x1 as patient was exhibiting increased work of breathing, moaning intermittently, and opening eyes looking around. After morphine, breathing has relaxed and moaning has subsided. Resting comfortably. T&R Q2H.
--- NOTE | 2023-12-20 01:53 | PC.NURSE ---
Addendum entered by Opal Gibbons RN 12/20/23 02:45: [facility] notified, not a donor candidate due to dementia dx. Reference # [id number] Original Note: At 0130 patient was resting comfortably, RR 22. Checked patient at 0140 and respirations had changed to agonal. and son both called, left messages. Called again and notified her of change in breathing/status and expecting patient to pass away imminently. Time of 014, verified by ED physician Dr. Hartman. Dr. Snyder, telehealth MD notified of . Awaiting family arrival.
--- NOTE | 2023-12-20 02:41 | PC.NURSE ---
Taylor and son Olivier arrived to floor and notified of patient's passing. Spent time with patient to say goodbye. Notified [facility] nurse Riddhi. Ok to release body to [facility] per family's request. Patient does have 2 yellow rings on, one yellow band on left ring finger and one yellow class ring with red stone on right ring finger. Unable to remove rings due to swelling. Family ok with rings going to [facility] to be returned after they are able to remove.
--- NOTE | 2023-12-21 04:54 | PC.NURSE ---
Spoke with Dinah Stark from [facility] regarding fentanyl patch on pt R shoulder, she informed this headline writer that she will have co-worker check R shoulder for patch, remove and properly dispose of patch.
== END 2023-12-20 05:24 | disposition expired ==
LOC: ED 18:24 → MEDSURG 18:31
PROVIDERS: Admitting Provider Family Medicine; Emergency Provider Emergency Medicine; PCP Internal Medicine; Visit Provider Family Medicine
DX: R45.1 Restlessness and agitation (principal); Z51.5 Encounter for palliative care; F03.90 Unspecified dementia, unspecified severity, without behavioral disturbance, psychotic disturbance, mood disturbance, and anxiety; F05 Delirium due to known physiological condition; J44.9 Chronic obstructive pulmonary disease, unspecified; I25.10 Atherosclerotic heart disease of native coronary artery without angina pectoris; I10 Essential (primary) hypertension; E78.5 Hyperlipidemia, unspecified; E11.9 Type 2 diabetes mellitus without complications; K21.9 Gastro-esophageal reflux disease without esophagitis; G89.29 Other chronic pain; M10.9 Gout, unspecified; T14.8XXA Other injury of unspecified body region, initial encounter; T78.40XA Allergy, unspecified, initial encounter; F10.21 Alcohol dependence, in remission; Z86.010 Personal history of colon polyps; Z86.16 Personal history of COVID-19; Z87.891 Personal history of nicotine dependence; Z87.898 Personal history of other specified conditions; Z96.1 Presence of intraocular lens; Z98.41 Cataract extraction status, right eye; Z98.42 Cataract extraction status, left eye; Z98.890 Other specified postprocedural states; Z78.9 Other specified health status; Z66 Do not resuscitate
CPT/HCPCS: 51701; 99283; 99284; 99285; A9270; G0378